=== PATIENT | female | born 1955 | race Caucasian/White ===

== ENCOUNTER 2016-07-27 16:47 | Observation (INO) | payer MEDICARE, OTHER ==
[2016-07-27] MEDS ORDERED: HYDROmorphone 1 MG/ML 1 ML SYRINGE IM STA (17:23)
--- NOTE | 2016-07-27 17:33 | ED ---
General Adult HPI - General Chief complaint: Extremity Injury, Lower Stated complaint: knee pain Time Seen by Provider: 07/27/16 17:13 Source: patient, RN notes reviewed, old records reviewed Mode of arrival: EMS Limitations: no limitations - History of Present Illness Initial comments: Chief complaint history of present illness this is a 60-year-old female brought to emergency by ambulance because of left knee pain. The patient reports she has osteoarthritis and she was stepping over something and all of a sudden she developed severe pain after she felt and heard a pop. The knee is significantly swollen and she is unable to extend she's stuck in a locked flexed position. Neurovascular status of the foot is intact. - Related Data Home Medications Medication Instructions Recorded Confirmed Atorvastatin [Lipitor] 40 mg PO HS@2300 06/21/15 07/27/16 DULoxetine HCL [DULoxetine HCL] 60 mg PO BID@0800,1700 06/21/15 07/27/16 Losartan [Cozaar] 50 mg PO DAILY@1700 06/21/15 07/27/16 Metoprolol Tartrate [Lopressor] 50 mg PO DAILY@2300 06/21/15 07/27/16 Ranitidine HCl 150 mg PO BID@1300,2300 06/21/15 07/27/16 Triamcinolone 0.1% Cream [Kenalog] 1 applic TOPICAL DAILY PRN 06/21/15 07/27/16 amLODIPine BESYLATE [Amlodipine 10 mg PO DAILY@0800 06/21/15 07/27/16 Besylate] traZODone HCL [Desyrel] 50 mg PO HS@2300 06/21/15 07/27/16 Calcium Carbonate [Calcium] 600 mg PO DAILY@1300 01/01/16 07/27/16 Multivits-Min/Iron/FA/Lutein 1 tab PO DAILY@0800 01/01/16 07/27/16 [Centrum Silver Women Tablet] metFORMIN HCL 1,500 mg PO DAILY@1700 01/01/16 07/27/16 Mupirocin 2% Oint [Bactroban 2% 1 applic TOPICAL TID PRN 05/22/16 07/27/16 Oint] Gabapentin [Neurontin] 300 mg PO TID@0800,1700,2300 05/29/16 07/27/16 Glimepiride [Amaryl] 4 mg PO BID@1300,1700 05/29/16 07/27/16 Ferrous Sulfate [Feosol] 325 mg PO Q48H 06/05/16 07/27/16 Acetaminophen Tab [Tylenol Tab] 650 mg PO Q4H PRN 07/27/16 07/27/16 Calcium Polycarbophil [Fiber-Lax] 625 mg PO DAILY@0800 07/27/16 07/27/16 Furosemide [Lasix] 20 mg PO BID@0800,1700 07/27/16 07/27/16 Levothyroxine Sodium [Synthroid] 50 mcg PO DAILY@0800 07/27/16 07/27/16 Loratadine [Claritin] 10 mg PO DAILY PRN 07/27/16 07/27/16 Potassium Chloride [Klor-Con 10] 10 meq PO DAILY@1700 07/27/16 07/27/16 Allergies Allergy/AdvReac Type Severity Reaction Status Date / Time ciprofloxacin [From Cipro] Allergy Anaphylaxis Verified 07/27/16 17:21 ciprofloxacin HCl Allergy Anaphylaxis Verified 07/27/16 17:21 [From Cipro] diazepam [From Valium] Allergy Rash/Hives Verified 07/27/16 17:21 metronidazole [From Flagyl] Allergy Anaphylaxis Verified 07/27/16 17:21 Sulfa (Sulfonamide Allergy Rash/Hives Verified 07/27/16 17:21 Antibiotics) metoclopramide HCl AdvReac Diarrhea Verified 07/27/16 17:21 [From Reglan] Review of Systems ROS Statement: Those systems with pertinent positive or pertinent negative responses have been documented in the HPI. Review of systems no complaint of headache or visual acuity changes no chest pain shortness breath GI/ problems this time her main complaint is left knee pain and swelling. All systems were otherwise reviewed. Past medical problems are multiple including coronary artery disease, angina, diabetes mellitus, GERD, hypertension and lipidemia hypertension, previous [place], osteoarthritis, skin disorder associated with chronic edema. Eczema,-year-old bowel syndrome, CTS bilaterally, disc disease, patient usually wears a leg brace. Her surgeries include appendectomy, , gallbladder, heart, hysterectomy, tonsillectomy, left breast lumpectomy. 2 D&Cs. Family history noncontributory. ALLERGIES Cipro, metronidazole, diazepam, sulfa and metoclopramide. ROS Other: All systems not noted in ROS Statement are negative. Past Medical History Past Medical History: Coronary Artery Disease (CAD), Chest Pain / Angina, Diabetes Mellitus, GERD/Reflux, Hyperlipidemia, Hypertension, Myocardial Infarction ([place]), Osteoarthritis (OA), Skin Disorder Additional Past Medical History / Comment(s): ECZEMA. IBS. CTS bilaterally. 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 WEARS LT KNEE BRACE Last Myocardial Infarction Date:: [place] X 3 LAST ONE 2006 History of Any Multi-Drug Resistant Organisms: MRSA Date of last positivie culture/infection: 01/01/16 MDRO Source:: right leg Past Surgical History: Appendectomy, Section, Cholecystectomy, Heart Catheterization With Stent, Hysterectomy, Tonsillectomy Additional Past Surgical History / Comment(s): LUMPECTOMY LT BREAST. D & C X 2 R/T MISCARRIAGE, tumor right shoulder removed Past Anesthesia/Blood Transfusion Reactions: Previous Problems w/ Anesthesia Additional Past Anesthesia/Blood Transfusion Reaction / Comment(s): TENDS TO HAVE PANIC ATTACKS WHEN COMING OUT OF ANESTHESIA Date of Last Stent Placement:: 2006 Past Psychological History: Anxiety, Depression, Panic Disorder, PTSD Smoking Status: Former smoker Past Alcohol Use History: None Reported Past Drug Use History: None Reported - Past Family History Mother Family Medical History: Cancer Father Family Medical History: Coronary Artery Disease (CAD), Myocardial Infarction ([place] ) General Exam - General Exam Comments Initial Comments: General: The patient is awake and alert, moderate distress because of significant pain and swelling acutely developed while stepping over something to her left knee. Vital signs showed temp 98.3 pulse 110 respiratory rate 24 pulse ox 97% room air blood pressure 157/73 Eye: Pupils are equal, Ears, nose, mouth and throat: There are moist mucous membranes Neck: The neck is supple, no complaint of neck pain. Back: No back pain Musculoskeletal: Patient has left knee that is locked in a full flexed position with significant swelling. No ecchymosis noted. Patient was stepping over something when she felt a pop and is now unable to extend at the knee. Neurological: No apparent neuro deficits distally. Skin: Skin disorder of her lower extremity chronic clears no wintertime. Limitations: no limitations Course Vital Signs 07/27/16 17:00 Temperature 98.3 F Pulse Rate 110 H Respiratory 24 Rate Blood Pressure 157/73 O2 Sat by Pulse 97 Oximetry Medical Decision Making - Medical Decision Making X-ray of the left knee was done and reviewed by radiologist his impression is there is narrowing and spurring at the patellofemoral joint. I see no fracture nor dislocation. There is spurring of the femoral and tibial condyles. There is no sign of joint effusion. Impression; osteoarthritis mainly at the patellofemoral joint. No fracture. As read by Dr. Grossman Second and third examinations still with significant pain unable to fully extend. Minimal pain with varus valgus stressing the patient cannot tolerate any ACL testing. Suspect internal derangement. Patient was unable to extend her foot or leg long enough to touch toes to the floor. Nonambulatory. Patient will be admitted to medicine with consultation from orthopedics. Disposition Clinical Impression: Internal derangement of left knee Disposition: ADMITTED IP TO THIS [facility] Condition: Fair
--- NOTE | 2016-07-27 18:01 | XR ---
EXAMINATION TYPE: XR knee complete LT DATE OF EXAM: 07/27/2016 5:56 PM COMPARISON: NONE HISTORY: Knee pain and swelling TECHNIQUE: 3 views FINDINGS: There is narrowing and spurring at the patellofemoral joint. I see no fracture nor dislocat ion. There is spurring of the femoral and tibial condyles. There is no sign of joint effusion. IMPRESSION: Osteoarthritis mainly at the patellofemoral joint. No fracture.
[2016-07-27 21:15] LABS: Glucose,Whole Blood 131 mg/dL (75-99)
[2016-07-27] MEDS ORDERED: ONDANSETRON 4 MG/2 ML VIAL IVP PRN (21:31)
[2016-07-27] MEDS ORDERED: NALOXONE 0.4 MG/ML 1 ML VIAL IV PRN (21:31)
[2016-07-27] MEDS ORDERED: MUPIROCIN 2% OINT 22 GM TUBE TOPICAL PRN (21:37)
[2016-07-27] MEDS ORDERED: TRIAMCINOLONE 0.1% CREAM 80 GM TUBE TOPICAL PRN (21:37)
[2016-07-27] MEDS ORDERED: CYCLOBENZAPRINE 5 MG TAB PO STA (21:40)
[2016-07-27] MEDS ORDERED: FERROUS SULFATE 325 MG TAB PO SCH (21:45)
[2016-07-27 22:30] VITALS: BMI 46.8
[2016-07-27] MEDS: GABAPENTIN 300 MG CAP PO SCH (22:35)
[2016-07-27] MEDS ORDERED: FAMOTIDINE 20 MG TAB PO STA (22:39)
[2016-07-27] MEDS ORDERED: metFORMIN 500 MG TAB PO STA (22:39)
[2016-07-27] MEDS ORDERED: POTASSIUM CHLORIDE ER 10 MEQ TAB.ER.PRT PO SCH (22:44)
[2016-07-27] MEDS ORDERED: traZODone HCL 50 MG TAB PO SCH (23:00)
[2016-07-27] MEDS ORDERED: METOPROLOL TARTRATE 50 MG TAB PO SCH (23:00)
[2016-07-27] MEDS ORDERED: ATORVASTATIN 40 MG TAB PO SCH (23:00)
[2016-07-27] MEDS: SODIUM CHLORIDE 0.9% 1,000 ML IV SCH (23:21)
[2016-07-27] MEDS: GLIMEPIRIDE 4 MG TAB PO SCH (23:22)
[2016-07-27] MEDS: DULoxetine HCL 60 MG CAPSULE.DR PO SCH (23:22)
[2016-07-28] MEDS: HYDROmorphone 1 MG/ML 1 ML SYRINGE IV PRN ×2 (04:59→10:48)
[2016-07-28 07:05] LABS: Glucose,Whole Blood 143 mg/dL (75-99)
[2016-07-28 07:21] LABS: Basophils # (A) 0.1 k/uL (0-0.2); Basophils % (A) 1 %; CHCM 33.4; Eosinophils # (A) 0.2 k/uL (0-0.7); Eosinophils % (A) 3 %; HCT 34.8 % (34.0-46.0); HGB 11.5 gm/dL (11.4-16.0); Luc % (Auto) 3; Lymphocytes # (A) 2.3 k/uL (1.0-4.8); Lymphocytes % (A) 33 %; MCH 30.8 pg (25.0-35.0); MCV 93.3 fL (80.0-100.0); Mean Platelet Volume 7.2; Monocytes # (A) 0.5 k/uL (0-1.0); Monocytes % (A) 7 %; Neutrophils # (A) 3.6 k/uL (1.3-7.7); Neutrophils % (A) 53 %; RBC 3.73 m/uL (3.80-5.40); RDW 13.3 % (11.5-15.5); WBC 6.9 k/uL (3.8-10.6); WBC (Perox) 7.17
[2016-07-28 07:31] LABS: Anion Gap 13 mmol/L; Blood Urea Nitrogen 15 mg/dL (7-17); Calcium 9.2 mg/dL (8.4-10.2); Carbon Dioxide 23 mmol/L (22-30); Chloride 106 mmol/L (98-107); Glucose 144 mg/dL (74-99); Non-African American GFR(MDRD) >60 (>60 ml/min/1.73 sqM); Sodium 142 mmol/L (137-145)
[2016-07-28] MEDS ORDERED: amLODIPine 10 MG TAB PO SCH (08:00)
[2016-07-28] MEDS ORDERED: DULoxetine HCL 60 MG CAPSULE.DR PO SCH (08:00)
[2016-07-28] MEDS ORDERED: CALCIUM POLYCARBOPHIL 625 MG TAB PO SCH (08:00)
[2016-07-28] MEDS ORDERED: LEVOTHYROXINE 50 MCG TAB PO SCH (08:00)
[2016-07-28] MEDS: INSULIN LISPRO (humaLOG) 300 UNIT/3 ML VIAL SQ SCH ×3 (08:10→17:48)
[2016-07-28] MEDS: DULoxetine HCL 60 MG CAPSULE.DR PO SCH ×2 (08:12→17:47)
[2016-07-28] MEDS: metFORMIN 500 MG TAB PO SCH ×2 (08:12→17:48)
[2016-07-28] MEDS: FUROSEMIDE 20 MG TAB PO SCH ×2 (08:12→17:47)
[2016-07-28] MEDS: GABAPENTIN 300 MG CAP PO SCH (08:14)
[2016-07-28] MEDS ORDERED: FAMOTIDINE 20 MG TAB PO SCH (09:00)
[2016-07-28 11:11] VITALS: TEMP 97.5
--- NOTE | 2016-07-28 11:39 | US ---
EXAMINATION TYPE: US venous doppler duplex LE LT DATE OF EXAM: 07/28/2016 10:18 AM COMPARISON: US 2016 CLINICAL HISTORY: Left leg pain. SIDE PERFORMED: Left VESSELS IMAGED: External Iliac Vein (EIV) Common Femoral Vein Deep Femoral Vein Greater Saphenous Vein * Femoral Vein Popliteal Vein Small Saphenous Vein * Proximal Calf Veins (* superficial vessels) Left Leg: No evidence of DVT. Incidental finding of left Mohr's cyst = 3.8 x 2.5 x 2.1 cm Grayscale, color Doppler, spectral Doppler imaging performed of the deep veins of the left lower extr emity. IMPRESSION: No deep venous thrombosis at or above the left knee. 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
[2016-07-28 11:55] LABS: Glucose,Whole Blood 144 mg/dL (75-99)
[2016-07-28] MEDS ORDERED: CYCLOBENZAPRINE 5 MG TAB PO PRN (12:13)
[2016-07-28] MEDS ORDERED: HYDROcodone/APAP 5-325MG 1 EACH TAB PO PRN (12:18)
--- NOTE | 2016-07-28 12:28 | P.HPOR ---
History of Present Illness H&P Date: 07/28/16 Chief Complaint: Left knee pain The patient is a 60-year-old female that presented to the emergency department yesterday for severe left knee pain. The patient states that she was at home and stepped down on her left leg and felt a pop. The patient states that most of her pain is on the lateral and posterior aspect of her left knee. The patient was seen and evaluated by Dr. Lou in the emergency department last night. The patient was admitted to our service due to inability to ambulate. The patient was given Flexeril and Dilaudid with improvement of pain. A venous Doppler was obtained this morning which was negative for DVT but did reveal a Mohr's cyst. She denies a specific injury to this knee in the past but has seen Dr. Hunt and Dr. Queen in our office. She is currently under the care of Dr. Hunt for right shoulder rotator cuff tendonitis. Today, the patient states that her left knee is feeling better but she has not ambulated with physical therapy yet today. Review of Systems Constitutional: Reports as per HPI, Denies chills, Denies fever, Denies lethargy Musculoskeletal: Reports limitation of motion, Reports muscle cramps, Denies leg numbness/tingling Musculoskeletal: left: knee pain, knee stiffness Past Medical History Past Medical History: Coronary Artery Disease (CAD), Chest Pain / Angina, Diabetes Mellitus, GERD/Reflux, Hyperlipidemia, Hypertension, Myocardial Infarction ([place]), Osteoarthritis ([place]), Skin Disorder Additional Past Medical History / Comment(s): ECZEMA. IBS. CTS bilaterally. 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 WEARS LT KNEE BRACE Last Myocardial Infarction Date:: [place] X 3 LAST ONE 2006 History of Any Multi-Drug Resistant Organisms: MRSA Date of last positivie culture/infection: 01/01/16 MDRO Source:: right leg Past Surgical History: Appendectomy, Section, Cholecystectomy, Heart Catheterization With Stent, Hysterectomy, Tonsillectomy Additional Past Surgical History / Comment(s): LUMPECTOMY LT BREAST. D & C X 2 R/T MISCARRIAGE, tumor right shoulder removed Past Anesthesia/Blood Transfusion Reactions: Previous Problems w/ Anesthesia Additional Past Anesthesia/Blood Transfusion Reaction / Comment(s): TENDS TO HAVE PANIC ATTACKS WHEN COMING OUT OF ANESTHESIA Date of Last Stent Placement:: 2006 Past Psychological History: Anxiety, Depression, Panic Disorder, PTSD Smoking Status: Former smoker Past Alcohol Use History: None Reported Past Drug Use History: None Reported - Past Family History Mother Family Medical History: Cancer Father Family Medical History: Coronary Artery Disease (CAD), Myocardial Infarction ([place] ) Medications and Allergies Home Medications Medication Instructions Recorded Confirmed Type Atorvastatin [Lipitor] 40 mg PO HS@2300 06/21/15 07/27/16 History DULoxetine HCL [DULoxetine HCL] 60 mg PO BID@0800,1700 06/21/15 07/27/16 History Losartan [Cozaar] 50 mg PO DAILY@1700 06/21/15 07/27/16 History Metoprolol Tartrate [Lopressor] 50 mg PO DAILY@2300 06/21/15 07/27/16 History Ranitidine HCl 150 mg PO BID@1300,2300 06/21/15 07/27/16 History Triamcinolone 0.1% Cream [Kenalog] 1 applic TOPICAL DAILY PRN 06/21/15 07/27/16 History amLODIPine BESYLATE [Amlodipine 10 mg PO DAILY@0800 06/21/15 07/27/16 History Besylate] traZODone HCL [Desyrel] 50 mg PO HS@2300 06/21/15 07/27/16 History Calcium Carbonate [Calcium] 600 mg PO DAILY@1300 01/01/16 07/27/16 History Multivits-Min/Iron/FA/Lutein 1 tab PO DAILY@0800 01/01/16 07/27/16 History [Centrum Silver Women Tablet] metFORMIN HCL 1,500 mg PO DAILY@1700 01/01/16 07/27/16 History Mupirocin 2% Oint [Bactroban 2% 1 applic TOPICAL TID PRN 05/22/16 07/27/16 History Oint] Gabapentin [Neurontin] 300 mg PO TID@0800,1700,2300 05/29/16 07/27/16 History Glimepiride [Amaryl] 4 mg PO BID@1300,1700 05/29/16 07/27/16 History Ferrous Sulfate [Feosol] 325 mg PO Q48H 06/05/16 07/27/16 History Acetaminophen Tab [Tylenol Tab] 650 mg PO Q4H PRN 07/27/16 07/27/16 History Calcium Polycarbophil [Fiber-Lax] 625 mg PO DAILY@0800 07/27/16 07/27/16 History Furosemide [Lasix] 20 mg PO BID@0800,1700 07/27/16 07/27/16 History Levothyroxine Sodium [Synthroid] 50 mcg PO DAILY@0800 07/27/16 07/27/16 History Loratadine [Claritin] 10 mg PO DAILY PRN 07/27/16 07/27/16 History Potassium Chloride [Klor-Con 10] 10 meq PO DAILY@1700 07/27/16 07/27/16 History Allergies Allergy/AdvReac Type Severity Reaction Status Date / Time ciprofloxacin [From Cipro] Allergy Anaphylaxis Verified 07/27/16 17:21 ciprofloxacin HCl Allergy Anaphylaxis Verified 07/27/16 17:21 [From Cipro] diazepam [From Valium] Allergy Rash/Hives Verified 07/27/16 17:21 metronidazole [From Flagyl] Allergy Anaphylaxis Verified 07/27/16 17:21 Sulfa (Sulfonamide Allergy Rash/Hives Verified 07/27/16 17:21 Antibiotics) metoclopramide HCl AdvReac Diarrhea Verified 07/27/16 17:21 [From Reglan] Physical Examination The patient is a 60-year-old female who is in no acute distress. She is alert and oriented 3. No obvious deformities or issues with her bilateral upper extremities and right lower extremity. Focused exam of the left lower extremity reveals the left knee currently in a pillow at 30 flexion. The patient is able to fully extend knee with pain. Patient has full flexion of the knee to 110 without significant pain. She has pain to palpation to the posterior aspect of the knee. The patient does have some guarding upon palpation of the anterior knee along the medial and lateral joint line. MCL, LCL, PCL, ACL appeared to be intact. Exam slightly limited due to pain and guarding. Unable to perform Carlyn's due to pain. Neurological and circulatory status is intact. Pedal pulse is 2+. Results - Labs Labs: Abnormal Lab Results - Last 24 Hours (Table) 07/28/16 07/28/16 07/28/16 Range/Units 06:59 06:59 06:59 RBC 3.73 L (3.80-5.40) m/uL Glucose 144 H (74-99) mg/dL POC Glucose (mg/dL) 143 H (75-99) mg/dL 07/28/16 Range/Units 11:20 RBC (3.80-5.40) m/uL Glucose (74-99) mg/dL POC Glucose (mg/dL) 144 H (75-99) mg/dL H & H 07/28/16 Range/Units 06:59 Hgb 11.5 (11.4-16.0) gm/dL Hct 34.8 (34.0-46.0) % Result Diagrams: 07/28/16 06:59 07/28/16 06:59 - Diagnostic results Knee x-ray: image reviewed (Severe patellofemoral osteoarthritis is present. No fractures seen) Assessment and Plan (1) Internal derangement of left knee Status: Acute (2) Knee pain, left Status: Acute Plan: The clinical and x-ray findings were discussed with the patient. The case was also discussed with Dr. Hunt. The patient states that she has a brace at home but it is not a hinged brace. The patient will be ordered a hinged brace today. The patient will work with physical therapy today for gait training with a walker, crutches, or cane. She may maintain weightbearing as tolerated. The patient may be discharged home later today once brace is obtained and if safely ambulating after physical therapy. The patient will continue on Flexeril and oral pain medications in the form of Belle be ordered today. The patient may need an MRI in the near future if symptoms do not improve. We will continue to follow patient closely but she is orthopedically stable for discharge after physical therapy.
[2016-07-28] MEDS: SODIUM CHLORIDE 0.9% 1,000 ML IV SCH (12:53)
[2016-07-28] MEDS: GLIMEPIRIDE 4 MG TAB PO SCH ×2 (12:57→17:48)
[2016-07-28] MEDS ORDERED: metFORMIN 500 MG TAB PO SCH ×2 (13:00→17:00)
[2016-07-28] MEDS ORDERED: GLIMEPIRIDE 4 MG TAB PO SCH (13:00)
[2016-07-28] MEDS ORDERED: CALCIUM CARBONATE 500 MG CHEWABLE PO SCH (13:00)
[2016-07-28 13:30] LABS: Hemoglobin A1C 6.8 % (4.2-6.1)
[2016-07-28 13:45] VITALS: BP 138/75; PULSE 93; RESP 18
[2016-07-28 16:35] LABS: Glucose,Whole Blood 114 mg/dL (75-99)
[2016-07-28] MEDS ORDERED: LOSARTAN 50 MG TAB PO SCH (17:00)
[2016-07-28] MEDS ORDERED: POTASSIUM CHLORIDE ER 10 MEQ TAB.ER.PRT PO SCH (17:00)
--- NOTE | 2016-07-28 21:39 | CONS ---
DATE OF CONSULTATION: REASON FOR CONSULTATION: ( ) regarding antihypertensive medications, diabetes medications. The patient is a 60 -year-old female came in with left knee pain, found to have ( ) level of the left posterior aspect of the knee. The patient follows with Dr. Lou. The patient was evaluated by Dr. Lou and venous Doppler of the lower extremity was obtained ( ) Mohr's cyst. The patient is still having pain in that area and orthopedics has recommended ( ) of that area and PT and OT evaluation ( ) if patient is able to ambulate their recommendation to discharge the patient in the meantime. I was consulted for management of her medical problems as mentioned above. Patient denied any fever, chills. The patient denied any nausea, vomiting, abdominal pain, fever or chills. Dysuria, nausea, vomiting. REVIEW OF SYSTEMS: CONSTITUTIONAL: No fever, no malaise, no fatigue. HEENT: No recent visual problems or hearing problems. Denied any sore throat. CARDIOVASCULAR: No chest pain, orthopnea, PND, no palpitations, no syncope. PULMONARY: No shortness of breath, no cough, no hemoptysis. GASTROINTESTINAL: No diarrhea, no nausea, no vomiting, no abdominal pain. Normoactive bowel sounds. NEUROLOGICAL: No headaches, no weakness, no numbness. HEMATOLOGICAL: Denies any bleeding or petechiae. GENITOURINARY: Denies any burning micturition, frequency, or urgency. MUSCULOSKELETAL/RHEUMATOLOGICAL: Defer to orthopedic surgery. ENDOCRINE: Denies any polyuria or polydipsia. The rest of the 14 point review of systems is negative. PAST MEDICAL HISTORY: Coronary artery disease, diabetes mellitus, gastroesophageal reflux disease, hyperlipidemia, hypertension, myocardial infarction, osteoarthritis, eczema, irritable bowel syndrome, tumor on the right shoulder, appendectomy, section, cholecystectomy, cardiac catheterization with stent placement, hysterectomy, tonsillectomy, anxiety, depression, panic disorder, former smoker, quit smoking years ago. Denied any alcohol abuse or any drug abuse. FAMILY HISTORY: Mother had cancer. Father had coronary artery disease and myocardial infarction. Home medications include: 1. Atorvastatin. 2. Duloxetine. 3. Losartan. 4. Metoprolol. 5. Ranitidine. 6. Triamcinolone. 7. Amlodipine. 8. Trazodone. 9. Calcium carbonate. 10. Multivitamin. 11. Metformin. 12. ( ). 13. Gabapentin. 14. Glimepiride. 15. Ferrous sulfate. 16. Acetaminophen. 17. Calcium. 18. ( ). 19. Lasix. 20. Levothyroxine. 21. Loratadine. 22. Potassium chloride. ALLERGIES: ALLERGIC TO CIPROFLOXACIN, ( ) METRONIDAZOLE, SULFUR, ANTIBIOTIC AND METOCLOPRAMIDE. PHYSICAL EXAMINATION: VITAL SIGNS: Temperature afebrile, pulse of 75, respiratory rate of 19, blood pressure 140/80, saturating at 98% on room air. GENERAL: The patient is alert and oriented x3, not in any acute distress. Well developed, well nourished. HEENT: Pupils are round and equally reacting to light. EOMI. No scleral icterus. No conjunctival pallor. Normocephalic, atraumatic. No pharyngeal erythema. No thyromegaly. CARDIOVASCULAR: S1 and S2 present. No murmurs, rubs, or gallops. PULMONARY: Chest is clear to auscultation, no wheezing or crackles. ABDOMEN: Soft, nontender, nondistended, normoactive bowel sounds. No palpable organomegaly. MUSCULOSKELETAL: Defer to orthopedic surgery. EXTREMITIES: No cyanosis, clubbing, or pedal edema. NEUROLOGICAL: Gross neurological examination did not reveal any focal deficits. SKIN: No rashes. LABORATORY DATA: CBC, CMP, essentially within normal limits. ASSESSMENT AND PLAN: 1. Mohr's cyst under the left knee, management as per primary services ( ) and PT and OT evaluation after which patient will be discharged. 2. Hypothyroidism. 3. Type 2 diabetes mellitus. 4. Hyperlipidemia. 5. Hypertension. 6. Depression. 7. Gastroesophageal reflux disease. PLAN: Medication reconciliation was done and recommend to continue her home medications. All her chronic medical problems appear to be fairly stable at this point of time. Continue to monitor. I recommend a sliding scale insulin if the patient is staying in the hospital and I will titrate the diabetic medications as necessary. Thank you for letting me participate in this patient's care. We will sign off at this point of time.
== END 2016-07-28 18:34 | disposition home or self-care (01) ==
LOC: EC 16:47 → 3SUR 21:31
PROVIDERS: ADMIT Orthopaedic Surgery; ATTEND Orthopaedic Surgery
DX: M71.22 Synovial cyst of popliteal space [Baker], left knee (principal); E03.9 Hypothyroidism, unspecified; E11.9 Type 2 diabetes mellitus without complications; E78.5 Hyperlipidemia, unspecified; I10 Essential (primary) hypertension; F32.9 Major depressive disorder, single episode, unspecified; K21.9 Gastro-esophageal reflux disease without esophagitis; M23.92 Unspecified internal derangement of left knee; M17.12 Unilateral primary osteoarthritis, left knee; I25.10 Atherosclerotic heart disease of native coronary artery without angina pectoris; M75.101 Unspecified rotator cuff tear or rupture of right shoulder, not specified as traumatic; I25.2 Old myocardial infarction; Z95.5 Presence of coronary angioplasty implant and graft; Z86.14 Personal history of Methicillin resistant Staphylococcus aureus infection; Z79.899 Other long term (current) drug therapy; Z79.84 Long term (current) use of oral hypoglycemic drugs; Z88.1 Allergy status to other antibiotic agents; Z88.2 Allergy status to sulfonamides; Z88.8 Allergy status to other drugs, medicaments and biological substances; Z82.49 Family history of ischemic heart disease and other diseases of the circulatory system; Z87.891 Personal history of nicotine dependence; Z80.9 Family history of malignant neoplasm, unspecified; Z53.8 Procedure and treatment not carried out for other reasons
CPT/HCPCS: 99284; 96372; 36415; 97161; 80048; 83036; 85025; 73562; 93965; 93971; G0378 ×2; J1170 ×2; 96374; 96376

== ENCOUNTER → 2016-11-06 | Outpatient (CLI) | payer MEDICARE, OTHER ==
--- NOTE | 2016-11-06 14:53 | XR ---
2 view abdomen No comparisons 2 views of the abdomen submitted on 3 images The lung bases are clear. There is no pneumoperitoneum or bowel obstruction. Surgical clips are prese nt within the abdomen. Degenerative disc change within the visualized spine, there are vascular calci fications within the pelvis. Difficult to exclude lower pole renal calcification on the left. IMPRESSION: Possible nephrolithiasis, CT scan could be performed for increased sensitivity..
== END | disposition home or self-care (01) ==
LOC: RADXRMAIN 10:35
PROVIDERS: ATTEND Physician Assistant Medical
DX: R10.84 Generalized abdominal pain (principal)
CPT/HCPCS: 74020

== ENCOUNTER → 2016-11-20 | Outpatient (CLI) | payer MEDICARE, OTHER ==
[2016-11-20 07:33] LABS: Blood Urea Nitrogen 20 mg/dL (7-17); Non-African American GFR(MDRD) >60 (>60 ml/min/1.73 sqM)
--- NOTE | 2016-11-20 09:45 | CT ---
EXAMINATION TYPE: CT abdomen pelvis wo/w con DATE OF EXAM: 11/20/2016 8:15 AM COMPARISON: NONE HISTORY: Back pain, diarrhea, nausea CT DLP: 3671.9 mGycm Automated exposure control for dose reduction was used. TECHNIQUE: Helical acquisition of images was performed from the lung bases through the pelvis pre- a nd postadministration of intravenous contrast. CONTRAST: Performed with Oral Contrast and with IV Contrast, patient injected with 100 mL of Omnipaque 300. FINDINGS: LUNG BASES: Lung bases are clear, there is no pleural or pericardial effusion evident. LIVER/GB: Liver shows low attenuation likely due to fatty infiltration and is enlarged. Gallbladder i s absent, surgical clips present compatible with post cholecystectomy PANCREAS: No significant abnormality is seen. SPLEEN: No significant abnormality is seen. ADRENALS: No significant abnormality is seen. KIDNEYS: Bilateral nephrolithiasis, lower pole on the left calcification is nonobstructive and measur es approximately 8 to 9 mm. Upper pole right sided calcification measures only 2 to 3 mm. No ureteral calcification FREE AIR: No free air is visualized. RETROPERITONEAL ADENOPATHY: None visualized REPRODUCTIVE ORGANS: No significant abnormality is seen URINARY BLADDER: No significant abnormality is seen. PELVIC ADENOPATHY: Nonenlarged nodes are present. OSSEOUS STRUCTURES: Mild degenerative disc changes in the visualized spine. BOWEL: Patient is post appendectomy. No evident bowel obstruction. Contrast is not coursed to the le raimundo of the distal small bowel or colon. Small bowel loops show some wall thickening. OTHER: IMPRESSION: CORRELATE FOR POSSIBLE ENTERITIS. BILATERAL NONOBSTRUCTIVE NEPHROLITHIASIS. HEPATOMEGALY, POSTOP TREVIZO GES, PROBABLE FATTY INFILTRATION OF THE LIVER.
== END | disposition home or self-care (01) ==
LOC: RADCTMAIN 06:49
PROVIDERS: ATTEND Physician Assistant Medical
DX: N20.0 Calculus of kidney (principal); R19.7 Diarrhea, unspecified; Z98.890 Other specified postprocedural states
CPT/HCPCS: 82565; 84520; 74178; 36415; Q9967

== ENCOUNTER → 2016-12-09 | Outpatient (CLI) | payer MEDICARE, OTHER ==
--- NOTE | 2016-12-09 14:51 | XR ---
EXAMINATION TYPE: XR abdomen 1V DATE OF EXAM: 12/09/2016 2:40 PM COMPARISON: 11/06/2016 HISTORY: Left flank pain TECHNIQUE: One view abdominal series FINDINGS: The osseous structures are intact. The bowel gas pattern is nonspecific. Previous surgery in right u pper quadrant. Hypertrophic change spine. Tiny calcifications pelvis. Arthropathy of the hips and vas cular calcifications. IMPRESSION: 1. Nonspecific abdomen. Tiny pelvic calcifications measuring 1 to 2 mm are nonspecific.
== END | disposition home or self-care (01) ==
LOC: RADXRMAIN 14:16
PROVIDERS: ATTEND Urology
DX: N20.0 Calculus of kidney (principal)
CPT/HCPCS: 74000

== ENCOUNTER 2016-12-26 17:18 | Emergency (ER) | payer MEDICARE, OTHER ==
[2016-12-26] MEDS ORDERED: SODIUM CHLORIDE 0.9% 1,000 ML IV STA (18:07)
[2016-12-26] MEDS ORDERED: ONDANSETRON 4 MG/2 ML VIAL IVP STA (18:07)
--- NOTE | 2016-12-26 18:18 | ED ---
General Adult HPI - General Chief complaint: Recheck/Abnormal Lab/Rx Stated complaint: Kidney Stone Time Seen by Provider: 12/26/16 17:51 Source: patient, RN notes reviewed, old records reviewed Mode of arrival: ambulatory Limitations: no limitations - History of Present Illness Initial comments: Is a 61-year-old female with multiple chief complaints. Patient reports that over the past 2 weeks her primary care provider changed her diabetes medication regimen. Patient reports that over the past 3 days she's noticed that her blood sugars have been elevated in the 300. Patient reports that over the past few days she's had increased body aches, sore throat, occasional shortness of breath, left upper quadrant abdominal pain. Patient reports that she has a history of kidney stones and is concerned it may be the source of infection is coming from her kidney stones. She reports that she was supposed to have lithotripsy completed [facility] but she missed her appointment. Patient states that she has no significant change in her back pain. Patient reports just seems like a dull chronic aching pain that she's had for quite some time. Patient is concerned that she may have some sort of infection due to her elevated blood sugars. Patient states that she has not taken any Motrin or Tylenol. She does feel nauseated. Denies any dysuria. She also reports that she did have a normal bowel movement today. - Related Data Home Medications Medication Instructions Recorded Confirmed Atorvastatin [Lipitor] 40 mg PO HS@2300 06/21/15 12/26/16 DULoxetine HCL [DULoxetine HCL] 60 mg PO BID@0800,1700 06/21/15 12/26/16 Losartan [Cozaar] 50 mg PO DAILY@1700 06/21/15 12/26/16 Metoprolol Tartrate [Lopressor] 50 mg PO DAILY@2300 06/21/15 12/26/16 Ranitidine HCl 150 mg PO BID@1300,2300 06/21/15 12/26/16 Triamcinolone 0.1% Cream [Kenalog] 1 applic TOPICAL DAILY PRN 06/21/15 12/26/16 amLODIPine BESYLATE [Amlodipine 10 mg PO DAILY@0800 06/21/15 12/26/16 Besylate] traZODone HCL [Desyrel] 50 mg PO HS@2300 06/21/15 12/26/16 Calcium Carbonate [Calcium] 600 mg PO DAILY@1300 01/01/16 12/26/16 Multivit-Min/Iron/Folic/Lutein 1 tab PO DAILY@2300 01/01/16 12/26/16 [Centrum Silver Women Tablet] Mupirocin 2% Oint [Bactroban 2% 1 applic TOPICAL TID PRN 05/22/16 12/26/16 Oint] Glimepiride [Amaryl] 4 mg PO BID@0800,1700 05/29/16 12/26/16 Ferrous Sulfate [Feosol] 325 mg PO Q48H 06/05/16 12/26/16 Calcium Polycarbophil [Fiber-Lax] 625 mg PO DAILY@0800 07/27/16 12/26/16 Furosemide [Lasix] 20 mg PO BID@0800,1500 07/27/16 12/26/16 Levothyroxine Sodium [Synthroid] 50 mcg PO DAILY@0800 07/27/16 12/26/16 Loratadine [Claritin] 10 mg PO DAILY PRN 07/27/16 12/26/16 Potassium Chloride [Klor-Con 10] 10 meq PO DAILY@1700 07/27/16 12/26/16 Acetaminophen [Tylenol 8 Hour] 650 mg PO Q8H PRN 12/26/16 12/26/16 Dapagliflozin Propanediol [Farxiga] 5 mg PO DAILY@229912/26/16 12/26/16 Fluocinonide 1 applic TOPICAL BID PRN 12/26/16 12/26/16 Gabapentin 600 mg PO TID@0800,1700,2300 12/26/16 12/26/16 Magnesium 400 mg PO DAILY@17012/26/16 12/26/16 Previous Rx's Medication Instructions Recorded Nitrofurantoin Monohyd/M-Cryst 100 mg PO Q12HR #14 cap 12/26/16 [Macrobid] Allergies Allergy/AdvReac Type Severity Reaction Status Date / Time ciprofloxacin [From Cipro] Allergy Anaphylaxis Verified 12/26/16 18:10 ciprofloxacin HCl Allergy Anaphylaxis Verified 12/26/16 18:10 [From Cipro] diazepam [From Valium] Allergy Rash/Hives Verified 12/26/16 18:10 metronidazole [From Flagyl] Allergy Anaphylaxis Verified 12/26/16 18:10 Sulfa (Sulfonamide Allergy Rash/Hives Verified 12/26/16 18:10 Antibiotics) metoclopramide HCl AdvReac Diarrhea Verified 12/26/16 18:10 [From [facility]] Review of Systems ROS Statement: Those systems with pertinent positive or pertinent negative responses have been documented in the HPI. ROS Other: All systems not noted in ROS Statement are negative. Past Medical History Past Medical History: Coronary Artery Disease (CAD), Chest Pain / Angina, Diabetes Mellitus, GERD/Reflux, Hyperlipidemia, Hypertension, Myocardial Infarction (PA), Osteoarthritis (OA), Skin Disorder Additional Past Medical History / Comment(s): ECZEMA. IBS. CTS bilaterally. 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 WEARS LT KNEE BRACE Last Myocardial Infarction Date:: PA X 3 LAST ONE 2006 History of Any Multi-Drug Resistant Organisms: MRSA Date of last positivie culture/infection: 01/01/16 MDRO Source:: right leg Past Surgical History: Appendectomy, Section, Cholecystectomy, Heart Catheterization With Stent, Hysterectomy, Tonsillectomy Additional Past Surgical History / Comment(s): LUMPECTOMY LT BREAST. D & C X 2 R/T MISCARRIAGE, tumor right shoulder removed Past Anesthesia/Blood Transfusion Reactions: Previous Problems w/ Anesthesia Additional Past Anesthesia/Blood Transfusion Reaction / Comment(s): TENDS TO HAVE PANIC ATTACKS WHEN COMING OUT OF ANESTHESIA Date of Last Stent Placement:: 2006 Past Psychological History: Anxiety, Depression, Panic Disorder, PTSD Smoking Status: Former smoker Past Alcohol Use History: None Reported Past Drug Use History: None Reported - Past Family History Mother Family Medical History: Cancer Father Family Medical History: Coronary Artery Disease (CAD), Myocardial Infarction (PA ) General Exam Limitations: no limitations Course Vital Signs 12/26/16 12/26/16 12/26/16 17:30 18:34 20:00 Temperature 100.3 F H 98.0 F Pulse Rate 112 H 110 H 108 H Respiratory 18 16 18 Rate Blood Pressure 136/86 165/69 134/63 O2 Sat by Pulse 99 93 L 95 Oximetry 12/26/16 12/26/16 21:00 22:15 Temperature 97.8 F Pulse Rate 100 104 H Respiratory 18 18 Rate Blood Pressure 120/59 119/58 O2 Sat by Pulse 94 L 98 Oximetry Medical Decision Making - Medical Decision Making Is a 61-year-old female with multiple chief complaints. Patient reports that over the past 2 weeks her primary care provider changed her diabetes medication regimen. Patient reports that over the past 3 days she's noticed that her blood sugars have been elevated in the 300. Patient reports that over the past few days she's had increased body aches, sore throat, occasional shortness of breath, left upper quadrant abdominal pain. Patient reports that she has a history of kidney stones and is concerned it may be the source of infection is coming from her kidney stones. Patient is concerned that she may have some sort of infection due to her elevated blood sugars. Patient states that she has not taken any Motrin or Tylenol. She does feel nauseated. Denies any dysuria. She also reports that she did have a normal bowel movement today. His lab work was reviewed. Mildly elevated lactic acid of 2.4, patient was given fluids and lactic repeated and was 1.6. No evidence of significant white count. Rest of the CMP is benign. Patient's urinalysis did show 60 white blood cells and high leukocyte esterase, no RBC showing signs of nephrolithiasis. Culture will be obtained. Patient was started on antibiotics for urinary tract infection. Patient advised to follow up with PCP. Advised to monitor diet and control blood sugars with PCP thu. REturn parameters dicussed. - Lab Data Result diagrams: 12/26/16 18:40 12/26/16 18:40 Lab Results 12/26/16 12/26/16 12/26/16 Range/Units 18:40 18:40 18:40 WBC 8.4 (3.8-10.6) k/uL RBC 4.36 (3.80-5.40) m/uL Hgb 13.8 (11.4-16.0) gm/dL Hct 38.9 (34.0-46.0) % MCV 89.3 D (80.0-100.0) fL MCH 31.6 (25.0-35.0) pg MCHC 35.4 (31.0-37.0) g/dL RDW 13.4 (11.5-15.5) % Plt Count 262 (150-450) k/uL Neutrophils % 65 % Lymphocytes % 21 % Monocytes % 7 % Eosinophils % 3 % Basophils % 0 % Neutrophils # 5.4 (1.3-7.7) k/uL Lymphocytes # 1.8 (1.0-4.8) k/uL Monocytes # 0.6 (0-1.0) k/uL Eosinophils # 0.3 (0-0.7) k/uL Basophils # 0.0 (0-0.2) k/uL PT (9.0-12.0) sec INR (<1.1) APTT (22.0-30.0) sec Sodium 139 (137-145) mmol/L Potassium 4.1 (3.5-5.1) mmol/L Chloride 98 (98-107) mmol/L Carbon Dioxide 29 (22-30) mmol/L Anion Gap 12 mmol/L BUN 15 (7-17) mg/dL Creatinine 0.75 (0.52-1.04) mg/dL Est GFR (MDRD) Af Amer >60 (>60 ml/min/1.73 sqM) Est GFR (MDRD) Non-Af >60 (>60 ml/min/1.73 sqM) Glucose 179 H (74-99) mg/dL Plasma Lactic Acid Jose L (0.7-2.0) mmol/L Calcium 9.5 (8.4-10.2) mg/dL Total Bilirubin 0.9 (0.2-1.3) mg/dL AST 37 H (14-36) U/L ALT 50 (9-52) U/L Alkaline Phosphatase 142 H (38-126) U/L Total Creatine Kinase 63 (30-135) U/L CK-MB (CK-2) 1.1 (0.0-2.4) ng/mL CK-MB (CK-2) Rel Index 1.7 Troponin I <0.012 (0.000-0.034) ng/mL Total Protein 7.8 (6.3-8.2) g/dL Albumin 4.6 (3.5-5.0) g/dL Amylase 49 (30-110) U/L Lipase 107 (23-300) U/L Urine Color Urine Appearance (Clear) Urine pH (5.0-8.0) Ur Specific Alexander (1.001-1.035) Urine Protein (Negative) Urine Glucose (UA) (Negative) Urine Ketones (Negative) Urine Blood (Negative) Urine Nitrite (Negative) Urine Bilirubin (Negative) Urine Urobilinogen (<2.0) mg/dL Ur Leukocyte Esterase (Negative) Urine RBC (0-5) /hpf Urine WBC (0-5) /hpf Ur Squamous Epith Cells (0-4) /hpf Urine Bacteria (None) /hpf Urine Mucus (None) /hpf Acetone, Qual Negative (Negative) Group A Strep Rapid (Negative) 12/26/16 12/26/16 12/26/16 Range/Units 18:40 18:40 18:40 WBC (3.8-10.6) k/uL RBC (3.80-5.40) m/uL Hgb (11.4-16.0) gm/dL Hct (34.0-46.0) % MCV (80.0-100.0) fL MCH (25.0-35.0) pg MCHC (31.0-37.0) g/dL RDW (11.5-15.5) % Plt Count (150-450) k/uL Neutrophils % % Lymphocytes % % Monocytes % % Eosinophils % % Basophils % % Neutrophils # (1.3-7.7) k/uL Lymphocytes # (1.0-4.8) k/uL Monocytes # (0-1.0) k/uL Eosinophils # (0-0.7) k/uL Basophils # (0-0.2) k/uL PT 9.8 (9.0-12.0) sec INR 1.0 (<1.1) APTT 22.0 (22.0-30.0) sec Sodium (137-145) mmol/L Potassium (3.5-5.1) mmol/L Chloride (98-107) mmol/L Carbon Dioxide (22-30) mmol/L Anion Gap mmol/L BUN (7-17) mg/dL Creatinine (0.52-1.04) mg/dL Est GFR (MDRD) Af Amer (>60 ml/min/1.73 sqM) Est GFR (MDRD) Non-Af (>60 ml/min/1.73 sqM) Glucose (74-99) mg/dL Plasma Lactic Acid Jose L 2.4 H* (0.7-2.0) mmol/L Calcium (8.4-10.2) mg/dL Total Bilirubin (0.2-1.3) mg/dL AST (14-36) U/L ALT (9-52) U/L Alkaline Phosphatase (38-126) U/L Total Creatine Kinase (30-135) U/L CK-MB (CK-2) (0.0-2.4) ng/mL CK-MB (CK-2) Rel Index Troponin I (0.000-0.034) ng/mL Total Protein (6.3-8.2) g/dL Albumin (3.5-5.0) g/dL Amylase (30-110) U/L Lipase (23-300) U/L Urine Color Light Yellow Urine Appearance Clear (Clear) Urine pH 5.0 (5.0-8.0) Ur Specific Alexander 1.009 (1.001-1.035) Urine Protein Negative (Negative) Urine Glucose (UA) 4+ H (Negative) Urine Ketones Negative (Negative) Urine Blood Negative (Negative) Urine Nitrite Negative (Negative) Urine Bilirubin Negative (Negative) Urine Urobilinogen <2.0 (<2.0) mg/dL Ur Leukocyte Esterase Large H (Negative) Urine RBC 5 (0-5) /hpf Urine WBC 70 H (0-5) /hpf Ur Squamous Epith Cells 1 (0-4) /hpf Urine Bacteria Occasional H (None) /hpf Urine Mucus Rare H (None) /hpf Acetone, Qual (Negative) Group A Strep Rapid (Negative) 12/26/16 12/26/16 Range/Units 18:40 20:54 WBC (3.8-10.6) k/uL RBC (3.80-5.40) m/uL Hgb (11.4-16.0) gm/dL Hct (34.0-46.0) % MCV (80.0-100.0) fL MCH (25.0-35.0) pg MCHC (31.0-37.0) g/dL RDW (11.5-15.5) % Plt Count (150-450) k/uL Neutrophils % % Lymphocytes % % Monocytes % % Eosinophils % % Basophils % % Neutrophils # (1.3-7.7) k/uL Lymphocytes # (1.0-4.8) k/uL Monocytes # (0-1.0) k/uL Eosinophils # (0-0.7) k/uL Basophils # (0-0.2) k/uL PT (9.0-12.0) sec INR (<1.1) APTT (22.0-30.0) sec Sodium (137-145) mmol/L Potassium (3.5-5.1) mmol/L Chloride (98-107) mmol/L Carbon Dioxide (22-30) mmol/L Anion Gap mmol/L BUN (7-17) mg/dL Creatinine (0.52-1.04) mg/dL Est GFR (MDRD) Af Amer (>60 ml/min/1.73 sqM) Est GFR (MDRD) Non-Af (>60 ml/min/1.73 sqM) Glucose (74-99) mg/dL Plasma Lactic Acid Jose L 1.5 (0.7-2.0) mmol/L Calcium (8.4-10.2) mg/dL Total Bilirubin (0.2-1.3) mg/dL AST (14-36) U/L ALT (9-52) U/L Alkaline Phosphatase (38-126) U/L Total Creatine Kinase (30-135) U/L CK-MB (CK-2) (0.0-2.4) ng/mL CK-MB (CK-2) Rel Index Troponin I (0.000-0.034) ng/mL Total Protein (6.3-8.2) g/dL Albumin (3.5-5.0) g/dL Amylase (30-110) U/L Lipase (23-300) U/L Urine Color Urine Appearance (Clear) Urine pH (5.0-8.0) Ur Specific Alexander (1.001-1.035) Urine Protein (Negative) Urine Glucose (UA) (Negative) Urine Ketones (Negative) Urine Blood (Negative) Urine Nitrite (Negative) Urine Bilirubin (Negative) Urine Urobilinogen (<2.0) mg/dL Ur Leukocyte Esterase (Negative) Urine RBC (0-5) /hpf Urine WBC (0-5) /hpf Ur Squamous Epith Cells (0-4) /hpf Urine Bacteria (None) /hpf Urine Mucus (None) /hpf Acetone, Qual (Negative) Group A Strep Rapid Negative (Negative) 12/26/16 19:47 EKG shows sinus tachycardia. Splinter under 9 bpm. PA interval 128 ms. QRS ration 76. QT QTC 334/4 pregnancies. No evidence of ST elevation or T-wave inversion. No evidence of atrial or ventricular arrhythmias. - Radiology Data Radiology results: report reviewed KUB x-ray shows nonacute abdomen. No evidence of any acute changes. Chest x- ray shows no acute cardiopulmonary disease. No definite change compared to old exam. Read by Dr. Grossman. Disposition Clinical Impression: UTI (urinary tract infection), History of hyperglycemia, Pharyngitis Disposition: HOME SELF-CARE Condition: Good Instructions: Urinary Tract Infection in Women (ED) Additional Instructions: restaurant rest, increase fluids. Patient advised to use cough drops and take Motrin Tylenol for pain. Patient advised to complete in about a prescription. Return to the emergency department if any alarming signs or symptoms occur. Prescriptions: Nitrofurantoin Monohyd/M-Cryst [Macrobid] 100 mg PO Q12HR #14 cap Referrals: Doretha Allen III, MD [Primary Care Provider] - 1-2 days Time of Disposition: 21:58
[2016-12-26] MEDS ORDERED: ACETAMINOPHEN TAB 500 MG TAB PO STA (18:19)
--- NOTE | 2016-12-26 18:44 | XR ---
EXAMINATION TYPE: XR chest 2V DATE OF EXAM: 12/26/2016 COMPARISON: 01/01/2016 HISTORY: Kidney stones. Abdominal pain. TECHNIQUE: Frontal and lateral views of the chest are obtained. FINDINGS: There is no sign of heart failure or pneumonic infiltrate. Heart is within normal limits. There is no pleural effusion. Bony thorax is intact. IMPRESSION: No active cardiopulmonary disease. No definite change compared to old exam.
--- NOTE | 2016-12-26 18:45 | XR ---
EXAMINATION TYPE: XR KUB DATE OF EXAM: 12/26/2016 COMPARISON: 12/09/2016 HISTORY: Abdominal pain TECHNIQUE: 2 views FINDINGS: There is no sign of intestinal obstruction or pneumoperitoneum. Fecal pattern is normal. Th ere are clips from cholecystectomy. Lung bases appear clear. There are no pathologic calcifications o darcy the kidneys. IMPRESSION: Nonacute abdomen. No change.
[2016-12-26 19:03] LABS: Basophils % (A) 0 %; CH 31.8; CHCM 35.7; Eosinophils # (A) 0.3 k/uL (0-0.7); Eosinophils % (A) 3 %; HCT 38.9 % (34.0-46.0); HDW 3.01; HGB 13.8 gm/dL (11.4-16.0); Luc # (Auto) 0.33; Luc % (Auto) 4; Lymphocytes # (A) 1.8 k/uL (1.0-4.8); Lymphocytes % (A) 21 %; MCH 31.6 pg (25.0-35.0); MCHC 35.4 g/dL (31.0-37.0); Mean Platelet Volume 6.8; Monocytes # (A) 0.6 k/uL (0-1.0); Monocytes % (A) 7 %; Neutrophils # (A) 5.4 k/uL (1.3-7.7); Neutrophils % (A) 65 %; RBC 4.36 m/uL (3.80-5.40); RDW 13.4 % (11.5-15.5); WBC 8.4 k/uL (3.8-10.6); WBC (Perox) 9.04
[2016-12-26 19:09] LABS: Appearance,Urine Clear (Clear); Bacteria,Urine Occasional /hpf; Bilirubin,Urine Negative (Negative); Glucose,Urine (UA) 4+ (Negative); Ketones,Urine Negative (Negative); Leukocyte Esterase,Urine Large (Negative); Mucus,Urine Rare /hpf; Nitrite,Urine Negative (Negative); Particle Count 2236; Protein,Urine Negative (Negative); RBC,Urine 5 /hpf (0-5); Specific Gravity,Urine 1.009 (1.001-1.035); Squamous Epithelial Cell,Urine 1 /hpf (0-4); UA Billing (MACRO vs. MICRO) MICRO; Urobilinogen,Urine <2.0 mg/dL (<2.0); WBC,Urine 70 /hpf (0-5)
[2016-12-26 19:10] LABS: MCV 89.3 fL (80.0-100.0)
[2016-12-26 19:13] LABS: ALT 50 U/L (9-52); AST 37 U/L (14-36); Alkaline Phosphatase 142 U/L (38-126); Amylase 49 U/L (30-110); Anion Gap 12 mmol/L; Blood Urea Nitrogen 15 mg/dL (7-17); Calcium 9.5 mg/dL (8.4-10.2); Carbon Dioxide 29 mmol/L (22-30); Chloride 98 mmol/L (98-107); Glucose 179 mg/dL (74-99); Non-African American GFR(MDRD) >60 (>60 ml/min/1.73 sqM); Potassium 4.1 mmol/L (3.5-5.1); Sodium 139 mmol/L (137-145); Total Bilirubin 0.9 mg/dL (0.2-1.3); Total Protein 7.8 g/dL (6.3-8.2)
[2016-12-26 19:31] LABS: Creatine Kinase 63 U/L (30-135)
[2016-12-26] MEDS ORDERED: SODIUM CHLORIDE 0.9% 1,000 ML IV ONE (19:32)
[2016-12-26 19:39] LABS: Prothrombin Time 9.8 sec (9.0-12.0)
[2016-12-26 19:44] LABS: Creatine Kinase MB 1.1 ng/mL (0.0-2.4); Troponin I <0.012 ng/mL (0.000-0.034)
[2016-12-26] MEDS ORDERED: NITROFURANTOIN MONOHYD/M-CRYST 100 MG CAP PO STA (20:48)
[2016-12-26 21:26] VITALS: RESP 18
[2016-12-26 22:16] VITALS: BP 119/58; PULSE 104; TEMP 97.8
== END 2016-12-26 22:15 | disposition home or self-care (01) ==
LOC: EC 17:18
DX: N39.0 Urinary tract infection, site not specified (principal); J02.9 Acute pharyngitis, unspecified; E11.9 Type 2 diabetes mellitus without complications; R10.12 Left upper quadrant pain; R06.02 Shortness of breath; R11.0 Nausea; I25.10 Atherosclerotic heart disease of native coronary artery without angina pectoris; K21.9 Gastro-esophageal reflux disease without esophagitis; E78.5 Hyperlipidemia, unspecified; I10 Essential (primary) hypertension; I25.2 Old myocardial infarction; F41.0 Panic disorder [episodic paroxysmal anxiety]; F32.9 Major depressive disorder, single episode, unspecified; Z87.891 Personal history of nicotine dependence; Z79.899 Other long term (current) drug therapy; Z88.1 Allergy status to other antibiotic agents; Z88.2 Allergy status to sulfonamides; Z88.8 Allergy status to other drugs, medicaments and biological substances; Z87.442 Personal history of urinary calculi; Z86.79 Personal history of other diseases of the circulatory system
CPT/HCPCS: 36415; 93005; 80053; 82150; 82550; 82553; 82009; 83605; 83690; 84484; 85025; 85610; 85730; 81001; 87040; 87086; 87081; 87430; 71020; 74000; 99284; 96374; 96361 ×3; J2405

== ENCOUNTER → 2017-04-27 | Outpatient (CLI) | payer MEDICARE, OTHER ==
[2017-04-27 10:23] LABS: Basophils # (A) 0.1 k/uL (0-0.2); Basophils % (A) 1 %; CH 31.8; CHCM 33.5; Eosinophils # (A) 0.3 k/uL (0-0.7); Eosinophils % (A) 4 %; HCT 42.6 % (34.0-46.0); HDW 2.83; HGB 14.1 gm/dL (11.4-16.0); Luc # (Auto) 0.24; Luc % (Auto) 3; Lymphocytes # (A) 2.6 k/uL (1.0-4.8); Lymphocytes % (A) 30 %; MCH 31.6 pg (25.0-35.0); MCHC 33.1 g/dL (31.0-37.0); MCV 95.5 fL (80.0-100.0); Mean Platelet Volume 6.4; Monocytes # (A) 0.5 k/uL (0-1.0); Monocytes % (A) 6 %; Neutrophils % (A) 57 %; RBC 4.46 m/uL (3.80-5.40); RDW 13.6 % (11.5-15.5); WBC 8.7 k/uL (3.8-10.6); WBC (Perox) 8.89
[2017-04-27 10:54] LABS: Anion Gap 12 mmol/L; Blood Urea Nitrogen 20 mg/dL (7-17); Calcium 9.9 mg/dL (8.4-10.2); Carbon Dioxide 29 mmol/L (22-30); Chloride 98 mmol/L (98-107); Glucose 259 mg/dL (74-99); Non-African American GFR(MDRD) >60 (>60 ml/min/1.73 sqM); Sodium 139 mmol/L (137-145)
== END | disposition home or self-care (01) ==
LOC: LABPAT 09:30
PROVIDERS: ATTEND Physician Assistant
DX: Z01.812 Encounter for preprocedural laboratory examination (principal); E78.5 Hyperlipidemia, unspecified; N20.0 Calculus of kidney; E11.9 Type 2 diabetes mellitus without complications
CPT/HCPCS: 36415; 80048; 85025

== ENCOUNTER 2017-05-04 08:04 | Day surgery (SDC) | payer MEDICARE, OTHER ==
[2017-04-29 15:05] VITALS: BMI 45.3
[~2017-05-04 08:04] MED LIST: LACTATED RINGERS 1,000 ML IV SCH; LIDOCAINE 1% 20 ML VIAL (10MG/ML) FOR IV START INTRADERMA PRN; Pre Op ABX Message 1 EACH MISC MISCELLANE ONE
--- NOTE | 2017-05-04 08:26 | XR ---
EXAMINATION TYPE: XR KUB DATE OF EXAM: 05/04/2017 CLINICAL DATA: 61-year-old female preoperative for left-sided lithotripsy, [facility] COMPARISON: 12/26/2016 FINDINGS: Supine imaging limited for assessment of free air. Cholecystectomy clips are present. There is bowel content obscuring portions of the renal shadows. Suggestion of a 6 mm calcification at the left mid a bdomen. Scattered moderate stool. IMPRESSION: Scattered moderate stool. This obscures portions of the renal shadows. Suggestion of a 6 mm calculus on the left.
[2017-05-04 08:41] VITALS: TEMP 98.5
[2017-05-04 08:55] LABS: Glucose,Whole Blood 195 mg/dL (75-99)
[2017-05-04] MEDS ORDERED: MIDAZOLAM 2 MG/2 ML VIAL IVP ONE (08:58)
[2017-05-04] MEDS ORDERED: ONDANSETRON 4 MG/2 ML VIAL IVP ONE (08:59)
[2017-05-04] MEDS ORDERED: MIDAZOLAM 2 MG/2 ML VIAL ONE (09:28)
[2017-05-04] MEDS ORDERED: PROPOFOL 10 MG/ML 20 ML VIAL IV ONE (09:28)
[2017-05-04] MEDS ORDERED: KETAMINE 10 MG/ML 20 ML VIAL ONE (09:28)
[2017-05-04] MEDS ORDERED: fentaNYL (PF) 50 MCG/ML 2 ML AMP ONE (09:28)
[2017-05-04] MEDS ORDERED: LACTATED RINGERS 950 ML IV ONE (10:13)
--- NOTE | 2017-05-04 10:18 | P.OP ---
Date of Procedure: 05/04/17 Preoperative Diagnosis: Left Renal Calculus Postoperative Diagnosis: Same Procedure(s) Performed: Left Extracorporal Shockwave Lithotripsy (ESWL) Anesthesia: MAC Surgeon: Bam Weinstein Estimated Blood Loss (ml): 0 IV fluids (ml): 400 Pathology: none sent Condition: stable Disposition: PACU Indications for Procedure: The patient is a 61-year-old white female with left flank pain. A computed tomography scan shows an 8-9 mm left lower pole renal calculus, and she has elected to undergo ESWL. She has no prior history of urolithiasis. Operative Findings: The calculus appeared to fragment. Description of Procedure: The patient was taken to the operating room and placed on the [employer] Delta II lithotripter in the supine position. The calculus was seen on biplanar fluoroscopy. Once the patient was properly positioned and sedated, lithotripsy was performed. The energy level was gradually increased per protocol, to an energy level of 5. After 200 shocks were administered, a 2 minute pause was instituted per protocol. A total of 2500 shocks were given at a rate of 80 shocks per minute. Fluoroscopy was utilized at a minimum to ensure proper positioning and determine the treatment status. The appearance of the calculus appeared to change, suggesting fragmentation had occurred. The patient tolerated the procedure well was taken to the recovery room in stable condition. Instructions were given to strain the urine, and the patient will follow-up with Dr. Almonte in one week.
[2017-05-04 10:39] VITALS: RESP 16
[2017-05-04] MEDS ORDERED: HYDROcodone/APAP 5-325MG 1 EACH TAB PO ONE (10:40)
[2017-05-04 10:42] VITALS: BP 107/71; PULSE 78
[2017-05-04 10:52] LABS: Glucose,Whole Blood 201 mg/dL (75-99)
== END 2017-05-04 11:35 | disposition home or self-care (01) ==
LOC: ORWHC2ENDO 08:04
PROVIDERS: ATTEND Urology
DX: N20.0 Calculus of kidney (principal); E11.9 Type 2 diabetes mellitus without complications; Z79.84 Long term (current) use of oral hypoglycemic drugs; I25.10 Atherosclerotic heart disease of native coronary artery without angina pectoris; I11.9 Hypertensive heart disease without heart failure; K21.9 Gastro-esophageal reflux disease without esophagitis; E78.5 Hyperlipidemia, unspecified; D64.9 Anemia, unspecified; E66.9 Obesity, unspecified; Z68.42 Body mass index [BMI] 45.0-49.9, adult; M19.90 Unspecified osteoarthritis, unspecified site; Z95.5 Presence of coronary angioplasty implant and graft; F41.9 Anxiety disorder, unspecified; F32.9 Major depressive disorder, single episode, unspecified; F43.10 Post-traumatic stress disorder, unspecified; F41.0 Panic disorder [episodic paroxysmal anxiety]; K58.9 Irritable bowel syndrome, unspecified; Z86.14 Personal history of Methicillin resistant Staphylococcus aureus infection; Z87.442 Personal history of urinary calculi; Z79.899 Other long term (current) drug therapy; Z88.1 Allergy status to other antibiotic agents; Z88.0 Allergy status to penicillin; Z88.2 Allergy status to sulfonamides; Z88.8 Allergy status to other drugs, medicaments and biological substances
CPT/HCPCS: 74000; 50590; J2250; J2405; J3010; J2704

== ENCOUNTER → 2017-05-08 | Outpatient (CLI) | payer MEDICARE, OTHER ==
--- NOTE | 2017-05-08 11:13 | XR ---
EXAMINATION TYPE: XR abdomen 1V DATE OF EXAM: 05/08/2017 COMPARISON: 05/04/2016 HISTORY: Puncture TECHNIQUE: One view abdominal series FINDINGS: The osseous structures are intact. The bowel gas pattern is nonspecific. Stable left renal calculus measuring 5.8 mm. Postsurgical change in the right upper quadrant. IMPRESSION: 1. Nonspecific abdomen. Calcification overlying the lower pole left kidney appears stable measuring approximately 5.8 mm
== END | disposition home or self-care (01) ==
LOC: RADXRMAIN 10:20
PROVIDERS: ATTEND Urology
DX: N20.0 Calculus of kidney (principal)
CPT/HCPCS: 74000

== ENCOUNTER → 2017-06-08 | Outpatient (CLI) | payer MEDICARE, OTHER ==
--- NOTE | 2017-06-08 15:19 | XR ---
One view abdomen HISTORY: Renal calculus, N 20.1 Frontal view of the abdomen correlated to prior abdomen 05/08/2017 There is no significant interval change. Patient body habitus may limit the exam. No pneumoperitoneum or bowel obstruction evident. Bone mineralization is stable. Calcification seen on previous exam the level lower pole left kidney may be stable. IMPRESSION: Difficult to exclude nephrolithiasis.
== END | disposition home or self-care (01) ==
LOC: RADXRMAIN 10:05
PROVIDERS: ATTEND Urology
DX: N20.0 Calculus of kidney (principal)
CPT/HCPCS: 74000

== ENCOUNTER → 2017-07-27 | Outpatient (CLI) | payer MEDICARE, OTHER ==
[2017-07-27 12:42] LABS: Anion Gap 13 mmol/L; Blood Urea Nitrogen 21 mg/dL (7-17); Calcium 9.5 mg/dL (8.4-10.2); Carbon Dioxide 29 mmol/L (22-30); Chloride 99 mmol/L (98-107); Glucose 191 mg/dL (74-99); Potassium 4.3 mmol/L (3.5-5.1); Sodium 141 mmol/L (137-145)
[2017-07-27 13:02] LABS: HCT 41.5 % (34.0-46.0); HGB 13.6 gm/dL (11.4-16.0); MCH 31.6 pg (25.0-35.0); MCHC 32.9 g/dL (31.0-37.0); MCV 96.1 fL (80.0-100.0); Mean Platelet Volume 7.1; Platelet Count 307 k/uL (150-450); RBC 4.32 m/uL (3.80-5.40); RDW 14.2 % (11.5-15.5); WBC 9.2 k/uL (3.8-10.6)
== END | disposition home or self-care (01) ==
LOC: LABPAT 12:08
PROVIDERS: ATTEND Physician Assistant
DX: Z01.812 Encounter for preprocedural laboratory examination (principal); N20.0 Calculus of kidney; Z79.899 Other long term (current) drug therapy
CPT/HCPCS: 36415; 80048; 85027

== ENCOUNTER 2017-08-03 07:38 | Day surgery (SDC) | payer MEDICARE, OTHER ==
[2017-07-24 11:04] VITALS: BMI 45.3
[~2017-08-03 07:38] MED LIST changes: -LACTATED RINGERS 1,000 ML IV SCH; -LIDOCAINE 1% 20 ML VIAL (10MG/ML) FOR IV START INTRADERMA PRN
--- NOTE | 2017-08-03 08:01 | XR ---
Abdomen HISTORY: Kidney stones Single frontal view of the abdomen correlated to prior exam dated 06/08/2017 Surgical clips are present in the right upper quadrant. Lung bases are not included on the exam. Ther e is no evident pneumoperitoneum or bowel obstruction. Overlying bowel gas may obscure detail. Diffic ult to exclude nephrolithiasis. IMPRESSION: Nonobstructive bowel gas pattern.
[2017-08-03 08:11] VITALS: RESP 16; TEMP 98
[2017-08-03] MEDS ORDERED: LACTATED RINGERS 1,000 ML IV ONE (08:25)
[2017-08-03] MEDS ORDERED: KETAMINE 10 MG/ML 20 ML VIAL ONE (08:34)
[2017-08-03] MEDS ORDERED: MIDAZOLAM 2 MG/2 ML VIAL ONE (08:34)
[2017-08-03] MEDS ORDERED: PROPOFOL 10 MG/ML 20 ML VIAL IV ONE (08:34)
[2017-08-03] MEDS ORDERED: fentaNYL (PF) 50 MCG/ML 2 ML AMP ONE (08:34)
[2017-08-03] MEDS ORDERED: LIDOCAINE 1% 20 ML VIAL (10MG/ML) FOR IV START INTRADERMA ONE (08:35)
[2017-08-03 08:49] LABS: Glucose,Whole Blood 179 mg/dL (75-99)
--- NOTE | 2017-08-03 09:34 | P.OP ---
Date of Procedure: 08/03/17 Preoperative Diagnosis: Left renal calculus Postoperative Diagnosis: left renal calculus Procedure(s) Performed: Extracorporal shock wave lithotripsy Anesthesia: MAC Surgeon: Phillip Vásquez Estimated Blood Loss (ml): 0 Pathology: none sent Condition: stable Disposition: PACU Indications for Procedure: The patient is a 52 year old female with intermittent left flank pain from a 4x6 mm calculus located near the renal pelvis or left lower pole. She failed ESWL treatment in 04/2017. Repeat ESWL was discussed with Dr Weinstein and the patient wishes to proceed with the understanding that there is no quarantee of sucess. Description of Procedure: The patient was taken to the lithotripsy room and placed in the supine position. The calculus in the left lower pole was localized using biplanar fluoroscopy. Intravenous sedation was given. Lithotripsy was performed using the [employer] compact delta unit. A 2 minute upon occurred after 200 shocks. Patient received a total of 2500 shocks at 60 shocks/ minute which were gradually increased to level 5. It was unclear whether the calculus fragmented completely. The patient was returned to recovery room awake and in satisfactory condition. A follow-up KUB will be obtained in 4 days at which time she will see Dr. Weinstein.
[2017-08-03 09:40] VITALS: BP 129/70
[2017-08-03 09:44] LABS: Glucose,Whole Blood 186 mg/dL (75-99)
[2017-08-03 10:33] VITALS: PULSE 74
== END 2017-08-03 11:53 | disposition home or self-care (01) ==
LOC: ORWHC2ENDO 07:38
PROVIDERS: ATTEND Urology
DX: N20.0 Calculus of kidney (principal); D64.9 Anemia, unspecified; I25.10 Atherosclerotic heart disease of native coronary artery without angina pectoris; I25.2 Old myocardial infarction; I11.9 Hypertensive heart disease without heart failure; E11.9 Type 2 diabetes mellitus without complications; E78.5 Hyperlipidemia, unspecified; E66.9 Obesity, unspecified; Z68.42 Body mass index [BMI] 45.0-49.9, adult; K21.9 Gastro-esophageal reflux disease without esophagitis; K58.9 Irritable bowel syndrome, unspecified; M19.90 Unspecified osteoarthritis, unspecified site; F41.9 Anxiety disorder, unspecified; F32.9 Major depressive disorder, single episode, unspecified; F43.10 Post-traumatic stress disorder, unspecified; F41.0 Panic disorder [episodic paroxysmal anxiety]; E07.9 Disorder of thyroid, unspecified; Z95.5 Presence of coronary angioplasty implant and graft; Z82.49 Family history of ischemic heart disease and other diseases of the circulatory system; Z91.5 Personal history of self-harm; Z86.14 Personal history of Methicillin resistant Staphylococcus aureus infection; Z88.1 Allergy status to other antibiotic agents; Z88.2 Allergy status to sulfonamides; Z88.8 Allergy status to other drugs, medicaments and biological substances; Z88.0 Allergy status to penicillin; Z79.2 Long term (current) use of antibiotics; Z79.84 Long term (current) use of oral hypoglycemic drugs; Z79.891 Long term (current) use of opiate analgesic; Z79.899 Other long term (current) drug therapy; Z87.891 Personal history of nicotine dependence
CPT/HCPCS: 74018; 50590; J2250; J3010; J2704

== ENCOUNTER → 2017-08-07 | Outpatient (CLI) | payer MEDICARE, OTHER ==
--- NOTE | 2017-08-07 10:27 | XR ---
EXAMINATION TYPE: XR KUB DATE OF EXAM: 08/07/2017 COMPARISON: 08/03/2017 HISTORY: Post lithotripsy TECHNIQUE: One view abdominal series FINDINGS: The osseous structures are intact. The bowel gas pattern is nonspecific. left kidney: Faint calcification overlying the lower pole left kidney measures approximately 3 x 5 mm and appears stable. No suspicious calcifications seen within the course of the left ureter. Right kidney: No suspicious calcifications. Vascular calcifications are noted inguinal regions bilaterally. Arthropathy of the hips and hypertrop hic change of the spine. Surgical clips are seen in the right abdomen. IMPRESSION: 1. There is a 3 x 5 mm calcification lower pole left kidney similar in appearance to the prior study.
== END | disposition home or self-care (01) ==
LOC: RADXRMAIN 10:04
PROVIDERS: ATTEND Physician Assistant
DX: N28.89 Other specified disorders of kidney and ureter (principal)
CPT/HCPCS: 74018

== ENCOUNTER → 2017-08-12 | Outpatient (CLI) | payer MEDICARE, OTHER ==
[2017-08-12 15:03] LABS: Basophils % (A) 0 %; Eosinophils # (A) 0.3 k/uL (0-0.7); Eosinophils % (A) 3 %; HCT 43.2 % (34.0-46.0); HGB 14.3 gm/dL (11.4-16.0); Lymphocytes # (A) 2.6 k/uL (1.0-4.8); Lymphocytes % (A) 27 %; MCH 31.4 pg (25.0-35.0); MCHC 33.1 g/dL (31.0-37.0); MCV 94.9 fL (80.0-100.0); Mean Platelet Volume 6.5; Monocytes # (A) 0.5 k/uL (0-1.0); Monocytes % (A) 5 %; Neutrophils # (A) 6.1 k/uL (1.3-7.7); Neutrophils % (A) 62 %; Platelet Count 303 k/uL (150-450); RBC 4.56 m/uL (3.80-5.40); RDW 13.2 % (11.5-15.5); WBC 9.8 k/uL (3.8-10.6)
[2017-08-12 15:18] LABS: Anion Gap 13 mmol/L; Blood Urea Nitrogen 25 mg/dL (7-17); Carbon Dioxide 30 mmol/L (22-30); Chloride 98 mmol/L (98-107); Glucose 221 mg/dL (74-99); Potassium 4.4 mmol/L (3.5-5.1); Sodium 141 mmol/L (137-145)
== END | disposition home or self-care (01) ==
LOC: LABPAT 14:40
PROVIDERS: ATTEND Urology
DX: Z01.812 Encounter for preprocedural laboratory examination (principal); N20.0 Calculus of kidney; Z79.899 Other long term (current) drug therapy
CPT/HCPCS: 36415; 80048; 85025; 87086

== ENCOUNTER 2017-08-19 08:53 | Day surgery (SDC) | payer MEDICARE, OTHER ==
[2017-08-13 12:22] VITALS: BMI 45.3
[~2017-08-19 08:53] MED LIST changes: +DEXAMETHASONE SOD PHOSPHATE 10 MG/ML 1 ML VIAL IV ONE; +HYDROmorphone 0.5 MG/0.5 ML SYRINGE IVP PRN; +LACTATED RINGERS 1,000 ML IV SCH; +ONDANSETRON 4 MG/2 ML VIAL IVP ONE; -Pre Op ABX Message 1 EACH MISC MISCELLANE ONE; +ceFAZolin 1,000 MG in DEXTROSE/WATER 1 50ML.BAG IV ONE
--- NOTE | 2017-08-19 08:55 | XR ---
Abdomen HISTORY: Kidney stone Frontal view of the abdomen on 2 images There is a calcification superimposed over the mid to lower pole left kidney measuring approximately 1 cm in size, the stone is somewhat poorly visualized. Surgical clips present in right upper quadrant . No bowel obstruction or pneumoperitoneum. Lung bases are clear. Degenerative disc changes in the vi sualized spine. Retained fecal debris present throughout the distribution: IMPRESSION: Left-sided nephrolithiasis. Additional findings above.
[2017-08-19] MEDS ORDERED: LIDOCAINE 1% 20 ML VIAL (10MG/ML) FOR IV START INTRADERMA ONE (10:37)
[2017-08-19 10:48] LABS: Glucose,Whole Blood 158 mg/dL (75-99)
[2017-08-19] MEDS ORDERED: MIDAZOLAM 2 MG/2 ML VIAL IVP ONE (10:57)
[2017-08-19] MEDS ORDERED: PROPOFOL 10 MG/ML 20 ML VIAL IV ONE (11:24)
[2017-08-19] MEDS ORDERED: fentaNYL (PF) 50 MCG/ML 2 ML AMP ONE (11:24)
[2017-08-19] MEDS ORDERED: LIDOCAINE 1% INJ 10MG/ML (20 ML MDV) ONE (11:24)
[2017-08-19] MEDS ORDERED: MIDAZOLAM 2 MG/2 ML VIAL ONE (11:24)
[2017-08-19] MEDS ORDERED: SUCCINYLCHOLINE CHLORIDE 100 MG/5 ML SYR IV ONE (11:24)
[2017-08-19] MEDS ORDERED: IOHEXOL 350 MG/ML 50ML BOTTLE MISCELLANE ONE (11:45)
[2017-08-19] MEDS ORDERED: LACTATED RINGERS 1,000 ML IV ONE (12:15)
--- NOTE | 2017-08-19 12:22 | P.OP ---
Date of Procedure: 08/19/17 Preoperative Diagnosis: Painful left renal stone Postoperative Diagnosis: Same Procedure(s) Performed: Cystoscopy left ureteroscopy, laser lithotripsy to left renal stone, 6 x 24 stent Surgeon: Tony Amlonte Pathology: none sent Condition: stable Disposition: PACU Indications for Procedure: The patient is a 61-year-old female persistent left flank pain. She had shockwave lithotripsy to a 5-6 mm stone in the left kidney 2 that failed. She comes for left ureteroscopy Description of Procedure: Patient is brought to the operating suite. She is given a general endotracheal anesthesia. She's placed lithotomy position with a sterile prep and drape. Cystoscopy with a Foroblique lens and 22-Maltese sheath shows a normal bladder. The left ureteral orifice is identified and intubated with an 035 wire. The wires followed up into the renal pelvis. I removed the cystoscope and over the wires passed 37-42-Bogabl reentry ureteral sheath. I removed the inner sheath and through the outer sheath I passed the flexible ureteroscope up into the kidney. I tediously go into each calyx and finally the medial lower pole calyx identify the stone. With the 200 laser probe I break the stone into tiny sand -like fragments. At the end of the procedure an 035 wires passed through the sheath. The sheath is removed and then a pass a 6 x 24 double-J catheter that coils in the renal pelvis and the bladder confirmed fluoroscopically and cystoscopically. The patient is awakened and returned recovery room good condition. She'll be discharged home upon recovery and found the office in one week for stent removal.
--- NOTE | 2017-08-19 12:31 | FL ---
Fluoroscopy HISTORY: Kidney stones 1 minute 30 seconds fluoroscopy time supplied to the referring clinician. 1 intraoperative C-arm josh ges document the procedure. See dictated report from urology.
[2017-08-19 12:50] VITALS: TEMP 97.1
[2017-08-19 14:14] LABS: Glucose,Whole Blood 184 mg/dL (75-99)
[2017-08-19 14:23] VITALS: RESP 16
[2017-08-19] MEDS ORDERED: Acetaminophen-Codeine 300-30mg TAB PO ONE (14:23)
[2017-08-19 15:19] VITALS: BP 134/81; PULSE 98
== END 2017-08-19 16:10 | disposition home or self-care (01) ==
LOC: OR 08:53
PROVIDERS: ATTEND Urology
DX: N20.0 Calculus of kidney (principal); I25.10 Atherosclerotic heart disease of native coronary artery without angina pectoris; I10 Essential (primary) hypertension; E78.5 Hyperlipidemia, unspecified; K58.9 Irritable bowel syndrome, unspecified; K21.9 Gastro-esophageal reflux disease without esophagitis; D64.9 Anemia, unspecified; E11.9 Type 2 diabetes mellitus without complications; M19.90 Unspecified osteoarthritis, unspecified site; F43.10 Post-traumatic stress disorder, unspecified; F41.0 Panic disorder [episodic paroxysmal anxiety]; F41.9 Anxiety disorder, unspecified; F32.9 Major depressive disorder, single episode, unspecified; E66.9 Obesity, unspecified; Z68.42 Body mass index [BMI] 45.0-49.9, adult; I25.2 Old myocardial infarction; Z88.1 Allergy status to other antibiotic agents; Z88.0 Allergy status to penicillin; Z88.2 Allergy status to sulfonamides; Z88.8 Allergy status to other drugs, medicaments and biological substances; Z79.84 Long term (current) use of oral hypoglycemic drugs; Z79.899 Other long term (current) drug therapy; Z87.891 Personal history of nicotine dependence; Z86.14 Personal history of Methicillin resistant Staphylococcus aureus infection; Z85.3 Personal history of malignant neoplasm of breast; Z95.5 Presence of coronary angioplasty implant and graft; Z82.49 Family history of ischemic heart disease and other diseases of the circulatory system; Z79.891 Long term (current) use of opiate analgesic
CPT/HCPCS: 52356; 74420; 74018; C2625; C1769; J2250; J1100; J2405; J2001; J3010; J0690; J0330; J2704; Q9967; J1170

== ENCOUNTER → 2017-10-07 | Outpatient (CLI) | payer MEDICARE, OTHER ==
[2017-10-07 10:07] LABS: Albumin 4.2 g/dL (3.5-5.0); Calcium 9.6 mg/dL (8.4-10.2); Potassium 4.9 mmol/L (3.5-5.1); Total Bilirubin 0.5 mg/dL (0.2-1.3); Total Protein 7.1 g/dL (6.3-8.2)
[2017-10-07 10:23] LABS: T4, Free (Free Thyroxine) 1.01 ng/dL (0.78-2.19)
--- NOTE | 2017-10-07 16:27 | MR ---
EXAMINATION TYPE: MR lumbar spine wo con DATE OF EXAM: 10/07/2017 COMPARISON: NONE HISTORY: Low back pain TECHNIQUE: Multiplanar, multisequence images of the lumbar spine were acquired. L1-L2: Broad-based posterior disc bulge causes minimal anterior mass effect on the thecal sac. No sig nificant central stenosis. L2-L3: No evident central stenosis or foraminal encroachment. Lateral disc bulge is mild. L3-L4: Left posterior paracentral disc herniation is present causing anterolateral mass effect on the thecal sac, encroachment towards the left neural foramen, there may be extension of disc material po sterior to the L4 vertebral body which is minimal. No significant central canal stenosis. L4-L5: Minimal posterior disc bulge contacts anterior thecal sac, no significant central stenosis. Fa cet arthropathy with hypertrophy ligamentum flavum is mild, no significant foraminal encroachment. L5-S1: There is some facet arthropathy changes. No evident spinal stenosis or sizable disc herniation , foraminal encroachment is not evident. Lumbar segments are intact. No paraspinal masses are identified. Conus medullaris has a normal appe arance. There is multilevel spondylosis, endplate discogenic marrow signal change, loss of disc heigh t and signal is greatest at L1-2. There is mild spinal curvature. IMPRESSION: Lateral disc herniation at L3-4, degenerative disc disease as described, there is associated facet ar thropathy which is mild. Additional findings above.
== END ==
LOC: RADMRIMAIN 09:11
PROVIDERS: ATTEND Physical Medicine & Rehabilitation
DX: M54.5 Low back pain (principal); M51.36 Other intervertebral disc degeneration, lumbar region; M47.816 Spondylosis without myelopathy or radiculopathy, lumbar region; E11.8 Type 2 diabetes mellitus with unspecified complications; M47.817 Spondylosis without myelopathy or radiculopathy, lumbosacral region; G96.8 Other specified disorders of central nervous system; F45.42 Pain disorder with related psychological factors; F40.00 Agoraphobia, unspecified; F43.10 Post-traumatic stress disorder, unspecified; M12.88 Other specific arthropathies, not elsewhere classified, other specified site
CPT/HCPCS: 36415; 72148; 80053; 80061; 82043; 82570; 83036; 84439; 84443

== ENCOUNTER → 2017-12-08 | Outpatient (CLI) | payer MEDICARE, OTHER ==
--- NOTE | 2017-12-08 14:32 | MR ---
EXAMINATION TYPE: MR cervical spine wo con DATE OF EXAM: 12/08/2017 COMPARISON: Prior cervical spine MRI dated 07/25/2015 HISTORY: Cervicalgia / Spondylolisthesis TECHNIQUE: Multiplanar, multisequence images of the cervical spine were acquired. C2-C3: No evidence for degenerative disc disease. No disc bulge/herniation or protrusion. No Canal stenosis. Foramina are patent bilaterally. C3-C4: Right-sided foraminal encroachment is present, there is similar appearance to prior exam, no d isc herniation or central stenosis. C4-C5: Lateral extension of endplate disc complex encroaches somewhat on the foramina similar to prio r exam. C5-C6: Small posterior central disc bulge causes minimal anterior mass effect on the thecal sac. No c entral stenosis or disc herniation. C6-C7: Minimal posterior disc bulge noted. No significant central stenosis or foraminal encroachment. C7-T1: No evidence for degenerative disc disease. No disc bulge/herniation or protrusion. No Canal stenosis. Foramina are patent bilaterally. Cervical segments are intact. There is normal alignment. Cervical spinal cord is of normal signal. Craniovertebral junction relationships are within normal limits. There is mild spondylosis as noted on prior exam, findings are similar IMPRESSION: Similar findings to prior exam. Mild degenerative disc disease and foraminal encroachment.
== END | disposition home or self-care (01) ==
LOC: RADMRIMAIN 09:38
PROVIDERS: ATTEND Physical Medicine & Rehabilitation
DX: M50.33 Other cervical disc degeneration, cervicothoracic region (principal); E11.8 Type 2 diabetes mellitus with unspecified complications; F40.00 Agoraphobia, unspecified; M25.551 Pain in right hip; M25.552 Pain in left hip; G96.8 Other specified disorders of central nervous system; F45.42 Pain disorder with related psychological factors; F43.10 Post-traumatic stress disorder, unspecified
CPT/HCPCS: 72141

== ENCOUNTER → 2018-01-14 | Outpatient (CLI) | payer MEDICARE, OTHER ==
[2018-01-14 17:39] LABS: Hemoglobin A1C 6.8 % (4.0-6.0)
== END | disposition home or self-care (01) ==
LOC: LABWHC1 09:05
PROVIDERS: ATTEND Internal Medicine
DX: E11.65 Type 2 diabetes mellitus with hyperglycemia (principal)
CPT/HCPCS: 36415; 83036

== ENCOUNTER → 2018-01-23 | Outpatient (CLI) | payer MEDICARE, OTHER ==
[2018-01-23 09:24] LABS: Basophils # (A) 0.1 k/uL (0-0.2); Basophils % (A) 1 %; Eosinophils # (A) 0.2 k/uL (0-0.7); Eosinophils % (A) 3 %; HCT 40.6 % (34.0-46.0); HGB 13.6 gm/dL (11.4-16.0); Lymphocytes % (A) 26 %; MCH 31.8 pg (25.0-35.0); MCHC 33.4 g/dL (31.0-37.0); MCV 95.2 fL (80.0-100.0); Mean Platelet Volume 6.1; Monocytes # (A) 0.6 k/uL (0-1.0); Monocytes % (A) 7 %; Neutrophils # (A) 4.8 k/uL (1.3-7.7); Neutrophils % (A) 62 %; Platelet Count 258 k/uL (150-450); RBC 4.27 m/uL (3.80-5.40); RDW 14.9 % (11.5-15.5); WBC 7.8 k/uL (3.8-10.6)
[2018-01-23 09:30] LABS: ALT 36 U/L (9-52); AST 27 U/L (14-36); Albumin 3.9 g/dL (3.5-5.0); Alkaline Phosphatase 116 U/L (38-126); Anion Gap 13 mmol/L; Blood Urea Nitrogen 15 mg/dL (7-17); Calcium 9.3 mg/dL (8.4-10.2); Carbon Dioxide 27 mmol/L (22-30); Chloride 103 mmol/L (98-107); Cholesterol 177 mg/dL (<200); Glucose 184 mg/dL (74-99); HDL Cholesterol 34 mg/dL (40-60); LDL Cholesterol,Calculated 80 mg/dL (0-99); Potassium 4.2 mmol/L (3.5-5.1); Sodium 143 mmol/L (137-145); Total Bilirubin 0.6 mg/dL (0.2-1.3); Total Protein 6.4 g/dL (6.3-8.2); Triglycerides 316 mg/dL (<150)
== END | disposition home or self-care (01) ==
LOC: LABWHC1 08:35
PROVIDERS: ATTEND Physician Assistant Medical
DX: E78.4 Other hyperlipidemia (principal); E03.9 Hypothyroidism, unspecified; E11.9 Type 2 diabetes mellitus without complications
CPT/HCPCS: 36415; 80053; 80061; 84443; 85025

== ENCOUNTER 2018-02-20 11:07 | Inpatient (IN) | payer MEDICARE, OTHER ==
[2018-02-20] MEDS ORDERED: FAMOTIDINE 20 MG/2 ML VIAL IV STA (11:49)
--- NOTE | 2018-02-20 11:51 | ED ---
General Adult HPI - General Chief complaint: Chest Pain Stated complaint: Chest pains/SOB Time Seen by Provider: 02/20/18 11:18 Source: patient, RN notes reviewed, old records reviewed Mode of arrival: ambulatory Limitations: no limitations - History of Present Illness Initial comments: 62-year-old female presenting for evaluation of chest pain and dyspnea. Patient has history of CAD status post stenting in the LAD approximately 10 years ago. She complains of 3 days of upper chest pain and bilateral axillary pain. She does report some dyspnea associated with this. She is also had nausea without vomiting as well as reflux symptoms. Patient initially attributed her symptoms to her gastroparesis and gastric reflux. However when she developed the chest pain she felt she should be evaluated. She states she has not had classic presentation of her previous [place]. At the time my evaluation patient is feeling quite well. No significant pain. No fever or chills. She has had some lower extremity cellulitis which is currently being evaluated by dermatology and she is currently on antibiotics for this. - Related Data Home Medications Medication Instructions Recorded Confirmed Atorvastatin [Lipitor] 40 mg PO HS@2300 06/21/15 02/20/18 DULoxetine HCL 60 mg PO BID@0800,1700 06/21/15 02/20/18 Losartan [Cozaar] 50 mg PO DAILY@1730 06/21/15 02/20/18 Metoprolol Tartrate [Lopressor] 50 mg PO HS@2300 06/21/15 02/20/18 Ranitidine HCl 150 mg PO BID@1230,2300 06/21/15 02/20/18 Calcium Carbonate [Calcium] 600 mg PO DAILY@1530 01/01/16 02/20/18 Multivit-Min/Iron/Folic/Lutein 1 tab PO HS@2300 01/01/16 02/20/18 [Centrum Silver Women Tablet] Ferrous Sulfate [Feosol] 325 mg PO Q48H 06/05/16 02/20/18 Calcium Polycarbophil [Fiber-Lax] 625 mg PO DAILY@0800 07/27/16 02/20/18 Furosemide [Lasix] 20 mg PO TID@0800,1230,1500 07/27/16 02/20/18 Levothyroxine Sodium [Synthroid] 50 mcg PO DAILY@0800 07/27/16 02/20/18 Potassium Chloride [Klor-Con 10] 10 meq PO BID@1230,1730 07/27/16 02/20/18 Acetaminophen [Tylenol 8 Hour] 650 mg PO Q8H PRN 12/26/16 02/20/18 Gabapentin 600 mg PO TID@0800,1700,2300 12/26/16 02/20/18 Dapagliflozin Propanediol [Farxiga] 10 mg PO DAILY@1500 04/29/17 02/20/18 traZODone HCL 100 mg PO HS@2300 04/29/17 02/20/18 Pioglitazone [Actos] 30 mg PO HS@2300 07/24/17 02/20/18 clonazePAM [KlonoPIN] 0.5 mg PO BID PRN 07/24/17 02/20/18 sitaGLIPtin [Januvia] 100 mg PO DAILY@0800 07/24/17 02/20/18 Betamethasone Dipropionate 1 applic TOPICAL BID 02/20/18 02/20/18 [Betamethasone Dipropionate 0.05%] Glimepiride [Amaryl] 2 mg PO DAILY@1230 02/20/18 02/20/18 Loratadine [Claritin] 10 mg PO DAILY PRN 02/20/18 02/20/18 Magnesium Oxide [Mag-Ox] 400 mg PO DAILY@1730 02/20/18 02/20/18 Minocycline HCl [Minocin] 100 mg PO BID@09,21 02/20/18 02/20/18 Allergies Allergy/AdvReac Type Severity Reaction Status Date / Time ciprofloxacin [From Cipro] Allergy Anaphylaxis Verified 02/20/18 14:00 ciprofloxacin HCl Allergy Anaphylaxis Verified 02/20/18 14:00 [From Cipro] diazepam [From Valium] Allergy Rash/Hives Verified 02/20/18 14:00 metronidazole [From Flagyl] Allergy Anaphylaxis Verified 02/20/18 14:00 Sulfa (Sulfonamide Allergy Rash/Hives Verified 02/20/18 14:00 Antibiotics) doxycycline AdvReac Nausea & Verified 02/20/18 14:00 Vomiting & Diarrhea metoclopramide HCl AdvReac Diarrhea Verified 02/20/18 14:00 [From Reglan] Review of Systems ROS Statement: Those systems with pertinent positive or pertinent negative responses have been documented in the HPI. ROS Other: All systems not noted in ROS Statement are negative. Past Medical History Past Medical History: Coronary Artery Disease (CAD), Diabetes Mellitus, GERD/ Reflux, Hyperlipidemia, Hypertension, Myocardial Infarction ([place]), Osteoarthritis (OA), Skin Disorder Additional Past Medical History / Comment(s): ECZEMA, IBS, DDD, carapal tunnel lisette., kidney stones, healing sores on legs Last Myocardial Infarction Date:: [place] X 3 LAST ONE 2006 History of Any Multi-Drug Resistant Organisms: MRSA Date of last positivie culture/infection: 01/01/16 MDRO Source:: right leg Past Surgical History: Appendectomy, Section, Cholecystectomy, Heart Catheterization With Stent, Hysterectomy, Tonsillectomy Additional Past Surgical History / Comment(s): breast biopsy, D & C x2, tumor right shoulder removed; lithotripsy Past Anesthesia/Blood Transfusion Reactions: Previous Problems w/ Anesthesia Additional Past Anesthesia/Blood Transfusion Reaction / Comment(s): TENDS TO HAVE PANIC ATTACKS WHEN COMING OUT OF ANESTHESIA Date of Last Stent Placement:: 2006 Past Psychological History: Anxiety, Depression, Panic Disorder, PTSD Smoking Status: Former smoker Past Alcohol Use History: None Reported Past Drug Use History: None Reported - Past Family History Mother Family Medical History: Cancer Father Family Medical History: Coronary Artery Disease (CAD), Myocardial Infarction ([place] ) General Exam Limitations: no limitations General appearance: alert, in no apparent distress Head exam: Present: atraumatic, normocephalic Eye exam: Present: normal appearance, PERRL ENT exam: Present: normal exam Neck exam: Present: normal inspection. Absent: tenderness, meningismus Respiratory exam: Present: normal lung sounds bilaterally. Absent: respiratory distress, wheezes Cardiovascular Exam: Present: normal rhythm, tachycardia, systolic murmur GI/Abdominal exam: Present: soft. Absent: distended, tenderness Extremities exam: Present: normal capillary refill, other. Absent: pedal edema , calf tenderness Back exam: Present: normal inspection Neurological exam: Present: alert, oriented X3, CN II-XII intact. Absent: motor sensory deficit Psychiatric exam: Present: normal affect, normal mood Skin exam: Present: warm, dry, intact. Absent: cyanosis, diaphoretic, erythema Course Vital Signs 02/20/18 02/20/18 02/20/18 11:11 12:46 13:52 Temperature 98.1 F Pulse Rate 101 H 85 93 Respiratory 16 18 20 Rate Blood Pressure 158/80 126/58 153/73 O2 Sat by Pulse 97 95 98 Oximetry - Reevaluation(s) Reevaluation #1: 02/20/18 14:25 Reevaluation, patient remains chest pain-free. EKG Findings - EKG Comments: EKG Findings:: EKG: Normal sinus rhythm, rate of 95, CO interval 138, QRS duration 72, QTC 439, no ST segment elevation or depression Medical Decision Making - Medical Decision Making 62-year-old female history of CAD presenting with upper chest pain and pain in her bilateral armpits associated with some dyspnea. Patient's EKG is nonischemic. Symptoms have been present for the past several days. Chest x- ray shows cardiomegaly with no focal pneumonia or acute findings. Normal white blood cell count, stable hemoglobin, d-dimer is elevated at 0.99, for this reason CT angiography is obtained and this is negative for pulmonary embolism. Patient's troponin is elevated at 0.048, BMP is negative. She is given aspirin and started on heparin in the emergency department. She remains chest pain- free. She will be admitted for further treatment and evaluation. - Lab Data Result diagrams: 02/20/18 12:05 02/20/18 12:05 Lab Results 02/20/18 02/20/18 02/20/18 Range/Units 12:05 12:05 12:05 WBC 8.2 (3.8-10.6) k/uL RBC 4.07 (3.80-5.40) m/uL Hgb 12.2 (11.4-16.0) gm/dL Hct 37.5 (34.0-46.0) % MCV 92.2 (80.0-100.0) fL MCH 30.0 (25.0-35.0) pg MCHC 32.5 (31.0-37.0) g/dL RDW 14.3 (11.5-15.5) % Plt Count 254 (150-450) k/uL Neutrophils % 68 % Lymphocytes % 17 % Monocytes % 7 % Eosinophils % 5 % Basophils % 0 % Neutrophils # 5.6 (1.3-7.7) k/uL Lymphocytes # 1.4 (1.0-4.8) k/uL Monocytes # 0.6 (0-1.0) k/uL Eosinophils # 0.4 (0-0.7) k/uL Basophils # 0.0 (0-0.2) k/uL PT (9.0-12.0) sec INR (<1.2) APTT (22.0-30.0) sec D-Dimer (<0.60) mg/L FEU Sodium 139 (137-145) mmol/L Potassium 4.1 (3.5-5.1) mmol/L Chloride 101 (98-107) mmol/L Carbon Dioxide 28 (22-30) mmol/L Anion Gap 10 mmol/L BUN 19 H (7-17) mg/dL Creatinine 0.80 (0.52-1.04) mg/dL Est GFR (CKD-EPI)AfAm >90 (>60 ml/min/1.73 sqM) Est GFR (CKD-EPI)NonAf 81 (>60 ml/min/1.73 sqM) Glucose 182 H (74-99) mg/dL Calcium 9.1 (8.4-10.2) mg/dL Magnesium 1.9 (1.6-2.3) mg/dL Total Bilirubin 0.6 (0.2-1.3) mg/dL AST 23 (14-36) U/L ALT 30 (9-52) U/L Alkaline Phosphatase 116 (38-126) U/L Total Creatine Kinase 47 (30-135) U/L CK-MB (CK-2) 1.4 (0.0-2.4) ng/mL CK-MB (CK-2) Rel Index 3.0 Troponin I 0.048 H* (0.000-0.034) ng/mL NT-Pro-B Natriuret Pep pg/mL Total Protein 6.1 L (6.3-8.2) g/dL Albumin 3.6 (3.5-5.0) g/dL 02/20/18 02/20/18 Range/Units 12:05 12:05 WBC (3.8-10.6) k/uL RBC (3.80-5.40) m/uL Hgb (11.4-16.0) gm/dL Hct (34.0-46.0) % MCV (80.0-100.0) fL MCH (25.0-35.0) pg MCHC (31.0-37.0) g/dL RDW (11.5-15.5) % Plt Count (150-450) k/uL Neutrophils % % Lymphocytes % % Monocytes % % Eosinophils % % Basophils % % Neutrophils # (1.3-7.7) k/uL Lymphocytes # (1.0-4.8) k/uL Monocytes # (0-1.0) k/uL Eosinophils # (0-0.7) k/uL Basophils # (0-0.2) k/uL PT 9.4 (9.0-12.0) sec INR 0.9 (<1.2) APTT 24.3 (22.0-30.0) sec D-Dimer 0.99 H (<0.60) mg/L FEU Sodium (137-145) mmol/L Potassium (3.5-5.1) mmol/L Chloride (98-107) mmol/L Carbon Dioxide (22-30) mmol/L Anion Gap mmol/L BUN (7-17) mg/dL Creatinine (0.52-1.04) mg/dL Est GFR (CKD-EPI)AfAm (>60 ml/min/1.73 sqM) Est GFR (CKD-EPI)NonAf (>60 ml/min/1.73 sqM) Glucose (74-99) mg/dL Calcium (8.4-10.2) mg/dL Magnesium (1.6-2.3) mg/dL Total Bilirubin (0.2-1.3) mg/dL AST (14-36) U/L ALT (9-52) U/L Alkaline Phosphatase (38-126) U/L Total Creatine Kinase (30-135) U/L CK-MB (CK-2) (0.0-2.4) ng/mL CK-MB (CK-2) Rel Index Troponin I (0.000-0.034) ng/mL NT-Pro-B Natriuret Pep 364 pg/mL Total Protein (6.3-8.2) g/dL Albumin (3.5-5.0) g/dL Disposition Clinical Impression: NSTEMI (non-ST elevated myocardial infarction) Disposition: ADMITTED IP TO THIS HOSP Condition: Stable Is patient prescribed a controlled substance at d/c from ED?: No Referrals: Lashell Pérez, PAC [Primary Care Provider] - 1-2 days Decision to Admit Reason: Admit from EC Decision Date: 02/20/18 Decision Time: 14:27
[2018-02-20 12:22] LABS: Basophils % (A) 0 %; Eosinophils # (A) 0.4 k/uL (0-0.7); Eosinophils % (A) 5 %; HCT 37.5 % (34.0-46.0); HGB 12.2 gm/dL (11.4-16.0); Lymphocytes # (A) 1.4 k/uL (1.0-4.8); Lymphocytes % (A) 17 %; MCHC 32.5 g/dL (31.0-37.0); MCV 92.2 fL (80.0-100.0); Mean Platelet Volume 6.6; Monocytes # (A) 0.6 k/uL (0-1.0); Monocytes % (A) 7 %; Neutrophils # (A) 5.6 k/uL (1.3-7.7); Neutrophils % (A) 68 %; Platelet Count 254 k/uL (150-450); RBC 4.07 m/uL (3.80-5.40); RDW 14.3 % (11.5-15.5); WBC 8.2 k/uL (3.8-10.6)
[2018-02-20 12:32] LABS: ALT 30 U/L (9-52); AST 23 U/L (14-36); Albumin 3.6 g/dL (3.5-5.0); Alkaline Phosphatase 116 U/L (38-126); Anion Gap 10 mmol/L; Blood Urea Nitrogen 19 mg/dL (7-17); Calcium 9.1 mg/dL (8.4-10.2); Carbon Dioxide 28 mmol/L (22-30); Chloride 101 mmol/L (98-107); Glucose 182 mg/dL (74-99); Magnesium 1.9 mg/dL (1.6-2.3); Potassium 4.1 mmol/L (3.5-5.1); Sodium 139 mmol/L (137-145); Total Bilirubin 0.6 mg/dL (0.2-1.3); Total Protein 6.1 g/dL (6.3-8.2)
[2018-02-20 12:36] LABS: INR 0.9 (<1.2)
[2018-02-20 12:37] LABS: Partial Thromboplastin Time 24.3 sec (22.0-30.0); Prothrombin Time 9.4 sec (9.0-12.0)
[2018-02-20 12:45] LABS: D-Dimer 0.99 mg/L FEU (<0.60)
--- NOTE | 2018-02-20 12:48 | XR ---
EXAMINATION TYPE: XR chest 2V DATE OF EXAM: 02/20/2018 HISTORY: Chest Pain. REFERENCE: Previous study dated 12/26/2016. FINDINGS: The heart is enlarged. There is some volume loss in the right middle lobe. The lungs are ot herwise clear. Pleural spaces are clear. IMPRESSION: 1. MILD CARDIOMEGALY. 2. PARTIAL ATELECTASIS OF THE RIGHT MIDDLE LOBE.
[2018-02-20 12:53] LABS: Creatine Kinase MB 1.4 ng/mL (0.0-2.4)
[2018-02-20 12:56] LABS: Troponin I 0.048 ng/mL (0.000-0.034)
--- NOTE | 2018-02-20 14:07 | CT ---
EXAMINATION TYPE: CT angio chest DATE OF EXAM: 02/20/2018 1:48 PM COMPARISON: None. HISTORY: Chest pain, SOB CT DLP: 460 mGycm Automated exposure control for dose reduction was used. CONTRAST: CTA scan of the thorax is performed with IV Contrast, patient injected with 100 ml mL of Isovue 370, pulmonary embolism protocol. . FINDINGS: There is mild, diffuse groundglass opacity throughout both lungs. This may be on the basis of congestive heart failure or atypical pneumonia. There is no significant axillary, internal mammary, mediastinal or hilar adenopathy. There is no evidence of pulmonary embolus. The aorta is normal in caliber without evidence of dissection. The heart is mildly enlarged. There is no pleural or pericardial fluid. I suspect fatty infiltration of the liver. Visualized portions of the upper abdomen are otherwise unr emarkable. No bony lesion is seen. IMPRESSION: 1. THIS EXAMINATION IS NEGATIVE FOR PULMONARY EMBOLUS. 2. CARDIOMEGALY. 3. PROBABLE FATTY INFILTRATION OF THE LIVER.
[2018-02-20] MEDS ORDERED: HEPARIN SODIUM,PORCINE 5,000 UNIT/ML 1 ML VIAL IV ONE (14:09)
[2018-02-20] MEDS ORDERED: HEPARIN SODIUM,PORCINE 5,000 UNIT/ML 1 ML VIAL IV PRN (14:09)
[2018-02-20] MEDS ORDERED: ASPIRIN 325 MG TAB PO STA (14:09)
[2018-02-20] MEDS ORDERED: MORPHINE SULFATE 4 MG/ML SYRINGE IV PRN (14:27)
[2018-02-20] MEDS ORDERED: NALOXONE 0.4 MG/ML 1 ML VIAL IV PRN (14:27)
[2018-02-20] MEDS ORDERED: ACETAMINOPHEN TAB 325 MG TAB PO PRN (14:27)
[2018-02-20] MEDS ORDERED: NITROGLYCERIN SL TABS 0.4 MG TAB SUBLINGUAL PRN (14:29)
[2018-02-20] MEDS ORDERED: clonazePAM 0.5 MG TAB PO PRN (14:29)
[2018-02-20] MEDS: SODIUM CHLORIDE 0.9% 1,000 ML IV SCH (14:45)
[2018-02-20] MEDS: HEPARIN SOD,PORK IN 0.45% NACL 25,000 UNIT in 0.45% NACL 1 500ML.BAG IV SCH (14:48)
[2018-02-20 15:29] LABS: Glucose,Whole Blood 141 mg/dL (75-99)
[2018-02-20 18:28] LABS: Creatine Kinase MB 1.1 ng/mL (0.0-2.4)
[2018-02-20 18:34] LABS: Troponin I 0.035 ng/mL (0.000-0.034)
--- NOTE | 2018-02-20 18:45 | HP ---
HISTORY AND PHYSICAL CHIEF COMPLAINT: A 62-year-old white female came in with chest pain, dyspnea, has a history of coronary artery disease and stenting of the LAD approximately 10 years ago. Two days of upper chest pain, bilateral axillary pain, some dizziness, associated with this. She has had some nausea without vomiting and GERD symptoms. Attributed symptoms to gastroparesis, gastric reflux, however, she developed chest pain. She felt she should be evaluated. She is admitted with a non STEMI due to elevated troponin for Cardiology consultation. HOME MEDICATION: Lipitor 40, 60 b.i.d., Cozaar 50 daily, metoprolol 50 daily, loratadine 150 b.i.d., multivitamin daily, ferrous sulfate 325, Lasix 20 t.i.d., Synthroid 50 daily, Klor-Con 10 b.i.d., gabapentin 600 t.i.d. Farxiga 10 mg daily, trazodone 100 mg daily, Actos 30 mg daily, Klonopin 0.5 mg b.i.d., Januvia 100 mg daily. Betamethasone topically daily, Amaryl 2 mg daily, Claritin 10 mg daily, Minocin 100 mg daily, Mag oxide 400 mg daily. ALLERGIES: CIPRO, VALIUM, SULFA, REGLAN. REVIEW OF SYSTEMS: Fourteen point review of systems negative except for mentioned in HPI. PAST MEDICAL HISTORY: Coronary artery disease, diabetes mellitus, GERD, dyslipidemia, hypertension, osteoarthritis, skin disorder, history of MRSA. SURGERIES: Appendectomy, , cholecystectomy, heart catheterization with stent, tonsillectomy, breast biopsy, D and C, lithotripsy, anxiety, depression, panic disorder, former smoker. FAMILY HISTORY: Mother with cancer. Father with coronary artery disease, myocardial infarction. PHYSICAL EXAM: Well-developed, well-nourished female. HEAD: Normocephalic, atraumatic. OPHTHALMOLOGIC: Pupils equal, round, react to light and accommodation. NEUROLOGIC: Alert and oriented x3. PSYCH: Fair mood and affect. GI: Soft, nontender. Giving appropriate answers. CARDIOVASCULAR: Tachycardia S1, S2. Pulse is 80s to low 100, temp 98.1, respiratory 16-20, blood pressure is 150 over 60s to 70s to 80s, O2 97 to 98%. Respiratory 16 to 20. EKG normal sinus rhythm. EKG was nonischemic. D-dimer was elevated a little bit high. CT scan angiogram was negative for PE. Troponin elevation. BNP was negative. Maintain her current medications. Watch her in the hospital. Have cardiology see here and do serial troponins. History of diabetes, hypertension, hypothyroidism, chronic neuropathy. Please see current treatments. MMODL / IJN: [id number] /
[2018-02-20 20:03] LABS: Glucose,Whole Blood 119 mg/dL (75-99)
[2018-02-20] MEDS ORDERED: LORATADINE 10 MG TAB PO PRN (20:24)
[2018-02-20 20:47] VITALS: BMI 46.4
[2018-02-20] MEDS: FUROSEMIDE 20 MG TAB PO SCH (21:35)
[2018-02-20] MEDS: BETAMETHASONE DIPROPIONATE 0.05% OINTMENT 45 GM TUBE TOPICAL SCH (21:35)
[2018-02-20] MEDS: LOSARTAN 50 MG TAB PO SCH (21:35)
[2018-02-20] MEDS: METOPROLOL TARTRATE 50 MG TAB PO SCH (21:36)
[2018-02-20] MEDS: PIOGLITAZONE 30 MG TAB PO SCH (21:37)
[2018-02-20] MEDS: DULoxetine HCL 60 MG CAPSULE.DR PO SCH (22:12)
[2018-02-20] MEDS: MINOCYCLINE 50 MG CAP PO SCH (22:12)
[2018-02-20] MEDS: FAMOTIDINE 20 MG TAB PO SCH (22:12)
[2018-02-20] MEDS: GABAPENTIN 300 MG CAP PO SCH (22:13)
[2018-02-20] MEDS: MULTIVITAMINS, THERA 1 EACH TAB PO SCH (22:13)
[2018-02-20] MEDS ORDERED: ATORVASTATIN 40 MG TAB PO SCH (23:00)
[2018-02-20] MEDS: traZODone HCL 100 MG TAB PO SCH (23:01)
[2018-02-21 01:18] LABS: Creatine Kinase MB 1.2 ng/mL (0.0-2.4); Troponin I 0.032 ng/mL (0.000-0.034)
[2018-02-21 03:44] LABS: Basophils # (A) 0.1 k/uL (0-0.2); Basophils % (A) 1 %; Eosinophils # (A) 0.3 k/uL (0-0.7); Eosinophils % (A) 3 %; HCT 41.4 % (34.0-46.0); HGB 13.4 gm/dL (11.4-16.0); Lymphocytes # (A) 2.5 k/uL (1.0-4.8); Lymphocytes % (A) 20 %; MCHC 32.3 g/dL (31.0-37.0); Mean Platelet Volume 6.5; Monocytes # (A) 0.7 k/uL (0-1.0); Monocytes % (A) 6 %; Neutrophils # (A) 8.3 k/uL (1.3-7.7); Neutrophils % (A) 68 %; Platelet Count 265 k/uL (150-450); RBC 4.31 m/uL (3.80-5.40); RDW 14.3 % (11.5-15.5); WBC 12.2 k/uL (3.8-10.6)
[2018-02-21 06:00] LABS: Glucose,Whole Blood 171 mg/dL (75-99)
[2018-02-21] MEDS: BETAMETHASONE DIPROPIONATE 0.05% OINTMENT 45 GM TUBE TOPICAL SCH ×2 (07:46→19:54)
[2018-02-21] MEDS: PANTOPRAZOLE 40 MG/10 ML VIAL IV SCH (07:47)
[2018-02-21] MEDS ORDERED: DULoxetine HCL 60 MG CAPSULE.DR PO SCH (08:00)
--- NOTE | 2018-02-21 08:43 | P.CRDCN ---
History of Present Illness Consult date: 02/21/18 Requesting physician: Braden Torres Consult reason: chest pain Chief complaint: Chest pain History of present illness: This is a pleasant 62-year-old female with known history of hypertension, diabetes, hyperlipidemia, hypothyroidism, prior history of smoking , coronary artery disease with prior stent placement in 2006. She presents to the hospital with symptoms of midsternal chest pressure and tightness in her bilateral axilla area. According to the patient, symptoms usually occur when she gets up and walks around, they subside with rest. She does get some associated shortness of breath, and mild nausea. Symptoms have been going off- and-on for the past few days. Initial EKG on presentation here showed a normal sinus rhythm with no acute changes. Subsequent EKG showed normal sinus rhythm with no acute changes. Chest x-ray revealed mild cardiomegaly with partial atelectasis of the right middle lobe. CTA of the chest negative for pulmonary embolism. Cardiomegaly. Probable fatty infiltration of the liver. At pressure on arrival 158/80, heart rate low 100s, temperature 98.1. Let pressure this morning 105/60 with a heart rate in the 80s, temperature 90.8. Patient did have a low-grade temperature through the night of 99.2. White blood cell count 12.2, hemoglobin 13.4, platelet count 265. D-dimer 0.9. Sodium 139, potassium 4.1, BUN 19, creatinine 0.8. TSH 2.6. BNP 364. Troponins 0.04, 0.035, 0.032. The time of my examination this morning she is currently chest pain-free. Patient states she did develop some hives the night last night, she's not sure exactly of what she is ALLERGIC to, but she does develop skin swelling and hives at times. Patient is also currently on antibiotics for lesions on her lower extremities. Past Medical History Past Medical History: Coronary Artery Disease (CAD), Diabetes Mellitus, GERD/ Reflux, Hyperlipidemia, Hypertension, Myocardial Infarction ([place]), Osteoarthritis (OA), Skin Disorder Additional Past Medical History / Comment(s): ECZEMA, IBS, DDD, gastroparesis, carapal tunnel lisette., kidney stones, healing sores on leg Last Myocardial Infarction Date:: [place] X 3 LAST ONE 2006 History of Any Multi-Drug Resistant Organisms: MRSA Date of last positivie culture/infection: 01/01/16 MDRO Source:: right leg Past Surgical History: Appendectomy, Section, Cholecystectomy, Heart Catheterization With Stent, Hysterectomy, Tonsillectomy Additional Past Surgical History / Comment(s): breast biopsy, D & C x2, tumor right shoulder removed; lithotripsy Past Anesthesia/Blood Transfusion Reactions: Previous Problems w/ Anesthesia Additional Past Anesthesia/Blood Transfusion Reaction / Comment(s): TENDS TO HAVE PANIC ATTACKS WHEN COMING OUT OF ANESTHESIA Date of Last Stent Placement:: 2006 Past Psychological History: Anxiety, Depression, Panic Disorder, PTSD Smoking Status: Former smoker Past Alcohol Use History: None Reported Additional Past Alcohol Use History / Comment(s): quit smoking 1982, smoked 1- 3ppd for 12 yrs. Past Drug Use History: None Reported - Past Family History Mother Family Medical History: Cancer Father Family Medical History: Coronary Artery Disease (CAD), Myocardial Infarction ([place] ) Medications and Allergies Home Medications Medication Instructions Recorded Confirmed Type Atorvastatin [Lipitor] 40 mg PO HS@2300 06/21/15 02/20/18 History DULoxetine HCL 60 mg PO BID@0800,1700 06/21/15 02/20/18 History Losartan [Cozaar] 50 mg PO DAILY@1730 06/21/15 02/20/18 History Metoprolol Tartrate [Lopressor] 50 mg PO HS@2300 06/21/15 02/20/18 History Ranitidine HCl 150 mg PO BID@1230,2300 06/21/15 02/20/18 History Calcium Carbonate [Calcium] 600 mg PO DAILY@1530 01/01/16 02/20/18 History Multivit-Min/Iron/Folic/Lutein 1 tab PO HS@2300 01/01/16 02/20/18 History [Centrum Silver Women Tablet] Ferrous Sulfate [Feosol] 325 mg PO Q48H 06/05/16 02/20/18 History Calcium Polycarbophil [Fiber-Lax] 625 mg PO DAILY@0800 07/27/16 02/20/18 History Furosemide [Lasix] 20 mg PO TID@0800,1230,1500 07/27/16 02/20/18 History Levothyroxine Sodium [Synthroid] 50 mcg PO DAILY@0800 07/27/16 02/20/18 History Potassium Chloride [Klor-Con 10] 10 meq PO BID@1230,1730 07/27/16 02/20/18 History Acetaminophen [Tylenol 8 Hour] 650 mg PO Q8H PRN 12/26/16 02/20/18 History Gabapentin 600 mg PO TID@0800,1700,2300 12/26/16 02/20/18 History Dapagliflozin Propanediol [Farxiga] 10 mg PO DAILY@1500 04/29/17 02/20/18 History traZODone HCL 100 mg PO HS@2300 04/29/17 02/20/18 History Pioglitazone [Actos] 30 mg PO HS@2300 07/24/17 02/20/18 History clonazePAM [KlonoPIN] 0.5 mg PO BID PRN 07/24/17 02/20/18 History sitaGLIPtin [Januvia] 100 mg PO DAILY@0800 07/24/17 02/20/18 History Betamethasone Dipropionate 1 applic TOPICAL BID 02/20/18 02/20/18 History [Betamethasone Dipropionate 0.05%] Glimepiride [Amaryl] 2 mg PO DAILY@1230 02/20/18 02/20/18 History Loratadine [Claritin] 10 mg PO DAILY PRN 02/20/18 02/20/18 History Magnesium Oxide [Mag-Ox] 400 mg PO DAILY@1730 02/20/18 02/20/18 History Minocycline HCl [Minocin] 100 mg PO BID@09,21 02/20/18 02/20/18 History Allergies Allergy/AdvReac Type Severity Reaction Status Date / Time ciprofloxacin [From Cipro] Allergy Anaphylaxis Verified 02/20/18 14:00 ciprofloxacin HCl Allergy Anaphylaxis Verified 02/20/18 14:00 [From Cipro] diazepam [From Valium] Allergy Rash/Hives Verified 02/20/18 14:00 metronidazole [From Flagyl] Allergy Anaphylaxis Verified 02/20/18 14:00 Sulfa (Sulfonamide Allergy Rash/Hives Verified 02/20/18 14:00 Antibiotics) doxycycline AdvReac Nausea & Verified 02/20/18 14:00 Vomiting & Diarrhea metoclopramide HCl AdvReac Diarrhea Verified 02/20/18 14:00 [From Reglan] Physical Exam Vitals: Vital Signs Temp Pulse Pulse Resp BP BP Pulse Ox 02/21/18 07:41 18 02/21/18 03:20 98.0 F 85 18 105/62 92 L 02/20/18 23:00 99.2 F 81 18 135/79 95 02/20/18 20:37 97.2 F L 96 18 134/71 100 02/20/18 19:30 97.2 F L 96 18 134/71 100 02/20/18 18:00 98.3 F 81 20 152/78 99 02/20/18 16:00 87 20 156/72 99 02/20/18 14:43 89 20 155/70 95 02/20/18 13:52 93 20 153/73 98 02/20/18 12:46 85 18 126/58 95 02/20/18 11:11 98.1 F 101 H 16 158/80 97 Intake and Output 02/20/18 02/21/18 02/21/18 22:59 06:59 14:59 Intake Total 124.333 Balance 124.333 Intake: Intake, IV Titration 124.333 Amount Heparin Sod,Pork in 0.45% 124.333 NaCl 25,000 unit In 0.45 % NaCl 1 500ml.bag @ 8.68 UNITS/KG/HR 20 mls/hr IV .Q24H [facility] Rx#:[id number] Other: Weight 125.6 kg 124.5 kg PHYSICAL EXAMINATION: GENERAL: 62-year-old female in no acute distress at the time of my examination HEENT: Head is atraumatic, normocephalic. Pupils equal, round. Sclera anicteric. Conjunctiva are clear. Mucous membranes of the mouth are moist. Neck is supple. There is no elevated jugular venous pressure. No carotid bruit is heard. HEART EXAMINATION: Heart S1, S2 normal. No murmur or gallop heard. CHEST EXAMINATION: Lungs are clear with diminished air entry to the bases ABDOMEN: Soft, obese nontender. Bowel sounds are heard. No organomegaly noted. EXTREMITIES: 2+ peripheral pulses with trace evidence of peripheral edema , no calf tenderness noted. Ulcerated area noted to the left mandujano, dressing in place NEUROLOGIC patient is awake, alert and oriented X3. . Results 02/21/18 03:02 02/20/18 12:05 Cardiac Enzymes 02/20/18 02/20/18 02/20/18 Range/Units 12:05 12:05 17:38 AST 23 (14-36) U/L CK-MB (CK-2) 1.4 1.1 (0.0-2.4) ng/mL Troponin I 0.048 H* 0.035 H* (0.000-0.034) ng/mL 02/20/18 Range/Units 23:59 AST (14-36) U/L CK-MB (CK-2) 1.2 (0.0-2.4) ng/mL Troponin I 0.032 (0.000-0.034) ng/mL Coagulation 02/20/18 02/20/18 02/21/18 Range/Units 12:05 20:27 03:02 PT 9.4 (9.0-12.0) sec APTT 24.3 28.5 33.4 H (22.0-30.0) sec CBC 02/20/18 02/21/18 Range/Units 12:05 03:02 WBC 8.2 12.2 H (3.8-10.6) k/uL RBC 4.07 4.31 (3.80-5.40) m/uL Hgb 12.2 13.4 (11.4-16.0) gm/dL Hct 37.5 41.4 (34.0-46.0) % Plt Count 254 265 (150-450) k/uL Comprehensive Metabolic Panel 02/20/18 Range/Units 12:05 Sodium 139 (137-145) mmol/L Potassium 4.1 (3.5-5.1) mmol/L Chloride 101 (98-107) mmol/L Carbon Dioxide 28 (22-30) mmol/L BUN 19 H (7-17) mg/dL Creatinine 0.80 (0.52-1.04) mg/dL Glucose 182 H (74-99) mg/dL Calcium 9.1 (8.4-10.2) mg/dL AST 23 (14-36) U/L ALT 30 (9-52) U/L Alkaline Phosphatase 116 (38-126) U/L Total Protein 6.1 L (6.3-8.2) g/dL Albumin 3.6 (3.5-5.0) g/dL Current Medications Generic Name Dose Route Start Last Admin Trade Name Freq PRN Reason Stop Dose Admin Acetaminophen 650 mg 02/20/18 20:24 Tylenol Tab PO Q8H PRN Mild Pain/Fever Atorvastatin Calcium 40 mg 02/20/18 23:00 02/20/18 21:36 Lipitor PO 40 mg HS@2300 [facility] Administration Betamethasone Dipropionate 1 applic 02/20/18 21:00 02/21/18 07:46 Diprolene TOPICAL Not Given BID [facility] Calcium Carbonate/Glycine 500 mg 02/21/18 15:30 Tums PO DAILY@1530 [facility] Calcium Polycarbophil 625 mg 02/21/18 08:00 Fibercon PO DAILY@0800 [facility] Clonazepam 0.5 mg 02/20/18 14:29 Klonopin PO BID PRN Anxiety Duloxetine HCl 60 mg 02/20/18 21:38 02/20/18 22:12 Cymbalta PO 60 mg BID@0800,1700 [facility] Administration Famotidine 20 mg 02/20/18 23:00 02/20/18 22:12 Pepcid PO 20 mg BID@1230,2300 [facility] Administration Ferrous Sulfate 325 mg 02/21/18 12:30 Feosol PO Q48H [facility] Furosemide 20 mg 02/20/18 15:00 02/20/18 21:35 Lasix PO 20 mg TID@0800,1230,1500 [facility] Administration Gabapentin 600 mg 02/20/18 23:00 02/20/18 22:13 Neurontin PO 600 mg TID@0800,1700,2300 [facility] Administration Glimepiride 2 mg 02/21/18 12:30 Amaryl PO DAILY@1230 [facility] Heparin Sodium (Porcine) 0 unit 02/20/18 14:09 02/21/18 04:17 Heparin IV 4,000 unit PER PROTOCOL PRN Administration Low PTT Protocol Heparin Sodium/Sodium Chloride 500 mls @ 20 mls/hr 02/20/18 14:15 02/20/18 21 :01 25,000 unit/ Sodium Chloride IV 10.96 units/kg/hr .Q24H [facility] 25.25 mls/hr Titration Protocol 8.68 UNITS/KG/HR Sodium Chloride 1,000 mls @ 50 mls/hr 02/20/18 14:30 02/20/18 14:45 Saline 0.9% IV 50 mls/hr .Q20H [facility] Administration Levothyroxine Sodium 50 mcg 02/21/18 08:00 Synthroid PO DAILY@0800 [facility] Linagliptin 5 mg 02/21/18 08:00 Tradjenta PO DAILY@0800 [facility] Loratadine 10 mg 02/20/18 20:24 02/21/18 04:42 Claritin PO 10 mg DAILY PRN Administration Allergy Symptoms Losartan Potassium 50 mg 02/20/18 17:30 02/20/18 21:35 Cozaar PO 50 mg DAILY@1730 [facility] Administration Magnesium Oxide 400 mg 02/21/18 17:30 Mag-Ox PO DAILY@1730 [facility] Metoprolol Tartrate 50 mg 02/20/18 23:00 02/20/18 21:36 Lopressor PO 50 mg HS@2300 [facility] Administration Minocycline HCl 100 mg 02/20/18 21:00 02/20/18 22:12 Minocin PO 100 mg BID@, [facility] Administration Morphine Sulfate 4 mg 02/20/18 14:27 Morphine Sulfate (Inj) IV Q4HR PRN Severe Pain Multivitamins 1 each 02/20/18 23:00 02/20/18 22:13 Theragran PO 1 each HS@2300 [facility] Administration Naloxone HCl 0.2 mg 02/20/18 14:27 Narcan IV Q2M PRN Opioid Reversal Nitroglycerin 0.4 mg 02/20/18 14:29 Nitrostat SUBLINGUAL Q5M PRN Chest Pain Dapagliflozin 10 mg 02/21/18 15:00 Propanediol [Farxiga PO ] DAILY@1500 [facility] Pantoprazole Sodium 40 mg 02/21/18 09:00 02/21/18 07:47 Protonix IV 40 mg DAILY [facility] Administration Pioglitazone HCl 30 mg 02/20/18 23:00 02/20/18 21:37 Actos PO Not Given HS@2300 [facility] Potassium Chloride 10 meq 02/21/18 12:30 K-Dur 10 PO BID@1230,1730 [facility] Trazodone HCl 100 mg 02/20/18 23:00 02/20/18 23:01 Desyrel PO 100 mg HS@2300 [facility] Administration Intake and Output 02/20/18 02/21/18 02/21/18 22:59 06:59 14:59 Intake Total 124.333 Balance 124.333 Intake: Intake, IV Titration 124.333 Amount Heparin Sod,Pork in 0.45% 124.333 NaCl 25,000 unit In 0.45 % NaCl 1 500ml.bag @ 8.68 UNITS/KG/HR 20 mls/hr IV .Q24H [facility] Rx#:[id number] Other: Weight 125.6 kg 124.5 kg 02/21/18 03:02 02/20/18 12:05 EKG Interpretations (text) EKG shows normal sinus rhythm no acute changes noted Assessment and Plan Plan: Assessment and plan #1 symptoms of exertional chest discomfort with associated shortness of breath and nausea, which are suggestive of acute coronary syndrome. Troponins 0.048, 0.035, 0.032. EKG shows normal sinus rhythm with no acute changes. #2 diabetes #3 hypertension #4 hyperlipidemia #5 obesity #6 prior history of smoking #7 known history of coronary artery disease with prior stent placement in 2006 #8 hypothyroidism Plan We will obtain an echocardiogram with Doppler study. Continue IV heparin along with aspirin, statin, beta love, and arb. Patient has been advised to undergo cardiac catheterization, the risks and the benefits were explained to the patient in detail and she is willing to proceed. Further recommendations will be based on these findings and the patient's clinical course. DNP note has been reviewed, I agree with a documented findings and plan of care. Patient was seen and examined.
[2018-02-21] MEDS: diphenhydrAMINE 25 MG CAP PO PRN ×2 (10:18→19:53)
[2018-02-21] MEDS: GABAPENTIN 300 MG CAP PO SCH ×3 (10:22→21:48)
[2018-02-21] MEDS: FUROSEMIDE 20 MG TAB PO SCH ×3 (10:23→16:54)
[2018-02-21] MEDS: CALCIUM POLYCARBOPHIL 625 MG TAB PO SCH (10:23)
[2018-02-21] MEDS: LEVOTHYROXINE 50 MCG TAB PO SCH (10:23)
[2018-02-21] MEDS: DULoxetine HCL 60 MG CAPSULE.DR PO SCH ×2 (10:23→16:54)
[2018-02-21] MEDS: MINOCYCLINE 50 MG CAP PO SCH ×2 (10:24→19:54)
[2018-02-21] MEDS: LINAGLIPTIN 5 MG TABLET PO SCH (10:24)
[2018-02-21] MEDS ORDERED: FUROSEMIDE 10 MG/ML 4 ML VIAL IV STA (10:29)
[2018-02-21] MEDS ORDERED: ASPIRIN 325 MG TAB PO STA (10:31)
[2018-02-21] MEDS ORDERED: SODIUM CHLORIDE 0.9% 1,000 ML in EMPTY BAG 1 BAG IV ONE (10:31)
[2018-02-21] MEDS ORDERED: ATORVASTATIN 80 MG TAB PO STA (10:31)
[2018-02-21] MEDS ORDERED: NITROGLYCERIN SL TABS 0.4 MG TAB SUBLINGUAL PRN (10:31)
[2018-02-21] MEDS: SODIUM CHLORIDE 0.9% 1,000 ML IV SCH (10:54)
[2018-02-21 11:46] LABS: Glucose,Whole Blood 147 mg/dL (75-99)
[2018-02-21] MEDS: FERROUS SULFATE 325 MG TAB PO SCH (12:18)
[2018-02-21] MEDS: FAMOTIDINE 20 MG TAB PO SCH (12:18)
[2018-02-21] MEDS: POTASSIUM CHLORIDE ER 10 MEQ TAB.ER.PRT PO SCH ×2 (12:19→16:55)
[2018-02-21] MEDS: GLIMEPIRIDE 2 MG TAB PO SCH (12:19)
[2018-02-21] MEDS: Dapagliflozin Propanediol [Farxiga] PO SCH (14:14)
[2018-02-21 16:41] LABS: Glucose,Whole Blood 163 mg/dL (75-99)
[2018-02-21] MEDS: HEPARIN SOD,PORK IN 0.45% NACL 25,000 UNIT in 0.45% NACL 1 500ML.BAG IV SCH (16:53)
[2018-02-21] MEDS: CALCIUM CARBONATE 500 MG CHEWABLE PO SCH (16:54)
[2018-02-21] MEDS: MAGNESIUM OXIDE 400 MG TAB PO SCH (16:55)
[2018-02-21] MEDS: LOSARTAN 50 MG TAB PO SCH (16:55)
[2018-02-21] MEDS ORDERED: ATORVASTATIN 80 MG TAB PO SCH (21:00)
[2018-02-21 21:06] LABS: Glucose,Whole Blood 145 mg/dL (75-99)
--- NOTE | 2018-02-21 21:34 | PN ---
PROGRESS NOTE SUBJECTIVE: 62-year-old white female who was admitted with atypical chest pain, suspicious for coronary artery blockages, could have a heart catheterization in the morning. Her sugars are in the mid 100s. White count 12.2. Cardiac enzymes are normal. Thyroid is normal. Vital signs show temp 99, pulse 78-100, respiratory 16 to 18, blood pressure 110s to 130s over 60s, O2 95% on room air. Cardiovascular: S1, S2. Lungs are clear. Endocrine: BMI is over 50. GI soft. Hematology negative Homans. ASSESSMENT: 1. Atypical chest pain. 2. History of diabetes. 3. Hypertension. 4. Obesity. 5. Depression, bipolar. 6. Multiple medical conditions. Going to get heart catheterization in the morning. MMODL / IJN: [id number] /
[2018-02-21] MEDS: METOPROLOL TARTRATE 50 MG TAB PO SCH (21:48)
[2018-02-21] MEDS: PIOGLITAZONE 30 MG TAB PO SCH (21:48)
[2018-02-21] MEDS: MULTIVITAMINS, THERA 1 EACH TAB PO SCH (21:48)
[2018-02-21] MEDS: traZODone HCL 100 MG TAB PO SCH (21:48)
[2018-02-21] MEDS: methylPREDNISolone SOD SUCCI 125 MG/2 ML VIAL IV SCH (21:48)
[2018-02-21] MEDS ORDERED: MORPHINE ORAL SOLN 10 MG/5 ML CUP PO PRN (21:54)
[2018-02-22] MEDS: GABAPENTIN 300 MG CAP PO SCH ×3 (06:13→22:46)
[2018-02-22] MEDS: DULoxetine HCL 60 MG CAPSULE.DR PO SCH ×2 (06:14→16:57)
[2018-02-22] MEDS: CALCIUM POLYCARBOPHIL 625 MG TAB PO SCH (06:14)
[2018-02-22] MEDS: methylPREDNISolone SOD SUCCI 125 MG/2 ML VIAL IV SCH ×2 (06:14→16:58)
[2018-02-22] MEDS: LEVOTHYROXINE 50 MCG TAB PO SCH (06:14)
[2018-02-22] MEDS: EZETIMIBE 10 MG TAB PO SCH (06:15)
[2018-02-22] MEDS: MINOCYCLINE 50 MG CAP PO SCH ×2 (06:15→21:06)
[2018-02-22 06:16] LABS: Glucose,Whole Blood 240 mg/dL (75-99)
[2018-02-22] MEDS: diphenhydrAMINE 50 MG CAP PO PRN (06:19)
[2018-02-22] MEDS: PANTOPRAZOLE 40 MG/10 ML VIAL IV SCH (06:25)
[2018-02-22 06:41] LABS: Basophils % (A) 0 %; Eosinophils % (A) 0 %; HGB 12.4 gm/dL (11.4-16.0); Lymphocytes # (A) 1.5 k/uL (1.0-4.8); Lymphocytes % (A) 14 %; MCH 30.3 pg (25.0-35.0); MCHC 31.9 g/dL (31.0-37.0); MCV 94.9 fL (80.0-100.0); Mean Platelet Volume 6.3; Monocytes # (A) 0.2 k/uL (0-1.0); Monocytes % (A) 2 %; Neutrophils # (A) 8.8 k/uL (1.3-7.7); Neutrophils % (A) 83 %; Platelet Count 255 k/uL (150-450); RDW 14.2 % (11.5-15.5); WBC 10.7 k/uL (3.8-10.6)
[2018-02-22] MEDS: BETAMETHASONE DIPROPIONATE 0.05% OINTMENT 45 GM TUBE TOPICAL SCH ×2 (08:38→21:02)
[2018-02-22] MEDS ORDERED: ASPIRIN 81 MG PO SCH (09:00)
[2018-02-22] MEDS ORDERED: ATORVASTATIN 80 MG TAB PO ONE (09:00)
[2018-02-22] MEDS ORDERED: ASPIRIN 325 MG TAB PO ONE (09:00)
[2018-02-22] MEDS ORDERED: LIDOCAINE 1% INJ 10MG/ML (20 ML MDV) ONE (09:11)
[2018-02-22] MEDS ORDERED: IV FLUID CONTINUATION 1,000 ML IV ONE (09:46)
[2018-02-22] MEDS ORDERED: MIDAZOLAM 2 MG/2 ML VIAL ONE (09:49)
[2018-02-22] MEDS ORDERED: diphenhydrAMINE 50 MG/ML 1 ML VIAL ONE (09:50)
[2018-02-22] MEDS ORDERED: MIDAZOLAM 2 MG/2 ML VIAL IVP ONE (09:52)
[2018-02-22] MEDS ORDERED: diphenhydrAMINE 50 MG/ML 1 ML VIAL IVP ONE (09:52)
[2018-02-22] MEDS ORDERED: LIDOCAINE 1% INJ 10MG/ML (20 ML MDV) SQ ONE (09:55)
[2018-02-22] MEDS ORDERED: NITROGLYCERIN SL TABS 0.4 MG TAB SUBLINGUAL ONE ×2 (10:12→10:13)
[2018-02-22 10:14] LABS: Hemoglobin A1C 6.8 % (4.0-6.0)
[2018-02-22] MEDS ORDERED: IOPAMIDOL-370 125ML BTL INJ ONE (10:17)
[2018-02-22] MEDS ORDERED: RX INFO: IV CONTRAST WAS GIVEN 1 EACH MISC MISCELLANE PRN (10:20)
[2018-02-22 10:22] LABS: Blood Urea Nitrogen 17 mg/dL (7-17)
--- NOTE | 2018-02-22 11:02 | CC ---
CARDIAC CATHETERIZATION REPORT Mrs. Mcintyre came to the hospital with recurrent chest discomfort, as well as nausea. EKG did not show any significant changes, but the troponin was mildly elevated suggestive of non-Q-wave myocardial infarction. The patient has a prior history of a stent to the LAD, about 10 years ago. In view of that, the patient was recommended to have a cardiac catheterization for definitive diagnosis. PROCEDURE: The right groin was prepped and draped in the usual manner and the skin was infiltrated with 2% Xylocaine. The right femoral artery was entered using Seldinger technique and #6-[place] sheath was placed in. Selective coronary angiography was then performed in multiple projections and the left ventricular was performed. The patient tolerated the procedure well. Sheath was removed and good hemostasis was achieved with the use of Angio-Seal. HEMODYNAMICS: Left ventricular end-diastolic pressure is 24-28 mmHg prior to angiography. No gradient is noted across the aortic valve. SELECTIVE CORONARY ANGIOGRAPHY: Left main coronary artery is normal and patent. LAD is a good caliber blood vessel. Stent is patent at the site of prior stent placement. There is about 20-30% narrowing noted at the site of the prior stent placement. There was a good size intermediate branch, which is normal. Circumflex coronary artery is small and nondominant. The right coronary artery is a large caliber blood vessel and good size PDA and PLV branch and right coronary artery is normal. FINAL IMPRESSION: This study reveals only minimal narrowing of about 20-30% at the site of prior stent placement. Circumflex intermediate and right coronary artery are normal. RECOMMENDATIONS: Medical treatment and risk factor modification. MMODL / IJN: [id number] /
[2018-02-22 11:14] LABS: Glucose,Whole Blood 192 mg/dL (75-99)
[2018-02-22] MEDS: FUROSEMIDE 20 MG TAB PO SCH ×3 (12:38→16:55)
[2018-02-22] MEDS: ACETAMINOPHEN TAB 325 MG TAB PO PRN (12:38)
[2018-02-22] MEDS: SODIUM CHLORIDE 0.9% 1,000 ML IV SCH (12:39)
[2018-02-22] MEDS: POTASSIUM CHLORIDE ER 10 MEQ TAB.ER.PRT PO SCH ×2 (12:39→16:57)
[2018-02-22] MEDS: GLIMEPIRIDE 2 MG TAB PO SCH (12:39)
[2018-02-22] MEDS: LINAGLIPTIN 5 MG TABLET PO SCH (12:39)
--- NOTE | 2018-02-22 13:13 | ECHOF ---
Referral Reason:chest pain MEASUREMENTS -------- HEIGHT: 157.5 cm WEIGHT: 125.2 kg BP: 140/84 RVIDd: 2.5 cm (< 3.3) IVSd: 1.1 cm (0.6 - 1.1) LVIDd: 3.8 cm (3.9 - 5.3) LVPWd: 1.0 cm (0.6 - 1.1) IVSs: 1.5 cm LVIDs: 2.6 cm LVPWs: 1.6 cm LA Diam: 2.8 cm (2.7 - 3.8) LAESV Index (A-L): 25.97 ml/m Ao Diam: 2.9 cm (2.0 - 3.7) AV Cusp: 1.8 cm (1.5 - 2.6) MV EXCURSION: 13.991 mm (> 18.000) MV EF SLOPE: 57 mm/s (70 - 150) EPSS: 0.6 cm MV E Arthur: 1.27 m/s MV DecT: 202 ms MV A Arthur: 1.19 m/s MV E/A Ratio: 1.07 AV maxP.65 mmHg AV meanP.60 mmHg FINDINGS -------- Sinus rhythm. This was a technically adequate study. The left ventricular size is normal. There is borderline concentric left ventricular hypertrophy. Overall left ventricular systolic function is normal with, an EF between 55 - 60 %. The right ventricle is normal in size. Normal LA size by volume 22+/-6 ml/m2. The right atrium is normal in size. The aortic valve was not well visualized. Mild mitral annular calcification present. The tricuspid valve appears structurally normal. The pulmonic valve was not well visualized. The aortic root size is normal. IVC Not well visulized. There is no pericardial effusion. CONCLUSIONS -------- 1. Sinus rhythm. 2. This was a technically adequate study. 3. The left ventricular size is normal. 4. There is borderline concentric left ventricular hypertrophy. 5. Overall left ventricular systolic function is normal with, an EF between 55 - 60 %. 6. The right ventricle is normal in size. 7. Normal LA size by volume 22+/-6 ml/m2. 8. The right atrium is normal in size. 9. The aortic valve was not well visualized. 10. Mild mitral annular calcification present. 11. The tricuspid valve appears structurally normal. 12. The pulmonic valve was not well visualized. 13. The aortic root size is normal. 14. IVC Not well visulized. 15. There is no pericardial effusion. INSURANCE SALES PROFESSIONAL: Katlin Garcia RDCS
[2018-02-22] MEDS: ALPRAZolam 0.5 MG TAB PO PRN (16:55)
[2018-02-22] MEDS: CALCIUM CARBONATE 500 MG CHEWABLE PO SCH (16:56)
[2018-02-22] MEDS: Dapagliflozin Propanediol [Farxiga] PO SCH (16:56)
[2018-02-22] MEDS: MAGNESIUM OXIDE 400 MG TAB PO SCH (16:57)
[2018-02-22] MEDS: LOSARTAN 50 MG TAB PO SCH (16:57)
[2018-02-22 16:59] LABS: Glucose,Whole Blood 269 mg/dL (75-99)
[2018-02-22] MEDS: INSULIN ASPART 100 UNIT/ML 1 ML 10 ML VIAL SQ SCH ×2 (18:16→21:08)
[2018-02-22] MEDS: BISACODYL 5 MG TABLET.DR PO PRN (18:16)
[2018-02-22] MEDS ORDERED: CLOPIDOGREL 75 MG TAB PO ONE (20:00)
[2018-02-22 20:51] LABS: Glucose,Whole Blood 181 mg/dL (75-99)
--- NOTE | 2018-02-22 22:11 | PN ---
PROGRESS NOTE SUBJECTIVE: Jwisx-mhjg-gry white female with a non-STEMI. She had a little bit of allergic reaction to something. We gave her IV steroids and some Benadryl and it went away. She slept well. Awaiting heart catheterization today. CARDIOVASCULAR: S1, S2. LUNGS: Clear. ENDOCRINE: BMI is over 30. GI: Soft. ASSESSMENT: 1. Ybj-IJ-rgvsrhy-elevation myocardial infarction. 2. Diabetes mellitus. 3. Hypertension. 4. Dyslipidemia. Current treatment. Expect cardiac catheterization today. MMODL / IJN: [id number] /
[2018-02-22] MEDS: MULTIVITAMINS, THERA 1 EACH TAB PO SCH (22:46)
[2018-02-22] MEDS: METOPROLOL TARTRATE 50 MG TAB PO SCH (22:46)
[2018-02-22] MEDS: traZODone HCL 100 MG TAB PO SCH (22:46)
[2018-02-22] MEDS: PIOGLITAZONE 30 MG TAB PO SCH (22:47)
[2018-02-23 06:12] LABS: Glucose,Whole Blood 244 mg/dL (75-99)
[2018-02-23] MEDS: PANTOPRAZOLE 40 MG TABLET PO SCH (06:18)
[2018-02-23] MEDS: INSULIN ASPART 100 UNIT/ML 1 ML 10 ML VIAL SQ SCH ×4 (06:20→20:57)
[2018-02-23 06:25] LABS: Basophils % (A) 0 %; Eosinophils % (A) 0 %; HCT 35.4 % (34.0-46.0); HGB 11.2 gm/dL (11.4-16.0); Lymphocytes # (A) 1.6 k/uL (1.0-4.8); Lymphocytes % (A) 10 %; MCH 30.1 pg (25.0-35.0); MCHC 31.7 g/dL (31.0-37.0); MCV 95.1 fL (80.0-100.0); Mean Platelet Volume 6.8; Monocytes # (A) 0.9 k/uL (0-1.0); Monocytes % (A) 5 %; Neutrophils # (A) 13.9 k/uL (1.3-7.7); Neutrophils % (A) 83 %; Platelet Count 286 k/uL (150-450); RBC 3.72 m/uL (3.80-5.40); RDW 14.2 % (11.5-15.5); WBC 16.7 k/uL (3.8-10.6)
[2018-02-23] MEDS: CALCIUM POLYCARBOPHIL 625 MG TAB PO SCH (09:33)
[2018-02-23] MEDS: GABAPENTIN 300 MG CAP PO SCH ×3 (09:34→19:51)
[2018-02-23] MEDS: FUROSEMIDE 20 MG TAB PO SCH ×3 (09:34→15:55)
[2018-02-23] MEDS: DULoxetine HCL 60 MG CAPSULE.DR PO SCH ×2 (09:34→18:47)
[2018-02-23] MEDS: LINAGLIPTIN 5 MG TABLET PO SCH (09:35)
[2018-02-23] MEDS: LEVOTHYROXINE 50 MCG TAB PO SCH (09:35)
[2018-02-23] MEDS: EZETIMIBE 10 MG TAB PO SCH (09:36)
[2018-02-23] MEDS: MINOCYCLINE 50 MG CAP PO SCH ×2 (09:36→19:50)
[2018-02-23] MEDS: ASPIRIN 81 MG PO SCH (09:36)
[2018-02-23] MEDS: BETAMETHASONE DIPROPIONATE 0.05% OINTMENT 45 GM TUBE TOPICAL SCH ×2 (09:36→21:51)
[2018-02-23] MEDS: CLOPIDOGREL 75 MG TAB PO SCH (09:36)
[2018-02-23] MEDS: FERROUS SULFATE 325 MG TAB PO SCH (09:37)
[2018-02-23] MEDS: ALPRAZolam 0.25 MG TAB PO PRN ×2 (10:55→21:21)
[2018-02-23 11:02] LABS: Glucose,Whole Blood 177 mg/dL (75-99)
[2018-02-23 12:01] LABS: Glucose,Whole Blood 167 mg/dL (75-99)
[2018-02-23] MEDS: POTASSIUM CHLORIDE ER 10 MEQ TAB.ER.PRT PO SCH ×2 (13:15→18:47)
[2018-02-23] MEDS: GLIMEPIRIDE 2 MG TAB PO SCH (13:15)
--- NOTE | 2018-02-23 14:55 | P.PN ---
Subjective Progress Note Date: 02/23/18 This is a pleasant 62-year-old female with known history of hypertension, diabetes, hyperlipidemia, hypothyroidism, prior history of smoking , coronary artery disease with prior stent placement in 2006. She presents to the hospital with symptoms of midsternal chest pressure and tightness in her bilateral axilla area. According to the patient, symptoms usually occur when she gets up and walks around, they subside with rest. She does get some associated shortness of breath, and mild nausea. Symptoms have been going off- and-on for the past few days. Initial EKG on presentation here showed a normal sinus rhythm with no acute changes. Subsequent EKG showed normal sinus rhythm with no acute changes. Chest x-ray revealed mild cardiomegaly with partial atelectasis of the right middle lobe. CTA of the chest negative for pulmonary embolism. Cardiomegaly. Probable fatty infiltration of the liver. At pressure on arrival 158/80, heart rate low 100s, temperature 98.1. Let pressure this morning 105/60 with a heart rate in the 80s, temperature 90.8. Patient did have a low-grade temperature through the night of 99.2. White blood cell count 12.2, hemoglobin 13.4, platelet count 265. D-dimer 0.9. Sodium 139, potassium 4.1, BUN 19, creatinine 0.8. TSH 2.6. BNP 364. Troponins 0.04, 0.035, 0.032. The time of my examination this morning she is currently chest pain-free. Patient states she did develop some hives the night last night, she's not sure exactly of what she is ALLERGIC to, but she does develop skin swelling and hives at times. Patient is also currently on antibiotics for lesions on her lower extremities. 02/23/2018 Patient underwent a cardiac catheterization yesterday by Dr. VC Diaz which revealed minimal narrowing of about 20-30% at the site of prior stent placement , circumflex, intermediate, and right coronary artery normal. Medical therapy advised. Patient was seen and examined this morning, denied any chest discomfort, no difficulty in breathing. Hemodynamically stable . Objective - Vital Signs Vital signs: Vital Signs Temp 96.7 F L 02/23/18 12:00 Pulse 85 02/23/18 12:00 Resp 18 02/23/18 12:00 BP 135/67 02/23/18 12:00 Pulse Ox 100 02/23/18 12:00 Intake & Output 02/22/18 02/23/18 02/23/18 18:59 06:59 18:59 Intake Total 100 600 Output Total 0 0 Balance 100 600 Weight 128 kg Intake: IV 100 Oral 600 Output: Urine 0 Stool 0 0 Urine/Stool Mix 0 Emesis 0 Other: # Voids 0 2 2 # Bowel Movements 0 - Exam PHYSICAL EXAMINATION: GENERAL: 62-year-old female in no acute distress at the time of my examination HEENT: Head is atraumatic, normocephalic. Pupils equal, round. Sclera anicteric. Conjunctiva are clear. Mucous membranes of the mouth are moist. Neck is supple. There is no elevated jugular venous pressure. No carotid bruit is heard. HEART EXAMINATION: Heart S1, S2 normal. No murmur or gallop heard. CHEST EXAMINATION: Lungs are clear with diminished air entry to the bases ABDOMEN: Soft, obese nontender. Bowel sounds are heard. No organomegaly noted. EXTREMITIES: 2+ peripheral pulses with trace evidence of peripheral edema , no calf tenderness noted. Ulcerated area noted to the left mandujano, dressing in place , right groin soft, no evidence of any hematoma. NEUROLOGIC patient is awake, alert and oriented X3. . - Labs CBC & Chem 7: 02/23/18 05:50 02/22/18 10:00 Labs: Abnormal Lab Results - Last 24 Hours (Table) 02/22/18 02/22/18 02/23/18 Range/Units 16:56 20:47 05:50 WBC 16.7 H (3.8-10.6) k/uL RBC 3.72 L (3.80-5.40) m/uL Hgb 11.2 L (11.4-16.0) gm/dL Neutrophils # 13.9 H (1.3-7.7) k/uL POC Glucose (mg/dL) 269 H 181 H (75-99) mg/dL 02/23/18 02/23/18 02/23/18 Range/Units 06:07 10:52 11:40 WBC (3.8-10.6) k/uL RBC (3.80-5.40) m/uL Hgb (11.4-16.0) gm/dL Neutrophils # (1.3-7.7) k/uL POC Glucose (mg/dL) 244 H 177 H 167 H (75-99) mg/dL Assessment and Plan Plan: Assessment and plan #1 symptoms of exertional chest discomfort with associated shortness of breath and nausea, which are suggestive of acute coronary syndrome. Troponins 0.048, 0.035, 0.032. EKG shows normal sinus rhythm with no acute changes. TYRA post cardiac catheterization, medical therapy advised #2 diabetes #3 hypertension #4 hyperlipidemia #5 obesity #6 prior history of smoking #7 known history of coronary artery disease with prior stent placement in 2006 #8 hypothyroidism Plan Echocardiogram with Doppler study was performed at revealed a normal left ventricular systolic function. From cardiology's perspective, patient may be able to be discharged home today. We will make her a follow-up appointment in the office with Dr. VC Diaz post discharge. DNP note has been reviewed, I agree with a documented findings and plan of care. Patient was seen and examined.
[2018-02-23] MEDS: CALCIUM CARBONATE 500 MG CHEWABLE PO SCH (15:55)
[2018-02-23] MEDS: BISACODYL 5 MG TABLET.DR PO PRN (15:56)
[2018-02-23 17:04] LABS: Glucose,Whole Blood 195 mg/dL (75-99)
[2018-02-23] MEDS: Dapagliflozin Propanediol [Farxiga] PO SCH (18:42)
[2018-02-23] MEDS: SODIUM CHLORIDE 0.9% 1,000 ML IV SCH (18:43)
[2018-02-23] MEDS: LOSARTAN 50 MG TAB PO SCH (18:47)
[2018-02-23] MEDS: MAGNESIUM OXIDE 400 MG TAB PO SCH (18:48)
[2018-02-23] MEDS: ACETAMINOPHEN TAB 325 MG TAB PO PRN (19:50)
[2018-02-23] MEDS: ALPRAZolam 0.5 MG TAB PO PRN (19:50)
[2018-02-23] MEDS: METOPROLOL TARTRATE 50 MG TAB PO SCH (19:51)
[2018-02-23] MEDS: MULTIVITAMINS, THERA 1 EACH TAB PO SCH (19:51)
[2018-02-23] MEDS: PIOGLITAZONE 30 MG TAB PO SCH (19:51)
[2018-02-23 20:49] LABS: Glucose,Whole Blood 202 mg/dL (75-99)
[2018-02-23] MEDS: diphenhydrAMINE 50 MG CAP PO PRN (21:21)
[2018-02-23] MEDS: traZODone HCL 100 MG TAB PO SCH (23:06)
--- NOTE | 2018-02-24 | PN ---
PROGRESS NOTE SUBJECTIVE: A 62-year-old white female with a non-STEMI. She had a cardiac catheterization with no obstruction, no angioplasty being done. She is recovering from that today. CARDIOVASCULAR: S1, S2. LUNGS: Clear. GI: Soft. ENDOCRINE: BMI is over 40. ASSESSMENT: 1. Non-ST elevation myocardial infarction. 2. Coronary artery disease. No severe occlusive blocks in the coronary arteries. No angioplasty was done. Risk factor modification. Medications reviewed. Possibly home in the morning. MMODL / IJN: [id number] /
[2018-02-24 05:48] LABS: Glucose,Whole Blood 193 mg/dL (75-99)
[2018-02-24] MEDS: INSULIN ASPART 100 UNIT/ML 1 ML 10 ML VIAL SQ SCH ×2 (06:18→12:32)
[2018-02-24] MEDS: PANTOPRAZOLE 40 MG TABLET PO SCH (06:19)
[2018-02-24 06:44] LABS: Basophils % (A) 0 %; Eosinophils # (A) 0.2 k/uL (0-0.7); Eosinophils % (A) 2 %; HCT 35.3 % (34.0-46.0); HGB 11.4 gm/dL (11.4-16.0); Lymphocytes # (A) 3.2 k/uL (1.0-4.8); Lymphocytes % (A) 24 %; MCH 30.5 pg (25.0-35.0); MCHC 32.4 g/dL (31.0-37.0); MCV 94.2 fL (80.0-100.0); Mean Platelet Volume 6.8; Monocytes # (A) 0.9 k/uL (0-1.0); Monocytes % (A) 7 %; Neutrophils # (A) 8.9 k/uL (1.3-7.7); Neutrophils % (A) 66 %; Platelet Count 279 k/uL (150-450); RBC 3.75 m/uL (3.80-5.40); RDW 14.4 % (11.5-15.5); WBC 13.5 k/uL (3.8-10.6)
[2018-02-24] MEDS: BETAMETHASONE DIPROPIONATE 0.05% OINTMENT 45 GM TUBE TOPICAL SCH (09:31)
[2018-02-24] MEDS: GABAPENTIN 300 MG CAP PO SCH (09:33)
[2018-02-24] MEDS: ASPIRIN 81 MG PO SCH (09:34)
[2018-02-24] MEDS: LEVOTHYROXINE 50 MCG TAB PO SCH (09:34)
[2018-02-24] MEDS: CLOPIDOGREL 75 MG TAB PO SCH (09:34)
[2018-02-24] MEDS: MINOCYCLINE 50 MG CAP PO SCH (09:34)
[2018-02-24] MEDS: LINAGLIPTIN 5 MG TABLET PO SCH (09:34)
[2018-02-24] MEDS: EZETIMIBE 10 MG TAB PO SCH (09:34)
[2018-02-24] MEDS: CALCIUM POLYCARBOPHIL 625 MG TAB PO SCH (09:34)
[2018-02-24] MEDS: DULoxetine HCL 60 MG CAPSULE.DR PO SCH (09:34)
[2018-02-24] MEDS: FUROSEMIDE 20 MG TAB PO SCH ×2 (09:34→12:32)
[2018-02-24 10:41] VITALS: BP 113/54; PULSE 97; RESP 18; TEMP 98.5
[2018-02-24 11:38] LABS: Glucose,Whole Blood 219 mg/dL (75-99)
[2018-02-24] MEDS: GLIMEPIRIDE 2 MG TAB PO SCH (12:31)
[2018-02-24] MEDS: POTASSIUM CHLORIDE ER 10 MEQ TAB.ER.PRT PO SCH (12:32)
--- NOTE | 2018-02-24 14:49 | P.PN ---
Subjective Progress Note Date: 02/24/18 This is a pleasant 62-year-old female with known history of hypertension, diabetes, hyperlipidemia, hypothyroidism, prior history of smoking , coronary artery disease with prior stent placement in 2006. She presents to the hospital with symptoms of midsternal chest pressure and tightness in her bilateral axilla area. According to the patient, symptoms usually occur when she gets up and walks around, they subside with rest. She does get some associated shortness of breath, and mild nausea. Symptoms have been going off- and-on for the past few days. Initial EKG on presentation here showed a normal sinus rhythm with no acute changes. Subsequent EKG showed normal sinus rhythm with no acute changes. Chest x-ray revealed mild cardiomegaly with partial atelectasis of the right middle lobe. CTA of the chest negative for pulmonary embolism. Cardiomegaly. Probable fatty infiltration of the liver. At pressure on arrival 158/80, heart rate low 100s, temperature 98.1. Let pressure this morning 105/60 with a heart rate in the 80s, temperature 90.8. Patient did have a low-grade temperature through the night of 99.2. White blood cell count 12.2, hemoglobin 13.4, platelet count 265. D-dimer 0.9. Sodium 139, potassium 4.1, BUN 19, creatinine 0.8. TSH 2.6. BNP 364. Troponins 0.04, 0.035, 0.032. The time of my examination this morning she is currently chest pain-free. Patient states she did develop some hives the night last night, she's not sure exactly of what she is ALLERGIC to, but she does develop skin swelling and hives at times. Patient is also currently on antibiotics for lesions on her lower extremities. 02/23/2018 Patient underwent a cardiac catheterization yesterday by Dr. VC Diaz which revealed minimal narrowing of about 20-30% at the site of prior stent placement , circumflex, intermediate, and right coronary artery normal. Medical therapy advised. Patient was seen and examined this morning, denied any chest discomfort, no difficulty in breathing. Hemodynamically stable . 02/24/2018 Patient seen and examined this morning, doing well overall. No complaints. Anticipating discharge home today. Objective - Vital Signs Vital signs: Vital Signs Temp 98.5 F 02/24/18 08:00 Pulse 97 02/24/18 08:00 Resp 18 02/24/18 08:00 BP 113/54 02/24/18 08:00 Pulse Ox 92 L 02/24/18 09:30 Intake & Output 02/23/18 02/24/18 02/24/18 18:59 06:59 18:59 Intake Total 840 300 480 Output Total 0 0 0 Balance 840 300 480 Weight 126.9 kg Intake: Intake, IV Titration 0 Amount IV Fluid Continuation 1, 0 000 ml @ 0 mls/hr IV .[facility] Rx#:[id number] Oral 840 300 480 Output: Urine 0 Stool 0 0 Other: Voiding Method Toilet Toilet # Voids 2 1 1 - Exam PHYSICAL EXAMINATION: GENERAL: 62-year-old female in no acute distress at the time of my examination HEENT: Head is atraumatic, normocephalic. Pupils equal, round. Sclera anicteric. Conjunctiva are clear. Mucous membranes of the mouth are moist. Neck is supple. There is no elevated jugular venous pressure. No carotid bruit is heard. HEART EXAMINATION: Heart S1, S2 normal. No murmur or gallop heard. CHEST EXAMINATION: Lungs are clear with diminished air entry to the bases ABDOMEN: Soft, obese nontender. Bowel sounds are heard. No organomegaly noted. EXTREMITIES: 2+ peripheral pulses with trace evidence of peripheral edema , no calf tenderness noted. Ulcerated area noted to the left mandujano, dressing in place , right groin soft, no evidence of any hematoma. NEUROLOGIC patient is awake, alert and oriented X3. . - Labs CBC & Chem 7: 02/24/18 06:04 02/22/18 10:00 Labs: Abnormal Lab Results - Last 24 Hours (Table) 02/23/18 02/23/18 02/24/18 Range/Units 16:23 20:47 05:46 WBC (3.8-10.6) k/uL RBC (3.80-5.40) m/uL Neutrophils # (1.3-7.7) k/uL POC Glucose (mg/dL) 195 H 202 H 193 H (75-99) mg/dL 02/24/18 02/24/18 Range/Units 06:04 11:27 WBC 13.5 H (3.8-10.6) k/uL RBC 3.75 L (3.80-5.40) m/uL Neutrophils # 8.9 H (1.3-7.7) k/uL POC Glucose (mg/dL) 219 H (75-99) mg/dL Assessment and Plan Plan: Assessment and plan #1 symptoms of exertional chest discomfort with associated shortness of breath and nausea, which are suggestive of acute coronary syndrome. Troponins 0.048, 0.035, 0.032. EKG shows normal sinus rhythm with no acute changes. TYRA post cardiac catheterization, medical therapy advised #2 diabetes #3 hypertension #4 hyperlipidemia #5 obesity #6 prior history of smoking #7 known history of coronary artery disease with prior stent placement in 2006 #8 hypothyroidism Plan Echocardiogram with Doppler study was performed at revealed a normal left ventricular systolic function. From cardiology's perspective, patient may be able to be discharged home today. We will make her a follow-up appointment in the office with Dr. VC Diaz post discharge. DNP note has been reviewed, I agree with a documented findings and plan of care. Patient was seen and examined.
--- NOTE | 2018-02-26 08:27 | CDI ---
Last Revision, June 2017 Documentation Clarification Form Date: 02/26/18 From: Lindy Vergara Phone: If you have a question regarding this query, please contact Isrrael Ball at [phone] between 8am and 5pm. Admit Date: 02/20/2018 2:27:00 PM Patient Name: Kenzie Mcintyre Visit Number: [id number] Discharge Date: 02/24/18 ATTENTION: The Clinical Documentation Specialists (CDI) and [facility] Coding Staff appreciate your assistance in clarifying documentation. Please respond to the clarification below the line at the bottom and electronically sign. The CDI & [facility] Coding staff will review the response and follow-up if needed. Please note: Queries are made part of the Legal Health Record. If you have any questions, please contact the author of this message via ITS. Dr. Braden Torres MD NSTEMI is documented in the H&P and your 02/22 and 02/23 progress note. Cardiology documented acute coronary syndrome in their 02/24 progress note. Patient History/Risk Factors: Patient has a history of CAD, prior stent placement, previous ID, hypertension and diabetes. Clinical Indicators: Patient presented with chest pain and dyspnea. Troponin: 0.048, 0.035, 0.032 EKG Results: Initial EKG on presentation here showed a normal sinus rhythm with no acute changes. Subsequent EKG showed normal sinus rhythm with no acute changes. Heart Cath: Reveals only minimal narrowing of about 20 - 30% at the site of prior stent placement. Circumflex, intermediate and right coronary artery are normal. Treatment: Medical treatment and risk factor modification. Consult: In order to capture the severity of condition and necessary documentation specificity, please clarify patient's diagnosis: Acute Coronary Syndrome NSTEMI Unable to determine Other Condition, please specify MTDD
--- NOTE | 2018-03-03 10:23 | CDI ---
Last Revision, June 2017 Documentation Clarification Form Date: 03/03/18 From: Lindy Vergara Phone: If you have a question regarding this query, please contact Nickie Ball at [phone] between 8am and 5pm. Admit Date: 02/20/2018 2:27:00 PM Patient Name: Kenzie Mcintyre Visit Number: [id number] Discharge Date: 02/24/18 ATTENTION: The Clinical Documentation Specialists (CDI) and [facility] Coding Staff appreciate your assistance in clarifying documentation. Please respond to the clarification below the line at the bottom and electronically sign. The CDI & [facility] Coding staff will review the response and follow-up if needed. Please note: Queries are made part of the Legal Health Record. If you have any questions, please contact the author of this message via ITS. Braden Chester MD Thank you for signing the previous query. Please document a response before signing this query. NSTEMI is documented in the H&P and your 02/22 and 02/23 progress note. Cardiology documented acute coronary syndrome in their 02/24 progress note. Patient History/Risk Factors: Patient has a history of CAD, prior stent placement, previous CO, hypertension and diabetes. Clinical Indicators: Patient presented with chest pain and dyspnea. Troponin: 0.048, 0.035, 0.032 EKG Results: Initial EKG on presentation here showed a normal sinus rhythm with no acute changes. Subsequent EKG showed normal sinus rhythm with no acute changes. Heart Cath: Reveals only minimal narrowing of about 20 - 30% at the site of prior stent placement. Circumflex, intermediate and right coronary artery are normal. Treatment: Medical treatment and risk factor modification. Consult: In order to capture the severity of condition and necessary documentation specificity, please clarify patient's diagnosis: Acute Coronary Syndrome NSTEMI Unable to determine Other Condition, please specify MTDD
--- NOTE | 2018-03-08 16:11 | CDI ---
Last Revision, June 2017 Documentation Clarification Form Date: 03/08/18 From: Lindy Vergara Phone: If you have a question regarding this query, please contact Nickie Ball at [phone] between 8am and 5pm. Admit Date: 02/20/2018 2:27:00 PM Patient Name: Kenzie Mcintyre Visit Number: [id number] Discharge Date: 02/24/18 ATTENTION: The Clinical Documentation Specialists (CDI) and [facility] Coding Staff appreciate your assistance in clarifying documentation. Please respond to the clarification below the line at the bottom and electronically sign. The CDI & [facility] Coding staff will review the response and follow-up if needed. Please note: Queries are made part of the Legal Health Record. If you have any questions, please contact the author of this message via ITS. Dr. Torres, Thank you for signing your previous query. Please document a response before signing this query. NSTEMI is documented in your H&P & your 02/22 and 02/23 progress note. Cardiology documented acute coronary syndrome in their 02/24 progress note. Clinical Indicators: Patient presented with chest pain and dyspnea. Troponin: 0.048, 0.035, 0.032 EKG Results: Initial EKG on presentation here showed a normal sinus rhythm with no acute changes. Subsequent EKG showed normal sinus rhythm with no acute changes. Heart Cath: Reveals only minimal narrowing of about 20 - 30% at the site of prior stent placement. Circumflex, intermediate and right coronary artery are normal. Treatment: Medical treatment and risk factor modification. In order to resolve conflicting documentation related to final diagnosis, please dictated Discharge Summary indicating whether the NSTEMI was confirmed or ruled out. Or indicate on this form below the line. Acute Coronary Syndrome NSTEMI confirmed NSTEMI ruled out Unable to determine MTDD
--- NOTE | 2018-03-13 07:12 | DS ---
DISCHARGE SUMMARY ADDENDUM: Please add to the discharge summary on Kenzie Mcintyre: Non STEMI ruled out, acute coronary syndrome. MMODL / IJN: [id number] /
== END 2018-02-24 14:01 | disposition home or self-care (01) | DRG 287 ==
LOC: EC 11:07 → 6SEL 14:27
PROVIDERS: ADMIT Family Medicine; ATTEND Family Medicine
PROC: B2111ZZ Fluoroscopy of Multiple Coronary Arteries using Low Osmolar Contrast (ICD-10-PCS; 2018-02-22)
PROC: 4A023N7 Measurement of Cardiac Sampling and Pressure, Left Heart, Percutaneous Approach (ICD-10-PCS; principal; 2018-02-22 09:15)
DX: I24.9 Acute ischemic heart disease, unspecified (principal); J98.11 Atelectasis; L03.119 Cellulitis of unspecified part of limb; Z68.43 Body mass index [BMI] 50.0-59.9, adult; E11.43 Type 2 diabetes mellitus with diabetic autonomic (poly)neuropathy; K31.84 Gastroparesis; I11.9 Hypertensive heart disease without heart failure; K76.0 Fatty (change of) liver, not elsewhere classified; E66.9 Obesity, unspecified; E03.9 Hypothyroidism, unspecified; E78.5 Hyperlipidemia, unspecified; F32.9 Major depressive disorder, single episode, unspecified; F41.0 Panic disorder [episodic paroxysmal anxiety]; F43.10 Post-traumatic stress disorder, unspecified; G56.03 Carpal tunnel syndrome, bilateral upper limbs; I25.10 Atherosclerotic heart disease of native coronary artery without angina pectoris; I25.2 Old myocardial infarction; K21.9 Gastro-esophageal reflux disease without esophagitis; K58.9 Irritable bowel syndrome, unspecified; M19.90 Unspecified osteoarthritis, unspecified site; L30.9 Dermatitis, unspecified; Z79.84 Long term (current) use of oral hypoglycemic drugs; Z79.899 Other long term (current) drug therapy; Z95.5 Presence of coronary angioplasty implant and graft; Z88.1 Allergy status to other antibiotic agents; Z88.2 Allergy status to sulfonamides; Z88.8 Allergy status to other drugs, medicaments and biological substances; Z90.710 Acquired absence of both cervix and uterus; Z87.891 Personal history of nicotine dependence; Z87.442 Personal history of urinary calculi; Z86.14 Personal history of Methicillin resistant Staphylococcus aureus infection; Z90.49 Acquired absence of other specified parts of digestive tract; Z80.9 Family history of malignant neoplasm, unspecified; Z82.49 Family history of ischemic heart disease and other diseases of the circulatory system
CPT/HCPCS: 36415; 71046; 71275; 80053; 82550; 82553; 82565; 83036; 83735; 83880; 84443; 84484; 84520; 85025; 85379; 85610; 85730; 93005; 93306; 93458; 96365; 96366; 96375; 96376; 99285

== ENCOUNTER 2018-03-15 13:49 | Emergency (ER) | payer MEDICARE, OTHER ==
[2018-03-15 14:00] VITALS: RESP 18
[2018-03-15] MEDS ORDERED: MORPHINE SULFATE 4 MG/ML SYRINGE IM STA (14:02)
--- NOTE | 2018-03-15 14:43 | XR ---
EXAMINATION TYPE: XR shoulder complete 2 views RT DATE OF EXAM: 03/15/2018 COMPARISON: NONE HISTORY: 62-year-old female with pain after fall today FINDINGS: Limited 2 views due to patient positioning and body habitus. There is a 2 part, possibly three-part f racture of the proximal right humerus. Fragment displaced component involves the surgical neck. There seems to be loss of the subacromial space. No evident dislocation. IMPRESSION: Limited exam. 2 part, possibly 3 part proximal humeral fracture. The surgical neck component is russ ly displaced. There may be narrowing of the subacromial space that could represent underlying chronic rotator cuff tear. Again, limited exam.
--- NOTE | 2018-03-15 14:50 | ED ---
Upper Extremity HPI - General Chief Complaint: Extremity Injury, Upper Stated Complaint: FALL Time Seen by Provider: 03/15/18 14:01 Source: patient, EMS, RN notes reviewed Mode of arrival: EMS Limitations: no limitations - History of Present Illness Initial Comments: 62-year-old female presents emergency Department with chief complaint of right arm pain. Patient states that she fell forward into a wall try to catch herself with her right arm states that she heard some popping and crunching to her right arm. She states she is unable to move it and severe pain. Patient was offered pain medication by EMS though initially declined. Patient denies any head injury, neck pain, back pain. Patient is right-hand dominant. Patient denies any paresthesias. - Related Data Home Medications Medication Instructions Recorded Confirmed DULoxetine HCL 60 mg PO BID@0800,1730 06/21/15 03/15/18 Losartan [Cozaar] 50 mg PO DAILY@1730 06/21/15 03/15/18 Metoprolol Tartrate [Lopressor] 50 mg PO DAILY@1230 06/21/15 03/15/18 Ranitidine HCl 150 mg PO BID@1230,2300 06/21/15 03/15/18 Calcium Carbonate [Calcium] 600 mg PO DAILY@1730 01/01/16 03/15/18 Multivit-Min/Iron/Folic/Lutein 1 tab PO HS@2300 01/01/16 03/15/18 [Centrum Silver Women Tablet] Ferrous Sulfate [Feosol] 325 mg PO Q48H 06/05/16 03/15/18 Calcium Polycarbophil [Fiber-Lax] 625 mg PO DAILY@0800 07/27/16 03/15/18 Furosemide [Lasix] 20 mg PO TID@0800,1230,1500 07/27/16 03/15/18 Levothyroxine Sodium [Synthroid] 50 mcg PO DAILY@0800 07/27/16 03/15/18 Potassium Chloride [Klor-Con 10] 10 meq PO BID@1230,1730 07/27/16 03/15/18 Acetaminophen [Tylenol 8 Hour] 650 mg PO Q8H PRN 12/26/16 03/15/18 Gabapentin 600 mg PO TID@0800,1730,2300 12/26/16 03/15/18 Dapagliflozin Propanediol [Farxiga] 10 mg PO DAILY@1500 04/29/17 03/15/18 traZODone HCL 100 mg PO HS@2300 04/29/17 03/15/18 Pioglitazone [Actos] 30 mg PO HS@2300 07/24/17 03/15/18 clonazePAM [KlonoPIN] 0.5 mg PO BID PRN 07/24/17 03/15/18 sitaGLIPtin [Januvia] 100 mg PO DAILY@0800 07/24/17 03/15/18 Betamethasone Dipropionate 1 applic TOPICAL BID 02/20/18 03/15/18 [Betamethasone Dipropionate 0.05%] Glimepiride [Amaryl] 2 mg PO BID@1230,1730 02/20/18 03/15/18 Loratadine [Claritin] 10 mg PO DAILY PRN 02/20/18 03/15/18 Magnesium Oxide [Mag-Ox] 400 mg PO DAILY@1730 02/20/18 03/15/18 Minocycline HCl [Minocin] 100 mg PO BID@02/20/18 03/15/18 Aspirin 81 mg PO DAILY@1230 03/15/18 03/15/18 Atorvastatin Calcium [Lipitor] 80 mg PO HS@2300 03/15/18 03/15/18 Clopidogrel [Plavix] 75 mg PO DAILY@0803/15/18 03/15/18 Ezetimibe [Zetia] 10 mg PO DAILY@0803/15/18 03/15/18 Previous Rx's Medication Instructions Recorded Hydrocodone/Acetaminophen [Montgomery 1 tab PO Q6HR PRN #12 tab 03/15/18 5-325] Allergies Allergy/AdvReac Type Severity Reaction Status Date / Time ciprofloxacin [From Cipro] Allergy Anaphylaxis Verified 03/15/18 14:22 diazepam [From Valium] Allergy Rash/Hives Verified 03/15/18 14:22 metronidazole [From Flagyl] Allergy Anaphylaxis Verified 03/15/18 14:22 Sulfa (Sulfonamide Allergy Rash/Hives Verified 03/15/18 14:22 Antibiotics) doxycycline AdvReac Nausea & Verified 03/15/18 14:22 Vomiting & Diarrhea metoclopramide HCl AdvReac Diarrhea Verified 03/15/18 14:22 [From Reglan] [facility] USED AT [facility] Allergy Unknown Uncoded 03/15/18 14:22 HOSPITAL Review of Systems ROS Statement: Those systems with pertinent positive or pertinent negative responses have been documented in the HPI. ROS Other: All systems not noted in ROS Statement are negative. Past Medical History Past Medical History: Coronary Artery Disease (CAD), Diabetes Mellitus, GERD/ Reflux, Hyperlipidemia, Hypertension, Myocardial Infarction (RI), Osteoarthritis (OA), Skin Disorder Additional Past Medical History / Comment(s): ECZEMA, IBS, DDD, gastroparesis, carapal tunnel lisette., kidney stones, healing sores on leg Last Myocardial Infarction Date:: RI X 3 LAST ONE 2006 History of Any Multi-Drug Resistant Organisms: MRSA Date of last positivie culture/infection: 01/01/16 MDRO Source:: right leg Past Surgical History: Appendectomy, Section, Cholecystectomy, Heart Catheterization With Stent, Hysterectomy, Tonsillectomy Additional Past Surgical History / Comment(s): breast biopsy, D & C x2, tumor right shoulder removed; lithotripsy Past Anesthesia/Blood Transfusion Reactions: Previous Problems w/ Anesthesia Additional Past Anesthesia/Blood Transfusion Reaction / Comment(s): TENDS TO HAVE PANIC ATTACKS WHEN COMING OUT OF ANESTHESIA Date of Last Stent Placement:: 2006 Past Psychological History: Anxiety, Depression, Panic Disorder, PTSD Smoking Status: Former smoker Past Alcohol Use History: None Reported Past Drug Use History: None Reported - Past Family History Mother Family Medical History: Cancer Father Family Medical History: Coronary Artery Disease (CAD), Myocardial Infarction (RI ) General Exam Limitations: no limitations General appearance: alert, in no apparent distress Head exam: Present: atraumatic, normocephalic, normal inspection Neck exam: Present: normal inspection, full ROM. Absent: tenderness, meningismus, lymphadenopathy Respiratory exam: Present: normal lung sounds bilaterally. Absent: respiratory distress, wheezes, rales, rhonchi, stridor Cardiovascular Exam: Present: regular rate, normal rhythm, normal heart sounds. Absent: systolic murmur, diastolic murmur, rubs, gallop, clicks Extremities exam: Present: other (Right arm limited range of motion there is severe tenderness at the right proximal humerus region, right arm is neurovascularly intact, moderate swelling) Skin exam: Present: warm, dry, intact, normal color. Absent: rash Course Vital Signs 03/15/18 13:58 Temperature 98.1 F Pulse Rate 86 Respiratory 18 Rate Blood Pressure 164/71 O2 Sat by Pulse 95 Oximetry Medical Decision Making - Medical Decision Making 62-year-old female presents emergency Department chief complaint of right arm pain. Patient had x-rays which shows proximal humerus fracture. Patient we placed a sling for low traction and follow-up with orthopedics. She was written pain medication. Disposition Clinical Impression: Right humeral fracture Disposition: HOME SELF-CARE Condition: Stable Instructions: Arm Fracture in Adults (ED) Additional Instructions: Please return to the Emergency Department if symptoms worsen or any other concerns. Prescriptions: Hydrocodone/Acetaminophen [Montgomery 5-325] 1 tab PO Q6HR PRN #12 tab PRN Reason: Pain Is patient prescribed a controlled substance at d/c from ED?: Yes When asked, does pt state using other controlled substances?: Yes If prescribed controlled substance>3 days was MAPS reviewed?: Prescribed <3 Days If opioid is for acute pain is fill amount 7 days or less?: Yes If Rx opioid, was Start Talking consent form obtained?: Yes Referrals: Doretha Allen III, MD [Primary Care Provider] - 1-2 days Tripp Hunt DO [Doctor of Osteopathic Medicine] - 1-2 days Time of Disposition: 14:49
[2018-03-15 15:16] VITALS: BP 141/80; PULSE 84; TEMP 98.5
== END 2018-03-15 15:15 | disposition home or self-care (01) ==
LOC: EC 13:49
DX: S42.201A Unspecified fracture of upper end of right humerus, initial encounter for closed fracture (principal); E78.5 Hyperlipidemia, unspecified; I10 Essential (primary) hypertension; I25.10 Atherosclerotic heart disease of native coronary artery without angina pectoris; E11.43 Type 2 diabetes mellitus with diabetic autonomic (poly)neuropathy; K31.84 Gastroparesis; K21.9 Gastro-esophageal reflux disease without esophagitis; M19.90 Unspecified osteoarthritis, unspecified site; F32.9 Major depressive disorder, single episode, unspecified; F41.9 Anxiety disorder, unspecified; I25.2 Old myocardial infarction; Z87.891 Personal history of nicotine dependence; Z79.02 Long term (current) use of antithrombotics/antiplatelets; Z79.82 Long term (current) use of aspirin; Z79.52 Long term (current) use of systemic steroids; Z79.84 Long term (current) use of oral hypoglycemic drugs; Z79.899 Other long term (current) drug therapy; Z88.1 Allergy status to other antibiotic agents; Z88.2 Allergy status to sulfonamides; Z88.8 Allergy status to other drugs, medicaments and biological substances; Z91.048 Other nonmedicinal substance allergy status; Z86.14 Personal history of Methicillin resistant Staphylococcus aureus infection; Z98.890 Other specified postprocedural states; Z87.2 Personal history of diseases of the skin and subcutaneous tissue; W01.0XXA Fall on same level from slipping, tripping and stumbling without subsequent striking against object, initial encounter
CPT/HCPCS: 73030; 99283; 96372; J2270

== ENCOUNTER 2018-03-18 10:50 | Inpatient (IN) | payer MEDICARE, OTHER ==
[2018-03-18] MEDS ORDERED: SODIUM CHLORIDE 0.9% 1,000 ML IV STA (11:17)
--- NOTE | 2018-03-18 11:17 | ED ---
Fall HPI - General Chief Complaint: Fall Stated Complaint: rt arm pain Time Seen by Provider: 03/18/18 10:56 Source: patient, RN notes reviewed, old records reviewed Mode of arrival: EMS - History of Present Illness Initial Comments: This Patient is a 62-year-old female presents emergency department today with chief complaint of a fall 3 days ago. At that time she sustained a proximal right humerus fracture as well as the rotator cuff tear. Patient reports over the past 3 days she's been having significant pain. Patient states that she does have an appointment tomorrow with Dr. Moses orthopedic physician. She reports that she also was having a visiting nurse come in today. She called the visiting nurse due to increased pain and the nurse told her to come here. Patient states that she feels that she is unable take care of herself. She states she feels wobbly and weak. She was admitted in the past month for an NSTEMI. Patient states that she just does not feel like she can manage her health at home with the broken arm. - Related Data Home Medications Medication Instructions Recorded Confirmed DULoxetine HCL 60 mg PO BID@0800,1730 06/21/15 03/15/18 Losartan [Cozaar] 50 mg PO DAILY@1730 06/21/15 03/15/18 Metoprolol Tartrate [Lopressor] 50 mg PO DAILY@1230 06/21/15 03/15/18 Ranitidine HCl 150 mg PO BID@1230,2300 06/21/15 03/15/18 Calcium Carbonate [Calcium] 600 mg PO DAILY@1730 01/01/16 03/15/18 Multivit-Min/Iron/Folic/Lutein 1 tab PO HS@2300 01/01/16 03/15/18 [Centrum Silver Women Tablet] Ferrous Sulfate [Feosol] 325 mg PO Q48H 06/05/16 03/15/18 Calcium Polycarbophil [Fiber-Lax] 625 mg PO DAILY@0800 07/27/16 03/15/18 Furosemide [Lasix] 20 mg PO TID@0800,1230,1500 07/27/16 03/15/18 Levothyroxine Sodium [Synthroid] 50 mcg PO DAILY@0800 07/27/16 03/15/18 Potassium Chloride [Klor-Con 10] 10 meq PO BID@1230,1730 07/27/16 03/15/18 Acetaminophen [Tylenol 8 Hour] 650 mg PO Q8H PRN 12/26/16 03/15/18 Gabapentin 600 mg PO TID@0800,1730,2300 12/26/16 03/15/18 Dapagliflozin Propanediol [Farxiga] 10 mg PO DAILY@1500 04/29/17 03/15/18 traZODone HCL 100 mg PO HS@2300 04/29/17 03/15/18 Pioglitazone [Actos] 30 mg PO HS@2300 07/24/17 03/15/18 clonazePAM [KlonoPIN] 0.5 mg PO BID PRN 07/24/17 03/15/18 sitaGLIPtin [Januvia] 100 mg PO DAILY@0807/24/17 03/15/18 Betamethasone Dipropionate 1 applic TOPICAL BID 02/20/18 03/15/18 [Betamethasone Dipropionate 0.05%] Glimepiride [Amaryl] 2 mg PO BID@1230,1730 02/20/18 03/15/18 Loratadine [Claritin] 10 mg PO DAILY PRN 02/20/18 03/15/18 Magnesium Oxide [Mag-Ox] 400 mg PO DAILY@1730 02/20/18 03/15/18 Minocycline HCl [Minocin] 100 mg PO BID@02/20/18 03/15/18 Aspirin 81 mg PO DAILY@1230 03/15/18 03/15/18 Atorvastatin Calcium [Lipitor] 80 mg PO HS@2300 03/15/18 03/15/18 Clopidogrel [Plavix] 75 mg PO DAILY@0803/15/18 03/15/18 Ezetimibe [Zetia] 10 mg PO DAILY@0803/15/18 03/15/18 Previous Rx's Medication Instructions Recorded Hydrocodone/Acetaminophen [[place] 1 tab PO Q6HR PRN #12 tab 03/15/18 5-325] Allergies Allergy/AdvReac Type Severity Reaction Status Date / Time ciprofloxacin [From Cipro] Allergy Anaphylaxis Verified 03/18/18 10:57 diazepam [From Valium] Allergy Rash/Hives Verified 03/18/18 10:57 metronidazole [From Flagyl] Allergy Anaphylaxis Verified 03/18/18 10:57 Sulfa (Sulfonamide Allergy Rash/Hives Verified 03/18/18 10:57 Antibiotics) doxycycline AdvReac Nausea & Verified 03/18/18 10:57 Vomiting & Diarrhea metoclopramide HCl AdvReac Diarrhea Verified 03/18/18 10:57 [From Reglan] LINENS USED AT [facility] Allergy Unknown Uncoded 03/18/18 10:57 HOSPITAL Review of Systems ROS Statement: Those systems with pertinent positive or pertinent negative responses have been documented in the HPI. ROS Other: All systems not noted in ROS Statement are negative. Past Medical History Past Medical History: Coronary Artery Disease (CAD), Diabetes Mellitus, GERD/ Reflux, Hyperlipidemia, Hypertension, Myocardial Infarction ([place]), Osteoarthritis (OA), Skin Disorder Additional Past Medical History / Comment(s): ECZEMA, IBS, DDD, gastroparesis, carapal tunnel lisette., kidney stones, healing sores on leg Last Myocardial Infarction Date:: [place] X 3 LAST ONE 2006 History of Any Multi-Drug Resistant Organisms: MRSA Date of last positivie culture/infection: 01/01/16 MDRO Source:: right leg Past Surgical History: Appendectomy, Section, Cholecystectomy, Heart Catheterization With Stent, Hysterectomy, Tonsillectomy Additional Past Surgical History / Comment(s): breast biopsy, D & C x2, tumor right shoulder removed; lithotripsy Past Anesthesia/Blood Transfusion Reactions: Previous Problems w/ Anesthesia Additional Past Anesthesia/Blood Transfusion Reaction / Comment(s): TENDS TO HAVE PANIC ATTACKS WHEN COMING OUT OF ANESTHESIA Date of Last Stent Placement:: 2006 Past Psychological History: Anxiety, Depression, Panic Disorder, PTSD Smoking Status: Former smoker Past Alcohol Use History: None Reported Past Drug Use History: None Reported - Past Family History Mother Family Medical History: Cancer Father Family Medical History: Coronary Artery Disease (CAD), Myocardial Infarction ([place] ) General Exam - General Exam Comments Initial Comments: This Patient is a 62-year-old female. Alert and oriented. Morbidly obese. Patient does not appear to be in any significant distress. Limitations: no limitations General appearance: alert, in no apparent distress Head exam: Present: atraumatic, normocephalic, normal inspection Eye exam: Present: normal appearance, PERRL, EOMI. Absent: scleral icterus, conjunctival injection, periorbital swelling ENT exam: Present: normal exam, mucous membranes moist Neck exam: Present: normal inspection. Absent: tenderness, meningismus, lymphadenopathy Respiratory exam: Present: normal lung sounds bilaterally. Absent: respiratory distress, wheezes, rales, rhonchi, stridor Cardiovascular Exam: Present: regular rate, normal rhythm, normal heart sounds. Absent: systolic murmur, diastolic murmur, rubs, gallop, clicks GI/Abdominal exam: Present: soft, normal bowel sounds. Absent: distended, tenderness, guarding, rebound, rigid Extremities exam: Present: normal inspection, full ROM, normal capillary refill. Absent: tenderness, pedal edema, joint swelling, calf tenderness Right Shoulder Exam: Present: full ROM, tenderness, other (Patient is in a shoulder sling.). Absent: normal inspection Upper Arm exam: Present: normal inspection, full ROM Elbow exam: Present: normal inspection, full ROM Back exam: Present: normal inspection Neurological exam: Present: alert, oriented X3, CN II-XII intact Psychiatric exam: Present: normal affect, normal mood Skin exam: Present: warm, dry, intact, normal color. Absent: rash Course Vital Signs 03/18/18 03/18/18 10:53 13:09 Temperature 98.7 F Pulse Rate 106 H 109 H Respiratory 18 20 Rate Blood Pressure 147/65 145/69 O2 Sat by Pulse 96 98 Oximetry - Reevaluation(s) Reevaluation #1: 03/18/18 13:51 Patient was informed that if we do admit her today would likely be an observation status. I discussed that she was able to manage herself at home for the past 2 days. She did have significant results. Today. Patient is quite adamant that she is unable to care for herself and unable to walk or stand without concern for falling. Medical Decision Making - Medical Decision Making 8-year-old female on chronic poor health presents today after 3 days after a fall which she sustained a right proximal humerus fracture. At this time Patient reports she is weak and unable to manage her care at home. She did have visiting nurse was supposed to come this afternoon but she could not wait. Patient was seen in the same closed today she had on 3 days ago when she was seen in the emergency department. Patient is supposed follow-up with Dr. Hunt orthopedic tomorrow. This time she states she feels weak and unable to take care of herself at this time. She will likely need to be admitted for treatment for placement in [address] [place] [address]. Patient was started on IV fluids. Laboratory is unremarkable. EKG shows no significant changes. Patient 's case discussed with Davidson Yoon who accepts the admission. - Lab Data Result diagrams: 03/18/18 12:02 03/18/18 12:02 Lab Results 03/18/18 03/18/18 03/18/18 Range/Units 12:02 12:02 12:02 WBC 9.6 (3.8-10.6) k/uL RBC 3.87 (3.80-5.40) m/uL Hgb 12.0 (11.4-16.0) gm/dL Hct 37.4 (34.0-46.0) % MCV 96.7 (80.0-100.0) fL MCH 30.9 (25.0-35.0) pg MCHC 32.0 (31.0-37.0) g/dL RDW 14.7 (11.5-15.5) % Plt Count 264 (150-450) k/uL Neutrophils % 72 % Lymphocytes % 17 % Monocytes % 7 % Eosinophils % 2 % Basophils % 1 % Neutrophils # 7.0 (1.3-7.7) k/uL Lymphocytes # 1.7 (1.0-4.8) k/uL Monocytes # 0.6 (0-1.0) k/uL Eosinophils # 0.1 (0-0.7) k/uL Basophils # 0.1 (0-0.2) k/uL Sodium 139 (137-145) mmol/L Potassium 4.5 (3.5-5.1) mmol/L Chloride 101 (98-107) mmol/L Carbon Dioxide 25 (22-30) mmol/L Anion Gap 13 mmol/L BUN 22 H (7-17) mg/dL Creatinine 0.68 (0.52-1.04) mg/dL Est GFR (CKD-EPI)AfAm >90 (>60 ml/min/1.73 sqM) Est GFR (CKD-EPI)NonAf >90 (>60 ml/min/1.73 sqM) Glucose 174 H (74-99) mg/dL Calcium 9.0 (8.4-10.2) mg/dL Total Bilirubin 1.3 (0.2-1.3) mg/dL AST 46 H (14-36) U/L ALT 38 (9-52) U/L Alkaline Phosphatase 106 (38-126) U/L Troponin I <0.012 (0.000-0.034) ng/mL Total Protein 7.0 (6.3-8.2) g/dL Albumin 3.9 (3.5-5.0) g/dL 03/18/18 12:16 EKG shows sinus tachycardia, ventricular 193. Pulse 140 ms. QRS duration is 80 ms. QT QTc is 356/479 ms. No evidence of ST elevation or T-wave inversions. - Radiology Data Radiology results: report reviewed Comminuted fracture proximal right humerus with some lady displaced mildly angulated surgical neck component. Possible three-part fracture small anterior butterfly fragment may be displaced forward up to 1 cm. Subacromial spaces not narrowing of the present exam is question previously. Chest x-ray shows evidence of cardiomegaly. Persistent right perihilar subsegmental changes may be stable been the basis of atelectasis or infiltrate. Disposition Clinical Impression: Weakness, History of fall, Proximal humerus fracture, Hypertension Disposition: ADMITTED IP TO THIS HOSP Condition: Stable Is patient prescribed a controlled substance at d/c from ED?: No Referrals: Doretha Allen III, MD [Primary Care Provider] - 1-2 days Time of Disposition: 14:26
[2018-03-18 12:23] LABS: Basophils # (A) 0.1 k/uL (0-0.2); Basophils % (A) 1 %; Eosinophils # (A) 0.1 k/uL (0-0.7); Eosinophils % (A) 2 %; HCT 37.4 % (34.0-46.0); Lymphocytes # (A) 1.7 k/uL (1.0-4.8); Lymphocytes % (A) 17 %; MCH 30.9 pg (25.0-35.0); MCV 96.7 fL (80.0-100.0); Mean Platelet Volume 6.3; Monocytes # (A) 0.6 k/uL (0-1.0); Monocytes % (A) 7 %; Neutrophils % (A) 72 %; Platelet Count 264 k/uL (150-450); RBC 3.87 m/uL (3.80-5.40); RDW 14.7 % (11.5-15.5); WBC 9.6 k/uL (3.8-10.6)
[2018-03-18 12:42] LABS: Anion Gap 13 mmol/L; Carbon Dioxide 25 mmol/L (22-30); Chloride 101 mmol/L (98-107); Glucose 174 mg/dL (74-99); Sodium 139 mmol/L (137-145); Total Bilirubin 1.3 mg/dL (0.2-1.3)
[2018-03-18 12:49] LABS: ALT 38 U/L (9-52); AST 46 U/L (14-36); Albumin 3.9 g/dL (3.5-5.0); Alkaline Phosphatase 106 U/L (38-126); Blood Urea Nitrogen 22 mg/dL (7-17); Potassium 4.5 mmol/L (3.5-5.1)
--- NOTE | 2018-03-18 12:53 | XR ---
EXAMINATION TYPE: XR chest 1V DATE OF EXAM: 03/18/2018 COMPARISON: 02/20/2018 HISTORY: Shortness of breath TECHNIQUE: Single frontal view of the chest is obtained. FINDINGS: Exam is limited by technique. Somewhat apical lordotic positioning. Heart remains markedly enlarged. No obvious new area of consolidation. No blunting of the costophrenic angles. No pneumotho rax. No overt failure. Patchy right perihilar subsegmental consolidation stable. IMPRESSION: Cardiomegaly. Persistent right perihilar subsegmental changes are stable may been the ba sis of atelectasis or infiltrate.
--- NOTE | 2018-03-18 12:54 | XR ---
EXAMINATION TYPE: XR shoulder limited RT DATE OF EXAM: 03/18/2018 COMPARISON: 03/15/2018 HISTORY: 62-year-old female fall 3 days ago, pain TECHNIQUE: 2 views FINDINGS: Redemonstrated comminuted fracture of the proximal right humerus. Fracture lines are seen extending i nto the greater tuberosity. There is an oblique fracture with russ 2 cm of medial displacement along the surgical neck. A 4.8 cm butterfly fragment along the bicipital groove may be displaced by up to 1 cm but is difficult to assess for certain. Overall displacement and slight medial apex angulation a ppears similar. The subacromial space does not appear narrowed as noted previously. IMPRESSION: Comminuted fracture proximal right humerus with a similarly displaced and mildly angulated surgical n adi component. Possible three-part fracture as a small anterior butterfly fragment may be displaced f orward by up to 1 cm. The subacromial space is not narrowed on the present exam as questioned previously.
[2018-03-18] MEDS ORDERED: HYDROcodone/APAP 10-325MG 1 EACH TAB PO ONE (13:16)
[2018-03-18] MEDS ORDERED: ONDANSETRON 4 MG/2 ML VIAL IVP PRN (14:26)
[2018-03-18] MEDS ORDERED: NALOXONE 0.4 MG/ML 1 ML VIAL IV PRN (14:26)
[2018-03-18] MEDS ORDERED: LORazepam 2 MG/ML INJ IV PRN (14:26)
[2018-03-18] MEDS ORDERED: IBUPROFEN 400 MG TAB PO PRN (14:26)
[2018-03-18] MEDS: SODIUM CHLORIDE 0.9% 1,000 ML IV SCH (14:53)
[2018-03-18 16:34] LABS: Appearance,Urine Clear (Clear); Bilirubin,Urine Negative (Negative); Blood,Urine Negative (Negative); Color,Urine Yellow; Glucose,Urine (UA) 4+ (Negative); Ketones,Urine Trace (Negative); Leukocyte Esterase,Urine Trace (Negative); Nitrite,Urine Negative (Negative); Protein,Urine Negative (Negative); RBC,Urine <1 /hpf (0-5); Specific Gravity,Urine 1.016 (1.001-1.035); Squamous Epithelial Cell,Urine 1 /hpf (0-4); Urobilinogen,Urine <2.0 mg/dL (<2.0); WBC,Urine 9 /hpf (0-5)
--- NOTE | 2018-03-18 16:42 | P.HPIM ---
History of Present Illness H&P Date: 03/18/18 Chief Complaint: Right hand pain Patient is a 62-year-old female with a known history of hypertension, diabetes, hyperlipidemia, history of recent non-ST wave CA status post cardiac catheterization and medical therapy was recommended, GERD, came to ER with complaints of right hand pain. Patient had a fall about 3 days ago.At that time she sustained a proximal right humerus fracture as well as the rotator cuff tear. Patient reports over the past 3 days she's been having significant pain. Patient states that she does have an appointment tomorrow with Dr. Moses orthopedic physician. She reports that she also was having a visiting nurse come in today. She called the visiting nurse due to increased pain and the nurse told her to come here. Patient states that she feels that she is unable take care of herself. She states she feels wobbly and weak. Patient states that she just does not feel like she can manage her health at home with the broken arm. X-ray of the shoulder showed comminuted fracture of proximal right humerus. Chest x-ray showed persistent right perihilar subsegmental changes. Stable findings. EKG showed sinus tachycardia. Review of Systems Constitutional: Patient denies any fever or chills . No generalized weakness or weight loss. Abdomen: Patient denied nausea vomiting and diarrhea and abdominal pain. Cardiovascular: Patient denies any chest pain or short of breath no palpitations. Respiratory: patient denied any cough is from production. No shortness of breath Neurologic: Patient denied any numbness or tingling headache. Musculoskeletal: Patient denies any complaints of joint swelling or deformity. Right upper extremities pain Skin: Negative Psychiatric: Negative Endocrine: No heat or cold intolerance. No recent weight gain. Genitourinary: No dysuria or hematuria. All other 14 point ROS negative except the above Past Medical History Past Medical History: Coronary Artery Disease (CAD), Diabetes Mellitus, GERD/ Reflux, Hyperlipidemia, Hypertension, Myocardial Infarction ([place]), Osteoarthritis (OA), Skin Disorder Additional Past Medical History / Comment(s): fell 8--17 fx rt humerus/sling. ECZEMA, pt stated she needs sterile sheets- has had rash and swelling in past to detergents/bleach used ., IBS, DDD, gastroparesis, carapal tunnel lisette., kidney stones. Last Myocardial Infarction Date:: [place] X 3 LAST ONE 2006 History of Any Multi-Drug Resistant Organisms: MRSA Date of last positivie culture/infection: 01/01/16 MDRO Source:: right leg Past Surgical History: Appendectomy, Section, Cholecystectomy, Heart Catheterization With Stent, Hysterectomy, Tonsillectomy Additional Past Surgical History / Comment(s): breast biopsy, D & C x2, tumor right shoulder removed; lithotripsy Past Anesthesia/Blood Transfusion Reactions: Previous Problems w/ Anesthesia Additional Past Anesthesia/Blood Transfusion Reaction / Comment(s): TENDS TO HAVE PANIC ATTACKS WHEN COMING OUT OF ANESTHESIA Date of Last Stent Placement:: 2006 Smoking Status: Former smoker - Past Family History Mother Family Medical History: Cancer Father Family Medical History: Coronary Artery Disease (CAD), Myocardial Infarction ([place] ) Medications and Allergies Home Medications Medication Instructions Recorded Confirmed Type DULoxetine HCL 60 mg PO BID@0800,1730 06/21/15 03/18/18 History Losartan [Cozaar] 50 mg PO DAILY@1730 06/21/15 03/18/18 History Metoprolol Tartrate [Lopressor] 50 mg PO DAILY@2300 06/21/15 03/18/18 History Ranitidine HCl 150 mg PO BID@1230,2300 06/21/15 03/18/18 History Calcium Carbonate [Calcium] 600 mg PO DAILY@1730 01/01/16 03/18/18 History Multivit-Min/Iron/Folic/Lutein 1 tab PO HS@2300 01/01/16 03/18/18 History [Centrum Silver Women Tablet] Ferrous Sulfate [Feosol] 325 mg PO DAILY@1230 06/05/16 03/18/18 History Calcium Polycarbophil [Fiber-Lax] 625 mg PO DAILY@0800 07/27/16 03/18/18 History Furosemide [Lasix] 20 mg PO TID@0800,1230,1500 07/27/16 03/18/18 History Levothyroxine Sodium [Synthroid] 50 mcg PO DAILY@0800 07/27/16 03/18/18 History Potassium Chloride [Klor-Con 10] 10 meq PO BID@1230,1730 07/27/16 03/18/18 History Acetaminophen [Tylenol 8 Hour] 650 mg PO Q8H PRN 12/26/16 03/18/18 History Gabapentin 600 mg PO TID@0800,1530,2300 06/09/17 08/30/18 History Dapagliflozin Propanediol [Farxiga] 10 mg PO DAILY@1500 04/29/17 03/18/18 History traZODone HCL 100 mg PO HS@2300 04/29/17 03/18/18 History Pioglitazone [Actos] 30 mg PO HS@2300 07/24/17 03/18/18 History clonazePAM [KlonoPIN] 0.5 mg PO BID PRN 07/24/17 03/18/18 History sitaGLIPtin [Januvia] 100 mg PO DAILY@0800 07/24/17 03/18/18 History Betamethasone Dipropionate 1 applic TOPICAL BID 02/20/18 03/18/18 History [Betamethasone Dipropionate 0.05%] Glimepiride [Amaryl] 2 mg PO BID@1230,1730 02/20/18 03/18/18 History Loratadine [Claritin] 10 mg PO DAILY PRN 02/20/18 03/18/18 History Magnesium Oxide [Mag-Ox] 400 mg PO DAILY@1730 02/20/18 03/18/18 History Minocycline HCl [Minocin] 100 mg PO BID@0900,2100 02/20/18 03/18/18 History Aspirin 81 mg PO DAILY@1230 03/15/18 03/18/18 History Atorvastatin Calcium [Lipitor] 80 mg PO HS@2300 03/15/18 03/18/18 History Clopidogrel [Plavix] 75 mg PO DAILY@1230 03/15/18 03/18/18 History Ezetimibe [Zetia] 10 mg PO DAILY@1500 03/15/18 03/18/18 History INSULIN LISPRO (HumaLOG) [humaLOG] 0 unit SQ ACHS #1 vial 03/18/18 Rx Ibuprofen [Motrin] 400 mg PO Q6HR PRN tab 03/18/18 Rx Allergies Allergy/AdvReac Type Severity Reaction Status Date / Time ciprofloxacin [From Cipro] Allergy Anaphylaxis Verified 03/18/18 14:59 diazepam [From Valium] Allergy Rash/Hives Verified 03/18/18 14:59 metronidazole [From Flagyl] Allergy Anaphylaxis Verified 03/18/18 14:59 Sulfa (Sulfonamide Allergy Rash/Hives Verified 08/30/18 14:59 Antibiotics) doxycycline AdvReac Nausea & Verified 03/18/18 14:59 Vomiting & Diarrhea metoclopramide HCl AdvReac Diarrhea Verified 03/18/18 14:59 [From Reglan] LINENS USED AT [facility] Allergy Unknown Uncoded 03/18/18 10:57 HOSPITAL Physical Exam Vitals: Vital Signs Temp Pulse Resp BP Pulse Ox 03/18/18 15:12 98.7 F 110 H 18 113/53 98 03/18/18 13:09 109 H 20 145/69 98 03/18/18 10:53 98.7 F 106 H 18 147/65 96 Intake and Output 03/18/18 03/18/18 03/18/18 06:59 14:59 22:59 Other: Weight 122.47 kg PHYSICAL EXAMINATION: Patient is lying in the bed comfortably, no acute distress, awake alert and oriented.. HEENT: Normocephalic. Neck is supple. Pupils reactive. Nostrils clear. Oral cavity is moist. Ears reveal no drainage. Neck reveals no JVD, carotid bruits, or thyromegaly. CHEST EXAMINATION: Trachea is central. Symmetrical expansion. Bibasilar diminished air entry. Lung lou clear to auscultation and percussion. CARDIAC: Normal S1, S2 with no gallops. No murmurs ABDOMEN: Soft. Bowel sounds normal. No organomegaly. No abdominal bruits. Extremities: Trace edema. No clubbing or cyanosis. Left leg skin sore not infected Neurologically awake, alert, oriented x3 with well-coordinated movements. No focal deficits noted Skin: No rash or skin lesions. Psychiatric: Coperative. Nonsuicidal Musculoskeletal: No joint swelling or deformity. Right upper extremities shoulders sling in place. Results CBC & Chem 7: 03/18/18 12:02 03/18/18 12:02 Labs: Abnormal Lab Results - Last 24 Hours (Table) 03/18/18 Range/Units 12:02 BUN 22 H (7-17) mg/dL Glucose 174 H (74-99) mg/dL AST 46 H (14-36) U/L Thrombosis Risk Factor Assmnt - DVT/VTE Prophylaxis DVT/VTE Prophylaxis: Pharmacologic Prophylaxis ordered Assessment and Plan Assessment: Pain due to Communited right proximal humerus fracture 3 days ago Recent history of non-ST M I status post cardiac catheterization. Medical therapy recommended Coronary artery disease with history of stent placement Hypertension next and diabetes type 2 GERD Osteoarthritis IBS Degenerative disc disease Gastroparesis Carpal tunnel syndrome Previous history of smoking DVT prophylaxis Plan: Patient will continue on pain management and follow closely current with home medications and further admissions based on the critical course. PTOT and possible transfer to rehab. Time with Patient: Greater than 30
--- NOTE | 2018-03-18 16:49 | P.DS ---
Providers Date of admission: 03/18/18 14:39 Expected date of discharge: 03/18/18 Attending physician: Gabriela Pruitt Consults: 03/18/18 14:53 Consult Physician Stat Consulting Provider: Mekhi Lou Consult Reason/Comments: R proximal humerus fracture Do you want consulting provider notified?: Yes Primary care physician: Dore[facility] Course: Discharge diagnosis Intractable Pain due to Communited right proximal humerus fracture 3 days ago Recent history of non-ST M I status post cardiac catheterization. Medical therapy recommended Coronary artery disease with history of stent placement Hypertension next and diabetes type 2 GERD Osteoarthritis IBS Degenerative disc disease Gastroparesis Carpal tunnel syndrome Previous history of smoking DVT prophylaxis Hospital course Patient is a 62-year-old female with a known history of hypertension, diabetes, hyperlipidemia, history of recent non-ST wave CA status post cardiac catheterization and medical therapy was recommended, GERD, came to ER with complaints of right hand pain. Patient had a fall about 3 days ago.At that time she sustained a proximal right humerus fracture as well as the rotator cuff tear. Patient reports over the past 3 days she's been having significant pain. Patient states that she does have an appointment tomorrow with Dr. Moses orthopedic physician. She reports that she also was having a visiting nurse come in today. She called the visiting nurse due to increased pain and the nurse told her to come here. Patient states that she feels that she is unable take care of herself. She states she feels wobbly and weak. Patient states that she just does not feel like she can manage her health at home with the broken arm. X-ray of the shoulder showed comminuted fracture of proximal right humerus. Chest x-ray showed persistent right perihilar subsegmental changes. Stable findings. EKG showed sinus tachycardia. Patient was continued on pain management with Tylenol 3 and and also continued on home medications. Patient did improve clinically and is stable to be discharged to rehab and follow with orthopedic clinic. Discharge physical examination was done and vitals reviewed. Vital Signs 03/18/18 03/18/18 03/18/18 10:53 13:09 15:12 Temperature 98.7 F 98.7 F Pulse Rate 106 H 109 H 110 H Respiratory 18 20 18 Rate Blood Pressure 147/65 145/69 113/53 O2 Sat by Pulse 96 98 98 Oximetry Patient Condition at Discharge: Stable Plan - Discharge Summary Discharge Rx Participant: Yes New Discharge Prescriptions: New Ibuprofen [Motrin] 400 mg PO Q6HR PRN tab PRN Reason: Mild Pain Or Fever > 100.5 INSULIN LISPRO (HumaLOG) [humaLOG] 0 unit SQ ACHS #1 vial Acetaminophen-Codeine 300-30mg [Tylenol w/codeine #3] 1 each PO Q6HR PRN 3 Days #12 tab PRN Reason: Moderate Pain Continue DULoxetine HCL 60 mg PO BID@0800,1730 Losartan [Cozaar] 50 mg PO DAILY@1730 Ranitidine HCl 150 mg PO BID@1230,2300 Metoprolol Tartrate [Lopressor] 50 mg PO DAILY@2300 Multivit-Min/Iron/Folic/Lutein [Centrum Silver Women Tablet] 1 tab PO HS@2300 Calcium Carbonate [Calcium] 600 mg PO DAILY@1730 Ferrous Sulfate [Feosol] 325 mg PO DAILY@1230 Calcium Polycarbophil [Fiber-Lax] 625 mg PO DAILY@0800 Furosemide [Lasix] 20 mg PO TID@0800,1230,1500 Levothyroxine Sodium [Synthroid] 50 mcg PO DAILY@0800 Potassium Chloride [Klor-Con 10] 10 meq PO BID@1230,1730 Acetaminophen [Tylenol 8 Hour] 650 mg PO Q8H PRN PRN Reason: Pain Gabapentin 600 mg PO TID@0800,1530,2300 traZODone HCL 100 mg PO HS@2300 Dapagliflozin Propanediol [Farxiga] 10 mg PO DAILY@1500 sitaGLIPtin [Januvia] 100 mg PO DAILY@0800 clonazePAM [KlonoPIN] 0.5 mg PO BID PRN PRN Reason: Anxiety Pioglitazone [Actos] 30 mg PO HS@2300 Magnesium Oxide [Mag-Ox] 400 mg PO DAILY@1730 Glimepiride [Amaryl] 2 mg PO BID@1230,1730 Minocycline HCl [Minocin] 100 mg PO BID@0900,2100 Loratadine [Claritin] 10 mg PO DAILY PRN PRN Reason: Allergy Symptoms Betamethasone Dipropionate [Betamethasone Dipropionate 0.05%] 1 applic TOPICAL BID Atorvastatin Calcium [Lipitor] 80 mg PO HS@2300 Aspirin 81 mg PO DAILY@1230 Ezetimibe [Zetia] 10 mg PO DAILY@1500 Clopidogrel [Plavix] 75 mg PO DAILY@1230 Discharge Medication List DULoxetine HCL 60 mg PO BID@0800,1730 06/21/15 [History] Losartan [Cozaar] 50 mg PO DAILY@17306/21/15 [History] Metoprolol Tartrate [Lopressor] 50 mg PO DAILY@2300 06/21/15 [History] Ranitidine HCl 150 mg PO BID@1230,2300 06/21/15 [History] Calcium Carbonate [Calcium] 600 mg PO DAILY@17301/01/16 [History] Multivit-Min/Iron/Folic/Lutein [Centrum Silver Women Tablet] 1 tab PO HS@2300 [History] Ferrous Sulfate [Feosol] 325 mg PO DAILY@1230 06/05/16 [History] Calcium Polycarbophil [Fiber-Lax] 625 mg PO DAILY@0800 07/27/16 [History] Furosemide [Lasix] 20 mg PO TID@0800,1230,1500 07/27/16 [History] Levothyroxine Sodium [Synthroid] 50 mcg PO DAILY@0807/27/16 [History] Potassium Chloride [Klor-Con 10] 10 meq PO BID@1230,1730 07/27/16 [History] Acetaminophen [Tylenol 8 Hour] 650 mg PO Q8H PRN 12/26/16 [History] Gabapentin 600 mg PO TID@0800,1530,2300 12/26/16 [History] Dapagliflozin Propanediol [Farxiga] 10 mg PO DAILY@1500 04/29/17 [History] traZODone HCL 100 mg PO HS@2300 04/29/17 [History] Pioglitazone [Actos] 30 mg PO HS@2300 07/24/17 [History] clonazePAM [KlonoPIN] 0.5 mg PO BID PRN 07/24/17 [History] sitaGLIPtin [Januvia] 100 mg PO DAILY@0800 07/24/17 [History] Betamethasone Dipropionate [Betamethasone Dipropionate 0.05%] 1 applic TOPICAL BID 02/20/18 [History] Glimepiride [Amaryl] 2 mg PO BID@1230,1730 02/20/18 [History] Loratadine [Claritin] 10 mg PO DAILY PRN 02/20/18 [History] Magnesium Oxide [Mag-Ox] 400 mg PO DAILY@1730 02/20/18 [History] Minocycline HCl [Minocin] 100 mg PO BID@0900,2100 02/20/18 [History] Aspirin 81 mg PO DAILY@1230 03/15/18 [History] Atorvastatin Calcium [Lipitor] 80 mg PO HS@2300 03/15/18 [History] Clopidogrel [Plavix] 75 mg PO DAILY@1230 03/15/18 [History] Ezetimibe [Zetia] 10 mg PO DAILY@1500 03/15/18 [History] Acetaminophen-Codeine 300-30mg [Tylenol w/codeine #3] 1 each PO Q6HR PRN 3 Days #12 tab 03/18/18 [Rx] INSULIN LISPRO (HumaLOG) [humaLOG] 0 unit SQ ACHS #1 vial 03/18/18 [Rx] Ibuprofen [Motrin] 400 mg PO Q6HR PRN tab 03/18/18 [Rx] Follow up Appointment(s)/Referral(s): Doretha Allen III, MD [Primary Care Provider] - 1 Week (1 week after dc from subacute rehab ) Mekhi Lou MD [Medical Doctor] - 1 Week Activity/Diet/Wound Care/Special Instructions: ECF right arm sling cbc,bmp in 3 days activity: as tolerated Discharge Disposition: TRANSFER TO SNF/ECF
[2018-03-18] MEDS ORDERED: clonazePAM 0.5 MG TAB PO PRN (18:11)
[2018-03-18] MEDS ORDERED: NON-FORMULARY DRUG (Acetaminophen [Tylenol 8 Hour] 650 MG) PO PRN (18:11)
[2018-03-18] MEDS: oxyCODONE-APAP 5-325MG 1 EACH TAB PO PRN ×2 (18:44→22:50)
[2018-03-18 20:53] LABS: Glucose,Whole Blood 140 mg/dL (75-99)
[2018-03-18] MEDS: INSULIN ASPART 100 UNIT/ML 1 ML 10 ML VIAL SQ SCH (21:11)
[2018-03-18] MEDS: BETAMETHASONE DIPROPIONATE 0.05% OINTMENT 45 GM TUBE TOPICAL SCH (21:11)
[2018-03-18] MEDS: ATORVASTATIN 80 MG TAB PO SCH (22:46)
[2018-03-18] MEDS: METOPROLOL TARTRATE 50 MG TAB PO SCH (22:46)
[2018-03-18] MEDS: FAMOTIDINE 20 MG TAB PO SCH (22:46)
[2018-03-18] MEDS: GABAPENTIN 300 MG CAP PO SCH (22:46)
[2018-03-19] MEDS: SODIUM CHLORIDE 0.9% 1,000 ML IV SCH ×3 (00:31→17:05)
[2018-03-19 07:02] LABS: Glucose,Whole Blood 160 mg/dL (75-99)
[2018-03-19] MEDS: oxyCODONE-APAP 5-325MG 1 EACH TAB PO PRN ×3 (08:41→22:30)
[2018-03-19] MEDS: INSULIN ASPART 100 UNIT/ML 1 ML 10 ML VIAL SQ SCH ×4 (08:41→20:24)
[2018-03-19] MEDS: GABAPENTIN 300 MG CAP PO SCH ×3 (08:55→22:31)
[2018-03-19] MEDS: DULoxetine HCL 60 MG CAPSULE.DR PO SCH ×2 (08:55→17:06)
[2018-03-19] MEDS: LEVOTHYROXINE 50 MCG TAB PO SCH (08:56)
[2018-03-19] MEDS: CALCIUM POLYCARBOPHIL 625 MG TAB PO SCH (08:56)
[2018-03-19] MEDS: PANTOPRAZOLE 40 MG/10 ML VIAL IV SCH (08:57)
[2018-03-19] MEDS: BETAMETHASONE DIPROPIONATE 0.05% OINTMENT 45 GM TUBE TOPICAL SCH ×2 (08:59→20:24)
[2018-03-19 11:32] LABS: Glucose,Whole Blood 156 mg/dL (75-99)
[2018-03-19] MEDS: FERROUS SULFATE 325 MG TAB PO SCH (12:26)
[2018-03-19] MEDS: FAMOTIDINE 20 MG TAB PO SCH ×2 (12:26→22:31)
[2018-03-19] MEDS: ASPIRIN 81 MG PO SCH (12:27)
--- NOTE | 2018-03-19 12:37 | P.CNOR ---
History of Present Illness - [facility] Consult date: 03/19/18 Consult reason: fracture (Right humerus fracture) History of present illness: The patient is a 62 y/o female who presented to the hospital yesterday with pain in the right shoulder and inability to take care of herself. She states she fell on 03/15/2018 after losing her balance due to dizziness and miss judged how far away the wall was from her. Her fell into the wall with her right arm and had immediate pain. The patient was seen at the emergency department at [facility] on Thursday and was proximal humerus fracture was found. She was placed in a sling and sent home with follow up in our office later this week. However, she continued to have severe arm pain and presented back to the hospital yesterday for admission for pain control and possible rehab placement. She does have a history of a recent IN with cardiac cath and was placed on Aspirin and Plavix. Her last dose of Plavix was yesterday. No other injuries noted. Today, she states her pain is slightly better since admission. She has severe pain in her upper arm and shoulder that radiates into her neck. She denies fever, chills, chest pain, shortness of breath, and abdominal pain today. Review of Systems Constitutional: Denies chills, Denies fever Cardiovascular: Denies chest pain, Denies shortness of breath Respiratory: Denies cough Gastrointestinal: Denies diarrhea, Denies nausea, Denies vomiting Musculoskeletal: right: shoulder pain, shoulder stiffness, shoulder swelling Past Medical History Past Medical History: Coronary Artery Disease (CAD), Diabetes Mellitus, GERD/ Reflux, Hyperlipidemia, Hypertension, Myocardial Infarction (IN), Osteoarthritis (OA), Skin Disorder Additional Past Medical History / Comment(s): fell 03-15-17 fx rt humerus/sling. ECZEMA, pt stated she needs sterile sheets- has had rash and swelling in past to detergents/bleach used ., IBS, DDD, gastroparesis, carapal tunnel lisette., kidney stones. Last Myocardial Infarction Date:: IN X 3 LAST ONE 2006 History of Any Multi-Drug Resistant Organisms: MRSA Year Discovered:: 01/01/16 MDRO Source:: right leg Past Surgical History: Appendectomy, Section, Cholecystectomy, Heart Catheterization With Stent, Hysterectomy, Tonsillectomy Additional Past Surgical History / Comment(s): breast biopsy, D & C x2, tumor right shoulder removed; lithotripsy Past Anesthesia/Blood Transfusion Reactions: Previous Problems w/ Anesthesia Additional Past Anesthesia/Blood Transfusion Reaction / Comm: TENDS TO HAVE PANIC ATTACKS WHEN COMING OUT OF ANESTHESIA Date of Last Stent Placement:: 2006 Smoking Status: Former smoker - Past Family History Mother Family Medical History: Cancer Father Family Medical History: Coronary Artery Disease (CAD), Myocardial Infarction (IN ) Medications and Allergies Home Medications Medication Instructions Recorded Confirmed Type DULoxetine HCL 60 mg PO BID@0800,1730 06/21/15 03/18/18 History Losartan [Cozaar] 50 mg PO DAILY@1730 06/21/15 03/18/18 History Metoprolol Tartrate [Lopressor] 50 mg PO DAILY@2300 06/21/15 03/18/18 History Ranitidine HCl 150 mg PO BID@1230,2300 06/21/15 03/18/18 History Calcium Carbonate [Calcium] 600 mg PO DAILY@1730 01/01/16 03/18/18 History Multivit-Min/Iron/Folic/Lutein 1 tab PO HS@2300 01/01/16 03/18/18 History [Centrum Silver Women Tablet] Ferrous Sulfate [Feosol] 325 mg PO DAILY@1230 06/05/16 03/18/18 History Calcium Polycarbophil [Fiber-Lax] 625 mg PO DAILY@0800 07/27/16 03/18/18 History Furosemide [Lasix] 20 mg PO TID@0800,1230,1500 07/27/16 03/18/18 History Levothyroxine Sodium [Synthroid] 50 mcg PO DAILY@0800 07/27/16 03/18/18 History Potassium Chloride [Klor-Con 10] 10 meq PO BID@1230,1730 07/27/16 03/18/18 History Acetaminophen [Tylenol 8 Hour] 650 mg PO Q8H PRN 12/26/16 03/18/18 History Gabapentin 600 mg PO TID@0800,1530,2300 12/26/16 03/18/18 History Dapagliflozin Propanediol [Farxiga] 10 mg PO DAILY@1500 04/29/17 03/18/18 History traZODone HCL 100 mg PO HS@2300 04/29/17 03/18/18 History Pioglitazone [Actos] 30 mg PO HS@2300 07/24/17 03/18/18 History clonazePAM [KlonoPIN] 0.5 mg PO BID PRN 07/24/17 03/18/18 History sitaGLIPtin [Januvia] 100 mg PO DAILY@0800 07/24/17 03/18/18 History Betamethasone Dipropionate 1 applic TOPICAL BID 02/20/18 03/18/18 History [Betamethasone Dipropionate 0.05%] Glimepiride [Amaryl] 2 mg PO BID@1230,1730 02/20/18 03/18/18 History Loratadine [Claritin] 10 mg PO DAILY PRN 02/20/18 03/18/18 History Magnesium Oxide [Mag-Ox] 400 mg PO DAILY@1730 02/20/18 03/18/18 History Minocycline HCl [Minocin] 100 mg PO BID@0900,2100 02/20/18 03/18/18 History Aspirin 81 mg PO DAILY@1230 03/15/18 03/18/18 History Atorvastatin Calcium [Lipitor] 80 mg PO HS@2300 03/15/18 03/18/18 History Clopidogrel [Plavix] 75 mg PO DAILY@1230 03/15/18 03/18/18 History Ezetimibe [Zetia] 10 mg PO DAILY@1500 03/15/18 03/18/18 History Acetaminophen-Codeine 300-30mg 1 each PO Q6HR PRN 3 Days #12 tab 03/18/18 Rx [Tylenol w/codeine #3] INSULIN LISPRO (HumaLOG) [humaLOG] 0 unit SQ ACHS #1 vial 03/18/18 Rx Ibuprofen [Motrin] 400 mg PO Q6HR PRN tab 03/18/18 Rx Allergies Allergy/AdvReac Type Severity Reaction Status Date / Time ciprofloxacin [From Cipro] Allergy Anaphylaxis Verified 03/18/18 14:59 diazepam [From Valium] Allergy Rash/Hives Verified 03/18/18 14:59 metronidazole [From Flagyl] Allergy Anaphylaxis Verified 03/18/18 14:59 Sulfa (Sulfonamide Allergy Rash/Hives Verified 03/18/18 14:59 Antibiotics) doxycycline AdvReac Nausea & Verified 03/18/18 14:59 Vomiting & Diarrhea metoclopramide HCl AdvReac Diarrhea Verified 03/18/18 14:59 [From Reglan] [facility]ENS USED AT [facility] Allergy Unknown Uncoded 03/18/18 10:57 HOSPITAL Physical Examination The patient is a 62 y/o female who is in no acute distress. She is alert and oriented x3. Her head is normocephalic and atraumatic. Exam of the cervical spine reveals no pain to palpation and no step offs noted. Sling is in place. Shoulder was not put through range of motion due to the fracture. There is ecchymosis to the upper arm. She has full wrist and finger ROM. No numbness to her fingers or hand. Neurological and circulatory status is intact. Results - Labs Labs: Abnormal Lab Results - Last 24 Hours (Table) 03/18/18 03/18/18 03/18/18 Range/Units 12:02 16:30 20:52 BUN 22 H (7-17) mg/dL Glucose 174 H (74-99) mg/dL POC Glucose (mg/dL) 140 H (75-99) mg/dL AST 46 H (14-36) U/L Urine Glucose (UA) 4+ H (Negative) Urine Ketones Trace H (Negative) Ur Leukocyte Esterase Trace H (Negative) Urine WBC 9 H (0-5) /hpf 03/19/18 03/19/18 Range/Units 07:00 11:31 BUN (7-17) mg/dL Glucose (74-99) mg/dL POC Glucose (mg/dL) 160 H 156 H (75-99) mg/dL AST (14-36) U/L Urine Glucose (UA) (Negative) Urine Ketones (Negative) Ur Leukocyte Esterase (Negative) Urine WBC (0-5) /hpf Microbiology - Last 24 Hours (Table) 03/18/18 16:30 Urine Culture - Preliminary Urine,Voided H & H 03/18/18 Range/Units 12:02 Hgb 12.0 (11.4-16.0) gm/dL Hct 37.4 (34.0-46.0) % Result Diagrams: 03/18/18 12:02 03/18/18 12:02 - Diagnostic results Shoulder x-ray: image reviewed (Displaced proximal humerus fracture on the right. ) Assessment and Plan (1) History of fall Current Visit: Yes Status: Acute Code(s): Z91.81 - HISTORY OF FALLING SNOMED Code(s): 914004274 (2) Proximal humerus fracture Current Visit: Yes Status: Acute Code(s): S42.209A - UNSP FRACTURE OF UPPER END OF UNSP HUMERUS, INIT FOR CLOS FX SNOMED Code(s): 784037355 Plan: The clinical and x-ray findings were discussed with the patient. The case was also discussed with Dr. Lou and Dr. Menezes. The patient will need surgery to repair this fracture. A right shoulder CT was ordered to further evaluate the fracture. If she is cleared from a medical standpoint now, we will schedule an ORIF of the right proximal humerus for tomorrow. If she is not medically stable, we can delay surgery if needed. If we delay surgery, the patient may be discharged home from an orthopedic standpoint with follow up in our office. We will continue follow the patient closely and make further recommendation as needed.
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
[2018-03-19 15:58] LABS: Hemoglobin A1C 6.9 % (4.0-6.0)
[2018-03-19 16:49] LABS: Glucose,Whole Blood 130 mg/dL (75-99)
--- NOTE | 2018-03-19 16:54 | CT ---
EXAMINATION TYPE: CT shoulder RT wo con DATE OF EXAM: 03/19/2018 COMPARISON: None HISTORY: Fractured right humerus CT DLP: 380 mGycm Automated exposure control for dose reduction was used. FINDINGS: Multiple axial sections were obtained from the top of the AC joint to the mid shaft of the humerus wi th no contrast. There is a comminuted oblique fracture of the proximal shaft of the humerus near the humeral neck. Th ere is no dislocation. There is 3.3 cm medial displacement of the distal major fragment. Fracture dagmar e extends also through the humeral neck and greater tuberosity. The scapula is intact. AC joint is in tact. The visualized right upper ribs appear intact. IMPRESSION: COMMINUTED DISPLACED HUMERAL NECK AND PROXIMAL SHAFT HUMERUS FRACTURE. NO DISLOCATION.
[2018-03-19] MEDS: EZETIMIBE 10 MG TAB PO SCH (17:04)
[2018-03-19] MEDS: CALCIUM CARBONATE 500 MG CHEWABLE PO SCH (17:05)
[2018-03-19] MEDS: Dapagliflozin Propanediol [Farxiga] 10 MG PO SCH (17:05)
[2018-03-19] MEDS: MAGNESIUM OXIDE 400 MG TAB PO SCH (17:06)
[2018-03-19] MEDS: POTASSIUM CHLORIDE ER 10 MEQ TAB.ER.PRT PO SCH (18:25)
[2018-03-19 20:38] LABS: Glucose,Whole Blood 181 mg/dL (75-99)
[2018-03-19] MEDS: ATORVASTATIN 80 MG TAB PO SCH (22:31)
--- NOTE | 2018-03-19 22:52 | P.PN ---
Subjective Progress Note Date: 03/19/18 Principal diagnosis: Right humerus fracture comminuted Patient is a 62-year-old female with a known history of hypertension, diabetes, hyperlipidemia, history of recent non-ST wave SC status post cardiac catheterization and medical therapy was recommended, GERD, came to ER with complaints of right hand pain. Patient had a fall about 3 days ago.At that time she sustained a proximal right humerus fracture as well as the rotator cuff tear. Patient reports over the past 3 days she's been having significant pain. Patient states that she does have an appointment tomorrow with Dr. Moses orthopedic physician. She reports that she also was having a visiting nurse come in today. She called the visiting nurse due to increased pain and the nurse told her to come here. Patient states that she feels that she is unable take care of herself. She states she feels wobbly and weak. Patient states that she just does not feel like she can manage her health at home with the broken arm. X-ray of the shoulder showed comminuted fracture of proximal right humerus. Chest x-ray showed persistent right perihilar subsegmental changes. Stable findings. EKG showed sinus tachycardia. 03/19/2018 Patient is still complaining of right shoulder pain and upper extremity pain and neck pain. Slightly improved with pain medications. Patient was seen by orthopedic surgery and is planning for OR in 1-2 days. Otherwise no fever no chills. Patient was seen by psychiatric due to major depression and recommended no inpatient psychiatric admission. No complains of chest pain or shortness of breath. No nausea vomiting or abdominal pain. Patient had recent cardiac catheterization and medical management was recommended. Patient is at low risk for moderately risk orthopedic surgery. Current medications reviewed Objective - Vital Signs Vital signs: Vital Signs Temp 98.5 F 03/19/18 20:37 Pulse 100 03/19/18 20:37 Resp 28 H 03/19/18 20:37 BP 142/66 03/19/18 20:37 Pulse Ox 94 L 03/19/18 20:37 Intake & Output 03/19/18 03/19/18 03/20/18 06:59 18:59 06:59 Intake Total 240 160 70 Balance 240 160 70 Intake: Intake, IV Titration 240 160 70 Amount Sodium Chloride 0.9% 1, 240 160 70 000 ml @ 120 mls/hr IV . Q8H20M [facility] Rx#:[id number] Other: Voiding Method Toilet Toilet # Voids 1 1 1 - Exam PHYSICAL EXAMINATION: Patient is lying in the bed comfortably, no acute distress, awake alert and oriented.. HEENT: Normocephalic. Neck is supple. Pupils reactive. Nostrils clear. Oral cavity is moist. Ears reveal no drainage. Neck reveals no JVD, carotid bruits, or thyromegaly. CHEST EXAMINATION: Trachea is central. Symmetrical expansion. Lung lou clear to auscultation and percussion. CARDIAC: Normal S1, S2 with no gallops. No murmurs ABDOMEN: Soft. Bowel sounds normal. No organomegaly. No abdominal bruits. Extremities: reveal no edema. No clubbing or cyanosis Neurologically awake, alert, oriented x3 with well-coordinated movements. No focal deficits noted Skin: No rash or skin lesions. Psychiatric: Coperative. Seems depressed and anxious Musculoskeletal: No joint swelling or deformity. Right arm decreased range of motion and having shoulder sling - Labs CBC & Chem 7: 03/18/18 12:02 03/18/18 12:02 Labs: Abnormal Lab Results - Last 24 Hours (Table) 03/18/18 03/19/18 03/19/18 Range/Units 12:02 07:00 11:31 POC Glucose (mg/dL) 160 H 156 H (75-99) mg/dL Hemoglobin A1c 6.9 H (4.0-6.0) % 03/19/18 03/19/18 Range/Units 16:47 20:18 POC Glucose (mg/dL) 130 H 181 H (75-99) mg/dL Hemoglobin A1c (4.0-6.0) % Microbiology - Last 24 Hours (Table) 03/18/18 16:30 Urine Culture - Preliminary Urine,Voided Assessment and Plan Assessment: Pain due to Communited right proximal humerus fracture 3 days ago Comminuted right proximal humerus fracture. Oral is planning for OR Recent history of non-ST M I status post cardiac catheterization. Medical therapy recommended Coronary artery disease with history of stent placement Hypertension diabetes type 2, A1c 6.9 GERD Osteoarthritis IBS Degenerative disc disease Gastroparesis Carpal tunnel syndrome Previous history of smoking DVT prophylaxis Plan: Patient will be continued on pain management and follow closely. Psychiatric recommends no inpatient psychiatric admission. Continue with current home medications and further conditions based on the critical course. DVT prophylaxis Time with Patient: Greater than 30
[2018-03-19] MEDS: traZODone HCL 100 MG TAB PO SCH (23:41)
[2018-03-19] MEDS: HEPARIN SODIUM,PORCINE 5,000 UNIT/ML 1 ML VIAL SQ SCH (23:41)
[2018-03-19] MEDS: METOPROLOL TARTRATE 50 MG TAB PO SCH (23:41)
[2018-03-20] MEDS: SODIUM CHLORIDE 0.9% 1,000 ML IV SCH ×4 (04:03→23:56)
[2018-03-20 06:55] LABS: Glucose,Whole Blood 164 mg/dL (75-99)
[2018-03-20 07:16] LABS: Basophils % (A) 1 %; Eosinophils # (A) 0.2 k/uL (0-0.7); Eosinophils % (A) 3 %; HCT 32.9 % (34.0-46.0); HGB 10.9 gm/dL (11.4-16.0); Lymphocytes # (A) 1.9 k/uL (1.0-4.8); Lymphocytes % (A) 26 %; MCH 30.9 pg (25.0-35.0); MCHC 33.2 g/dL (31.0-37.0); MCV 93.3 fL (80.0-100.0); Mean Platelet Volume 6.6; Monocytes # (A) 0.6 k/uL (0-1.0); Monocytes % (A) 8 %; Neutrophils # (A) 4.4 k/uL (1.3-7.7); Neutrophils % (A) 60 %; Platelet Count 248 k/uL (150-450); RBC 3.52 m/uL (3.80-5.40); RDW 14.6 % (11.5-15.5); WBC 7.3 k/uL (3.8-10.6)
[2018-03-20] MEDS: CALCIUM POLYCARBOPHIL 625 MG TAB PO SCH (07:27)
[2018-03-20] MEDS: INSULIN ASPART 100 UNIT/ML 1 ML 10 ML VIAL SQ SCH ×4 (07:27→20:47)
[2018-03-20] MEDS: HEPARIN SODIUM,PORCINE 5,000 UNIT/ML 1 ML VIAL SQ SCH ×2 (07:52→15:52)
[2018-03-20] MEDS: FUROSEMIDE 20 MG TAB PO SCH ×3 (07:52→15:52)
[2018-03-20] MEDS: DULoxetine HCL 60 MG CAPSULE.DR PO SCH ×2 (07:52→17:58)
[2018-03-20] MEDS: GABAPENTIN 300 MG CAP PO SCH ×3 (07:52→20:50)
[2018-03-20] MEDS: BETAMETHASONE DIPROPIONATE 0.05% OINTMENT 45 GM TUBE TOPICAL SCH ×2 (07:53→20:47)
[2018-03-20] MEDS: LEVOTHYROXINE 50 MCG TAB PO SCH (07:53)
[2018-03-20] MEDS: PANTOPRAZOLE 40 MG/10 ML VIAL IV SCH (07:53)
[2018-03-20 08:09] LABS: Anion Gap 5 mmol/L; Blood Urea Nitrogen 16 mg/dL (7-17); Calcium 8.6 mg/dL (8.4-10.2); Carbon Dioxide 28 mmol/L (22-30); Chloride 107 mmol/L (98-107); Glucose 151 mg/dL (74-99); Potassium 4.6 mmol/L (3.5-5.1); Sodium 140 mmol/L (137-145)
[2018-03-20 08:10] LABS: Glucose,Whole Blood 156 mg/dL (75-99)
--- NOTE | 2018-03-20 08:18 | P.ONQ ---
Anesthesiology Proc Note - PNB - Peripheral Nerve Block Performed Right Interscalene Single Time Out Performed: Yes (0750) Procedure Start Time: 07:50 Procedure Stop Time: 07:55 Indication: Acute Post-Operative Pain, Dx/Pain Location (Right Shoulder Pain), Requested by physician Sedation Type: Sedate with meaningful contact maintained Preparation: Sterile Prep Position: Supine Needle Size: 100mm (4") Technique: Ultrasound Injectate: Other (see comment) (15ml 0.5% Ropivacaine + 15ml 2% Lidocaine with 1 :200,000 epi) Blood Aspirated: No Pain Paresthesia on Injection Noted: No Resistance on Injection: Normal Events: Uneventful and Well Tolerated
[2018-03-20] MEDS ORDERED: GLYCOPYRROLATE 0.2 MG/ML 2 ML VIAL ONE (08:25)
[2018-03-20] MEDS ORDERED: ROCURONIUM BROMIDE 10 MG/ML 10 ML VIAL IV ONE (08:25)
[2018-03-20] MEDS ORDERED: NEOSTIGMINE 1 MG/ML 10 ML VIAL ONE (08:25)
[2018-03-20] MEDS ORDERED: ePHEDrine SULFATE/0.9% NACL/PF 50 MG/5 ML SYRINGE IV ONE (08:25)
[2018-03-20] MEDS ORDERED: ONDANSETRON 4 MG/2 ML VIAL ONE (08:25)
[2018-03-20] MEDS ORDERED: fentaNYL (PF) 50 MCG/ML 2 ML AMP ONE (08:25)
[2018-03-20] MEDS ORDERED: SUCCINYLCHOLINE CHLORIDE 100 MG/5 ML SYR IV ONE (08:25)
[2018-03-20] MEDS ORDERED: PHENYLEPHRINE-0.9% NACL SYG 1 MG/10 ML SYRINGE ONE (08:25)
[2018-03-20] MEDS ORDERED: LACTATED RINGERS 1,000 ML IV ONE ×2 (08:25→09:49)
[2018-03-20] MEDS ORDERED: PROPOFOL 10 MG/ML 20 ML VIAL IV ONE (08:25)
[2018-03-20] MEDS ORDERED: MIDAZOLAM 2 MG/2 ML VIAL ONE (08:25)
[2018-03-20] MEDS ORDERED: ceFAZolin 1,000 MG/50 ML BAG (PMX) IVPB ONE (08:40)
[2018-03-20] MEDS ORDERED: ceFAZolin 1,000 MG in SODIUM CHLORIDE 0.9% 1,000 ML IRRIGATION ONE ×2 (08:59→09:48)
[2018-03-20 09:38] LABS: Polychromasia Present
[2018-03-20] MEDS ORDERED: HYDROcodone/APAP 5-325MG 1 EACH TAB PO PRN (10:20)
[2018-03-20] MEDS ORDERED: SENNOSIDES-DOCUSATE SODIUM 1 EACH TAB PO PRN (10:20)
[2018-03-20] MEDS ORDERED: hydrOXYzine PAMOATE 25 MG CAP PO PRN (10:20)
[2018-03-20] MEDS ORDERED: TEMAZEPAM 15 MG CAP PO PRN (10:20)
[2018-03-20] MEDS ORDERED: diphenhydrAMINE 25 MG CAP PO PRN (10:20)
[2018-03-20] MEDS ORDERED: HYDROmorphone 1 MG/ML 1 ML SYRINGE IVP PRN ×2 (10:20)
[2018-03-20] MEDS ORDERED: LACTATED RINGERS 1,000 ML IV SCH (10:30)
[2018-03-20] MEDS ORDERED: METOPROLOL TARTRATE 5 MG/5 ML VIAL IVP ONE (10:35)
--- NOTE | 2018-03-20 11:03 | OP ---
OPERATIVE REPORT DATE OF PROCEDURE: 03/20/2018 PREOPERATIVE DIAGNOSIS: Right displaced three-part proximal humerus fracture. POSTOPERATIVE DIAGNOSIS: Right displaced three-part proximal humerus fracture. PROCEDURE PERFORMED: Open reduction, internal fixation, right three-part closed proximal humerus fracture. SURGEON: Victoriano Menezes MD. RETAIL STORE CLERK: Cody MAGUIRE. ANESTHESIA: General endotracheal. ESTIMATED BLOOD LOSS: 400 mL. TOURNIQUET: None. DRAINS: None. COMPLICATIONS: None apparent. DISPOSITION: Postanesthesia care unit. INDICATIONS: Kenzie is a very pleasant 62-year-old female who fell approximately 1 week ago after getting dizzy and hit her right shoulder on a wall. She presented to the [facility]. Workup including x-rays revealed a significantly displaced proximal humerus fracture. Apparently, she was originally sent home with followup. She had some spells of dizziness and returned to the hospital. I was consulted yesterday for evaluation of potential management of her right proximal humerus fracture. Due to the significant displacement and given her young age, recommendation was for open reduction, internal fixation of her proximal humerus fracture. I had a long discussion with Kenzie with regards to the risks of the procedure. These risks include, but are not limited to risk of infection, nerve damage, bleeding, pain and risk of deep vein thrombosis which could lead to fatal pulmonary embolism. She also has a recent history of myocardial infarction. She has been cleared by the medical service. She certainly is a higher perioperative risk secondary to her cardiac issues as well. All of this was discussed with her. She understands these risks. All of her questions were answered to her satisfaction. Appropriate informed consent was obtained. DESCRIPTION OF THE PROCEDURE: The patient identified in preoperative holding area. Surgical site was marked by both the patient and myself. She was given 2 grams of Ancef IV for prophylactic purposes. She was then transported to the operative suite. She was placed supine on the operative table. General anesthetic was then administered and dosed per the anesthesia department without apparent complication. She was then placed into the beach chair position well-padded in preparation for surgery. Great care was taken to ensure that her cervical spine was in neutral alignment and maintained that way throughout operative procedure. Great care was taken to ensure that her legs were appropriately padded as well. The patient's right upper extremity is then prepped and draped in usual sterile fashion. Standard surgical pause undertaken to ensure that we were operating the correct site and that appropriate preoperative antibiotics have been given. All staff in the room were in agreement and we proceeded. The acromion AC joint clavicle and coracoid were marked with surgical pen. A planned incision starting at the level of the clavicle and extending distally over the deltopectoral interval approximately 1 cm lateral to the coracoid was marked with surgical pen. The incision was then made with a 10 blade scalpel. Dissection was carried down sharply to the deltoid fascia. Hemostasis was achieved with electrocautery. The deltopectoral interval was identified at the level of the clavicle. A small band retractor was then placed under the proximal deltoid then released the deltoid fascia on the lateral aspect of the cephalic vein. The vein was then left in its bed medially. The cephalic vein was protected throughout the entire case. I then identified the clavipectoral fascia. This was incised proximally to the level of the coracoacromial ligament. The coracoacromial ligament was left intact. I then used my finger to spread the interval between the conjoint tendon and the subscapularis. I felt for the axillary nerve which was readily palpable. She had significant hemorrhagic bursa. This was cleared with a rongeur. She did have a 3 part fracture, which was readily identified. She had a very large greater tuberosity piece and a very large lesser tuberosity piece and the shaft was displaced significantly medially. I was able to put #1 traction sutures in the infraspinatus and the subscapularis. These multiple traction sutures gave me good control of the greater and lesser tuberosity fragments. I was able to use a bone hook to place in the medullary canal to bring the humerus laterally. I then proceeded with fixation. I utilized a Synthes proximal humeral locking plate. I placed a bicortical 3.5 mm nonlocking screw in the oblong hole. This compressed the bone to the plate was able and was able to hold the bone out laterally at this point. Fluoroscopy was then utilized to assess for the height of the plate, which was set appropriately. I was able to before compressing the plate I was able to utilize the traction sutures to compress the greater and lesser tuberosities underneath the plate and reduce them as well. I then proceeded to place locking screws in the proximal aspect of the plate. The greater tuberosity was the bigger piece. I did place 2 locking screws into the greater tuberosity. These were placed under fluoroscopic guidance to ensure that they were appropriately placed. I placed one screw into the lesser tuberosity fragment which also had good purchase and the placement was confirmed with fluoroscopic imaging. I then placed the kickstand screw which ran along the inferomedial cortex of the shaft and into the inferior aspect of the humeral head. This was also a locking screw. This was placed under fluoroscopic guidance to ensure its proper placement. This gave me excellent control of the proximal aspect of the fracture. I then placed one final distal bicortical locking screw. This was placed in the distal most hole of the plate. I then tied the traction sutures to the plate for a parachute type technique. This gave me good fixation of the medial and lateral tuberosities as well as reinforced the construct. Final AP and lateral fluoroscopic images were taken. The height of the plate was appropriately placed. All the screws were of appropriate length and placed well into bone. At this point in time no further work was deemed necessary. The shoulder was then thoroughly irrigated with sterile saline solution with antibiotic added. The deltopectoral interval was loosely reapproximated with #1 Vicryl interrupted suture. The wound was again thoroughly irrigated with sterile saline solution with antibiotic added. The subcutaneous tissue was closed with 2-0 Vicryl interrupted suture. The skin was closed with a 3-0 Quill running Quill suture. Dermabond was applied to the incision. All sponge and needle counts were deemed correct prior to closure. The patient tolerated the procedure without apparent complication. Her right upper extremity was placed into a standard sling. She was transferred to recovery room in stable condition. MMODL / IJN: [id number] /
[2018-03-20] MEDS: ACETAMINOPHEN TAB 325 MG TAB PO PRN (11:32)
[2018-03-20 11:43] LABS: Glucose,Whole Blood 195 mg/dL (75-99)
--- NOTE | 2018-03-20 12:20 | P.PN ---
Subjective She is admitted for right humerus fracture patient underwent the surgical correction open reduction internal fixation. Objective - Vital Signs Vital signs: Vital Signs Temp 98.2 F 03/20/18 06:23 Pulse 82 03/20/18 10:45 Resp 16 03/20/18 10:45 BP 140/65 03/20/18 10:45 Pulse Ox 97 03/20/18 10:45 Intake & Output 03/19/18 03/20/18 03/20/18 18:59 06:59 18:59 Intake Total 188 130 6563 Output Total 400 Balance 160 230 902 Intake: IV 1302 Intake, IV Titration 160 230 Amount Sodium Chloride 0.9% 1, 160 230 000 ml @ 120 mls/hr IV . Q8H20M [facility] Rx#:[id number] Output: Estimated Blood Loss 400 Other: Voiding Method Toilet Toilet # Voids 1 1 - Exam PHYSICAL EXAMINATION: Patient is lying in the bed comfortably, no acute distress, awake alert and oriented.. HEENT: Normocephalic. Neck is supple. Pupils reactive. Nostrils clear. Oral cavity is moist. Ears reveal no drainage. Neck reveals no JVD, carotid bruits, or thyromegaly. CHEST EXAMINATION: Trachea is central. Symmetrical expansion. Lung lou clear to auscultation and percussion. CARDIAC: Normal S1, S2 with no gallops. No murmurs ABDOMEN: Soft. Bowel sounds normal. No organomegaly. No abdominal bruits. Extremities: reveal no edema. No clubbing or cyanosis Neurologically awake, alert, oriented x3 with well-coordinated movements. No focal deficits noted Skin: No rash or skin lesions. Psychiatric: Coperative. Seems depressed and anxious Musculoskeletal: No joint swelling or deformity. Right arm decreased range of motion and having shoulder sling - Labs CBC & Chem 7: 03/20/18 07:01 03/20/18 07:01 Labs: Abnormal Lab Results - Last 24 Hours (Table) 03/18/18 03/19/18 03/19/18 Range/Units 12:02 16:47 20:18 RBC (3.80-5.40) m/uL Hgb (11.4-16.0) gm/dL Hct (34.0-46.0) % Glucose (74-99) mg/dL POC Glucose (mg/dL) 130 H 181 H (75-99) mg/dL Hemoglobin A1c 6.9 H (4.0-6.0) % 03/20/18 03/20/18 03/20/18 Range/Units 06:54 07:01 07:01 RBC 3.52 L (3.80-5.40) m/uL Hgb 10.9 L (11.4-16.0) gm/dL Hct 32.9 L (34.0-46.0) % Glucose 151 H (74-99) mg/dL POC Glucose (mg/dL) 164 H (75-99) mg/dL Hemoglobin A1c (4.0-6.0) % 03/20/18 03/20/18 Range/Units 08:08 11:42 RBC (3.80-5.40) m/uL Hgb (11.4-16.0) gm/dL Hct (34.0-46.0) % Glucose (74-99) mg/dL POC Glucose (mg/dL) 156 H 195 H (75-99) mg/dL Hemoglobin A1c (4.0-6.0) % Microbiology - Last 24 Hours (Table) 03/18/18 16:30 Urine Culture - Final Urine,Voided Assessment and Plan Plan: Communited right proximal humerus fracture status post surgical reduction, open reduction and fixation Recent history of non-ST M I status post cardiac catheterization. Medical therapy recommended Coronary artery disease with history of stent placement Hypertension diabetes type 2, A1c 6.9 GERD Osteoarthritis IBS Degenerative disc disease Gastroparesis Carpal tunnel syndrome Previous history of smoking DVT prophylaxis -Depression: Psychiatric evaluated the patient -Generalized deconditioning patient may need placement to subacute rehabilitation.
--- NOTE | 2018-03-20 12:31 | XR ---
EXAMINATION TYPE: XR shoulder limited RT, FL guidance operating room DATE OF EXAM: 03/20/2018 COMPARISON: NONE HISTORY: 62 year female right shoulder fracture FINDINGS: Images during plate and screw fixation of the proximal humeral fracture. FLUOROSCOPY Fluoroscopy time of 82 seconds was used during proximal right humeral shoulder fixation. 2 image/s d ocument/s the procedure. IMPRESSION: Intraoperative fluoroscopy as above.
[2018-03-20 12:35] LABS: Basophils % (A) 0 %; Eosinophils # (A) 0.2 k/uL (0-0.7); Eosinophils % (A) 2 %; HCT 30.3 % (34.0-46.0); HGB 9.9 gm/dL (11.4-16.0); Lymphocytes # (A) 1.3 k/uL (1.0-4.8); Lymphocytes % (A) 12 %; MCH 31.2 pg (25.0-35.0); MCHC 32.6 g/dL (31.0-37.0); MCV 95.7 fL (80.0-100.0); Mean Platelet Volume 6.3; Monocytes # (A) 0.7 k/uL (0-1.0); Monocytes % (A) 6 %; Neutrophils # (A) 8.2 k/uL (1.3-7.7); Neutrophils % (A) 78 %; Platelet Count 254 k/uL (150-450); RBC 3.17 m/uL (3.80-5.40); RDW 14.9 % (11.5-15.5); WBC 10.5 k/uL (3.8-10.6)
[2018-03-20] MEDS: POTASSIUM CHLORIDE ER 10 MEQ TAB.ER.PRT PO SCH ×2 (12:52→17:58)
[2018-03-20] MEDS: FERROUS SULFATE 325 MG TAB PO SCH (12:52)
[2018-03-20] MEDS: FAMOTIDINE 20 MG TAB PO SCH ×2 (12:52→20:50)
[2018-03-20] MEDS: ASPIRIN 81 MG PO SCH (12:52)
[2018-03-20] MEDS: Dapagliflozin Propanediol [Farxiga] 10 MG PO SCH (12:55)
[2018-03-20] MEDS: EZETIMIBE 10 MG TAB PO SCH (15:52)
[2018-03-20 17:51] LABS: Glucose,Whole Blood 180 mg/dL (75-99)
[2018-03-20] MEDS: HYDROmorphone 1 MG/ML 1 ML SYRINGE IVP PRN ×2 (17:54→20:52)
[2018-03-20] MEDS: CALCIUM CARBONATE 500 MG CHEWABLE PO SCH (17:58)
[2018-03-20] MEDS: MAGNESIUM OXIDE 400 MG TAB PO SCH (17:58)
--- NOTE | 2018-03-20 18:26 | XR ---
EXAMINATION TYPE: XR elbow limited 2 views RT, XR wrist complete 4 views RT DATE OF EXAM: 03/20/2018 COMPARISON: NONE HISTORY: 62-year-old female recent fall and pain, humerus surgery today. FINDINGS: Elbow: Suboptimal positioning on the lateral view for assessment of joint effusion. There is soft tissue swe lling. No displaced fracture seen. Some lucencies projecting at the proximal ulna could be artifactua l. Wrist: Degenerative joint space narrowing at the triscaphe joint. The radiocarpal and distal radioulnar join t as well as the midcarpal compartment appear intact. No acute fracture or dislocation seen. IMPRESSION: 1. Suboptimal exam of the elbow. If there remains high clinical concern for acute osseous injury at t he elbow, repeat 3 views recommended. Particular care should BE taken in acquiring a satisfactory lat eral view. 2. Wrist with some degenerative changes at the base of the thumb. No acute osseous abnormal seen.
[2018-03-20 20:09] LABS: Glucose,Whole Blood 185 mg/dL (75-99)
--- NOTE | 2018-03-20 20:30 | CONS ---
CONSULTATION Mrs. Mcintyre is a 62-year-old female who is seen for cardiac evaluation. This patient has a history of hypertension, diabetes as well as hyperlipidemia. The patient was recently admitted in the hospital with chest pain suggestive of non-Q-wave myocardial infarction, underwent a cardiac catheterization. No significant coronary artery disease was detected and patient was advised medical treatment. Patient was admitted with fall and fracture of the right humerus. The patient underwent the surgery. Patient tolerated surgery well. At present, patient is comfortable, denies any chest discomfort or shortness of breath. PAST MEDICAL HISTORY: Includes a history of hypertension, diabetes, appendectomy, cholecystectomy, recent cardiac catheterization with normal coronary arteries, hysterectomy and tonsillectomy. The patient's medications at home include: 1. Cozaar 50 mg daily. 2. Metoprolol 50 mg b.i.d. 3. Ferrous sulfate. 4. Lipitor 80 mg daily. 5. Aspirin once a day. 6. Synthroid 50 mcg daily. 7. Farxiga 10 mg daily. 8. Klonopin. 9. Januvia. 10.Claritin. 11.Plavix and. 12.Zetia. PHYSICAL EXAMINATION: At present reveals a 62-year-old obesely-built female who does not appear to be in any acute distress at present. The patient is afebrile. Respirations are not labored. Blood pressure is 130/63 mmHg. HEENT is negative. Neck is supple. There is no increase in jugular venous pressure. Both the carotid pulses are felt. There is no bruit. Chest is symmetrical. HEART: The PMI is not felt. First and second heart sounds are normal. Lungs are clinically clear to auscultation and percussion. Abdomen is soft. Liver and spleen not enlarged. EXTREMITIES: Peripheral pulsations are 2+. FINAL IMPRESSION: This patient had surgery for fractured humerus. The patient is cardiac-anton stable. Denies any evidence of any congestive cardiac failure. Denies any chest pain. We will recommend to continue the patient on Lipitor and aspirin. The Plavix can be resumed as soon as possible when it is okay with Surgery. MMODL / IJN: [id number] /
[2018-03-20] MEDS: traZODone HCL 100 MG TAB PO SCH (20:48)
[2018-03-20] MEDS: ATORVASTATIN 80 MG TAB PO SCH (20:48)
[2018-03-20] MEDS: METOPROLOL TARTRATE 50 MG TAB PO SCH (20:50)
[2018-03-20] MEDS ORDERED: DOXYCYCLINE MONOHYDRATE 100 MG CAPSULE PO SCH (21:00)
[2018-03-21] MEDS: HYDROmorphone 1 MG/ML 1 ML SYRINGE IVP PRN ×2 (03:14)
[2018-03-21] MEDS ORDERED: HYDROmorphone 2 MG TAB PO PRN ×2 (06:16→06:18)
[2018-03-21] MEDS ORDERED: HYDROmorphone 4 MG TABLET PO PRN (06:19)
[2018-03-21] MEDS: ACETAMINOPHEN TAB 325 MG TAB PO PRN (06:22)
[2018-03-21 07:01] LABS: Glucose,Whole Blood 196 mg/dL (75-99)
[2018-03-21] MEDS: SODIUM CHLORIDE 0.9% 1,000 ML IV SCH ×3 (07:11→23:22)
[2018-03-21] MEDS: INSULIN ASPART 100 UNIT/ML 1 ML 10 ML VIAL SQ SCH ×4 (07:30→21:27)
[2018-03-21] MEDS: LEVOTHYROXINE 50 MCG TAB PO SCH (07:31)
[2018-03-21] MEDS: FUROSEMIDE 20 MG TAB PO SCH ×3 (07:31→14:59)
[2018-03-21] MEDS: CALCIUM POLYCARBOPHIL 625 MG TAB PO SCH (07:32)
[2018-03-21] MEDS: DULoxetine HCL 60 MG CAPSULE.DR PO SCH ×2 (07:32→17:26)
[2018-03-21] MEDS: GABAPENTIN 300 MG CAP PO SCH ×3 (07:32→23:22)
[2018-03-21] MEDS: HEPARIN SODIUM,PORCINE 5,000 UNIT/ML 1 ML VIAL SQ SCH ×4 (07:33→23:23)
[2018-03-21] MEDS: BETAMETHASONE DIPROPIONATE 0.05% OINTMENT 45 GM TUBE TOPICAL SCH ×2 (07:35→21:23)
[2018-03-21 07:39] LABS: Basophils % (A) 0 %; Eosinophils # (A) 0.1 k/uL (0-0.7); Eosinophils % (A) 1 %; HCT 29.7 % (34.0-46.0); HGB 9.8 gm/dL (11.4-16.0); Lymphocytes # (A) 1.9 k/uL (1.0-4.8); Lymphocytes % (A) 16 %; MCH 31.6 pg (25.0-35.0); MCV 95.6 fL (80.0-100.0); Monocytes # (A) 0.8 k/uL (0-1.0); Monocytes % (A) 7 %; Neutrophils % (A) 76 %; Platelet Count 335 k/uL (150-450); RBC 3.11 m/uL (3.80-5.40); RDW 15.3 % (11.5-15.5); WBC 11.9 k/uL (3.8-10.6)
[2018-03-21] MEDS: Acetaminophen-Codeine 300-30mg TAB PO PRN ×2 (09:31→14:58)
--- NOTE | 2018-03-21 10:22 | P.PN ---
Subjective Progress Note Date: 03/21/18 Principal diagnosis: S/P ORIF right proximal humerus fracture Patient is seen at bedside this morning. She is postop day #1 from ORIF right proximal humerus fracture. She has pain at the surgical site as expected but denies any new complaints. She denies numbness, tingling or calf pain. Review of systems is negative for fever, chills, chest pain, shortness of breath or other Objective - Vital Signs Vital signs: Vital Signs Temp 99.1 F 03/21/18 05:48 Pulse 125 H 03/21/18 08:45 Resp 24 03/21/18 08:45 BP 111/57 03/21/18 05:48 Pulse Ox 92 L 03/21/18 05:48 Intake & Output 03/20/18 03/21/18 03/21/18 18:59 06:59 18:59 Intake Total 2842 360 400 Output Total 400 Balance 2442 360 400 Weight 122.47 kg 122.47 kg Intake: IV 1302 Intake, IV Titration 500 360 Amount Lactated Ringers 1,000 ml 500 @ 100 mls/hr IV .Q10H [facility] Rx#:[id number] Sodium Chloride 0.9% 1, 360 000 ml @ 120 mls/hr IV . Q8H20M [facility] Rx#:[id number] Oral 1040 400 Output: Estimated Blood Loss 400 Other: Voiding Method Toilet Toilet Toilet # Voids 1 2 - Exam Inspection reveals a benign surgical wound. There is no active bleeding or drainage. Neurovascular status is intact throughout the upper extremity with motor and sensation fully intact. Calves are soft and nontender. 2+ radial pulse and less than 2 second cap refill is present - Constitutional General appearance: Present: no acute distress - Psychiatric Psychiatric: Present: A&O x's 3, appropriate affect, intact judgment & insight - Labs CBC & Chem 7: 03/21/18 06:47 03/20/18 07:01 Labs: Abnormal Lab Results - Last 24 Hours (Table) 03/20/18 03/20/18 03/20/18 Range/Units 11:42 12:27 17:48 WBC (3.8-10.6) k/uL RBC 3.17 L (3.80-5.40) m/uL Hgb 9.9 L (11.4-16.0) gm/dL Hct 30.3 L (34.0-46.0) % Neutrophils # 8.2 H (1.3-7.7) k/uL POC Glucose (mg/dL) 195 H 180 H (75-99) mg/dL 03/20/18 03/21/18 03/21/18 Range/Units 20:08 06:47 06:59 WBC 11.9 H (3.8-10.6) k/uL RBC 3.11 L (3.80-5.40) m/uL Hgb 9.8 L (11.4-16.0) gm/dL Hct 29.7 L (34.0-46.0) % Neutrophils # 9.0 H (1.3-7.7) k/uL POC Glucose (mg/dL) 185 H 196 H (75-99) mg/dL Microbiology - Last 24 Hours (Table) 03/18/18 16:30 Urine Culture - Final Urine,Voided Assessment and Plan (1) Proximal humerus fracture Narrative/Plan: She will continue with routine postop orthopedic protocol including pain management, wound care, DVT prophylaxis and medical management. Maintain sling and nonweightbearing right upper extremity. She will need ECF placement Current Visit: Yes Status: Acute Priority: Medium Code(s): S42.209A - UNSP FRACTURE OF UPPER END OF UNSP HUMERUS, INIT FOR CLOS FX SNOMED Code(s): 129461607 Time with Patient: Less than 30
[2018-03-21 11:32] LABS: Glucose,Whole Blood 173 mg/dL (75-99)
--- NOTE | 2018-03-21 11:51 | P.PN ---
Subjective She is admitted for right humerus fracture patient underwent the surgical correction open reduction internal fixation. 03/21/2018 No overnight events Constitutional: Denied any fatigue denied any fever. Cardio vascular: denied any chest pain, palpitations Gastrointestinal denied any nausea vomiting Pulmonary: Denied any shortness of breath cough Neurologic denied any new focal deficits Objective - Vital Signs Vital signs: Vital Signs Temp 99.1 F 03/21/18 05:48 Pulse 125 H 03/21/18 08:45 Resp 24 03/21/18 08:45 BP 111/57 03/21/18 05:48 Pulse Ox 92 L 03/21/18 05:48 Intake & Output 03/20/18 03/21/18 03/21/18 18:59 06:59 18:59 Intake Total 2842 360 400 Output Total 400 Balance 2442 360 400 Weight 122.47 kg 122.47 kg Intake: IV 1302 Intake, IV Titration 500 360 Amount Lactated Ringers 1,000 ml 500 @ 100 mls/hr IV .Q10H [facility] Rx#:[id number] Sodium Chloride 0.9% 1, 360 000 ml @ 120 mls/hr IV . Q8H20M [facility] Rx#:[id number] Oral 1040 400 Output: Estimated Blood Loss 400 Other: Voiding Method Toilet Toilet Toilet # Voids 1 2 - Exam PHYSICAL EXAMINATION: Patient is lying in the bed comfortably, no acute distress, awake alert and oriented.. HEENT: Normocephalic. Neck is supple. Pupils reactive. Nostrils clear. Oral cavity is moist. Ears reveal no drainage. Neck reveals no JVD, carotid bruits, or thyromegaly. CHEST EXAMINATION: Trachea is central. Symmetrical expansion. Lung lou clear to auscultation and percussion. CARDIAC: Normal S1, S2 with no gallops. No murmurs ABDOMEN: Soft. Bowel sounds normal. No organomegaly. No abdominal bruits. Extremities: reveal no edema. No clubbing or cyanosis Neurologically awake, alert, oriented x3 with well-coordinated movements. No focal deficits noted Skin: No rash or skin lesions. Psychiatric: Coperative. Seems depressed and anxious Musculoskeletal: No joint swelling or deformity. Right arm decreased range of motion and having shoulder sling - Labs CBC & Chem 7: 03/21/18 06:47 03/20/18 07:01 Labs: Abnormal Lab Results - Last 24 Hours (Table) 03/20/18 03/20/18 03/20/18 Range/Units 12:27 17:48 20:08 WBC (3.8-10.6) k/uL RBC 3.17 L (3.80-5.40) m/uL Hgb 9.9 L (11.4-16.0) gm/dL Hct 30.3 L (34.0-46.0) % Neutrophils # 8.2 H (1.3-7.7) k/uL POC Glucose (mg/dL) 180 H 185 H (75-99) mg/dL 03/21/18 03/21/18 03/21/18 Range/Units 06:47 06:59 11:31 WBC 11.9 H (3.8-10.6) k/uL RBC 3.11 L (3.80-5.40) m/uL Hgb 9.8 L (11.4-16.0) gm/dL Hct 29.7 L (34.0-46.0) % Neutrophils # 9.0 H (1.3-7.7) k/uL POC Glucose (mg/dL) 196 H 173 H (75-99) mg/dL Assessment and Plan Plan: Communited right proximal humerus fracture status post surgical reduction, open reduction and fixation Recent history of non-ST M I status post cardiac catheterization. Medical therapy recommended Coronary artery disease with history of stent placement Hypertension diabetes type 2, A1c 6.9 GERD Osteoarthritis IBS Degenerative disc disease Gastroparesis Carpal tunnel syndrome Previous history of smoking DVT prophylaxis -Depression: Psychiatric evaluated the patient -Generalized deconditioning patient may need placement to subacute rehabilitation.
[2018-03-21] MEDS: ASPIRIN 81 MG PO SCH (12:26)
[2018-03-21] MEDS: FERROUS SULFATE 325 MG TAB PO SCH (12:27)
[2018-03-21] MEDS: FAMOTIDINE 20 MG TAB PO SCH ×2 (12:27→23:22)
[2018-03-21] MEDS: POTASSIUM CHLORIDE ER 10 MEQ TAB.ER.PRT PO SCH ×2 (12:30→17:26)
[2018-03-21] MEDS: EZETIMIBE 10 MG TAB PO SCH (14:59)
[2018-03-21] MEDS: Dapagliflozin Propanediol [Farxiga] 10 MG PO SCH (14:59)
[2018-03-21 17:17] LABS: Glucose,Whole Blood 200 mg/dL (75-99)
[2018-03-21] MEDS: CALCIUM CARBONATE 500 MG CHEWABLE PO SCH (17:26)
[2018-03-21] MEDS: MAGNESIUM OXIDE 400 MG TAB PO SCH (17:26)
[2018-03-21] MEDS ORDERED: MENTHOL (NICE) LOZENGE MUCOUS MEM PRN (17:33)
[2018-03-21 21:19] LABS: Glucose,Whole Blood 197 mg/dL (75-99)
[2018-03-21] MEDS: HYDROcodone/APAP 5-325MG 1 EACH TAB PO PRN (21:22)
[2018-03-21] MEDS: traZODone HCL 100 MG TAB PO SCH (21:22)
[2018-03-21] MEDS: ATORVASTATIN 80 MG TAB PO SCH (23:21)
[2018-03-21] MEDS: METOPROLOL TARTRATE 50 MG TAB PO SCH (23:22)
[2018-03-22] MEDS: HYDROcodone/APAP 5-325MG 1 EACH TAB PO PRN ×3 (04:07→15:21)
[2018-03-22 07:18] LABS: Glucose,Whole Blood 229 mg/dL (75-99)
[2018-03-22] MEDS: SODIUM CHLORIDE 0.9% 1,000 ML IV SCH ×2 (07:31→17:25)
[2018-03-22] MEDS: INSULIN ASPART 100 UNIT/ML 1 ML 10 ML VIAL SQ SCH ×4 (07:50→20:24)
[2018-03-22] MEDS: DULoxetine HCL 60 MG CAPSULE.DR PO SCH ×2 (07:51→17:24)
[2018-03-22] MEDS: GABAPENTIN 300 MG CAP PO SCH ×3 (07:52→22:55)
[2018-03-22] MEDS: LEVOTHYROXINE 50 MCG TAB PO SCH (07:52)
[2018-03-22] MEDS: FUROSEMIDE 20 MG TAB PO SCH ×3 (07:52→15:22)
[2018-03-22] MEDS: HEPARIN SODIUM,PORCINE 5,000 UNIT/ML 1 ML VIAL SQ SCH ×3 (07:52→22:55)
[2018-03-22] MEDS: CALCIUM POLYCARBOPHIL 625 MG TAB PO SCH (07:53)
[2018-03-22] MEDS: BETAMETHASONE DIPROPIONATE 0.05% OINTMENT 45 GM TUBE TOPICAL SCH ×2 (07:54→20:24)
[2018-03-22] MEDS ORDERED: BISACODYL 5 MG TABLET.DR PO PRN (09:37)
[2018-03-22 11:11] LABS: Glucose,Whole Blood 203 mg/dL (75-99)
--- NOTE | 2018-03-22 11:45 | P.PN ---
Subjective She is admitted for right humerus fracture patient underwent the surgical correction open reduction internal fixation. 03/21/2018 No overnight events 03/22/2018 Patient is bit constipated but did pass gas no other significant overnight events. Constitutional: Denied any fatigue denied any fever. Cardio vascular: denied any chest pain, palpitations Gastrointestinal denied any nausea vomiting Pulmonary: Denied any shortness of breath cough Neurologic denied any new focal deficits Objective - Vital Signs Vital signs: Vital Signs Temp 97.6 F 03/22/18 07:19 Pulse 85 03/22/18 07:19 Resp 16 03/22/18 07:19 BP 129/60 03/22/18 07:19 Pulse Ox 93 L 03/22/18 07:19 Intake & Output 03/21/18 03/22/18 03/22/18 18:59 06:59 18:59 Intake Total 1640 2510 Balance 1640 2510 Weight 122.47 kg 122.47 kg 122.47 kg Intake: Intake, IV Titration 840 1250 Amount Sodium Chloride 0.9% 1, 840 1250 000 ml @ 120 mls/hr IV . Q8H20M [facility] Rx#:[id number] Oral 800 1260 Other: Voiding Method Toilet Toilet Toilet # Voids 2 2 - Exam PHYSICAL EXAMINATION: Patient is lying in the bed comfortably, no acute distress, awake alert and oriented.. HEENT: Normocephalic. Neck is supple. Pupils reactive. Nostrils clear. Oral cavity is moist. Ears reveal no drainage. Neck reveals no JVD, carotid bruits, or thyromegaly. CHEST EXAMINATION: Trachea is central. Symmetrical expansion. Lung lou clear to auscultation and percussion. CARDIAC: Normal S1, S2 with no gallops. No murmurs ABDOMEN: Soft. Bowel sounds normal. No organomegaly. No abdominal bruits. Extremities: reveal no edema. No clubbing or cyanosis Neurologically awake, alert, oriented x3 with well-coordinated movements. No focal deficits noted Skin: No rash or skin lesions. Psychiatric: Coperative. Seems depressed and anxious Musculoskeletal: No joint swelling or deformity. Right arm decreased range of motion and having shoulder sling - Labs CBC & Chem 7: 03/21/18 06:47 03/20/18 07:01 Labs: Abnormal Lab Results - Last 24 Hours (Table) 0903/21/18 03/22/18 Range/Units 17:15 21:17 07:16 POC Glucose (mg/dL) 200 H 197 H 229 H (75-99) mg/dL 03/22/18 Range/Units 11:09 POC Glucose (mg/dL) 203 H (75-99) mg/dL Assessment and Plan Plan: Communited right proximal humerus fracture status post surgical reduction, open reduction and fixation Recent history of non-ST M I status post cardiac catheterization. Medical therapy recommended Coronary artery disease with history of stent placement Hypertension diabetes type 2, A1c 6.9 GERD Osteoarthritis IBS Degenerative disc disease Gastroparesis Carpal tunnel syndrome Previous history of smoking DVT prophylaxis -Depression: Psychiatric evaluated the patient -Generalized deconditioning patient may need placement to subacute rehabilitation.
[2018-03-22] MEDS: FAMOTIDINE 20 MG TAB PO SCH ×2 (12:23→22:55)
[2018-03-22] MEDS: POTASSIUM CHLORIDE ER 10 MEQ TAB.ER.PRT PO SCH ×2 (12:25→17:25)
[2018-03-22] MEDS: FERROUS SULFATE 325 MG TAB PO SCH (12:25)
[2018-03-22] MEDS: ASPIRIN 81 MG PO SCH (12:52)
--- NOTE | 2018-03-22 13:46 | P.PN ---
Subjective Progress Note Date: 03/22/18 Principal diagnosis: S/P ORIF right proximal humerus fracture Patient is seen at bedside this morning. She is postop day #2 from ORIF right proximal humerus fracture. She has pain at the surgical site as expected but denies any new complaints. She denies numbness, tingling or calf pain. Review of systems is negative for fever, chills, chest pain, shortness of breath or other Objective - Vital Signs Vital signs: Vital Signs Temp 97.6 F 03/22/18 07:19 Pulse 85 03/22/18 07:19 Resp 16 03/22/18 07:19 BP 129/60 03/22/18 07:19 Pulse Ox 93 L 03/22/18 07:19 Intake & Output 03/21/18 03/22/18 03/22/18 18:59 06:59 18:59 Intake Total 1640 2510 2620 Balance 1640 2510 2620 Weight 122.47 kg 122.47 kg 122.47 kg Intake: Intake, IV Titration 840 1250 1440 Amount Sodium Chloride 0.9% 1, 840 1250 1440 000 ml @ 120 mls/hr IV . Q8H20M [facility] Rx#:[id number] Oral 800 1260 1180 Other: Voiding Method Toilet Toilet Toilet # Voids 2 5 - Exam Inspection reveals a benign surgical wound. There is no active bleeding or drainage. Neurovascular status is intact throughout the upper extremity with motor and sensation fully intact. Calves are soft and nontender. 2+ radial pulse and less than 2 second cap refill is present - Constitutional General appearance: Present: no acute distress - Labs CBC & Chem 7: 03/21/18 06:47 03/20/18 07:01 Labs: Abnormal Lab Results - Last 24 Hours (Table) 03/21/18 03/21/18 03/22/18 Range/Units 17:15 21:17 07:16 POC Glucose (mg/dL) 200 H 197 H 229 H (75-99) mg/dL 03/22/18 Range/Units 11:09 POC Glucose (mg/dL) 203 H (75-99) mg/dL Assessment and Plan (1) Proximal humerus fracture Narrative/Plan: She will continue with routine postop orthopedic protocol including pain management, wound care, DVT prophylaxis and medical management. Maintain sling and nonweightbearing right upper extremity. She will need ECF placement Current Visit: Yes Status: Acute Priority: Medium Code(s): S42.209A - UNSP FRACTURE OF UPPER END OF UNSP HUMERUS, INIT FOR CLOS FX SNOMED Code(s): 371964309 Time with Patient: Less than 30
[2018-03-22] MEDS: Dapagliflozin Propanediol [Farxiga] 10 MG PO SCH (15:19)
[2018-03-22] MEDS: EZETIMIBE 10 MG TAB PO SCH (15:23)
[2018-03-22 17:05] LABS: Glucose,Whole Blood 227 mg/dL (75-99)
[2018-03-22] MEDS: MAGNESIUM OXIDE 400 MG TAB PO SCH (17:24)
[2018-03-22] MEDS: CALCIUM CARBONATE 500 MG CHEWABLE PO SCH (17:24)
[2018-03-22] MEDS: traZODone HCL 100 MG TAB PO SCH (20:24)
[2018-03-22 20:33] LABS: Glucose,Whole Blood 260 mg/dL (75-99)
[2018-03-22] MEDS: ATORVASTATIN 80 MG TAB PO SCH (22:55)
[2018-03-22] MEDS: Acetaminophen-Codeine 300-30mg TAB PO PRN (22:55)
[2018-03-22] MEDS: METOPROLOL TARTRATE 50 MG TAB PO SCH (22:55)
[2018-03-23] MEDS: SODIUM CHLORIDE 0.9% 1,000 ML IV SCH ×2 (04:10→11:34)
[2018-03-23] MEDS: HYDROcodone/APAP 5-325MG 1 EACH TAB PO PRN (06:01)
[2018-03-23 06:55] LABS: Glucose,Whole Blood 195 mg/dL (75-99)
[2018-03-23] MEDS: GABAPENTIN 300 MG CAP PO SCH (07:57)
[2018-03-23] MEDS: CALCIUM POLYCARBOPHIL 625 MG TAB PO SCH (07:57)
[2018-03-23] MEDS: FUROSEMIDE 20 MG TAB PO SCH ×2 (07:57→12:41)
[2018-03-23] MEDS: HEPARIN SODIUM,PORCINE 5,000 UNIT/ML 1 ML VIAL SQ SCH (07:58)
[2018-03-23] MEDS: LEVOTHYROXINE 50 MCG TAB PO SCH (07:58)
[2018-03-23] MEDS: DULoxetine HCL 60 MG CAPSULE.DR PO SCH (07:58)
[2018-03-23] MEDS: INSULIN ASPART 100 UNIT/ML 1 ML 10 ML VIAL SQ SCH ×2 (07:58→12:43)
[2018-03-23] MEDS ORDERED: HYDROcodone/APAP 7.5-325MG 1 EACH TAB PO PRN ×2 (09:51)
--- NOTE | 2018-03-23 09:53 | P.PN ---
Subjective Progress Note Date: 03/23/18 Principal diagnosis: S/P ORIF right proximal humerus fracture Patient is seen at bedside this morning. She is postop day #3 from ORIF right proximal humerus fracture. She has pain at the surgical site as expected but denies any new complaints. She denies numbness, tingling or calf pain. Review of systems is negative for fever, chills, chest pain, shortness of breath or other Objective - Vital Signs Vital signs: Vital Signs Temp 97.2 F L 03/23/18 09:08 Pulse 105 H 03/23/18 09:08 Resp 16 03/23/18 09:08 BP 143/66 03/23/18 09:08 Pulse Ox 93 L 03/22/18 21:00 Intake & Output 03/22/18 03/23/18 03/23/18 18:59 06:59 18:59 Intake Total 2620 540 Balance 2620 540 Weight 122.47 kg 122.47 kg Intake: Intake, IV Titration 1440 Amount Sodium Chloride 0.9% 1, 1440 000 ml @ 120 mls/hr IV . Q8H20M [facility] Rx#:[id number] Oral 1180 540 Other: Voiding Method Toilet Toilet Toilet # Voids 1 1 1 - Exam Inspection reveals a benign surgical wound. There is no active bleeding or drainage. Neurovascular status is intact throughout the upper extremity with motor and sensation fully intact. Calves are soft and nontender. 2+ radial pulse and less than 2 second cap refill is present - Constitutional General appearance: Present: no acute distress - Labs CBC & Chem 7: 03/21/18 06:47 03/20/18 07:01 Labs: Abnormal Lab Results - Last 24 Hours (Table) 03/22/18 03/22/18 03/22/18 Range/Units 11:09 16:53 20:16 POC Glucose (mg/dL) 203 H 227 H 260 H (75-99) mg/dL 03/23/18 Range/Units 06:54 POC Glucose (mg/dL) 195 H (75-99) mg/dL Assessment and Plan (1) Proximal humerus fracture Narrative/Plan: She will continue with routine postop orthopedic protocol including pain management, wound care, DVT prophylaxis and medical management. Maintain sling and nonweightbearing right upper extremity. She may D/C to ECF from orthopedic standpoint Current Visit: Yes Status: Acute Priority: Medium Code(s): S42.209A - UNSP FRACTURE OF UPPER END OF UNSP HUMERUS, INIT FOR CLOS FX SNOMED Code(s): 277462335 Time with Patient: Less than 30
[2018-03-23] MEDS: BETAMETHASONE DIPROPIONATE 0.05% OINTMENT 45 GM TUBE TOPICAL SCH (10:18)
[2018-03-23 11:26] LABS: Glucose,Whole Blood 259 mg/dL (75-99)
--- NOTE | 2018-03-23 11:46 | P.DS ---
Providers Date of admission: 03/20/18 09:29 Attending physician: Gabriela Pruitt Consults: 03/18/18 14:53 Consult Physician Stat Consulting Provider: Mekhi Lou Consult Reason/Comments: R proximal humerus fracture Do you want consulting provider notified?: Yes 03/18/18 17:52 Consult Physician Routine Consulting Provider: Braden Gaona Consult Reason/Comments: depression Do you want consulting provider notified?: Already Contacted 03/19/18 15:00 Consult Physician Stat Consulting Provider: Manny Collins Consult Reason/Comments: surgical clearence Do you want consulting provider notified?: Yes Primary care physician: Doretha [facility] Course: She is admitted for right humerus fracture patient underwent the surgical correction open reduction internal fixation. 03/21/2018 No overnight events 03/22/2018 Patient is bit constipated but did pass gas no other significant overnight events. 03/23/2018 Patient is being discharged to subacute rehabilitation. Patient has some chronic redness spot in the left elbow ankle area for which patient follows with dermatology as an outpatient patient uses topical steroid for that. PHYSICAL EXAMINATION: Patient is lying in the bed comfortably, no acute distress, awake alert and oriented.. HEENT: Normocephalic. Neck is supple. Pupils reactive. Nostrils clear. Oral cavity is moist. Ears reveal no drainage. Neck reveals no JVD, carotid bruits, or thyromegaly. CHEST EXAMINATION: Trachea is central. Symmetrical expansion. Lung lou clear to auscultation and percussion. CARDIAC: Normal S1, S2 with no gallops. No murmurs ABDOMEN: Soft. Bowel sounds normal. No organomegaly. No abdominal bruits. Extremities: reveal no edema. No clubbing or cyanosis Neurologically awake, alert, oriented x3 with well-coordinated movements. No focal deficits noted Skin: No rash or skin lesions. Psychiatric: Coperative. Seems depressed and anxious Musculoskeletal: No joint swelling or deformity. Right arm decreased range of motion and having shoulder sling Communited right proximal humerus fracture status post surgical reduction, open reduction and fixation Recent history of non-ST M I status post cardiac catheterization. Medical therapy recommended, patient will need aspirin and Plavix as per cardiology Coronary artery disease with history of stent placement Hypertension diabetes type 2, A1c 6.9 GERD Osteoarthritis IBS Degenerative disc disease Gastroparesis Carpal tunnel syndrome Previous history of smoking DVT prophylaxis -Depression: Psychiatric evaluated the patient -Generalized deconditioning patient may need placement to subacute rehabilitation. Patient Condition at Discharge: Stable Plan - Discharge Summary Discharge Rx Participant: Yes New Discharge Prescriptions: New Ibuprofen [Motrin] 400 mg PO Q6HR PRN tab PRN Reason: Mild Pain Or Fever > 100.5 INSULIN LISPRO (HumaLOG) [humaLOG] 0 unit SQ ACHS #1 vial Acetaminophen-Codeine 300-30mg [Tylenol w/codeine #3] 1 each PO Q6HR PRN 3 Days #12 tab PRN Reason: Moderate Pain Sennosides-Docusate Sodium [Senokot-S] 2 each PO HS PRN tab PRN Reason: Constipation Continue DULoxetine HCL 60 mg PO BID@0800,1730 Ranitidine HCl 150 mg PO BID@1230,2300 Multivit-Min/Iron/Folic/Lutein [Centrum Silver Women Tablet] 1 tab PO HS@2300 Calcium Carbonate [Calcium] 600 mg PO DAILY@1730 Ferrous Sulfate [Feosol] 325 mg PO DAILY@1230 Calcium Polycarbophil [Fiber-Lax] 625 mg PO DAILY@0800 Furosemide [Lasix] 20 mg PO TID@0800,1230,1500 Levothyroxine Sodium [Synthroid] 50 mcg PO DAILY@0800 Potassium Chloride [Klor-Con 10] 10 meq PO BID@1230,1730 Acetaminophen [Tylenol 8 Hour] 650 mg PO Q8H PRN PRN Reason: Pain Gabapentin 600 mg PO TID@0800,1530,2300 traZODone HCL 100 mg PO HS@2300 Dapagliflozin Propanediol [Farxiga] 10 mg PO DAILY@1500 sitaGLIPtin [Januvia] 100 mg PO DAILY@0800 Pioglitazone [Actos] 30 mg PO HS@2300 Magnesium Oxide [Mag-Ox] 400 mg PO DAILY@1730 Glimepiride [Amaryl] 2 mg PO BID@1230,1730 Minocycline HCl [Minocin] 100 mg PO BID@0900,2100 Loratadine [Claritin] 10 mg PO DAILY PRN PRN Reason: Allergy Symptoms Betamethasone Dipropionate [Betamethasone Dipropionate 0.05%] 1 applic TOPICAL BID Atorvastatin Calcium [Lipitor] 80 mg PO HS@2300 Aspirin 81 mg PO DAILY@1230 Ezetimibe [Zetia] 10 mg PO DAILY@1500 Clopidogrel [Plavix] 75 mg PO DAILY@1230 Changed Metoprolol Tartrate [Lopressor] 50 mg PO BID #0 Discontinued Losartan [Cozaar] 50 mg PO DAILY@1730 clonazePAM [KlonoPIN] 0.5 mg PO BID PRN PRN Reason: Anxiety Discharge Medication List DULoxetine HCL 60 mg PO BID@0800,1730 06/21/15 [History] Ranitidine HCl 150 mg PO BID@1230,2300 06/21/15 [History] Calcium Carbonate [Calcium] 600 mg PO DAILY@17301/01/16 [History] Multivit-Min/Iron/Folic/Lutein [Centrum Silver Women Tablet] 1 tab PO HS@2300 [History] Ferrous Sulfate [Feosol] 325 mg PO DAILY@1230 06/05/16 [History] Calcium Polycarbophil [Fiber-Lax] 625 mg PO DAILY@0800 07/27/16 [History] Furosemide [Lasix] 20 mg PO TID@0800,1230,1500 07/27/16 [History] Levothyroxine Sodium [Synthroid] 50 mcg PO DAILY@0800 07/27/16 [History] Potassium Chloride [Klor-Con 10] 10 meq PO BID@1230,1730 07/27/16 [History] Acetaminophen [Tylenol 8 Hour] 650 mg PO Q8H PRN 12/26/16 [History] Gabapentin 600 mg PO TID@0800,1530,2300 12/26/16 [History] Dapagliflozin Propanediol [Farxiga] 10 mg PO DAILY@1500 04/29/17 [History] traZODone HCL 100 mg PO HS@2300 04/29/17 [History] Pioglitazone [Actos] 30 mg PO HS@2300 07/24/17 [History] sitaGLIPtin [Januvia] 100 mg PO DAILY@0800 07/24/17 [History] Betamethasone Dipropionate [Betamethasone Dipropionate 0.05%] 1 applic TOPICAL BID 02/20/18 [History] Glimepiride [Amaryl] 2 mg PO BID@1230,1730 02/20/18 [History] Loratadine [Claritin] 10 mg PO DAILY PRN 02/20/18 [History] Magnesium Oxide [Mag-Ox] 400 mg PO DAILY@1730 02/20/18 [History] Minocycline HCl [Minocin] 100 mg PO BID@0900,2100 02/20/18 [History] Aspirin 81 mg PO DAILY@1230 03/15/18 [History] Atorvastatin Calcium [Lipitor] 80 mg PO HS@2300 03/15/18 [History] Clopidogrel [Plavix] 75 mg PO DAILY@1230 03/15/18 [History] Ezetimibe [Zetia] 10 mg PO DAILY@1500 03/15/18 [History] Acetaminophen-Codeine 300-30mg [Tylenol w/codeine #3] 1 each PO Q6HR PRN 3 Days #12 tab 03/18/18 [Rx] INSULIN LISPRO (HumaLOG) [humaLOG] 0 unit SQ ACHS #1 vial 03/18/18 [Rx] Ibuprofen [Motrin] 400 mg PO Q6HR PRN tab 03/18/18 [Rx] Metoprolol Tartrate [Lopressor] 50 mg PO BID #0 03/23/18 [Rx] Sennosides-Docusate Sodium [Senokot-S] 2 each PO HS PRN tab 03/23/18 [Rx] Follow up Appointment(s)/Referral(s): Doretha Allen III, MD [Primary Care Provider] - 1 Week (1 week after dc from subacute rehab ) Victoriano Menezes MD [STAFF PHYSICIAN] - 1 Week Mekhi Lou MD [Medical Doctor] - As Needed Activity/Diet/Wound Care/Special Instructions: ECF right arm sling cbc,bmp in 3 days activity: as tolerated Discharge Disposition: TRANSFER TO SNF/ECF
[2018-03-23] MEDS: ASPIRIN 81 MG PO SCH (12:41)
[2018-03-23] MEDS: FERROUS SULFATE 325 MG TAB PO SCH (12:42)
[2018-03-23] MEDS: POTASSIUM CHLORIDE ER 10 MEQ TAB.ER.PRT PO SCH (12:42)
[2018-03-23] MEDS: FAMOTIDINE 20 MG TAB PO SCH (12:43)
[2018-03-23 15:25] VITALS: BP 145/67; PULSE 102; RESP 16; TEMP 98.2
== END 2018-03-23 15:40 | DRG 492 ==
LOC: EC 10:50 → 5MS5E 14:39 → OBSVTOIN 03-20 09:29
PROVIDERS: ADMIT Hospitalist; ATTEND Hospitalist
PROC: 0PSC34Z Reposition Right Humeral Head with Internal Fixation Device, Percutaneous Approach (ICD-10-PCS; principal; 2018-03-20 08:00)
DX: S42.201A Unspecified fracture of upper end of right humerus, initial encounter for closed fracture (principal); I21.4 Non-ST elevation (NSTEMI) myocardial infarction; Z68.42 Body mass index [BMI] 45.0-49.9, adult; W19.XXXA Unspecified fall, initial encounter; M75.101 Unspecified rotator cuff tear or rupture of right shoulder, not specified as traumatic; K31.84 Gastroparesis; E11.43 Type 2 diabetes mellitus with diabetic autonomic (poly)neuropathy; E78.5 Hyperlipidemia, unspecified; F32.9 Major depressive disorder, single episode, unspecified; F41.0 Panic disorder [episodic paroxysmal anxiety]; F43.10 Post-traumatic stress disorder, unspecified; G56.00 Carpal tunnel syndrome, unspecified upper limb; I10 Essential (primary) hypertension; E66.9 Obesity, unspecified; I25.10 Atherosclerotic heart disease of native coronary artery without angina pectoris; K21.9 Gastro-esophageal reflux disease without esophagitis; K58.9 Irritable bowel syndrome, unspecified; M19.90 Unspecified osteoarthritis, unspecified site; Z79.02 Long term (current) use of antithrombotics/antiplatelets; I25.2 Old myocardial infarction; Z79.82 Long term (current) use of aspirin; Z79.84 Long term (current) use of oral hypoglycemic drugs; Z82.49 Family history of ischemic heart disease and other diseases of the circulatory system; Z87.442 Personal history of urinary calculi; Z87.891 Personal history of nicotine dependence; Z90.710 Acquired absence of both cervix and uterus; Z91.81 History of falling; Z95.5 Presence of coronary angioplasty implant and graft
CPT/HCPCS: 36415; 64415; 71045; 80048; 80053; 81001; 83036; 84484; 85025; 87086; 93005; 96360; 96361; 99285

== ENCOUNTER 2018-03-24 02:53 | Emergency (ER) | payer MEDICARE, OTHER ==
[2018-03-24] MEDS ORDERED: HYDROcodone/APAP 7.5-325MG 1 EACH TAB PO ONE (04:23)
[2018-03-24] MEDS ORDERED: MINOCYCLINE 50 MG CAP PO STA (04:26)
[2018-03-24] MEDS ORDERED: METOPROLOL TARTRATE 25 MG TAB PO STA (04:26)
[2018-03-24] MEDS ORDERED: MORPHINE SULFATE 4 MG/ML SYRINGE IV STA (07:06)
--- NOTE | 2018-03-24 07:12 | ED ---
Anxiety HPI - General Source: EMS Mode of arrival: EMS - History of Present Illness MD Complaint: anxiety, other (Right arm pain) -: hour(s) Symptoms: muscle cramps Place: home Previous History of Same: Yes Severity: severe Quality: worsening Provoking factors: none known Improves With: nothing Worsens With: nothing <Wyatt Joseph - Last Filed: 03/24/18 07:08> <Thanh Garay - Last Filed: 03/24/18 09:26> - General Chief Complaint: Anxiety Stated Complaint: Anxiety Time Seen by Provider: 03/24/18 04:01 - History of Present Illness Initial Comments: This patient is a 62-year-old woman who presents here from the shelter with a few complaints. The patient had been discharged to the shelter to have further rehabilitation. She left this hospital yesterday, after having an ORIF of the right humerus performed 4 days ago, by Dr. Menezes. The patient states that she arrived at the shelter in the afternoon, and then she had requested pain medications and had not received them for a number of hours. By the time she was offered medication, they offered 1 tablets of pain medication and the patient felt that the pain was severe enough to have 2 tablets. They did not offer any additional analgesia. In addition she states that her blood pressure began to climb. She was also uncomfortable due to the smell of the room and states that she believes she may have been having an ALLERGY to the sheets. All this was inducing anxiety and she felt she needed to return to the hospital. (Wyatt Joseph) - Related Data Home Medications: Home Medications Medication Instructions Recorded Confirmed DULoxetine HCL 60 mg PO BID@0800,1730 06/21/15 03/24/18 Ranitidine HCl 150 mg PO BID@1230,2300 06/21/15 03/24/18 Calcium Carbonate [Calcium] 600 mg PO DAILY@1730 01/01/16 03/24/18 Multivit-Min/Iron/Folic/Lutein 1 tab PO HS@2300 01/01/16 03/24/18 [Centrum Silver Women Tablet] Ferrous Sulfate [Feosol] 325 mg PO DAILY@1230 06/05/16 03/24/18 Calcium Polycarbophil [Fiber-Lax] 625 mg PO DAILY@0800 07/27/16 03/24/18 Furosemide [Lasix] 20 mg PO TID@0800,1230,1500 07/27/16 03/24/18 Levothyroxine Sodium [Synthroid] 50 mcg PO DAILY@0800 07/27/16 03/24/18 Potassium Chloride [Klor-Con 10] 10 meq PO BID@1230,1730 07/27/16 03/24/18 Acetaminophen [Tylenol 8 Hour] 650 mg PO Q8H PRN 12/26/16 03/24/18 Gabapentin 600 mg PO TID@0800,1530,2300 12/26/16 03/24/18 Dapagliflozin Propanediol [Farxiga] 10 mg PO DAILY@1500 04/29/17 03/24/18 traZODone HCL 100 mg PO HS@2300 04/29/17 03/24/18 Pioglitazone [Actos] 30 mg PO HS@2300 07/24/17 03/24/18 sitaGLIPtin [Januvia] 100 mg PO DAILY@0800 07/24/17 03/24/18 Betamethasone Dipropionate 1 applic TOPICAL BID 02/20/18 03/24/18 [Betamethasone Dipropionate 0.05%] Glimepiride [Amaryl] 2 mg PO BID@1230,1730 02/20/18 03/24/18 Loratadine [Claritin] 10 mg PO DAILY PRN 02/20/18 03/24/18 Magnesium Oxide [Mag-Ox] 400 mg PO DAILY@1730 02/20/18 03/24/18 Minocycline HCl [Minocin] 100 mg PO BID@0900,2100 02/20/18 03/24/18 Aspirin 81 mg PO DAILY@1230 03/15/18 03/24/18 Atorvastatin Calcium [Lipitor] 80 mg PO HS@2300 03/15/18 03/24/18 Clopidogrel [Plavix] 75 mg PO DAILY@1230 03/15/18 03/24/18 Ezetimibe [Zetia] 10 mg PO DAILY@1500 03/15/18 03/24/18 INSULIN LISPRO (HumaLOG) [humaLOG] See Protocol SQ ACHS 03/24/18 03/24/18 Sennosides-Docusate Sodium 2 tab PO HS PRN 03/24/18 03/24/18 [Senokot-S] Previous Rx's Medication Instructions Recorded Ibuprofen [Motrin] 400 mg PO Q6HR PRN tab 03/18/18 HYDROcodone/APAP 7.5-325MG [[place] 1 tab PO Q4H PRN #20 tab 03/23/18 7.5-325] Metoprolol Tartrate [Lopressor] 50 mg PO BID #0 03/23/18 Allergies/Adverse Reactions: Allergies Allergy/AdvReac Type Severity Reaction Status Date / Time ciprofloxacin [From Cipro] Allergy Anaphylaxis Verified 03/24/18 07:23 diazepam [From Valium] Allergy Rash/Hives Verified 03/24/18 07:23 metronidazole [From Flagyl] Allergy Anaphylaxis Verified 03/24/18 07:23 Sulfa (Sulfonamide Allergy Rash/Hives Verified 03/24/18 07:23 Antibiotics) doxycycline AdvReac Nausea & Verified 03/24/18 07:23 Vomiting & Diarrhea metoclopramide HCl AdvReac Diarrhea Verified 03/24/18 07:23 [From Reglan] LINENS USED AT [facility] Allergy Unknown Uncoded 03/24/18 03:00 HOSPITAL Review of Systems ROS Other: All systems not noted in ROS Statement are negative. Constitutional: Denies: fever, chills, weakness Respiratory: Denies: cough, dyspnea Cardiovascular: Reports: palpitations. Denies: chest pain, syncope Gastrointestinal: Denies: abdominal pain, nausea, vomiting Genitourinary: Denies: dysuria Musculoskeletal: Reports: as per HPI, myalgia. Denies: back pain Skin: Denies: rash Neurological: Denies: headache, weakness, numbness Psychiatric: Reports: anxiety <Wyatt Joseph - Last Filed: 03/24/18 07:08> ROS Other: All systems not noted in ROS Statement are negative. <Thanh Garay - Last Filed: 03/24/18 09:26> ROS Statement: Those systems with pertinent positive or pertinent negative responses have been documented in the HPI. Past Medical History Past Medical History: Coronary Artery Disease (CAD), Diabetes Mellitus, GERD/ Reflux, Hyperlipidemia, Hypertension, Myocardial Infarction ([place]), Osteoarthritis (OA), Skin Disorder Additional Past Medical History / Comment(s): fell 8-27-17 fx rt humerus/sling. ECZEMA, pt stated she needs sterile sheets- has had rash and swelling in past to detergents/bleach used ., IBS, DDD, gastroparesis, carapal tunnel lisette., kidney stones. Last Myocardial Infarction Date:: [place] X 3 LAST ONE 2006 History of Any Multi-Drug Resistant Organisms: MRSA Date of last positivie culture/infection: 01/01/16 MDRO Source:: right leg Past Surgical History: Appendectomy, Section, Cholecystectomy, Heart Catheterization With Stent, Hysterectomy, Tonsillectomy Additional Past Surgical History / Comment(s): breast biopsy, D & C x2, tumor right shoulder removed; lithotripsy Past Anesthesia/Blood Transfusion Reactions: Previous Problems w/ Anesthesia Additional Past Anesthesia/Blood Transfusion Reaction / Comment(s): TENDS TO HAVE PANIC ATTACKS WHEN COMING OUT OF ANESTHESIA Date of Last Stent Placement:: 2006 Past Psychological History: Anxiety, Depression, Panic Disorder, PTSD Smoking Status: Former smoker Past Alcohol Use History: None Reported Past Drug Use History: None Reported - Past Family History Mother Family Medical History: Cancer Father Family Medical History: Coronary Artery Disease (CAD), Myocardial Infarction ([place] ) <Wyatt Joseph - Last Filed: 03/24/18 07:08> General Exam Limitations: no limitations General appearance: alert, anxious, obese Head exam: Present: atraumatic, normocephalic Eye exam: Present: normal appearance Respiratory exam: Present: normal lung sounds bilaterally. Absent: respiratory distress, wheezes, rales, rhonchi, stridor Cardiovascular Exam: Present: regular rate, normal rhythm, normal heart sounds. Absent: systolic murmur, diastolic murmur, rubs, gallop GI/Abdominal exam: Present: soft. Absent: distended, tenderness, guarding, rebound, mass Extremities exam: Present: normal inspection, normal capillary refill. Absent: pedal edema, calf tenderness Neurological exam: Present: alert. Absent: motor sensory deficit Skin exam: Present: warm, dry, intact, normal color. Absent: rash <Wyatt Joseph - Last Filed: 03/24/18 07:08> Vital Signs 03/24/18 03/24/18 02:58 06:39 Temperature 97.5 F L Pulse Rate 111 H 75 Respiratory 20 18 Rate Blood Pressure 187/77 186/86 O2 Sat by Pulse 92 L 96 Oximetry Medical Decision Making <Wyatt Joseph - Last Filed: 03/24/18 07:08> - Radiology Data Radiology results: report reviewed (I did review the imaging and report no significant findings the exam was limited), image reviewed <Thanh Garay - Last Filed: 03/24/18 09:26> - Medical Decision Making The patient was endorsed me by Dr. Joseph at our shift change. This was pending ultrasound report. Ultrasound shows no significant abnormalities was a somewhat limited exam. I did discuss findings with the patient she'll be discharged back to her facility. She seemed to be in agreement with this (Thanh Garay) Disposition <Wyatt Joseph - Last Filed: 03/24/18 07:08> Is patient prescribed a controlled substance at d/c from ED?: No <Thanh Garay - Last Filed: 03/24/18 09:26> Clinical Impression: Post-operative pain, Anxiety Disposition: HOME SELF-CARE Condition: Good Instructions: Generalized Anxiety Disorder (ED) Additional Instructions: Keep follow-up evaluations as scheduled Referrals: Doretha Allen III, MD [Primary Care Provider] - 1-2 days
--- NOTE | 2018-03-24 08:11 | US ---
EXAMINATION TYPE: US venous doppler duplex UE RT DATE OF EXAM: 03/24/2018 COMPARISON: NONE CLINICAL HISTORY: 60-year-old female Pain, R/O DVT. TECHNIQUE: Grayscale, color doppler, spectral doppler imaging performed of the deep veins of the rig ht upper extremity. 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 She has bandaging from n adi to lower forearm. Unable to evaluate this area at all. Patient unable to adduct her arm and patient is morbidly obese. Right Arm: Evaluated lower cephalic v, IJV, lower brachial v's, radial and ulnar v's. These appear ne gative for DVT. IMPRESSION: Dressing in place from the neck to the lower forearm. The pamphlet distributor was unable to evaluate these a reas. The lower cephalic vein, internal jugular vein, lower brachial vein, as well as the radial and ulnar veins are negative for thrombus.
[2018-03-24] MEDS ORDERED: clonazePAM 0.5 MG TAB PO STA (10:46)
[2018-03-24 11:14] LABS: Glucose,Whole Blood 195 mg/dL (75-99)
[2018-03-24 11:17] VITALS: BP 192/80; PULSE 85; RESP 18; TEMP 97.8
--- NOTE | 2018-03-24 16:53 | ED ---
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 Bobby Hummel Disposition Clinical Impression: Post-operative pain, Anxiety Disposition: HOME SELF-CARE Condition: Good Instructions: Generalized Anxiety Disorder (ED) Additional Instructions: Keep follow-up evaluations as scheduled Is patient prescribed a controlled substance at d/c from ED?: Yes When asked, does pt state using other controlled substances?: Yes If prescribed controlled substance>3 days was MAPS reviewed?: Prescribed <3 Days If opioid is for acute pain is fill amount 7 days or less?: Yes If Rx opioid, was Start Talking consent form obtained?: Yes Referrals: Doretha Allen III, MD [Primary Care Provider] - 1-2 days
[2018-03-24] MEDS ORDERED: METOPROLOL TARTRATE 50 MG TAB PO STA (16:55)
== END 2018-03-24 17:04 | disposition home or self-care (01) ==
LOC: EC 02:53
DX: F41.9 Anxiety disorder, unspecified (principal); M79.601 Pain in right arm; G89.18 Other acute postprocedural pain; I25.10 Atherosclerotic heart disease of native coronary artery without angina pectoris; K21.9 Gastro-esophageal reflux disease without esophagitis; I10 Essential (primary) hypertension; I25.2 Old myocardial infarction; E78.5 Hyperlipidemia, unspecified; E11.43 Type 2 diabetes mellitus with diabetic autonomic (poly)neuropathy; K31.84 Gastroparesis; F32.9 Major depressive disorder, single episode, unspecified; Z79.82 Long term (current) use of aspirin; Z79.02 Long term (current) use of antithrombotics/antiplatelets; Z79.4 Long term (current) use of insulin; Z79.899 Other long term (current) drug therapy; Z88.1 Allergy status to other antibiotic agents; Z88.2 Allergy status to sulfonamides; Z88.8 Allergy status to other drugs, medicaments and biological substances; Z87.891 Personal history of nicotine dependence; Z95.5 Presence of coronary angioplasty implant and graft
CPT/HCPCS: 99284 ×2; 96374 ×2; 36415; 93971; J2270

== ENCOUNTER → 2018-08-06 | Outpatient (CLI) | payer MEDICARE, OTHER ==
--- NOTE | 2018-08-06 12:02 | MM ---
Reason for exam: additional evaluation requested from prior study. Baseline mammogram. Physical Findings: Nurse did not find any significant physical abnormalities on exam. MG 3D Diag Mammo W/Cad MATT Bilateral CC, MLO, and XCCL view(s) were taken. No prior studies available for comparison. There are scattered fibroglandular densities. There is a suspicious 9 mm equal round obscured margin density in the right upper outer anterior breast 3 cm from the nipple consistent with the ultrasound findings. There is an 11 mm round density in the upper outer quadrant of the right breast 11-12 cm from the nipple, this has partially obscured margins and correlates with ultrasound findings. These results were verbally communicated with the patient and result sheet given to the patient on 08/02/18. ASSESSMENT: Suspicious, BI-RAD 4 RECOMMENDATION: Ultrasound core biopsy of both breasts.
--- NOTE | 2018-08-06 12:46 | USB ---
US Breast Limited BILAT Right complete breast ultrasound includes all four quadrants, the retroareolar region and axilla. Finding demonstrates a 1.1 x 0.6 x 0.5 cm oval oil cyst at 3 o'clock, a 1.9 x 2.6 x 1.0 cm oval oil cyst at the BB at 10 o'clock, this should be biopsied. A 0.7 x 1.6 x 0.4 cm oval hypoechoic lesion at 10 o'clock that needs to be biopsied, may correlate with the mammogram. Left limited breast ultrasound including focal area of concern, retroareolar and axilla demonstrates a 0.7 x 0.8 x 0.3 cm oval cluster cystic lesion at 1 o'clock, a 1.0 x 1.2 x 0.4 cm oval hypoechoic vascular suspicious lesion at 1 o'clock, and a 0.8 x 0.6 x 0.4 cm oval cystic lesion at 3 o'clock. These results were verbally communicated with the patient and result sheet given to the patient on 08/06/18. ASSESSMENT: Suspicious, BI-RAD 4 RECOMMENDATION: Ultrasound core biopsy of both breasts. Called Dr. Allen with mammographic findings and has scheduled an appointment for the patient for 08/10/18 at 11:[address] Funes for a consultation. PRELIMINARY REPORT CALLED AND FAXED TO DR. FUNES ON 08/06/18.
== END | disposition home or self-care (01) ==
LOC: RADUSWWP 07:00
PROVIDERS: ATTEND Family Medicine
DX: N63.11 Unspecified lump in the right breast, upper outer quadrant (principal); N60.02 Solitary cyst of left breast
CPT/HCPCS: 77066; 76642; G0279; 77062

== ENCOUNTER → 2018-11-22 | Outpatient (CLI) | payer MEDICARE, OTHER | END | disposition home or self-care (01) | LOC: LABWHC1 10:42 | PROVIDERS: ATTEND Internal Medicine | DX: E11.65 Type 2 diabetes mellitus with hyperglycemia (principal) | CPT/HCPCS: 36415; 83036 ==

== ENCOUNTER → 2019-03-07 | Outpatient (CLI) | payer MEDICARE, OTHER ==
[2019-03-07 19:32] LABS: Hemoglobin A1C 5.5 % (4.0-6.0)
== END | disposition home or self-care (01) ==
LOC: LABWHC1 10:59
PROVIDERS: ATTEND Internal Medicine
DX: E11.65 Type 2 diabetes mellitus with hyperglycemia (principal)
CPT/HCPCS: 36415; 83036

== ENCOUNTER → 2019-05-31 | Outpatient (CLI) | payer MEDICARE, OTHER ==
[2019-06-01 01:02] LABS: Hemoglobin A1C 5.5 % (4.0-6.0)
== END | disposition home or self-care (01) ==
LOC: LABWHC1 15:10
PROVIDERS: ATTEND Internal Medicine
DX: E11.65 Type 2 diabetes mellitus with hyperglycemia (principal)
CPT/HCPCS: 36415; 83036

== ENCOUNTER → 2019-11-03 | Outpatient (CLI) | payer MEDICARE, OTHER ==
[2019-11-03 15:30] LABS: Urine Creatinine 33.1 mg/dL
[2019-11-03 16:16] LABS: African American GFR (CKD) 56.1 (60.0-200.0); Anion Gap 12.1 mmol/L (4.00-12.00); BUN/Creat Ratio 22.5 Ratio (12.00-20.00); Calcium 9.6 mg/dL (8.7-10.3); Carbon Dioxide 30.9 mmol/L (21.6-31.8); Chol/HDL Ratio 3.26; Non-African American GFR(CKD) 48.4 (60.0-200.0); Potassium 4.2 mmol/L (3.5-5.5)
[2019-11-03 16:24] LABS: T4, Free (Free Thyroxine) 1.2 ng/dL (0.80-1.80)
[2019-11-03 16:50] LABS: Hemoglobin A1C 5.9 % (4.0-6.0)
== END | disposition home or self-care (01) ==
LOC: LABWHC1 11:02
PROVIDERS: ATTEND Internal Medicine
DX: E11.65 Type 2 diabetes mellitus with hyperglycemia (principal); E03.9 Hypothyroidism, unspecified; Z79.899 Other long term (current) drug therapy; Z51.81 Encounter for therapeutic drug level monitoring
CPT/HCPCS: 36415; 80048; 80061; 82043; 82570; 83036; 84439; 84443

== ENCOUNTER → 2019-11-24 | Outpatient (CLI) | payer MEDICARE, OTHER ==
--- NOTE | 2019-11-24 13:28 | XR ---
EXAMINATION TYPE: XR shoulder complete LT, XR humerus LT DATE OF EXAM: 11/24/2019 CLINICAL HISTORY: pain COMPARISON: NONE TECHNIQUE: Three views of the left shoulder are obtained. Into views of the left humerus are submitt ed. FINDINGS: There is no acute fracture/dislocation evident. The acromioclavicular and glenohumeral sam int spaces appear mildly narrowed. The visualized ribs are intact and unremarkable. Cystic degenerat edvin change greater humeral tuberosity. IMPRESSION: 1. There is no acute fracture or dislocation. ICD 10 NO FRACTURE, INITIAL EVALUATION
--- NOTE | 2019-11-24 14:26 | CT ---
EXAMINATION TYPE: CT angio chest DATE OF EXAM: 11/24/2019 COMPARISON: 02/20/2018 HISTORY: SOB, weight gain CT DLP: 795.6 mGycm. Automated Exposure Control for Dose Reduction was Utilized. CONTRAST: CTA scan of the thorax is performed with IV Contrast, patient injected with 80 mL of Isovue 370, pulm onary embolism protocol. MIP Images are created on CT scanner and reviewed. FINDINGS: LUNGS: No focal consolidation or pleural effusion. 2 mm right lower lobe solid pulmonary nodule seen on series 6 image 71.. There is no pleural effusion or pneumothorax seen. The tracheobronchial ian e is patent. MEDIASTINUM: There is a suboptimal contrast bolus. No central pulmonary embolus in the right main or left main pulmonary arteries however the segmental and subsegmental pulmonary arteries are nondiagnos tic for embolus. Particularly the right upper lobe segmental bronchus and subsegmental bronchi are ob scured by dense spray artifact from contrast within the superior vena cava. There are no greater than 1 cm hilar or mediastinal lymph nodes. Heart is mildly enlarged without eff usion. Moderate to severe coronary artery calcifications are seen of the left anterior descending cor onary artery. Bovine aortic arch is incidentally noted. OTHER: There is splenomegaly with the spleen measuring 14.2 cm. Cholecystectomy clips are noted. Mild degree hepatic steatosis suggested. IMPRESSION: 1. Suboptimal exam. Given bolus timing no central pulmonary embolus is seen however evaluation of the segmental and subsegmental pulmonary arteries are nondiagnostic. Repeat exam or lower extremity ultr asound could be considered for further evaluation and correlation with d-dimer. 2. Splenomegaly and suggestion of mild degree hepatic steatosis. 3. Moderate to severe left anterior descending coronary artery calcifications, marker of coronary [place] disease.
--- NOTE | 2019-11-24 15:38 | US ---
EXAMINATION TYPE: US venous doppler duplex LE DATE OF EXAM: 11/24/2019 3:02 PM COMPARISON: NONE CLINICAL HISTORY: I82.409 acute embolism and thrombosis, lymphedema SIDE PERFORMED: Bilateral TECHNIQUE: The lower extremity deep venous system is examined utilizing real time linear array sonog louisa with graded compression, doppler sonography and color-flow sonography. VESSELS IMAGED: External Iliac Vein (EIV) Common Femoral Vein Deep Femoral Vein Greater Saphenous Vein * Femoral Vein Popliteal Vein Small Saphenous Vein * Proximal Calf Veins (* superficial vessels) Fluid collection in the popliteal fossa on the right measures up to 5.1 cm. Visualized portions are a nechoic. Patient of large body habitus with weeping edema. Right Leg: Negative for DVT Left Leg: Negative for DVT Grayscale, color doppler, spectral doppler imaging performed of the deep veins of the lower extremiti es. There is normal flow, compressibility, vascular waveforms. IMPRESSION: 1. No sonographic evidence of deep venous thrombosis in the visualized portions of the bilateral lowe r extremities. 2. Right-sided popliteal cystic lesion, likely a Mohr's cyst. 3. Subcutaneous edema of the lower extremities.
== END | disposition home or self-care (01) ==
LOC: RADCTMAIN 12:54
PROVIDERS: ATTEND Family Medicine
DX: I25.10 Atherosclerotic heart disease of native coronary artery without angina pectoris (principal); M71.21 Synovial cyst of popliteal space [Baker], right knee; M25.512 Pain in left shoulder; M79.622 Pain in left upper arm
CPT/HCPCS: 82565; 84520; 73030; 73060; 93970; 71275; 36415; Q9967

== ENCOUNTER → 2020-01-09 | Outpatient (CLI) | payer MEDICARE, OTHER ==
[2020-01-09 10:59] LABS: Basophils % (A) 0 %; Eosinophils # (A) 0.5 k/uL (0-0.7); Eosinophils % (A) 6 %; HCT 37.8 % (34.0-46.0); HGB 12.3 gm/dL (11.4-16.0); Hypochromasia Slight; Lymphocytes % (A) 24 %; MCH 31.2 pg (25.0-35.0); MCHC 32.6 g/dL (31.0-37.0); MCV 95.8 fL (80.0-100.0); Mean Platelet Volume 6.7; Monocytes # (A) 0.5 k/uL (0-1.0); Monocytes % (A) 6 %; Neutrophils # (A) 5.2 k/uL (1.3-7.7); Neutrophils % (A) 62 %; Platelet Count 255 k/uL (150-450); RBC 3.95 m/uL (3.80-5.40); RDW 14.6 % (11.5-15.5); WBC 8.5 k/uL (3.8-10.6)
[2020-01-09 11:10] LABS: Appearance,Urine Clear (Clear); Color,Urine Yellow
[2020-01-09 11:11] LABS: Bilirubin,Urine Negative (Negative); Blood,Urine Negative (Negative); Glucose,Urine (UA) 3+ (Negative); Ketones,Urine Negative (Negative); Protein,Urine 1+ (Negative)
[2020-01-09 11:12] LABS: Leukocyte Esterase,Urine Large (Negative); Nitrite,Urine Negative (Negative); Urobilinogen,Urine <2.0 mg/dL (<2.0)
[2020-01-09 11:15] LABS: Bacteria,Urine Many /hpf; Hyaline Casts,Urine 3 /lpf (0-2); Mucus,Urine Rare /hpf; RBC,Urine 5 /hpf (0-5); Squamous Epithelial Cell,Urine 6 /hpf (0-4); WBC,Urine >182 /hpf (0-5)
[2020-01-09 16:16] LABS: % Iron Saturation 15.2 (12.00-45.00); African American GFR (CKD) 62.3 (60.0-200.0); Albumin 4.1 g/dL (3.80-4.90); Albumin/Globulin Ratio 1.86 (1.60-3.17); Anion Gap 11.1 mmol/L (4.00-12.00); BUN/Creat Ratio 19.09 Ratio (12.00-20.00); Calcium 8.8 mg/dL (8.7-10.3); Carbon Dioxide 27.9 mmol/L (21.6-31.8); Chol/HDL Ratio 3.71; Globulin 2.2 g/dL (1.6-3.3); LDL Cholesterol,Calculated 48.8 mg/dL (0.0-131.0); Non-African American GFR(CKD) 53.8 (60.0-200.0); Phosphorus 4.7 mg/dL (2.4-5.1); Potassium 4.1 mmol/L (3.5-5.5); Total Bilirubin 0.7 mg/dL (0.3-1.2); Total Protein 6.3 g/dL (6.2-8.2); Uric Acid 7.1 mg/dL (2.9-7.7); VLDL Calculation 43.2 mg/dL (5.00-40.00)
[2020-01-09 18:02] LABS: Hemoglobin A1C 5.9 % (4.0-6.0)
== END | disposition home or self-care (01) ==
LOC: LABWHC1 09:56
PROVIDERS: ATTEND Internal Medicine
DX: I12.9 Hypertensive chronic kidney disease with stage 1 through stage 4 chronic kidney disease, or unspecified chronic kidney disease (principal); E11.22 Type 2 diabetes mellitus with diabetic chronic kidney disease; N18.9 Chronic kidney disease, unspecified; E11.65 Type 2 diabetes mellitus with hyperglycemia; E03.9 Hypothyroidism, unspecified; R16.1 Splenomegaly, not elsewhere classified; N39.0 Urinary tract infection, site not specified
CPT/HCPCS: 36415; 80053; 80061; 81001; 82043; 82306; 82570; 83036; 83540; 83550; 83615; 83970; 84100; 84439; 84443; 84550; 85025; 86038; 87086

== ENCOUNTER → 2020-03-13 | Outpatient (CLI) | payer MEDICARE, OTHER | END | disposition home or self-care (01) | LOC: RADMRIMAIN 16:07 | PROVIDERS: ATTEND Physical Medicine & Rehabilitation | DX: Z53.9 Procedure and treatment not carried out, unspecified reason (principal) ==

== ENCOUNTER → 2020-04-13 | Outpatient (CLI) | payer MEDICARE, OTHER ==
[2020-04-13 19:23] LABS: T4, Free (Free Thyroxine) 1.1 ng/dL (0.80-1.80)
[2020-04-13 20:20] LABS: Hemoglobin A1C 6.9 % (4.0-6.0)
== END | disposition home or self-care (01) ==
LOC: LABWHC1 11:35
PROVIDERS: ATTEND Internal Medicine
DX: E11.65 Type 2 diabetes mellitus with hyperglycemia (principal); E03.9 Hypothyroidism, unspecified
CPT/HCPCS: 36415; 83036; 84439; 84443

== ENCOUNTER → 2020-06-04 | Outpatient (CLI) | payer MEDICARE, OTHER ==
--- NOTE | 2020-06-04 13:29 | US ---
EXAMINATION TYPE: US kidneys/renal and bladder DATE OF EXAM: 06/04/2020 COMPARISON: US 11/20/2016 CLINICAL HISTORY: N18.32 CKD stage 3b. EXAM MEASUREMENTS: Right Kidney: 11.1 x 5.5 x 5.6 cm Left Kidney: 11.8 x 5.9 x 5.5 cm Right Kidney: No hydronephrosis or masses seen Left Kidney: No hydronephrosis or masses seen. echogenic foci visualized 0.6 cm Bladder: wnl Bilateral Jets seen: Yes Renal cortex is preserved. Cortical medullary junction preserved. IMPRESSION: Nonobstructing 6 mm left renal calculus.
== END | disposition home or self-care (01) ==
LOC: RADUSWWP 12:50
PROVIDERS: ATTEND Internal Medicine Nephrology
DX: N20.0 Calculus of kidney (principal); N18.32 Chronic kidney disease, stage 3b
CPT/HCPCS: 76770

== ENCOUNTER → 2020-06-11 | Outpatient (CLI) | payer MEDICARE, OTHER ==
[2020-06-11 16:15] LABS: Basophils # (A) 0.1 k/uL (0-0.2); Basophils % (A) 1 %; Eosinophils # (A) 0.3 k/uL (0-0.7); Eosinophils % (A) 3 %; HCT 42.8 % (34.0-46.0); HGB 14.1 gm/dL (11.4-16.0); Lymphocytes # (A) 1.5 k/uL (1.0-4.8); Lymphocytes % (A) 16 %; MCH 31.3 pg (25.0-35.0); MCHC 33.1 g/dL (31.0-37.0); MCV 94.5 fL (80.0-100.0); Mean Platelet Volume 6.6; Monocytes # (A) 0.5 k/uL (0-1.0); Monocytes % (A) 5 %; Neutrophils # (A) 7.1 k/uL (1.3-7.7); Neutrophils % (A) 75 %; Platelet Count 243 k/uL (150-450); RBC 4.52 m/uL (3.80-5.40); RDW 13.6 % (11.5-15.5); WBC 9.5 k/uL (3.8-10.6)
[2020-06-11 16:18] LABS: Appearance,Urine Clear (Clear); Bacteria,Urine Rare /hpf; Bilirubin,Urine Negative (Negative); Blood,Urine Negative (Negative); Color,Urine Light Yellow; Glucose,Urine (UA) 4+ (Negative); Hyaline Casts,Urine 11 /lpf (0-2); Ketones,Urine Negative (Negative); Leukocyte Esterase,Urine Moderate (Negative); Mucus,Urine Rare /hpf; Nitrite,Urine Negative (Negative); Protein,Urine Negative (Negative); RBC,Urine 1 /hpf (0-5); Specific Gravity,Urine 1.009 (1.001-1.035); Squamous Epithelial Cell,Urine 2 /hpf (0-4); Urobilinogen,Urine <2.0 mg/dL (<2.0); WBC,Urine 11 /hpf (0-5)
[2020-06-11 16:28] LABS: Creatinine,Urine Random 48.8 mg/dL; Protein/Creatinine Ratio,Urine 0.225
[2020-06-11 23:55] LABS: % Iron Saturation 21.94 (12.00-45.00); African American GFR (CKD) 50.9 (60.0-200.0); Albumin 4.4 g/dL (3.80-4.90); Anion Gap 14.9 mmol/L (4.00-12.00); BUN/Creat Ratio 18.46 Ratio (12.00-20.00); Calcium 9.5 mg/dL (8.7-10.3); Carbon Dioxide 27.1 mmol/L (21.6-31.8); Non-African American GFR(CKD) 43.9 (60.0-200.0); Phosphorus 3.5 mg/dL (2.4-5.1); Potassium 4.4 mmol/L (3.5-5.5)
[2020-06-11 23:59] LABS: Protein, Total 6.6 g/dL (6.2-8.2)
[2020-06-12 00:03] LABS: Ferritin 190.4 ng/mL (10.0-291.0)
[2020-06-12 03:17] LABS: Total Volume 24 Hour,Urine 3000 mL
== END | disposition home or self-care (01) ==
LOC: LABWHC1 15:04
PROVIDERS: ATTEND Internal Medicine Nephrology
DX: N18.32 Chronic kidney disease, stage 3b (principal)
CPT/HCPCS: 36415; 80048; 81001; 81050; 82040; 82306; 82570; 82728; 83540; 83550; 83735; 83970; 84100; 84156; 84165; 84550; 85025; 86335

== ENCOUNTER → 2020-07-05 | Outpatient (CLI) | payer MEDICARE, OTHER ==
[2020-07-05 15:13] LABS: African American GFR (CKD) 69.9 (60.0-200.0); Anion Gap 10.9 mmol/L (4.00-12.00); Calcium 9.4 mg/dL (8.7-10.3); Carbon Dioxide 28.1 mmol/L (21.6-31.8); Chol/HDL Ratio 3.73; LDL Cholesterol,Calculated 46.6 mg/dL (0.0-131.0); Non-African American GFR(CKD) 60.3 (60.0-200.0); Potassium 4.7 mmol/L (3.5-5.5); VLDL Calculation 43.4 mg/dL (5.00-40.00)
[2020-07-05 15:19] LABS: Microalbumin Creatinine Ratio <30 mg/g Creat (0-30); Urine Creatinine 37.6 mg/dL
== END | disposition home or self-care (01) ==
LOC: LABWHC1 10:35
PROVIDERS: ATTEND Internal Medicine
DX: E11.65 Type 2 diabetes mellitus with hyperglycemia (principal); E55.9 Vitamin D deficiency, unspecified
CPT/HCPCS: 36415; 80048; 80061; 82043; 82306; 82570; 83036

== ENCOUNTER → 2020-10-12 | Outpatient (CLI) | payer MEDICARE, OTHER ==
[2020-10-12 17:50] LABS: Hemoglobin A1C 6.5 % (4.0-6.0)
[2020-10-12 18:04] LABS: African American GFR (CKD) 61.9 (60.0-200.0); Anion Gap 13.3 mmol/L (4.00-12.00); BUN/Creat Ratio 16.36 Ratio (12.00-20.00); Calcium 9.6 mg/dL (8.7-10.3); Carbon Dioxide 27.7 mmol/L (21.6-31.8); Chol/HDL Ratio 4.13; LDL Cholesterol,Calculated 55.8 mg/dL (0.0-131.0); Non-African American GFR(CKD) 53.4 (60.0-200.0); Potassium 4.4 mmol/L (3.5-5.5); VLDL Calculation 41.2 mg/dL (5.00-40.00)
[2020-10-12 18:12] LABS: T4, Free (Free Thyroxine) 1.5 ng/dL (0.80-1.80)
[2020-10-12 18:41] LABS: Urine Creatinine 41.7 mg/dL
== END | disposition home or self-care (01) ==
LOC: LABWHC1 10:16
PROVIDERS: ATTEND Family Medicine
DX: E11.65 Type 2 diabetes mellitus with hyperglycemia (principal); E03.9 Hypothyroidism, unspecified; E55.9 Vitamin D deficiency, unspecified
CPT/HCPCS: 36415; 80048; 80061; 82043; 82306; 82570; 83036; 84439; 84443

== ENCOUNTER → 2020-11-01 | Outpatient (CLI) | payer MEDICARE, OTHER | END | disposition home or self-care (01) | LOC: LABWHC1 14:14 | PROVIDERS: ATTEND Dermatology | DX: L12.0 Bullous pemphigoid (principal); I87.2 Venous insufficiency (chronic) (peripheral); I10 Essential (primary) hypertension; E11.9 Type 2 diabetes mellitus without complications; I25.2 Old myocardial infarction; E66.01 Morbid (severe) obesity due to excess calories; Z68.42 Body mass index [BMI] 45.0-49.9, adult; Z87.891 Personal history of nicotine dependence | CPT/HCPCS: 36415; 83516 ==

== ENCOUNTER → 2021-02-05 | Outpatient (CLI) | payer MEDICARE, OTHER ==
[2021-02-05 12:40] LABS: Creatinine,Urine Random 69.4 mg/dL; Protein/Creatinine Ratio,Urine 0.144
[2021-02-05 13:26] LABS: Appearance,Urine Clear (Clear); Bacteria,Urine Rare /hpf; Bilirubin,Urine Negative (Negative); Blood,Urine Negative (Negative); Color,Urine Light Yellow; Glucose,Urine (UA) 4+ (Negative); Hyaline Casts,Urine 3 /lpf (0-2); Ketones,Urine Negative (Negative); Leukocyte Esterase,Urine Moderate (Negative); Nitrite,Urine Negative (Negative); PH, Urine 5.5 (5.0-8.0); Protein,Urine Negative (Negative); RBC,Urine 1 /hpf (0-5); Specific Gravity,Urine 1.015 (1.001-1.035); Squamous Epithelial Cell,Urine 2 /hpf (0-4); Urobilinogen,Urine <2.0 mg/dL (<2.0); WBC,Urine 24 /hpf (0-5)
[2021-02-05 19:19] LABS: Basophils # (A) 0.04 X 10*3/uL (0.00-0.10); Basophils % (A) 0.5 %; Eosinophils # (A) 0.32 X 10*3/uL (0.04-0.35); Eosinophils % (A) 3.7 %; HCT 39.6 % (37.2-46.3); HGB 12.9 g/dL (12.0-15.0); Lymphocytes # (A) 2.03 X 10*3/uL (0.90-5.00); Lymphocytes % (A) 23.2 %; MCH 32.7 pg (27.0-32.0); MCHC 32.6 g/dL (32.0-37.0); MCV 100.3 fL (80.0-97.0); Monocytes # (A) 0.64 X 10*3/uL (0.20-1.00); Monocytes % (A) 7.3 %; Platelet Count 200 X 10*3/uL (140-440); RBC 3.95 X 10*6/uL (4.10-5.20); RDW 13.4 % (11.5-14.5); WBC 8.76 X 10*3/uL (4.50-10.00)
[2021-02-05 23:41] LABS: Hemoglobin A1C 6.9 % (4.0-6.0)
[2021-02-06 05:06] LABS: % Iron Saturation 17.13 (12.00-45.00); African American GFR (CKD) 69.4 (60.0-200.0); Albumin 4.2 g/dL (3.80-4.90); Anion Gap 10.3 mmol/L (4.00-12.00); Calcium 9.2 mg/dL (8.7-10.3); Carbon Dioxide 29.7 mmol/L (21.6-31.8); Non-African American GFR(CKD) 59.9 (60.0-200.0); Phosphorus 4.2 mg/dL (2.4-5.1); Potassium 4.1 mmol/L (3.5-5.5); Uric Acid 7.2 mg/dL (2.9-7.7)
[2021-02-06 05:15] LABS: Ferritin 165.7 ng/mL (10.0-291.0)
== END | disposition home or self-care (01) ==
LOC: LABWHC1 10:58
PROVIDERS: ATTEND Family Medicine
DX: E11.22 Type 2 diabetes mellitus with diabetic chronic kidney disease (principal); N18.32 Chronic kidney disease, stage 3b; E11.65 Type 2 diabetes mellitus with hyperglycemia; E55.9 Vitamin D deficiency, unspecified; N25.81 Secondary hyperparathyroidism of renal origin; M10.9 Gout, unspecified; N39.0 Urinary tract infection, site not specified; D64.9 Anemia, unspecified; R80.9 Proteinuria, unspecified
CPT/HCPCS: 36415; 80048; 81001; 82040; 82306; 82570; 82728; 83036; 83540; 83550; 83735; 83970; 84100; 84156; 84550; 85025; 87086

== ENCOUNTER → 2021-04-23 | Outpatient (CLI) | payer MEDICARE, OTHER | END | disposition home or self-care (01) | LOC: LABWHC1 13:57 | PROVIDERS: ATTEND Family Medicine | DX: E11.65 Type 2 diabetes mellitus with hyperglycemia (principal) | CPT/HCPCS: 36415; 83036 ==

== ENCOUNTER → 2021-08-09 | Outpatient (CLI) | payer MEDICARE, OTHER ==
[2021-08-09 12:56] LABS: Creatinine,Urine Random 60.7 mg/dL; Protein/Creatinine Ratio,Urine 0.181
[2021-08-09 19:20] LABS: Albumin 4.1 g/dL (3.8-4.9); Chol/HDL Ratio 3.07 Ratio; LDL Cholesterol,Calculated 48.2 mg/dL (0.0-131.0)
[2021-08-09 20:20] LABS: Basophils # (A) 0.03 X 10*3/uL (0.00-0.10); Basophils % (A) 0.4 %; Eosinophils # (A) 0.32 X 10*3/uL (0.04-0.35); Eosinophils % (A) 3.8 %; HCT 40.3 % (37.2-46.3); HGB 12.8 g/dL (12.0-15.0); Lymphocytes # (A) 2.28 X 10*3/uL (0.90-5.00); Lymphocytes % (A) 27.2 %; MCH 32.2 pg (27.0-32.0); MCHC 31.8 g/dL (32.0-37.0); MCV 101.3 fL (80.0-97.0); Monocytes # (A) 0.74 X 10*3/uL (0.20-1.00); Monocytes % (A) 8.8 %; Neutrophils # (A) 4.96 X 10*3/uL (1.80-7.70); Neutrophils % (A) 59.2 %; Platelet Count 203 X 10*3/uL (140-440); RBC 3.98 X 10*6/uL (4.10-5.20); RDW 13.4 % (11.5-14.5); WBC 8.38 X 10*3/uL (4.50-10.00)
[2021-08-09 20:44] LABS: % Iron Saturation 17.46 (12.00-45.00); African American GFR (CKD) 63.3 (60.0-200.0); BUN/Creat Ratio 15.09 Ratio (12.00-20.00); Blood Urea Nitrogen 16.3 mg/dL (9.0-27.0); Calcium 9.2 mg/dL (8.7-10.3); Carbon Dioxide 26.5 mmol/L (20.0-27.5); Chloride 100 mmol/L (96-109); Glucose 128 mg/dL (70-110); Iron 59 ug/dL (50-170); Magnesium 2.3 mg/dL (1.5-2.4); Non-African American GFR(CKD) 54.6 (60.0-200.0); Phosphorus 3.8 mg/dL (2.4-5.1); Potassium 4.2 mmol/L (3.5-5.5); Sodium 142 mmol/L (135-145); Total Iron Binding Capacity 337 ug/dL (228-460); Uric Acid 6.8 mg/dL (2.9-7.7)
[2021-08-09 23:39] LABS: Appearance,Urine Cloudy (Clear); Bacteria,Urine None Seen /HPF (None Seen); Color,Urine Yellow (Yellow); Specific Gravity,Urine 1.015 (1.001-1.030)
== END | disposition home or self-care (01) ==
LOC: LABWHC1 11:05
PROVIDERS: ATTEND Family Medicine
DX: E11.22 Type 2 diabetes mellitus with diabetic chronic kidney disease (principal); E11.65 Type 2 diabetes mellitus with hyperglycemia; E55.9 Vitamin D deficiency, unspecified; E21.3 Hyperparathyroidism, unspecified; M10.9 Gout, unspecified; N39.0 Urinary tract infection, site not specified; D64.9 Anemia, unspecified; R80.9 Proteinuria, unspecified; E03.9 Hypothyroidism, unspecified; N18.32 Chronic kidney disease, stage 3b
CPT/HCPCS: 36415; 80048; 80061; 81001; 82040; 82306; 82570; 82728; 83036; 83540; 83550; 83735; 83970; 84100; 84156; 84439; 84443; 84550; 85025

== ENCOUNTER → 2022-01-15 | Outpatient (CLI) | payer MEDICARE, OTHER ==
[2022-01-15 18:09] LABS: Basophils # (A) 0.04 X 10*3/uL (0.00-0.10); Basophils % (A) 0.5 %; Eosinophils # (A) 0.33 X 10*3/uL (0.04-0.35); Eosinophils % (A) 3.8 %; HCT 40.3 % (37.2-46.3); HGB 12.5 g/dL (12.0-15.0); Immature Grans, Automated 0.3 %; Lymphocytes # (A) 2.23 X 10*3/uL (0.90-5.00); Lymphocytes % (A) 25.4 %; MCH 31.6 pg (27.0-32.0); Mean Platelet Volume 8.9 fL (9.5-12.2); Monocytes # (A) 0.71 X 10*3/uL (0.20-1.00); Monocytes % (A) 8.1 %; NRBC Per 100 WBC 0 /100 WBCS (0.0-0.0); Neutrophils # (A) 5.45 X 10*3/uL (1.80-7.70); Neutrophils % (A) 61.9 %; Platelet Count 206 X 10*3/uL (140-440); RBC 3.95 X 10*6/uL (4.10-5.20); RDW 13.6 % (11.5-14.5); WBC 8.79 X 10*3/uL (4.50-10.00)
[2022-01-15 18:42] LABS: African American GFR (CKD) 58.9 (60.0-200.0); BUN/Creat Ratio 15.53 Ratio (12.00-20.00); Blood Urea Nitrogen 17.7 mg/dL (9.0-27.0); Calcium 9.1 mg/dL (8.7-10.3); Chloride 101 mmol/L (96-109); Chol/HDL Ratio 3.15 Ratio; Glucose 136 mg/dL (70-110); LDL Cholesterol,Calculated 49.6 mg/dL (0.0-131.0); Non-African American GFR(CKD) 50.8 (60.0-200.0); Potassium 4.2 mmol/L (3.5-5.5); Sodium 142 mmol/L (135-145)
[2022-01-15 19:41] LABS: Urine Creatinine 58.9 mg/dL (28.0-217.0)
== END | disposition home or self-care (01) ==
LOC: LABWHC1 11:46
PROVIDERS: ATTEND Internal Medicine
DX: E11.65 Type 2 diabetes mellitus with hyperglycemia (principal); E55.9 Vitamin D deficiency, unspecified
CPT/HCPCS: 36415; 80048; 80061; 82043; 82306; 82570; 83036; 84439; 84443; 85025

== ENCOUNTER → 2022-06-10 | Outpatient (CLI) | payer MEDICARE, OTHER ==
[2022-06-10 18:26] LABS: Basophils # (A) 0.05 X 10*3/uL (0.00-0.10); Basophils % (A) 0.5 %; Eosinophils # (A) 0.28 X 10*3/uL (0.04-0.35); HCT 40.9 % (37.2-46.3); HGB 13.2 g/dL (12.0-15.0); Immature Grans, Automated 0.5 %; Lymphocytes # (A) 2.13 X 10*3/uL (0.90-5.00); Lymphocytes % (A) 22.5 %; MCH 32.5 pg (27.0-32.0); MCHC 32.3 g/dL (32.0-37.0); MCV 100.7 fL (80.0-97.0); Mean Platelet Volume 8.8 fL (9.5-12.2); Monocytes # (A) 0.66 X 10*3/uL (0.20-1.00); NRBC Per 100 WBC 0 /100 WBCS (0.0-0.0); Neutrophils % (A) 66.5 %; Platelet Count 196 X 10*3/uL (140-440); RBC 4.06 X 10*6/uL (4.10-5.20); RDW 13.7 % (11.5-14.5); WBC 9.47 X 10*3/uL (4.50-10.00)
[2022-06-10 20:08] LABS: ALT 25 U/L (8-44); AST 22 U/L (13-35); African American GFR (CKD) 55.3 (60.0-200.0); Albumin 4.4 g/dL (3.8-4.9); Albumin/Globulin Ratio 1.91 (1.60-3.17); Alkaline Phosphatase 99 U/L (41-126); BUN/Creat Ratio 18.33 Ratio (12.00-20.00); Calcium 9.5 mg/dL (8.7-10.3); Chloride 98 mmol/L (96-109); Chol/HDL Ratio 3.32 Ratio; Globulin 2.3 g/dL (1.6-3.3); Glucose 138 mg/dL (70-110); LDL Cholesterol,Calculated 56.3 mg/dL (0.0-131.0); Non-African American GFR(CKD) 47.7 (60.0-200.0); Potassium 3.9 mmol/L (3.5-5.5); Sodium 141 mmol/L (135-145); Total Protein 6.7 g/dL (6.2-8.2)
== END | disposition home or self-care (01) ==
LOC: LABWHC1 10:16
PROVIDERS: ATTEND Student in an Organized Health Care Education/Training Program
DX: E11.65 Type 2 diabetes mellitus with hyperglycemia (principal); Z79.899 Other long term (current) drug therapy
CPT/HCPCS: 36415; 80053; 80061; 82306; 83036; 84439; 84443; 85025

== ENCOUNTER 2022-10-16 15:46 | Observation (INO) | payer MEDICARE, OTHER ==
[2022-10-16] MEDS ORDERED: ASPIRIN 81 MG PO STA (16:09)
--- NOTE | 2022-10-16 16:53 | ED ---
Chest Pain HPI - General Chief Complaint: Chest Pain Stated Complaint: Chest pain Time Seen by Provider: 10/16/22 16:07 Source: patient Mode of arrival: ambulatory Limitations: no limitations - History of Present Illness Initial Comments: This patient is a 67-year-old woman who presents to have evaluation for substernal chest pain that has been going on for between 1 and 2 weeks. The patient states that it seemed to develop after she used a leg compression device for her lymphedema. She states that device squeezes her legs to reduce the edema. She noted that she was developing the symptoms after that. She has not had any associated fever or chills, cough, dyspnea, diaphoresis, nausea or vomiting. Pain is intermittent and has a sensation like a fist being pressed down. MD Complaint: chest pain -: days(s) Onset: during rest Pain Location: substernal Pain Radiation: RUE, LUE Severity: moderate Quality: heaviness Consistency: intermittent Improves With: nothing Worsens With: nothing Treatments Prior to Arrival: none - Related Data Home Medications Medication Instructions Recorded Confirmed Calcium Carbonate [Calcium] 600 mg PO DAILY@1300 01/01/16 10/16/22 Multivit-Min/Iron/Folic/Lutein 1 tab PO HS@0000 01/01/16 10/16/22 [Centrum Silver Women Tablet] Ferrous Sulfate [Feosol] 325 mg PO DAILY@1300 06/05/16 10/16/22 Furosemide [Lasix] 40 mg PO BID@0900,1600 07/27/16 10/16/22 Potassium Chloride [Klor-Con 10 ER] 10 meq PO DAILY@1300 07/27/16 10/16/22 Acetaminophen [Tylenol 8 Hour] 650 mg PO Q8H PRN 12/26/16 10/16/22 Gabapentin 600 mg PO TID@0000,0900,1600 12/26/16 10/16/22 Dapagliflozin Propanediol [Farxiga] 10 mg PO DAILY@0900 04/29/17 10/16/22 traZODone HCL 200 mg PO HS@0000 04/29/17 10/16/22 sitaGLIPtin [Januvia] 100 mg PO DAILY@1300 07/24/17 10/16/22 Glimepiride [Amaryl] 3 mg PO DAILY@0900 02/20/18 10/16/22 Loratadine [Claritin] 10 mg PO DAILY@0900 02/20/18 10/16/22 Magnesium Oxide [Mag-Ox] 400 mg PO DAILY@19002/20/18 10/16/22 Aspirin 81 mg PO DAILY@1300 03/15/18 10/16/22 Atorvastatin Calcium [Lipitor] 80 mg PO HS@0000 03/15/18 10/16/22 Ezetimibe [Zetia] 10 mg PO DAILY@1600 03/15/18 10/16/22 Citalopram Hydrobromide [CeleXA] 10 mg PO TID@0000,0900,19010/16/22 10/16/22 Famotidine [Pepcid] 20 mg PO BID@0000,1300 10/16/22 10/16/22 Furosemide [Lasix] 20 mg PO DAILY@1300 10/16/22 10/16/22 Insulin Degludec [Tresiba 51 units SQ DAILY@0910/16/22 10/16/22 Flextouch U-100 Pen] Levothyroxine Sodium [Synthroid] 75 mcg PO DAILY@0910/16/22 10/16/22 Losartan Potassium [Cozaar] 50 mg PO HS@0000 10/16/22 10/16/22 Metoprolol Tartrate [Lopressor] 50 mg PO DAILY@129910/16/22 10/16/22 Mupirocin 2% Oint [Bactroban 2% 1 applic TOPICAL BID PRN 10/16/22 10/16/22 Oint] Niacinamide 500 mg PO BID@0900,1900 10/16/22 10/16/22 Triamcinolone 0.1% Ointment 1 applic TOPICAL BID PRN 10/16/22 10/16/22 [Kenalog 0.1% Ointment] calcium polycarbophiL [Fiber-Lax] 625 mg PO HS@0000 10/16/22 10/16/22 clonazePAM [Clonazepam] 0.5 mg PO DAILY PRN 10/16/22 10/16/22 hydrOXYzine HCL [Atarax] 25 mg PO DAILY@0900 10/16/22 10/16/22 Allergies Allergy/AdvReac Type Severity Reaction Status Date / Time ciprofloxacin [From Cipro] Allergy Anaphylaxis Verified 10/16/22 17:53 diazepam [From Valium] Allergy Rash/Hives Verified 10/16/22 17:53 metronidazole [From Flagyl] Allergy Anaphylaxis Verified 10/16/22 17:53 Sulfa (Sulfonamide Allergy Rash/Hives Verified 10/16/22 17:53 Antibiotics) doxycycline AdvReac Nausea & Verified 10/16/22 17:53 Vomiting & Diarrhea metoclopramide HCl AdvReac Diarrhea Verified 10/16/22 17:53 [From Reglan] LINENS USED AT [facility] Allergy Unknown Uncoded 10/16/22 17:29 HOSPITAL Review of Systems ROS Statement: Those systems with pertinent positive or pertinent negative responses have been documented in the HPI. ROS Other: All systems not noted in ROS Statement are negative. Constitutional: Denies: fever, chills Respiratory: Denies: cough, dyspnea Cardiovascular: Reports: chest pain. Denies: palpitations, orthopnea, edema, syncope Gastrointestinal: Denies: abdominal pain, nausea, vomiting, diarrhea Genitourinary: Denies: dysuria, hematuria Musculoskeletal: Denies: back pain Skin: Denies: rash Neurological: Denies: headache, weakness, numbness EKG Findings - EKG Results: EKG: interpreted by ERMD, sinus rhythm (Rate 71 bpm), normal axis, normal ST/T - Blocks, [place], Hypertrophy, ST Abn: QRS axis and voltage: low voltage (<0.5 MV total QRS and <1.0 MV in each precordial lead) Past Medical History Past Medical History: Coronary Artery Disease (CAD), Diabetes Mellitus, GERD/Reflux, Hyperlipidemia, Hypertension, Myocardial Infarction ([place]), Osteoarthritis (OA), Skin Disorder Additional Past Medical History / Comment(s): fell 03-15-17 fx rt humerus/sling. ECZEMA, pt stated she needs sterile sheets- has had rash and swelling in past to detergents/bleach used ., IBS, DDD, gastroparesis, carapal tunnel lisette., kidney stones. Last Myocardial Infarction Date:: [place] X 3 LAST ONE 2006 History of Any Multi-Drug Resistant Organisms: MRSA Date of last positivie culture/infection: 01/01/16 MDRO Source:: right leg Past Surgical History: Appendectomy, Section, Cholecystectomy, Heart Catheterization With Stent, Hysterectomy, Tonsillectomy Additional Past Surgical History / Comment(s): breast biopsy, D & C x2, tumor right shoulder removed; lithotripsy Past Anesthesia/Blood Transfusion Reactions: Previous Problems w/ Anesthesia Additional Past Anesthesia/Blood Transfusion Reaction / Comment(s): TENDS TO HAVE PANIC ATTACKS WHEN COMING OUT OF ANESTHESIA Date of Last Stent Placement:: 2006 Past Psychological History: Anxiety, Depression, Panic Disorder, PTSD Smoking Status: Former smoker Past Alcohol Use History: None Reported Past Drug Use History: None Reported - Past Family History Mother Family Medical History: Cancer Father Family Medical History: Coronary Artery Disease (CAD), Myocardial Infarction ([place]) General Exam Limitations: no limitations General appearance: alert, in no apparent distress Head exam: Present: atraumatic, normocephalic Eye exam: Present: normal appearance. Absent: scleral icterus, conjunctival injection Neck exam: Present: normal inspection Respiratory exam: Present: normal lung sounds bilaterally. Absent: respiratory distress, wheezes, rales, rhonchi, stridor Cardiovascular Exam: Present: regular rate, normal rhythm, normal heart sounds. Absent: systolic murmur, diastolic murmur, rubs, gallop GI/Abdominal exam: Present: soft. Absent: distended, tenderness, guarding, rebound, rigid, mass Extremities exam: Present: normal capillary refill, pedal edema (Bilateral lower leg edema left greater than right patient states is chronic). Absent: tenderness, calf tenderness Back exam: Present: normal inspection. Absent: CVA tenderness (R), CVA tenderness (L) Neurological exam: Present: alert Skin exam: Present: warm, dry, intact, other (Chronic stasis changes to the bilateral lower legs.). Absent: rash Course Vital Signs 10/16/22 10/16/22 10/16/22 15:56 17:07 18:15 Temperature 98.0 F Pulse Rate 71 69 69 Respiratory 18 16 18 Rate Blood Pressure 117/71 128/53 127/67 O2 Sat by Pulse 94 L 95 93 L Oximetry Disposition Clinical Impression: Chest pain Disposition: ADMITTED IP TO THIS HOSP Condition: Fair Is patient prescribed a controlled substance at d/c from ED?: No Referrals: Inessa Palacios [Primary Care Provider] - 1-2 days
[2022-10-16 17:19] LABS: Basophils % (A) 0 %; Eosinophils # (A) 0.3 k/uL (0-0.7); Eosinophils % (A) 3 %; HCT 39.7 % (34.0-46.0); HGB 13.4 gm/dL (11.4-16.0); Lymphocytes # (A) 2.5 k/uL (1.0-4.8); Lymphocytes % (A) 25 %; MCH 32.4 pg (25.0-35.0); MCHC 33.8 g/dL (31.0-37.0); Mean Platelet Volume 6.8; Monocytes # (A) 0.5 k/uL (0-1.0); Monocytes % (A) 5 %; Neutrophils # (A) 6.4 k/uL (1.3-7.7); Neutrophils % (A) 64 %; Platelet Count 226 k/uL (150-450); RBC 4.14 m/uL (3.80-5.40); RDW 13.6 % (11.5-15.5)
[2022-10-16 17:32] LABS: Calcium 9.1 mg/dL (8.4-10.2); Magnesium 1.9 mg/dL (1.6-2.3); Potassium 4.2 mmol/L (3.5-5.1); Total Bilirubin 0.8 mg/dL (0.2-1.3); Total Protein 6.8 g/dL (6.3-8.2)
[2022-10-16 17:34] LABS: INR 0.9 (<1.2); Prothrombin Time 9.8 sec (9.0-12.0)
--- NOTE | 2022-10-16 19:15 | CT ---
EXAMINATION TYPE: CT chest angio for PE DATE OF EXAM: 10/16/2022 COMPARISON: 11/24/2019 HISTORY: pain, SOB CT DLP: 892.5 mGycm. Automated Exposure Control for Dose Reduction was Utilized. CONTRAST: CTA scan of the thorax is performed with IV Contrast, patient injected with 70ML mL of Isov ue 370. MIP Images are created on CT scanner and reviewed. 3D reconstructed images are created on a n independent workstation and reviewed. FINDINGS: LUNGS: The lungs are grossly clear, there is no concerning parenchymal mass or nodule identified. T here is no pleural effusion or pneumothorax seen. The tracheobronchial tree is patent. MEDIASTINUM: There is satisfactory enhancement of the pulmonary artery and its branches, there is no CT evidence for pulmonary embolism. There are prominent left main, LAD, and left circumflex coronary calcifications. No cardiomegaly or pericardial effusion, but prominent volume of left and right epica rdial fat noted. No acute aortic findings. The aorta is not dilated. There are no greater than 1 cm h ilar or mediastinal lymph nodes. OTHER: No additional significant abnormality is seen. IMPRESSION: 1. Negative for pulmonary embolism. 2. No acute pulmonary/pleural process. 3. No acute aortic findings. 4. Prominent left coronary calcifications.
[2022-10-16] MEDS ORDERED: NITROGLYCERIN SL TABS 0.4 MG TAB SUBLINGUAL PRN (19:35)
[2022-10-17] MEDS ORDERED: LOSARTAN 50 MG TAB PO SCH
[2022-10-17] MEDS ORDERED: ATORVASTATIN 80 MG TAB PO SCH
[2022-10-17] MEDS ORDERED: traZODone HCL 100 MG TAB PO SCH
[2022-10-17] MEDS ORDERED: VIT A,C & E-LUTEIN-MINERALS 1 EACH TAB PO SCH
[2022-10-17] MEDS: CITALOPRAM HYDROBROMIDE 10 MG TAB PO SCH ×2 (01:13→09:13)
[2022-10-17] MEDS: GABAPENTIN 300 MG CAP PO SCH ×2 (01:13→09:13)
[2022-10-17] MEDS: HEPARIN SODIUM,PORCINE/PF 5,000 UNIT/0.5 ML SYRINGE SQ SCH ×2 (01:14→09:14)
[2022-10-17 07:05] VITALS: TEMP 98.4
[2022-10-17] MEDS ORDERED: ASPIRIN 325 MG TAB PO SCH (09:00)
[2022-10-17] MEDS ORDERED: ASPIRIN 81 MG PO SCH (09:00)
--- NOTE | 2022-10-17 10:13 | P.CRDCN ---
History of Present Illness History of present illness: HISTORY OF PRESENT ILLNESS: This is a 67-year-old female with a past medical history significant for obesity, hypertension, hyperlipidemia, diabetes, coronary artery disease with PCI of the LAD in 2006, lymphedema, chronic venous insufficiency, and arthritis. Patient follows in the office with Dr. Calderon. We have been asked to see the patient in consultation for chest pain. Patient examined at the bedside. patient states that she started using a compression machine for her lower extremities. She states after using it for a few days she began to have chest pain. She states it felt as though somebody hit her in the chest. So she decided to stop using the compression machine. She states after a few days the chest pain went away. She described the pain as a dull pain. She denied any shortness of breath. Denied any radiation of the pain. Denied any nausea or vomiting. She states that she went to see a provider at Dr. Sumner's office who was concerned that she may be having a heart attack and told her to come to the emergency room. This morning the patient reports very mild chest pain and continues to feel like she was punched in the chest. The patient is having tenderness with palpation near the xiphoid process. * EKG reveals sinus mechanism with no signs of acute ischemia * chest CT: Negative for PE * Laboratory data: WBC 10.0. Hemoglobin 13.4. Platelet count 226. D-dimer 0.75. Sodium 139. Potassium 4.2. BUN 18. Creatinine 1.23. Troponin negative 3. ProBNP 116. * Current home cardiac medications include aspirin 81 mg daily, Zetia 10 mg daily, Lasix 40 mg twice a day, Lipitor 80 mg at night, Lasix 20 mg daily, losartan 50 mg at night, metoprolol tartrate 50 mg daily * Most recent echocardiogram obtained in February 2021 revealing ejection fraction 55-60%, mild tricuspid regurgitation * patient underwent Lexiscan stress test in April 2022 which was negative for ischemia * patient underwent cardiac catheterization in February 2018 revealing only minimal narrowing of about 20-30% at the site of prior stent placement of LAD. Circumflex intermediate and right coronary artery are normal. REVIEW OF SYSTEMS: At the time of my exam: CONSTITUTIONAL: Denies fever or chills. HEENT: Denies blurred vision, vision changes, or eye pain. Denies hemoptysis CARDIOVASCULAR: Denies chest pain. Denies orthopnea. Denies PND. Denies palpitations RESPIRATORY: Denies shortness of breath. GASTROINTESTINAL: Denies abdominal pain. Denies nausea or vomiting. HEMATOLOGIC: Denies bleeding disorders. GENITOURINARY: Denies any blood in urine. SKIN: Denies pruitis. Denies rash. PHYSICAL EXAM: VITAL SIGNS: Reviewed. GENERAL: Well-developed in no acute distress. HEENT: Head is normocephalic. Pupils are equal, round. Sclerae anicteric. Mucous membranes of the mouth are moist. Neck supple. No JVD or thyromegaly LUNGS: Respirations even and unlabored. Lungs essentially clear to auscultation bilaterally. HEART: Regular rate and rhythm. S1 and S2 heard. ABDOMEN: Soft. Nondistended. Nontender. EXTREMITIES: Normal range of motion. No clubbing or cyanosis. Peripheral pulses intact. No lower extremity edema NEUROLOGIC: Awake and alert. Oriented x 3. ASSESSMENT: Chest pain, troponins negative 3, appears noncardiac Coronary artery disease with previous PCI of LAD in 2006 Hypertension Hyperlipidemia Diabetes Lymphedema Chronic venous insufficiency Arthritis PLAN: An acute coronary event has been ruled out Resume home cardiac medications Obtain 2-D echo to assess cardiac structure and function Patient may be discharged home this afternoon from a cardiac standpoint and follow-up with Dr. Calderon Nurse practitioner note has been reviewed by physician. Signing provider agrees with the documented findings, assessment, and plan of care. Past Medical History Past Medical History: Coronary Artery Disease (CAD), Diabetes Mellitus, GERD/Reflux, Hyperlipidemia, Hypertension, Myocardial Infarction (CT), Osteoarthritis (OA), Skin Disorder Additional Past Medical History / Comment(s): fell 03-15-17 fx rt humerus/sling. ECZEMA, pt stated she needs sterile sheets- has had rash and swelling in past to detergents/bleach used ., IBS, DDD, gastroparesis, carapal tunnel lisette., kidney stones. Last Myocardial Infarction Date:: CT X 3 LAST ONE 2006 History of Any Multi-Drug Resistant Organisms: MRSA Date of last positivie culture/infection: 01/01/16 MDRO Source:: right leg Past Surgical History: Appendectomy, Section, Cholecystectomy, Heart Catheterization With Stent, Hysterectomy, Tonsillectomy Additional Past Surgical History / Comment(s): breast biopsy, D & C x2, tumor ri ght shoulder removed; lithotripsy Past Anesthesia/Blood Transfusion Reactions: Previous Problems w/ Anesthesia Additional Past Anesthesia/Blood Transfusion Reaction / Comment(s): TENDS TO HAVE PANIC ATTACKS WHEN COMING OUT OF ANESTHESIA Date of Last Stent Placement:: 2006 Past Psychological History: Anxiety, Depression, Panic Disorder, PTSD Additional Psychological History / Comment(s): pt lives alone in home. was to start home care services 03-18-18 thru [facility] but was admitted to hospital. Smoking Status: Former smoker Past Alcohol Use History: None Reported Additional Past Alcohol Use History / Comment(s): started smoking 1970,quit smoking 1982, smoked 1-3ppd Past Drug Use History: None Reported - Past Family History Mother Family Medical History: Cancer Father Family Medical History: Coronary Artery Disease (CAD), Myocardial Infarction (CT) Medications and Allergies Home Medications Medication Instructions Recorded Confirmed Type Calcium Carbonate [Calcium] 600 mg PO DAILY@1300 01/01/16 10/16/22 History Multivit-Min/Iron/Folic/Lutein 1 tab PO HS@0000 01/01/16 10/16/22 History [Centrum Silver Women Tablet] Ferrous Sulfate [Feosol] 325 mg PO DAILY@1300 06/05/16 10/16/22 History Furosemide [Lasix] 40 mg PO BID@0900,1600 07/27/16 10/16/22 History Potassium Chloride [Klor-Con 10 ER] 10 meq PO DAILY@1300 07/27/16 10/16/22 History Acetaminophen [Tylenol 8 Hour] 650 mg PO Q8H PRN 12/26/16 10/16/22 History Gabapentin 600 mg PO TID@0000,0900,1600 12/26/16 10/16/22 History Dapagliflozin Propanediol [Farxiga] 10 mg PO DAILY@0904/29/17 10/16/22 History traZODone HCL 200 mg PO HS@0000 04/29/17 10/16/22 History sitaGLIPtin [Januvia] 100 mg PO DAILY@1300 07/24/17 10/16/22 History Glimepiride [Amaryl] 3 mg PO DAILY@0902/20/18 10/16/22 History Loratadine [Claritin] 10 mg PO DAILY@0902/20/18 10/16/22 History Magnesium Oxide [Mag-Ox] 400 mg PO DAILY@1900 02/20/18 10/16/22 History Aspirin 81 mg PO DAILY@1300 03/15/18 10/16/22 History Atorvastatin Calcium [Lipitor] 80 mg PO HS@0000 03/15/18 10/16/22 History Ezetimibe [Zetia] 10 mg PO DAILY@1600 03/15/18 10/16/22 History Citalopram Hydrobromide [CeleXA] 10 mg PO TID@0000,0900,1900 10/16/22 10/16/22 History Famotidine [Pepcid] 20 mg PO BID@0000,1300 10/16/22 10/16/22 History Furosemide [Lasix] 20 mg PO DAILY@1300 10/16/22 10/16/22 History Insulin Degludec [Tresiba 51 units SQ DAILY@0910/16/22 10/16/22 History Flextouch U-100 Pen] Levothyroxine Sodium [Synthroid] 75 mcg PO DAILY@0910/16/22 10/16/22 History Losartan Potassium [Cozaar] 50 mg PO HS@0000 10/16/22 10/16/22 History Metoprolol Tartrate [Lopressor] 50 mg PO DAILY@1300 10/16/22 10/16/22 History Mupirocin 2% Oint [Bactroban 2% 1 applic TOPICAL BID PRN 10/16/22 10/16/22 History Oint] Niacinamide 500 mg PO BID@0900,1900 10/16/22 10/16/22 History Triamcinolone 0.1% Ointment 1 applic TOPICAL BID PRN 10/16/22 10/16/22 History [Kenalog 0.1% Ointment] calcium polycarbophiL [Fiber-Lax] 625 mg PO HS@0000 10/16/22 10/16/22 History clonazePAM [Clonazepam] 0.5 mg PO DAILY PRN 10/16/22 10/16/22 History hydrOXYzine HCL [Atarax] 25 mg PO DAILY@0900 10/16/22 10/16/22 History Allergies Allergy/AdvReac Type Severity Reaction Status Date / Time ciprofloxacin [From Cipro] Allergy Anaphylaxis Verified 10/16/22 17:53 diazepam [From Valium] Allergy Rash/Hives Verified 10/16/22 17:53 metronidazole [From Flagyl] Allergy Anaphylaxis Verified 10/16/22 17:53 Sulfa (Sulfonamide Allergy Rash/Hives Verified 10/16/22 17:53 Antibiotics) doxycycline AdvReac Nausea & Verified 10/16/22 17:53 Vomiting & Diarrhea metoclopramide HCl AdvReac Diarrhea Verified 10/16/22 17:53 [From Reglan] [facility] USED AT [facility] Allergy Unknown Uncoded 10/16/22 17:29 HOSPITAL Physical Exam Vitals: Vital Signs Temp Pulse Pulse Resp BP BP Pulse Ox 10/17/22 07:02 98.4 F 18 104/66 95 10/17/22 03:54 79 16 10/17/22 02:02 97.8 F 69 18 124/54 91 L 10/16/22 22:33 79 16 10/16/22 20:41 97.7 F 79 16 137/81 93 L 10/16/22 18:15 69 18 127/67 93 L 10/16/22 17:07 69 16 128/53 95 10/16/22 15:56 98.0 F 71 18 117/71 94 L Intake and Output 10/16/22 10/17/22 10/17/22 22:59 06:59 14:59 Other: Voiding Method Toilet Toilet # Voids 1 1 Weight 130.181 kg Results 10/16/22 17:02 10/16/22 17:02 Cardiac Enzymes 10/16/22 10/16/22 10/16/22 Range/Units 17:02 17:02 21:09 AST 30 (14-36) U/L Troponin I <0.012 <0.012 (0.000-0.034) ng/mL 10/17/22 Range/Units 00:26 AST (14-36) U/L Troponin I <0.012 (0.000-0.034) ng/mL Coagulation 10/16/22 Range/Units 17:02 PT 9.8 (9.0-12.0) sec APTT 24.0 (22.0-30.0) sec CBC 10/16/22 Range/Units 17:02 WBC 10.0 (3.8-10.6) k/uL RBC 4.14 (3.80-5.40) m/uL Hgb 13.4 (11.4-16.0) gm/dL Hct 39.7 (34.0-46.0) % Plt Count 226 (150-450) k/uL Comprehensive Metabolic Panel 10/16/22 Range/Units 17:02 Sodium 139 (137-145) mmol/L Potassium 4.2 (3.5-5.1) mmol/L Chloride 98 (98-107) mmol/L Carbon Dioxide 32 H (22-30) mmol/L BUN 18 H (7-17) mg/dL Creatinine 1.23 H (0.52-1.04) mg/dL Glucose 184 H (74-99) mg/dL Calcium 9.1 (8.4-10.2) mg/dL AST 30 (14-36) U/L ALT 28 (4-34) U/L Alkaline Phosphatase 111 (38-126) U/L Total Protein 6.8 (6.3-8.2) g/dL Albumin 4.0 (3.5-5.0) g/dL Current Medications Generic Name Dose Route Start Last Admin Trade Name Freq PRN Reason Stop Dose Admin Aspirin 325 mg 10/17/22 09:00 Aspirin 325 Mg Tab PO DAILY [facility] Atorvastatin Calcium 80 mg 10/17/22 00:00 10/17/22 01:13 Atorvastatin 80 Mg Tab PO 80 mg HS@0000 EMILIE Administration Citalopram Hydrobromide 10 mg 10/17/22 00:00 10/17/22 01:13 Citalopram Hydrobromide 10 Mg Tab PO 10 mg TID@0000,0900,1900 EMILIE Administration Gabapentin 600 mg 10/17/22 00:00 10/17/22 01:13 Gabapentin 300 Mg Cap PO 600 mg TID@0000,0900,1600 EMILIE Administration Heparin Sodium (Porcine) 5,000 unit 10/17/22 00:00 10/17/22 01:14 Heparin Sodium,Porcine/Pf 5,000 Unit/0.5 Ml Syringe SQ 5,000 unit Q8HR EMILIE Administration Losartan Potassium 50 mg 10/17/22 00:00 10/17/22 01:14 Losartan 50 Mg Tab PO 50 mg HS@0000 EMILIE Administration Multivitamins/Minerals 1 each 10/17/22 00:00 10/17/22 01:14 Vit A,C & C-Bmzcmh-Njeiwhix 1 Each Tab PO 1 each HS@0000 EMILIE Administration Nitroglycerin 0.4 mg 10/16/22 19:35 Nitroglycerin Sl Tabs 0.4 Mg Tab SUBLINGUAL Q5M PRN Chest Pain Trazodone HCl 200 mg 10/17/22 00:00 10/17/22 01:14 Trazodone Hcl 100 Mg Tab PO 200 mg HS@0000 EMILIE Administration Intake and Output 10/16/22 10/17/22 10/17/22 22:59 06:59 14:59 Other: Voiding Method Toilet Toilet # Voids 1 1 Weight 130.181 kg 10/16/22 17:02 10/16/22 17:02
[2022-10-17] MEDS ORDERED: TRIAMCINOLONE ACET 0.1% OINTMENT 15 GM TUBE TOPICAL PRN (10:43)
[2022-10-17] MEDS ORDERED: MUPIROCIN 2% OINT 22 GM TUBE TOPICAL PRN (10:43)
[2022-10-17] MEDS ORDERED: clonazePAM 0.5 MG TAB PO PRN (10:43)
[2022-10-17] MEDS ORDERED: GLIMEPIRIDE 2 MG TAB PO SCH (10:44)
[2022-10-17] MEDS ORDERED: LEVOTHYROXINE 75 MCG TAB PO SCH (10:44)
[2022-10-17] MEDS ORDERED: INSULIN DETEMIR (LEVEMIR) 100 UNIT/ML SYR SQ SCH (10:44)
[2022-10-17] MEDS ORDERED: LORATADINE 10 MG TAB PO SCH (10:45)
[2022-10-17 11:04] LABS: Glucose,Whole Blood 181 mg/dL (70-110)
--- NOTE | 2022-10-17 11:22 | CA ---
Transthoracic Echo Report Name: Kenzie Mcintyre Age: 67 Gender: F : 1955 Exam Date: 10/17/2022 08:41 Exam Location: [place] [facility] Ht (in): 61 Wt (lb): 287 Ordering Physician: Cindy Pedraza Attending/Referring Phys: [id number], Keila Physical Therapy Asst Yara Moran RDCS Procedure CPT: Indications: CP Cardiac Hx: Technical Quality: Fair Contrast 1: Total Dose (mL): Contrast 2: Total Dose (mL): MEASUREMENTS (Male / Female) Normal Values 2D ECHO LV Diastolic Diameter PLAX 4.5 cm 4.2 - 5.9 / 3.9 - 5.3 cm LV Systolic Diameter PLAX 3.0 cm IVS Diastolic Thickness 1.1 cm 0.6 - 1.0 / 0.6 - 0.9 cm LVPW Diastolic Thickness 0.9 cm 0.6 - 1.0 / 0.6 - 0.9 cm LV Relative Wall Thickness 0.5 LVOT Diameter 1.8 cm LA Volume 58.1 cm??? 18 - 58 / 22 - 52 cm??? M-MODE Aortic Root Diameter MM 2.7 cm AV Cusp Separation MM 1.6 cm DOPPLER AV Peak Velocity 260.6 cm/s AV Peak Gradient 27.2 mmHg AV Mean Velocity 195.6 cm/s AV Mean Gradient 17.0 mmHg AV Velocity Time Integral 58.9 cm LVOT Peak Velocity 141.2 cm/s LVOT Peak Gradient 8.0 mmHg AV Area Cont Eq pk 1.3 cm??? MV Deceleration Assumption 534.4 cm/s??? MV Area PHT 3.9 cm??? Mitral E Point Velocity 104.0 cm/s Mitral A Point Velocity 103.1 cm/s Mitral E to A Ratio 1.0 MV Deceleration Time 194.6 ms TR Peak Velocity 284.6 cm/s TR Peak Gradient 32.4 mmHg Right Atrial Pressure 8.0 mmHg Pulmonary Artery Systolic Pressu 40.4 mmHg Right Ventricular Systolic Press 40.4 mmHg PV Peak Velocity 118.2 cm/s PV Peak Gradient 5.6 mmHg FINDINGS Left Ventricle Mildly increased septal wall thickness. Left ventricular cavity size normal. Left ventricular ejection fraction is estimated at 55-60%. Right Ventricle Normal right ventricular size and function.mild pulmonary hypertension. Right Atrium Normal right atrial size. Left Atrium Mildly increased left atrial volume. Mitral Valve Mitral valve thickened. Mild mitral regurgitation. Aortic Valve Trileaflet aortic valve. Aortic valve sclerosis. The aortic valve has a mean gradient of 17mmHg, however, aortiv valve is opening and closing normally. Tricuspid Valve [id number] tricuspid regurgitation. Pulmonic Valve Structurally normal pulmonic valve. Pericardium No pericardial or pleural effusion. Aorta Normal size aortic root and proximal ascending aorta. CONCLUSIONS Left ventricular ejection fraction 55-60% Mild increased left ventricular wall thickness Mild mitral regurgitation Mild aortic stenosis Mild to moderate tricuspid regurgitation No pericardial effusion Previewed by: Dr. Hill Calderon DO (Electronically Signed) Final Date: 17 October 2022 11:21
[2022-10-17 11:25] LABS: Chol/HDL Ratio 3.44 Ratio; LDL Cholesterol,Calculated 36.8 mg/dL (0.0-131.0)
[2022-10-17] MEDS ORDERED: LINAGLIPTIN 5 MG TABLET PO SCH (13:00)
[2022-10-17] MEDS ORDERED: POTASSIUM CHLORIDE ER 10 MEQ TAB.ER.PRT PO SCH (13:00)
[2022-10-17] MEDS ORDERED: CALCIUM CARBONATE 500 MG CHEWABLE PO SCH (13:00)
[2022-10-17] MEDS ORDERED: METOPROLOL TARTRATE 50 MG TAB PO SCH (13:00)
[2022-10-17] MEDS ORDERED: FAMOTIDINE 20 MG TAB PO SCH ×2 (13:00)
[2022-10-17] MEDS ORDERED: FERROUS SULFATE 325 MG TAB PO SCH (13:00)
[2022-10-17] MEDS ORDERED: FUROSEMIDE 20 MG TAB PO SCH (13:00)
[2022-10-17 15:39] VITALS: BP 129/68; PULSE 77; RESP 22
[2022-10-17] MEDS ORDERED: FUROSEMIDE 40 MG TAB PO SCH (16:00)
[2022-10-17] MEDS ORDERED: EZETIMIBE 10 MG TAB PO SCH (16:00)
[2022-10-17] MEDS ORDERED: MAGNESIUM OXIDE 400 MG TAB PO SCH (19:00)
[2022-10-17] MEDS ORDERED: NIACIN TR 500 MG CAPLET PO SCH (19:00)
[2022-10-18] MEDS ORDERED: DAPAGLIFLOZIN PROPANEDIOL 10 MG TABLET PO SCH (09:00)
[2022-10-18] MEDS ORDERED: hydrOXYzine HCL 25 MG TAB PO SCH (09:00)
--- NOTE | 2022-10-19 08:30 | P.HPIM ---
History of Present Illness H&P Date: 10/17/22 Chief Complaint: Chest pain 67-year-old woman who presents to have evaluation for substernal chest pain that has been going on for between 1 and 2 weeks. The patient states that it seemed to develop after she used a leg compression device for her lymphedema. She states that device squeezes her legs to reduce the edema. She noted that she was developing the symptoms after that. She has not had any associated fever or chills, cough, dyspnea, diaphoresis, nausea or vomiting. Pain is intermittent and has a sensation like a fist being pressed down. EKG reveals sinus mechanism with no signs of acute ischemia chest CT: Negative for PE Laboratory data: WBC 10.0. Hemoglobin 13.4. Platelet count 226. D-dimer 0.75. Sodium 139. Potassium 4.2. BUN 18. Creatinine 1.23. Troponin negative 3. ProBNP 116. Most recent echocardiogram obtained in February 2021 revealing ejection fraction 55-60%, mild tricuspid regurgitation patient underwent Lexiscan stress test in April 2022 which was negative for ischemia patient underwent cardiac catheterization in February 2018 revealing only minimal narrowing of about 20-30% at the site of prior stent placement of LAD. Circum flex intermediate and right coronary artery are normal. Review of Systems REVIEW OF SYSTEMS: CONSTITUTIONAL: No fever, no malaise, no fatigue. HEENT: No recent visual problems or hearing problems. Denied any sore throat. CARDIOVASCULAR: No chest pain, orthopnea, PND, no palpitations, no syncope. PULMONARY: No shortness of breath, no cough, no hemoptysis. GASTROINTESTINAL: No diarrhea, no nausea, no vomiting, no abdominal pain. NEUROLOGICAL: No headaches, no weakness, no numbness. HEMATOLOGICAL: Denies any bleeding or petechiae. GENITOURINARY: Denies any burning micturition, frequency, or urgency. MUSCULOSKELETAL/RHEUMATOLOGICAL: Denies any joint pain, swelling, or any muscle pain. ENDOCRINE: Denies any polyuria or polydipsia. The rest of the 14-point review of systems is negative. Past Medical History Past Medical History: Coronary Artery Disease (CAD), Diabetes Mellitus, GERD/Reflux, Hyperlipidemia, Hypertension, Myocardial Infarction (IA), Osteoarthritis (OA), Skin Disorder Additional Past Medical History / Comment(s): fell 8-27-17 fx rt humerus/sling. ECZEMA, pt stated she needs sterile sheets- has had rash and swelling in past to detergents/bleach used ., IBS, DDD, gastroparesis, carapal tunnel lisette., kidney stones. Last Myocardial Infarction Date:: IA X 3 LAST ONE 2006 History of Any Multi-Drug Resistant Organisms: MRSA Date of last positivie culture/infection: 01/01/16 MDRO Source:: right leg Past Surgical History: Appendectomy, Section, Cholecystectomy, Heart Catheterization With Stent, Hysterectomy, Tonsillectomy Additional Past Surgical History / Comment(s): breast biopsy, D & C x2, tumor right shoulder removed; lithotripsy Past Anesthesia/Blood Transfusion Reactions: Previous Problems w/ Anesthesia Additional Past Anesthesia/Blood Transfusion Reaction / Comment(s): TENDS TO HAVE PANIC ATTACKS WHEN COMING OUT OF ANESTHESIA Date of Last Stent Placement:: 2006 Past Psychological History: Anxiety, Depression, Panic Disorder, PTSD Additional Psychological History / Comment(s): pt lives alone in home. was to start home care services 03-18-18 thru [facility] but was admitted to hospital. Smoking Status: Former smoker Past Alcohol Use History: None Reported Additional Past Alcohol Use History / Comment(s): started smoking 1970,quit smoking 1982, smoked 1-3ppd Past Drug Use History: None Reported - Past Family History Mother Family Medical History: Cancer Father Family Medical History: Coronary Artery Disease (CAD), Myocardial Infarction (IA) Medications and Allergies Home Medications Medication Instructions Recorded Confirmed Type Calcium Carbonate [Calcium] 600 mg PO DAILY@1300 01/01/16 10/16/22 History Multivit-Min/Iron/Folic/Lutein 1 tab PO HS@0000 01/01/16 10/16/22 History [Centrum Silver Women Tablet] Ferrous Sulfate [Feosol] 325 mg PO DAILY@1300 06/05/16 10/16/22 History Furosemide [Lasix] 40 mg PO BID@0900,1600 07/27/16 10/16/22 History Potassium Chloride [Klor-Con 10 ER] 10 meq PO DAILY@1300 07/27/16 10/16/22 History Acetaminophen [Tylenol 8 Hour] 650 mg PO Q8H PRN 12/26/16 10/16/22 History Gabapentin 600 mg PO TID@0000,0900,1600 12/26/16 10/16/22 History Dapagliflozin Propanediol [Farxiga] 10 mg PO DAILY@0900 04/29/17 10/16/22 History traZODone HCL 200 mg PO HS@0000 04/29/17 10/16/22 History sitaGLIPtin [Januvia] 100 mg PO DAILY@1300 07/24/17 10/16/22 History Glimepiride [Amaryl] 3 mg PO DAILY@0900 02/20/18 10/16/22 History Loratadine [Claritin] 10 mg PO DAILY@0902/20/18 10/16/22 History Magnesium Oxide [Mag-Ox] 400 mg PO DAILY@19002/20/18 10/16/22 History Aspirin 81 mg PO DAILY@1300 03/15/18 10/16/22 History Atorvastatin Calcium [Lipitor] 80 mg PO HS@0000 03/15/18 10/16/22 History Ezetimibe [Zetia] 10 mg PO DAILY@1600 03/15/18 10/16/22 History Citalopram Hydrobromide [CeleXA] 10 mg PO TID@0000,0900,189910/16/22 10/16/22 History Famotidine [Pepcid] 20 mg PO BID@0000,1300 10/16/22 10/16/22 History Furosemide [Lasix] 20 mg PO DAILY@129910/16/22 10/16/22 History Insulin Degludec [Tresiba 51 units SQ DAILY@0910/16/22 10/16/22 History Flextouch U-100 Pen] Levothyroxine Sodium [Synthroid] 75 mcg PO DAILY@0910/16/22 10/16/22 History Losartan Potassium [Cozaar] 50 mg PO HS@0000 10/16/22 10/16/22 History Metoprolol Tartrate [Lopressor] 50 mg PO DAILY@1300 10/16/22 10/16/22 History Mupirocin 2% Oint [Bactroban 2% 1 applic TOPICAL BID PRN 10/16/22 10/16/22 History Oint] Niacinamide 500 mg PO BID@0900,1900 10/16/22 10/16/22 History Triamcinolone 0.1% Ointment 1 applic TOPICAL BID PRN 10/16/22 10/16/22 History [Kenalog 0.1% Ointment] calcium polycarbophiL [Fiber-Lax] 625 mg PO HS@0000 10/16/22 10/16/22 History clonazePAM 0.5 mg PO DAILY PRN 10/16/22 10/16/22 History hydrOXYzine HCL [Atarax] 25 mg PO DAILY@0900 10/16/22 10/16/22 History Allergies Allergy/AdvReac Type Severity Reaction Status Date / Time ciprofloxacin [From Cipro] Allergy Anaphylaxis Verified 10/16/22 17:53 diazepam [From Valium] Allergy Rash/Hives Verified 10/16/22 17:53 metronidazole [From Flagyl] Allergy Anaphylaxis Verified 10/16/22 17:53 Sulfa (Sulfonamide Allergy Rash/Hives Verified 10/16/22 17:53 Antibiotics) doxycycline AdvReac Nausea & Verified 10/16/22 17:53 Vomiting & Diarrhea metoclopramide HCl AdvReac Diarrhea Verified 10/16/22 17:53 [From Reglan] [facility] USED AT [facility] Allergy Unknown Uncoded 10/16/22 17:29 HOSPITAL Physical Exam Vitals: Vital Signs Temp Pulse Pulse Resp BP BP Pulse Ox 10/17/22 08:33 95 10/17/22 07:02 98.4 F 18 104/66 95 10/17/22 03:54 79 16 10/17/22 02:02 97.8 F 69 18 124/54 91 L 10/16/22 22:33 79 16 10/16/22 20:41 97.7 F 79 16 137/81 93 L 10/16/22 18:15 69 18 127/67 93 L 10/16/22 17:07 69 16 128/53 95 10/16/22 15:56 98.0 F 71 18 117/71 94 L Intake and Output 10/16/22 10/17/22 10/17/22 22:59 06:59 14:59 Intake Total 118 Balance 118 Intake: Oral 118 Other: Voiding Method Toilet Toilet # Voids 1 1 Weight 130.181 kg PHYSICAL EXAMINATION: GENERAL: The patient is alert and oriented x3, not in any acute distress. Well developed, well nourished. HEENT: Pupils are round and equally reacting to light. EOMI. No scleral icterus. No conjunctival pallor. Normocephalic, atraumatic. No pharyngeal erythema. No thyromegaly. CARDIOVASCULAR: S1 and S2 present. No murmurs, rubs, or gallops. PULMONARY: Chest is clear to auscultation, no wheezing or crackles. ABDOMEN: Soft, nontender, nondistended, normoactive bowel sounds. No palpable organomegaly. MUSCULOSKELETAL: No joint swelling or deformity. EXTREMITIES: No cyanosis, clubbing, or pedal edema. NEUROLOGICAL: Gross neurological examination did not reveal any focal deficits. SKIN: No rashes. Results CBC & Chem 7: 10/16/22 17:02 10/16/22 17:02 Labs: Abnormal Lab Results - Last 24 Hours (Table) 10/16/22 10/16/22 10/16/22 Range/Units 17:02 17:02 17:02 D-Dimer 0.75 H (<0.60) mg/L FEU Carbon Dioxide 32 H (22-30) mmol/L BUN 18 H (7-17) mg/dL Creatinine 1.23 H (0.52-1.04) mg/dL Glucose 184 H (74-99) mg/dL POC Glucose (mg/dL) (70-110) mg/dL Triglycerides 270.00 H (0.00-149.00) mg/dL VLDL Cholesterol, Calc 54.00 H (5.00-40.00) mg/dL HDL Cholesterol 37.20 L (40.00-60.00) mg/dL 10/17/22 Range/Units 11:03 D-Dimer (<0.60) mg/L FEU Carbon Dioxide (22-30) mmol/L BUN (7-17) mg/dL Creatinine (0.52-1.04) mg/dL Glucose (74-99) mg/dL POC Glucose (mg/dL) 181 H (70-110) mg/dL Triglycerides (0.00-149.00) mg/dL VLDL Cholesterol, Calc (5.00-40.00) mg/dL HDL Cholesterol (40.00-60.00) mg/dL Thrombosis Risk Factor Assmnt - Choose All That Apply Any of the Below Risk Factors Present?: Yes Each Factor Represents 1 point: Acute IA, Obesity (BMI >25) Other Risk Factors: Yes Each Risk Factor Represents 2 Points: Age 61-74 years Other congenital or acquired thrombophilia - If yes, enter type in comment: No Thrombosis Risk Factor Assessment Total Risk Factor Score: 4 Thrombosis Risk Factor Assessment Level: Moderate Risk Assessment and Plan Assessment: 1. Chest pain rule out acute coronary syndrome - Patient is to be admitted to telemetry; monitor EKG and trend troponin - Patient's last echocardiogram completed in 2020 reveals an EF of 55-60% with mild TR, patient underwent Lexiscan stress test in April 2022 which was negative - Cardiology is consulted for further recommendations 2. Hypertension; losartan 50 mg daily at bedtime and metoprolol 50 mg daily, Lasix 40 mg twice a day 3. Hyperlipidemia; Zetia 10 mg daily along with Lipitor 80 mg by mouth daily at bedtime 4. Diabetes mellitus 2; patient takes Farsi get 10 mg daily; Amaryl 3 mg daily along with Tarceva 51 units daily 5. Hypothyroidism; levothyroxine 75 MCG daily
== END 2022-10-17 16:10 | disposition home or self-care (01) ==
LOC: EC 15:46 → 6NMEDSUR 19:35
PROVIDERS: ADMIT Hospitalist; ATTEND Hospitalist
DX: R07.89 Other chest pain (principal); I89.0 Lymphedema, not elsewhere classified; I25.10 Atherosclerotic heart disease of native coronary artery without angina pectoris; I10 Essential (primary) hypertension; I25.2 Old myocardial infarction; M19.90 Unspecified osteoarthritis, unspecified site; I08.3 Combined rheumatic disorders of mitral, aortic and tricuspid valves; I87.2 Venous insufficiency (chronic) (peripheral); E78.5 Hyperlipidemia, unspecified; E03.9 Hypothyroidism, unspecified; K21.9 Gastro-esophageal reflux disease without esophagitis; L30.9 Dermatitis, unspecified; E11.43 Type 2 diabetes mellitus with diabetic autonomic (poly)neuropathy; K31.84 Gastroparesis; K58.9 Irritable bowel syndrome, unspecified; E66.9 Obesity, unspecified; Z68.43 Body mass index [BMI] 50.0-59.9, adult; G56.03 Carpal tunnel syndrome, bilateral upper limbs; F41.0 Panic disorder [episodic paroxysmal anxiety]; F32.A Depression, unspecified; F43.10 Post-traumatic stress disorder, unspecified; F41.9 Anxiety disorder, unspecified; Z79.84 Long term (current) use of oral hypoglycemic drugs; Z79.82 Long term (current) use of aspirin; Z79.4 Long term (current) use of insulin; Z79.890 Hormone replacement therapy; Z79.899 Other long term (current) drug therapy; Z88.1 Allergy status to other antibiotic agents; Z88.2 Allergy status to sulfonamides; Z88.8 Allergy status to other drugs, medicaments and biological substances; Z91.048 Other nonmedicinal substance allergy status; Z87.81 Personal history of (healed) traumatic fracture; Z87.442 Personal history of urinary calculi; Z86.14 Personal history of Methicillin resistant Staphylococcus aureus infection; Z90.49 Acquired absence of other specified parts of digestive tract; Z90.710 Acquired absence of both cervix and uterus; Z95.5 Presence of coronary angioplasty implant and graft; Z98.891 History of uterine scar from previous surgery; Z98.890 Other specified postprocedural states; Z87.891 Personal history of nicotine dependence; Z82.49 Family history of ischemic heart disease and other diseases of the circulatory system; Z80.9 Family history of malignant neoplasm, unspecified
CPT/HCPCS: 96372; 99285; 36415; 94760; 93306; 85379; 83880; 80061; 80053; 82150; 83690; 83735; 84484 ×2; 85025; 85610; 85730; 71275; G0378 ×2; Q9967; J1644

== ENCOUNTER → 2022-12-11 | Outpatient (CLI) | payer MEDICARE, OTHER ==
[2022-12-11 22:14] LABS: Chol/HDL Ratio 2.99 Ratio; LDL Cholesterol,Calculated 47.9 mg/dL (0.0-131.0)
[2022-12-11 22:15] LABS: ALT 25 U/L (8-44); AST 23 U/L (13-35); African American GFR (CKD) 62.4 (60.0-200.0); Albumin 4.2 g/dL (3.8-4.9); Albumin/Globulin Ratio 1.69 (1.60-3.17); Alkaline Phosphatase 93 U/L (41-126); BUN/Creat Ratio 19.72 Ratio (12.00-20.00); Blood Urea Nitrogen 21.3 mg/dL (9.0-27.0); Calcium 9.5 mg/dL (8.7-10.3); Carbon Dioxide 29.1 mmol/L (20.0-27.5); Chloride 100 mmol/L (96-109); Globulin 2.5 g/dL (1.6-3.3); Glucose 137 mg/dL (70-110); Non-African American GFR(CKD) 53.8 (60.0-200.0); Potassium 4.4 mmol/L (3.5-5.5); Sodium 143 mmol/L (135-145); Total Protein 6.7 g/dL (6.2-8.2)
[2022-12-11 23:15] LABS: Microalbumin Creatinine Ratio <30 mg/g Creat (0-30); Urine Creatinine 59.6 mg/dL (28.0-217.0)
== END | disposition home or self-care (01) ==
LOC: LABWHC1 12:05
PROVIDERS: ATTEND Family Medicine
DX: E11.65 Type 2 diabetes mellitus with hyperglycemia (principal); E03.9 Hypothyroidism, unspecified; E55.9 Vitamin D deficiency, unspecified
CPT/HCPCS: 36415; 80053; 80061; 82043; 82306; 82570; 83036; 84439; 84443

== ENCOUNTER → 2023-05-29 | Outpatient (CLI) | payer MEDICARE, OTHER ==
[2023-05-29 16:35] LABS: ALT 22 U/L (8-44); AST 24 U/L (13-35); Alkaline Phosphatase 95 U/L (41-126); BUN/Creat Ratio 13.33 Ratio (12.00-20.00); Calcium 9.4 mg/dL (8.7-10.3); Carbon Dioxide 30.7 mmol/L (21.6-31.8); Chloride 100 mmol/L (96-109); Chol/HDL Ratio 2.92 Ratio; Globulin 2.5 g/dL (1.6-3.3); Glucose 115 mg/dL (70-110); LDL Cholesterol,Calculated 44.2 mg/dL (0.0-131.0); Potassium 4.6 mmol/L (3.5-5.5); Sodium 143 mmol/L (135-145); T4, Free (Free Thyroxine) 1.34 ng/dL (0.80-1.80); Total Bilirubin 0.8 mg/dL (0.3-1.2); Total Protein 6.5 g/dL (6.2-8.2)
[2023-05-29 18:43] LABS: Microalbumin Creatinine Ratio <22 mg/g Cr (0-30)
== END | disposition home or self-care (01) ==
LOC: LABWHC1 10:03
PROVIDERS: ATTEND Internal Medicine
DX: E11.65 Type 2 diabetes mellitus with hyperglycemia (principal); E03.9 Hypothyroidism, unspecified; E55.9 Vitamin D deficiency, unspecified
CPT/HCPCS: 36415; 80053; 80061; 82043; 82306; 82570; 83036; 84439; 84443

== ENCOUNTER → 2023-10-31 | Outpatient (CLI) | payer MEDICARE, OTHER ==
[2023-10-31 14:10] LABS: ALT 21 U/L (8-44); AST 24 U/L (13-35); Albumin 4.3 g/dL (3.8-4.9); Albumin/Globulin Ratio 1.72 Ratio (1.60-3.17); Alkaline Phosphatase 118 U/L (41-126); BUN/Creat Ratio 12.92 Ratio (12.00-20.00); Blood Urea Nitrogen 15.5 mg/dL (9.0-27.0); Calcium 9.6 mg/dL (8.7-10.3); Carbon Dioxide 26.9 mmol/L (21.6-31.8); Chloride 99 mmol/L (96-109); Chol/HDL Ratio 3.23 Ratio; Globulin 2.5 g/dL (1.6-3.3); Glucose 105 mg/dL (70-110); LDL Cholesterol,Calculated 52.4 mg/dL (0.0-131.0); Sodium 142 mmol/L (135-145); T4, Free (Free Thyroxine) 1.25 ng/dL (0.80-1.80); Total Bilirubin 0.7 mg/dL (0.3-1.2); Total Protein 6.8 g/dL (6.2-8.2)
== END | disposition home or self-care (01) ==
LOC: LABWHC1 10:04
PROVIDERS: ATTEND Internal Medicine
DX: E11.65 Type 2 diabetes mellitus with hyperglycemia (principal); E03.9 Hypothyroidism, unspecified; E55.9 Vitamin D deficiency, unspecified
CPT/HCPCS: 36415; 80053; 80061; 82043; 82306; 82570; 83036; 84439; 84443

== ENCOUNTER → 2024-02-10 | Outpatient (CLI) | payer MEDICARE, OTHER ==
[2024-02-10 21:43] LABS: Microalbumin Creatinine Ratio <71 mg/g Cr (0-30); Urine Creatinine 16.8 mg/dL (28.0-217.0)
== END | disposition home or self-care (01) ==
LOC: LABWHC1 14:29
PROVIDERS: ATTEND Internal Medicine
DX: E11.65 Type 2 diabetes mellitus with hyperglycemia (principal)
CPT/HCPCS: 36415; 82043; 82570; 83036

== ENCOUNTER → 2024-05-20 | Outpatient (CLI) | payer MEDICARE, OTHER ==
[2024-05-20 18:06] LABS: Basophils # (A) 0.04 X 10*3/uL (0.00-0.10); Basophils % (A) 0.4 %; Eosinophils # (A) 0.27 X 10*3/uL (0.04-0.35); Eosinophils % (A) 2.6 %; HCT 40.9 % (37.2-46.3); HGB 13.2 g/dL (12.0-15.0); Lymphocytes # (A) 1.75 X 10*3/uL (0.90-5.00); Lymphocytes % (A) 16.6 %; MCH 30.9 pg (27.0-32.0); MCHC 32.3 g/dL (32.0-37.0); MCV 95.8 FL (80.0-97.0); Mean Platelet Volume 9.2 FL (9.5-12.2); Monocytes # (A) 0.62 X 10*3/uL (0.20-1.00); Monocytes % (A) 5.9 %; NRBC Per 100 WBC 0 X 10*3/uL (0.00-0.01); Neutrophils # (A) 7.82 X 10*3/uL (1.80-7.70); Neutrophils % (A) 73.9 %; Platelet Count 246 X 10*3/uL (140-440); RBC 4.27 X 10*6/uL (4.10-5.20); RDW 13.8 % (11.5-14.5); WBC 10.56 X 10*3/uL (4.50-10.00)
[2024-05-20 20:15] LABS: ALT 20 U/L (8-44); AST 22 U/L (13-35); Albumin/Globulin Ratio 1.74 Ratio (1.60-3.17); Alkaline Phosphatase 112 U/L (41-126); Blood Urea Nitrogen 15.1 mg/dL (9.0-27.0); Calcium 8.9 mg/dL (8.7-10.3); Carbon Dioxide 28.6 mmol/L (21.6-31.8); Chloride 101 mmol/L (96-109); Globulin 2.3 g/dL (1.6-3.3); Glucose 143 mg/dL (70-110); LDL Cholesterol,Calculated 46.2 mg/dL (0.0-131.0); Potassium 3.9 mmol/L (3.5-5.5); Sodium 142 mmol/L (135-145); T4, Free (Free Thyroxine) 1.21 ng/dL (0.80-1.80); Total Bilirubin 0.5 mg/dL (0.3-1.2); Total Protein 6.3 g/dL (6.2-8.2)
[2024-05-21 03:11] LABS: Microalbumin Creatinine Ratio <41 mg/g Cr (0-30); Urine Creatinine 29.6 mg/dL (28.0-217.0)
== END | disposition home or self-care (01) ==
LOC: LABWHC1 13:37
PROVIDERS: ATTEND Nurse Practitioner Gerontology
DX: E11.65 Type 2 diabetes mellitus with hyperglycemia (principal); E55.9 Vitamin D deficiency, unspecified; E03.9 Hypothyroidism, unspecified; Z79.4 Long term (current) use of insulin
CPT/HCPCS: 36415; 80053; 80061; 82043; 82306; 82570; 83036; 84439; 84443; 85025

== ENCOUNTER 2024-07-11 12:48 | Inpatient (IN) | payer MEDICARE, OTHER ==
--- NOTE | 2024-07-11 13:36 | ED ---
General Adult HPI - General Chief complaint: Extremity Problem,Nontraumatic Stated complaint: leg swelling Time Seen by Provider: 07/11/24 12:55 Source: patient Mode of arrival: wheelchair Limitations: no limitations - History of Present Illness Initial comments: Patient is a 68-year-old female presenting today for bilateral lower extremity swelling. States that about a week ago she got stuck between her railing of her bed and her mattress and broke her recliner so has not been using it to elevate her feet as she usually would be. Since then she has worsening bilateral lower extremity swelling and redness around her ankles. She endorses centralized mild chest pressure, 3 out of 10 that began on Thursday she states she assumed secondary to anxiety with associated shortness of breath that she also attributes to anxiety but was sent in by her PCP today for evaluation for blood clots. - Related Data Home Medications Medication Instructions Recorded Confirmed Calcium Carbonate [Calcium] 600 mg PO DAILY@1400 01/01/16 07/11/24 Multivit-Min/Iron/Folic/Lutein 1 tab PO HS@0000 01/01/16 07/11/24 [Centrum Silver Women Tablet] Ferrous Sulfate [Feosol] 325 mg PO DAILY@1400 06/05/16 07/11/24 Furosemide [Lasix] 40 mg PO BID@0900,1600 07/27/16 07/11/24 Acetaminophen [Tylenol 8 Hour] 650 mg PO Q8H PRN 12/26/16 07/11/24 Gabapentin 600 mg PO TID@0000,0900,1600 12/26/16 07/11/24 Dapagliflozin Propanediol [Farxiga] 10 mg PO DAILY@1600 04/29/17 07/11/24 traZODone HCL 200 mg PO HS@0000 04/29/17 07/11/24 sitaGLIPtin [Januvia] 100 mg PO DAILY@1400 07/24/17 07/11/24 Glimepiride [Amaryl] 1 mg PO DAILY@1400 02/20/18 07/11/24 Loratadine [Claritin] 10 mg PO DAILY@0900 02/20/18 07/11/24 Aspirin 81 mg PO DAILY@1400 03/15/18 07/11/24 Atorvastatin Calcium [Lipitor] 80 mg PO HS@0000 03/15/18 07/11/24 Ezetimibe [Zetia] 10 mg PO DAILY@1600 03/15/18 07/11/24 Citalopram Hydrobromide [CeleXA] 10 mg PO TID@0900,1600,1900 10/16/22 07/11/24 Famotidine [Pepcid] 20 mg PO BID@0000,1400 10/16/22 07/11/24 Furosemide [Lasix] 40 mg PO DAILY@1400 10/16/22 07/11/24 Insulin Degludec [Tresiba 52 units SQ DAILY@0900 10/16/22 07/11/24 Flextouch U-100 Pen] Levothyroxine Sodium [Synthroid] 75 mcg PO DAILY@0900 10/16/22 07/11/24 Mupirocin 2% Oint [Bactroban 2% 1 applic TOPICAL BID PRN 10/16/22 07/11/24 Oint] calcium polycarbophiL [Fiber-Lax] 625 mg PO HS@0000 10/16/22 07/11/24 clonazePAM 0.5 mg PO DIRECTED PRN 10/16/22 07/11/24 hydrOXYzine HCL [Atarax] 25 mg PO DAILY@0900 PRN 10/16/22 07/11/24 Acetaminophen [Tylenol 8 Hour] 650 mg PO HS@0000 07/11/24 07/11/24 Ammonium Lactate Lotion 1 applic TOPICAL BID PRN 07/11/24 07/11/24 [Lac-Hydrin 12% Lotion] Aspercream 4% Roll On 1 applic TOPICAL DAILY PRN 07/11/24 07/11/24 Bactine Max 1 applic TOPICAL DAILY PRN 07/11/24 07/11/24 Calcium Acetate-Aluminum Sulf 1 packet TOPICAL DAILY PRN 07/11/24 07/11/24 [Domeboro Packet] Cholecalciferol [Vitamin D3 (10 15 mcg PO DAILY@1400 07/11/24 07/11/24 Mcg = 400 Iu)] Clobetasol Propionate [Temovate 1 applic TOPICAL BID PRN 07/11/24 07/11/24 0.05% Cream] Glimepiride [Amaryl] 0.5 mg PO DAILY@1600 07/11/24 07/11/24 Magnesium Oxide [Mag-Ox] 250 mg PO HS@1900 07/11/24 07/11/24 Pentoxifylline [TRENtal] 400 mg PO TID@0000,0900,1600 07/11/24 07/11/24 Potassium Chloride 10 meq PO DAILY@1400 07/11/24 07/11/24 busPIRone HCl [Buspar] 10 mg PO BID@0900,1900 07/11/24 07/11/24 Previous Rx's Medication Instructions Recorded Cephalexin [Keflex] 500 mg PO Q8HR 7 Days #21 cap 07/13/24 Allergies Allergy/AdvReac Type Severity Reaction Status Date / Time ciprofloxacin [From Cipro] Allergy Anaphylaxis Verified 07/12/24 18:04 diazepam [From Valium] Allergy Rash/Hives Verified 07/12/24 18:04 metronidazole [From Flagyl] Allergy Anaphylaxis Verified 07/12/24 18:04 Sulfa (Sulfonamide Allergy Rash/Hives Verified 07/12/24 18:04 Antibiotics) doxycycline AdvReac Nausea & Verified 07/12/24 18:04 Vomiting & Diarrhea metoclopramide HCl AdvReac Diarrhea Verified 07/12/24 18:04 [From Reglan] LINENS USED AT [facility] Allergy Rash/Hives Uncoded 07/12/24 18:04 HOSPITAL Review of Systems ROS Statement: Those systems with pertinent positive or pertinent negative responses have been documented in the HPI. ROS Other: All systems not noted in ROS Statement are negative. Past Medical History Past Medical History: Coronary Artery Disease (CAD), Diabetes Mellitus, GERD/Reflux, Hyperlipidemia, Hypertension, Myocardial Infarction (PR), Oste oarthritis (OA), Skin Disorder Additional Past Medical History / Comment(s): fell 03-15-17 fx rt humerus/sling. ECZEMA, pt stated she needs sterile sheets- has had rash and swelling in past to detergents/bleach used ., IBS, DDD, gastroparesis, carapal tunnel lisette., kidney stones. Last Myocardial Infarction Date:: PR X 3 LAST ONE 2006 History of Any Multi-Drug Resistant Organisms: MRSA Date of last positivie culture/infection: 01/01/16 MDRO Source:: right leg Past Surgical History: Appendectomy, Section, Cholecystectomy, Heart Catheterization With Stent, Hysterectomy, Tonsillectomy Additional Past Surgical History / Comment(s): breast biopsy, D & C x2, tumor right shoulder removed; lithotripsy Past Anesthesia/Blood Transfusion Reactions: Previous Problems w/ Anesthesia Additional Past Anesthesia/Blood Transfusion Reaction / Comment(s): TENDS TO HAVE PANIC ATTACKS WHEN COMING OUT OF ANESTHESIA Date of Last Stent Placement:: 2006 Past Psychological History: Anxiety, Depression, Panic Disorder, PTSD Smoking Status: Former smoker Past Alcohol Use History: None Reported Past Drug Use History: None Reported - Past Family History Mother Family Medical History: Cancer Father Family Medical History: Coronary Artery Disease (CAD), Myocardial Infarction (PR) General Exam - General Exam Comments Initial Comments: PE: CONSTITUTIONAL: No apparent distress, well appearing SKIN: Warm, dry, no jaundice, hives or petechiae. Circumferential erythema of the bilateral ankles, few weeping lesions EYES: Pupils are equally round, extraocular movements intact without nystagmus, clear conjunctiva, non-icteric sclera HENT: Normocephalic, atraumatic, moist mucus membranes, oropharynx clear without exudates NECK: , Full range of motion, normal appearance PULMONARY: Clear to auscultation without wheezes, rhonchi, or rales, normal excursion, no accessory muscle use and no stridor CARDIOVASCULAR: Regular rate, rhythm, normal S1 and S2. No appreciated murmurs, rubs or gallops. Strong radial pulses with intact distal perfusion. 2-3+ bilateral lower extremity pitting edema GASTROINTESTINAL: Soft, active bowel sounds throughout, non-tender, non- distended, no palpable masses, no rebound or guarding. No hepatosplenomegaly MUSCULOSKELETAL: Extremities have no gross deformity, or signs of injury NEUROLOGIC:_a/o x 3, GCS 15, normal mentation and speech. Moves all extremities x 4 without motor or sensory deficit PSYCHIATRIC: Mildly anxious mood and affect, thought process is clear and linear Limitations: no limitations Course Vital Signs 07/11/24 07/11/24 07/11/24 12:50 14:05 15:14 Temperature 98.2 F 97.8 F Pulse Rate 101 H 84 76 Respiratory 18 18 16 Rate Blood Pressure 153/99 150/63 135/72 O2 Sat by Pulse 99 96 95 Oximetry 07/11/24 07/11/24 07/11/24 17:10 17:50 19:05 Temperature 97.6 F Pulse Rate 74 89 92 Respiratory 18 16 18 Rate Blood Pressure 137/69 150/61 187/78 O2 Sat by Pulse 94 L 95 95 Oximetry 07/12/24 07/12/24 01:14 03:34 Temperature Pulse Rate 68 92 Respiratory 18 18 Rate Blood Pressure 140/68 134/61 O2 Sat by Pulse 97 94 L Oximetry EKG Findings - EKG Comments: EKG Findings:: Sinus rhythm, rate 89 bpm, NH interval 163 ms, QRS duration 96 m s, QT/QTc 372/14 ms, normal axis, no ST elevations or depressions, no arrhythmia Medical Decision Making - Medical Decision Making Was pt. sent in by a medical professional or institution (, RASHI, BELT MAKER HELPER, urgent care, hospital, or [facility]...) When possible be specific Patient sent in by PCP Did you speak to anyone other than the patient for history (EMS, parent, family, police, friend...)? What history was obtained from this source @ -No Did you review nursing and triage notes (agree or disagree)? Why? @ -I reviewed and agree with nursing and triage notes Were old charts reviewed (outside hosp., previous admission, EMS record, old EKG, old radiological studies, urgent care reports/EKG's, [facility] records)? Report findings Medical records reviewed-last echocardiogram showed an ejection fraction of 55 to 60% in September 2022 Differential Diagnosis (chest pain, altered mental status, abdominal pain women, abdominal pain men, vaginal bleeding, weakness, fever, dyspnea, syncope, headache, dizziness, GI bleed, back pain, seizure, CVA, palpatations, mental health, musculoskeletal)? Diagnosis right throughout our top considerations include DVT/PE, ACS, PNA congestive heart failure, cellulitis is not an all-inclusive list EKG interpreted by me (3pts min.). @ -As above X-rays interpreted by me (1pt min.). @ -None done CT interpreted by me (1pt min.). No pulmonary embolism, no pleural effusions What testing was considered but not performed or refused? (CT, X-rays, U/S, labs)? Why? @ -None What meds were considered but not given or refused? Why? @ -None Did you discuss the management of the patient with other professionals ( professionals i.e. RASHI Pace, BELT MAKER HELPER, lab, RT, psych nurse, psych social worker, medical management trainer, teacher, mounted police officer, top case assembler)? Give summary @ -No Was smoking cessation discussed for >3mins.? @ -No Was critical care preformed (if so, how long)? @ -No Were there social determinants of health that impacted care today? How? (Homelessness, low income, unemployed, alcoholism, drug addiction, transportation, low edu. Level, literacy, decrease access to med. care, snf, rehab)? @ -No Was there de-escalation of care discussed even if they declined (Discuss DNR or withdrawal of care, Hospice)? @ -No What co-morbidities impacted this encounter? (DM, HTN, Smoking, COPD, CAD, Cancer, CVA, ARF, Chemo, Hep., AIDS, mental health diagnosis, sleep apnea, morbid obesity)? @Obesity, mental health diagnoses, Was patient admitted / discharged? Hospital course, mention meds given and route, prescriptions, significant lab abnormalities, going to OR and other pertinent info. @ -Hospital course This is a pleasant 68-year-old female presenting today for bilateral lower extremity swelling, concern by her PCP for DVT. Patient resting comfortably on assessment, mildly anxious. Bilateral lower extremity edema with circ umferential erythema and small amount of clear fluid weeping from bilateral lower extremities.findings most consistent with cellulitis however will obtain D-dimer in addition to comprehensive labs, EKG, due to patient's endorsed chest pain and shortness of breath, and chest imaging based on D-dimer. Patient does state that her chest discomfort has been ongoing since Thursday and feels like "anxiety". US showed no DVT, CT showed no evidence of PE. Given patient's complex past medical history, history of diabetes and limited ability to care for self I plan to admit for cellulitis. Patient agreeable with plan of admission. Case was discussed with Dr. Cunningham who kindly except patient for admission. Undiagnosed new problem with uncertain prognosis? @ -No Drug Therapy requiring intensive monitoring for toxicity (Heparin, Nitro, Insulin, Cardizem)? @ -No Were any procedures done? @ -No Diagnosis/symptom? @Cellulitis chest pain Acute, or Chronic, or Acute on Chronic? @Acute Uncomplicated (without systemic symptoms) or Complicated (systemic symptoms)? Complicated Side effects of treatment? @ -No Exacerbation, Progression, or Severe Exacerbation? @ -No Poses a threat to life or bodily function? How? (Chest pain, USA, PR, pneumonia, PE, COPD, DKA, ARF, appy, cholecystitis, CVA, Diverticulitis, Homicidal, Suicidal, threat to staff... and all critical care pts) @Yes, potentially - Lab Data Result diagrams: 07/11/24 13:48 07/11/24 13:48 Lab Results 07/11/24 07/11/24 07/11/24 Range/Units 13:48 13:48 13:48 WBC 11.7 H (3.8-10.6) k/uL RBC 4.20 (3.80-5.40) m/uL Hgb 13.0 (11.4-16.0) gm/dL Hct 39.8 (34.0-46.0) % MCV 94.8 (80.0-100.0) fL MCH 31.0 (25.0-35.0) pg MCHC 32.7 (31.0-37.0) g/dL RDW 13.6 (11.5-15.5) % Plt Count 246 (150-450) k/uL MPV 6.8 Neutrophils % 71 % Lymphocytes % 19 % Monocytes % 4 % Eosinophils % 4 % Basophils % 0 % Neutrophils # 8.3 H (1.3-7.7) k/uL Lymphocytes # 2.2 (1.0-4.8) k/uL Monocytes # 0.5 (0-1.0) k/uL Eosinophils # 0.4 (0-0.7) k/uL Basophils # 0.0 (0-0.2) k/uL PT 10.3 (10.0-12.5) sec INR 0.9 (<1.2) APTT 23.4 (22.0-30.0) sec D-Dimer 0.76 H (<0.60) mg/L FEU Sodium 140 (137-145) mmol/L Potassium 3.8 (3.5-5.1) mmol/L Chloride 102 (98-107) mmol/L Carbon Dioxide 30 (22-30) mmol/L Anion Gap 8 mmol/L BUN 16 (7-17) mg/dL Creatinine 0.92 (0.52-1.04) mg/dL Est GFR (CKD-EPI)AfAm 75 (>60 ml/min/1.73 sqM) Est GFR (CKD-EPI)NonAf 65 (>60 ml/min/1.73 sqM) Glucose 144 H (74-99) mg/dL POC Glucose (mg/dL) (70-110) mg/dL POC Glu Factory Maintenance Manager ID Estimated Ave Glu mg/dL mg/dL Hemoglobin A1c (<=6.0) % Lactic Ac Sepsis Rflx Plasma Lactic Acid Jose L (0.7-2.0) mmol/L Calcium 9.3 (8.4-10.2) mg/dL Magnesium 1.9 (1.6-2.3) mg/dL Total Bilirubin 0.7 (0.2-1.3) mg/dL AST 34 (14-36) U/L ALT 31 (4-34) U/L Alkaline Phosphatase 115 (38-126) U/L Troponin I (0.000-0.034) ng/mL NT-Pro-B Natriuret Pep 129 pg/mL Total Protein 6.5 (6.3-8.2) g/dL Albumin 4.0 (3.5-5.0) g/dL Influenza Type A (PCR) (Not Detectd) Influenza Type B (PCR) (Not Detectd) RSV (PCR) (Not Detectd) SARS-CoV-2 (PCR) (Not Detectd) 07/11/24 07/11/24 07/11/24 Range/Units 13:48 13:48 13:48 WBC (3.8-10.6) k/uL RBC (3.80-5.40) m/uL Hgb (11.4-16.0) gm/dL Hct (34.0-46.0) % MCV (80.0-100.0) fL MCH (25.0-35.0) pg MCHC (31.0-37.0) g/dL RDW (11.5-15.5) % Plt Count (150-450) k/uL MPV Neutrophils % % Lymphocytes % % Monocytes % % Eosinophils % % Basophils % % Neutrophils # (1.3-7.7) k/uL Lymphocytes # (1.0-4.8) k/uL Monocytes # (0-1.0) k/uL Eosinophils # (0-0.7) k/uL Basophils # (0-0.2) k/uL PT (10.0-12.5) sec INR (<1.2) APTT (22.0-30.0) sec D-Dimer (<0.60) mg/L FEU Sodium (137-145) mmol/L Potassium (3.5-5.1) mmol/L Chloride (98-107) mmol/L Carbon Dioxide (22-30) mmol/L Anion Gap mmol/L BUN (7-17) mg/dL Creatinine (0.52-1.04) mg/dL Est GFR (CKD-EPI)AfAm (>60 ml/min/1.73 sqM) Est GFR (CKD-EPI)NonAf (>60 ml/min/1.73 sqM) Glucose (74-99) mg/dL POC Glucose (mg/dL) (70-110) mg/dL POC Glu Factory Maintenance Manager ID Estimated Ave Glu mg/dL 134 mg/dL Hemoglobin A1c 6.3 H (<=6.0) % Lactic Ac Sepsis Rflx Plasma Lactic Acid Jose L 3.5 H* (0.7-2.0) mmol/L Calcium (8.4-10.2) mg/dL Magnesium (1.6-2.3) mg/dL Total Bilirubin (0.2-1.3) mg/dL AST (14-36) U/L ALT (4-34) U/L Alkaline Phosphatase (38-126) U/L Troponin I <0.012 (0.000-0.034) ng/mL NT-Pro-B Natriuret Pep pg/mL Total Protein (6.3-8.2) g/dL Albumin (3.5-5.0) g/dL Influenza Type A (PCR) (Not Detectd) Influenza Type B (PCR) (Not Detectd) RSV (PCR) (Not Detectd) SARS-CoV-2 (PCR) (Not Detectd) 07/11/24 07/11/24 07/11/24 Range/Units 14:47 16:50 18:06 WBC (3.8-10.6) k/uL RBC (3.80-5.40) m/uL Hgb (11.4-16.0) gm/dL Hct (34.0-46.0) % MCV (80.0-100.0) fL MCH (25.0-35.0) pg MCHC (31.0-37.0) g/dL RDW (11.5-15.5) % Plt Count (150-450) k/uL MPV Neutrophils % % Lymphocytes % % Monocytes % % Eosinophils % % Basophils % % Neutrophils # (1.3-7.7) k/uL Lymphocytes # (1.0-4.8) k/uL Monocytes # (0-1.0) k/uL Eosinophils # (0-0.7) k/uL Basophils # (0-0.2) k/uL PT (10.0-12.5) sec INR (<1.2) APTT (22.0-30.0) sec D-Dimer (<0.60) mg/L FEU Sodium (137-145) mmol/L Potassium (3.5-5.1) mmol/L Chloride (98-107) mmol/L Carbon Dioxide (22-30) mmol/L Anion Gap mmol/L BUN (7-17) mg/dL Creatinine (0.52-1.04) mg/dL Est GFR (CKD-EPI)AfAm (>60 ml/min/1.73 sqM) Est GFR (CKD-EPI)NonAf (>60 ml/min/1.73 sqM) Glucose (74-99) mg/dL POC Glucose (mg/dL) (70-110) mg/dL POC Glu Factory Maintenance Manager ID Estimated Ave Glu mg/dL mg/dL Hemoglobin A1c (<=6.0) % Lactic Ac Sepsis Rflx Y Plasma Lactic Acid Jose L 1.3 (0.7-2.0) mmol/L Calcium (8.4-10.2) mg/dL Magnesium (1.6-2.3) mg/dL Total Bilirubin (0.2-1.3) mg/dL AST (14-36) U/L ALT (4-34) U/L Alkaline Phosphatase (38-126) U/L Troponin I <0.012 (0.000-0.034) ng/mL NT-Pro-B Natriuret Pep pg/mL Total Protein (6.3-8.2) g/dL Albumin (3.5-5.0) g/dL Influenza Type A (PCR) (Not Detectd) Influenza Type B (PCR) (Not Detectd) RSV (PCR) (Not Detectd) SARS-CoV-2 (PCR) (Not Detectd) 07/11/24 07/12/24 07/12/24 Range/Units 21:27 05:44 11:38 WBC (3.8-10.6) k/uL RBC (3.80-5.40) m/uL Hgb (11.4-16.0) gm/dL Hct (34.0-46.0) % MCV (80.0-100.0) fL MCH (25.0-35.0) pg MCHC (31.0-37.0) g/dL RDW (11.5-15.5) % Plt Count (150-450) k/uL MPV Neutrophils % % Lymphocytes % % Monocytes % % Eosinophils % % Basophils % % Neutrophils # (1.3-7.7) k/uL Lymphocytes # (1.0-4.8) k/uL Monocytes # (0-1.0) k/uL Eosinophils # (0-0.7) k/uL Basophils # (0-0.2) k/uL PT (10.0-12.5) sec INR (<1.2) APTT (22.0-30.0) sec D-Dimer (<0.60) mg/L FEU Sodium (137-145) mmol/L Potassium (3.5-5.1) mmol/L Chloride (98-107) mmol/L Carbon Dioxide (22-30) mmol/L Anion Gap mmol/L BUN (7-17) mg/dL Creatinine (0.52-1.04) mg/dL Est GFR (CKD-EPI)AfAm (>60 ml/min/1.73 sqM) Est GFR (CKD-EPI)NonAf (>60 ml/min/1.73 sqM) Glucose (74-99) mg/dL POC Glucose (mg/dL) 123 H 140 H (70-110) mg/dL POC Glu Factory Maintenance Manager ID Akilah Vickers [address] Glu mg/dL mg/dL Hemoglobin A1c (<=6.0) % Lactic Ac Sepsis Rflx Plasma Lactic Acid Jose L (0.7-2.0) mmol/L Calcium (8.4-10.2) mg/dL Magnesium (1.6-2.3) mg/dL Total Bilirubin (0.2-1.3) mg/dL AST (14-36) U/L ALT (4-34) U/L Alkaline Phosphatase (38-126) U/L Troponin I <0.012 (0.000-0.034) ng/mL NT-Pro-B Natriuret Pep pg/mL Total Protein (6.3-8.2) g/dL Albumin (3.5-5.0) g/dL Influenza Type A (PCR) (Not Detectd) Influenza Type B (PCR) (Not Detectd) RSV (PCR) (Not Detectd) SARS-CoV-2 (PCR) (Not Detectd) 07/12/24 07/12/24 07/12/24 Range/Units 17:00 17:21 20:38 WBC (3.8-10.6) k/uL RBC (3.80-5.40) m/uL Hgb (11.4-16.0) gm/dL Hct (34.0-46.0) % MCV (80.0-100.0) fL MCH (25.0-35.0) pg MCHC (31.0-37.0) g/dL RDW (11.5-15.5) % Plt Count (150-450) k/uL MPV Neutrophils % % Lymphocytes % % Monocytes % % Eosinophils % % Basophils % % Neutrophils # (1.3-7.7) k/uL Lymphocytes # (1.0-4.8) k/uL Monocytes # (0-1.0) k/uL Eosinophils # (0-0.7) k/uL Basophils # (0-0.2) k/uL PT (10.0-12.5) sec INR (<1.2) APTT (22.0-30.0) sec D-Dimer (<0.60) mg/L FEU Sodium (137-145) mmol/L Potassium (3.5-5.1) mmol/L Chloride (98-107) mmol/L Carbon Dioxide (22-30) mmol/L Anion Gap mmol/L BUN (7-17) mg/dL Creatinine (0.52-1.04) mg/dL Est GFR (CKD-EPI)AfAm (>60 ml/min/1.73 sqM) Est GFR (CKD-EPI)NonAf (>60 ml/min/1.73 sqM) Glucose (74-99) mg/dL POC Glucose (mg/dL) 169 H 97 (70-110) mg/dL POC Glu Factory Maintenance Manager ID Kentrell Gomez [address] Glu mg/dL mg/dL Hemoglobin A1c (<=6.0) % Lactic Ac Sepsis Rflx Plasma Lactic Acid Jose L (0.7-2.0) mmol/L Calcium (8.4-10.2) mg/dL Magnesium (1.6-2.3) mg/dL Total Bilirubin (0.2-1.3) mg/dL AST (14-36) U/L ALT (4-34) U/L Alkaline Phosphatase (38-126) U/L Troponin I (0.000-0.034) ng/mL NT-Pro-B Natriuret Pep pg/mL Total Protein (6.3-8.2) g/dL Albumin (3.5-5.0) g/dL Influenza Type A (PCR) Not Detected (Not Detectd) Influenza Type B (PCR) Not Detected (Not Detectd) RSV (PCR) Not Detected (Not Detectd) SARS-CoV-2 (PCR) Not Detected (Not Detectd) 07/13/24 07/13/24 07/13/24 Range/Units 05:53 12:06 17:15 WBC (3.8-10.6) k/uL RBC (3.80-5.40) m/uL Hgb (11.4-16.0) gm/dL Hct (34.0-46.0) % MCV (80.0-100.0) fL MCH (25.0-35.0) pg MCHC (31.0-37.0) g/dL RDW (11.5-15.5) % Plt Count (150-450) k/uL MPV Neutrophils % % Lymphocytes % % Monocytes % % Eosinophils % % Basophils % % Neutrophils # (1.3-7.7) k/uL Lymphocytes # (1.0-4.8) k/uL Monocytes # (0-1.0) k/uL Eosinophils # (0-0.7) k/uL Basophils # (0-0.2) k/uL PT (10.0-12.5) sec INR (<1.2) APTT (22.0-30.0) sec D-Dimer (<0.60) mg/L FEU Sodium (137-145) mmol/L Potassium (3.5-5.1) mmol/L Chloride (98-107) mmol/L Carbon Dioxide (22-30) mmol/L Anion Gap mmol/L BUN (7-17) mg/dL Creatinine (0.52-1.04) mg/dL Est GFR (CKD-EPI)AfAm (>60 ml/min/1.73 sqM) Est GFR (CKD-EPI)NonAf (>60 ml/min/1.73 sqM) Glucose (74-99) mg/dL POC Glucose (mg/dL) 81 134 H 139 H (70-110) mg/dL POC Glu Factory Maintenance Manager ID Katie Gomez [place] C[place] Cindy [address] Glu mg/dL mg/dL Hemoglobin A1c (<=6.0) % Lactic Ac Sepsis Rflx Plasma Lactic Acid Jose L (0.7-2.0) mmol/L Calcium (8.4-10.2) mg/dL Magnesium (1.6-2.3) mg/dL Total Bilirubin (0.2-1.3) mg/dL AST (14-36) U/L ALT (4-34) U/L Alkaline Phosphatase (38-126) U/L Troponin I (0.000-0.034) ng/mL NT-Pro-B Natriuret Pep pg/mL Total Protein (6.3-8.2) g/dL Albumin (3.5-5.0) g/dL Influenza Type A (PCR) (Not Detectd) Influenza Type B (PCR) (Not Detectd) RSV (PCR) (Not Detectd) SARS-CoV-2 (PCR) (Not Detectd) 07/13/24 07/14/24 Range/Units 20:18 05:43 WBC (3.8-10.6) k/uL RBC (3.80-5.40) m/uL Hgb (11.4-16.0) gm/dL Hct (34.0-46.0) % MCV (80.0-100.0) fL MCH (25.0-35.0) pg MCHC (31.0-37.0) g/dL RDW (11.5-15.5) % Plt Count (150-450) k/uL MPV Neutrophils % % Lymphocytes % % Monocytes % % Eosinophils % % Basophils % % Neutrophils # (1.3-7.7) k/uL Lymphocytes # (1.0-4.8) k/uL Monocytes # (0-1.0) k/uL Eosinophils # (0-0.7) k/uL Basophils # (0-0.2) k/uL PT (10.0-12.5) sec INR (<1.2) APTT (22.0-30.0) sec D-Dimer (<0.60) mg/L FEU Sodium (137-145) mmol/L Potassium (3.5-5.1) mmol/L Chloride (98-107) mmol/L Carbon Dioxide (22-30) mmol/L Anion Gap mmol/L BUN (7-17) mg/dL Creatinine (0.52-1.04) mg/dL Est GFR (CKD-EPI)AfAm (>60 ml/min/1.73 sqM) Est GFR (CKD-EPI)NonAf (>60 ml/min/1.73 sqM) Glucose (74-99) mg/dL POC Glucose (mg/dL) 124 H 97 (70-110) mg/dL POC Glu [employer] ID Olvin Ayers [address] Glu mg/dL mg/dL Hemoglobin A1c (<=6.0) % Lactic Ac Sepsis Rflx Plasma Lactic Acid Jose L (0.7-2.0) mmol/L Calcium (8.4-10.2) mg/dL Magnesium (1.6-2.3) mg/dL Total Bilirubin (0.2-1.3) mg/dL AST (14-36) U/L ALT (4-34) U/L Alkaline Phosphatase (38-126) U/L Troponin I (0.000-0.034) ng/mL NT-Pro-B Natriuret Pep pg/mL Total Protein (6.3-8.2) g/dL Albumin (3.5-5.0) g/dL Influenza Type A (PCR) (Not Detectd) Influenza Type B (PCR) (Not Detectd) RSV (PCR) (Not Detectd) SARS-CoV-2 (PCR) (Not Detectd) Disposition Clinical Impression: Cellulitis, Lower extremity edema Disposition: ADMITTED IP TO THIS HOSP Condition: Good
[2024-07-11] MEDS: ASPIRIN 81 MG PO STA (13:59)
[2024-07-11] MEDS: NITROGLYCERIN SL TABS 0.4 MG TAB SUBLINGUAL STA (14:00)
[2024-07-11] MEDS: CEFEPIME 2 GM in SODIUM CHLORIDE 0.9% 100 ML IVPB STA (14:01)
[2024-07-11 14:13] LABS: Basophils % (A) 0 %; Eosinophils # (A) 0.4 k/uL (0-0.7); Eosinophils % (A) 4 %; HCT 39.8 % (34.0-46.0); Lymphocytes # (A) 2.2 k/uL (1.0-4.8); Lymphocytes % (A) 19 %; MCHC 32.7 g/dL (31.0-37.0); MCV 94.8 fL (80.0-100.0); Mean Platelet Volume 6.8; Monocytes # (A) 0.5 k/uL (0-1.0); Monocytes % (A) 4 %; Neutrophils # (A) 8.3 k/uL (1.3-7.7); Neutrophils % (A) 71 %; Platelet Count 246 k/uL (150-450); RDW 13.6 % (11.5-15.5); WBC 11.7 k/uL (3.8-10.6)
[2024-07-11 14:27] LABS: ALT 31 U/L (4-34); AST 34 U/L (14-36); African American GFR (CKD) 75 (>60 ml/min/1.73 sqM); Alkaline Phosphatase 115 U/L (38-126); Anion Gap 8 mmol/L; Blood Urea Nitrogen 16 mg/dL (7-17); Calcium 9.3 mg/dL (8.4-10.2); Carbon Dioxide 30 mmol/L (22-30); Chloride 102 mmol/L (98-107); Glucose 144 mg/dL (74-99); Magnesium 1.9 mg/dL (1.6-2.3); Non-African American GFR(CKD) 65 (>60 ml/min/1.73 sqM); Potassium 3.8 mmol/L (3.5-5.1); Sodium 140 mmol/L (137-145); Total Bilirubin 0.7 mg/dL (0.2-1.3); Total Protein 6.5 g/dL (6.3-8.2)
[2024-07-11 14:29] LABS: INR 0.9 (<1.2); Partial Thromboplastin Time 23.4 sec (22.0-30.0); Prothrombin Time 10.3 sec (10.0-12.5)
[2024-07-11 14:35] LABS: NT-Pro-B-Type Natriuretic Pept 129 pg/mL
--- NOTE | 2024-07-11 15:09 | CT ---
EXAMINATION TYPE: CT chest angio for PE DATE OF EXAM: 07/11/2024 3:02 PM COMPARISON: 10/16/2022. CLINICAL INDICATION: Female, 68 years old with history of chest pain, + dimer; SOB AND B/L LEG SWELLI NG TECHNIQUE/CONTRAST: CTA scan of the thorax is performed with IV Contrast, patient injected with 100ml mL of Isovue 370, M IP images are created and reviewed these are created on a separate workstation.. CT DLP: 1060.6 mGycm, Automated exposure control for dose reduction was used. FINDINGS: Lungs/Pleura: Low lung volumes are present No evidence of focal consolidation, pleural effusion or pn eumothorax. Airway: Large airways are patent. Heart: The heart is enlarged for size. Vasculature: Limited evaluation due to bolus timing, no evidence for central pulmonary embolus. The lobar, segmental and subsegmental branches are limited due to bolus timing. The pulmonary artery is o f normal size. Mediastinum: No gross evidence of adenopathy. Musculoskeletal: No acute osseous abnormalities Soft Tissues/lymph nodes: Unremarkable. Lower neck: No significant findings. Upper Abdomen: the gallbladder surgically absent. IMPRESSION: . Low lung volumes. No evidence of central pulmonary embolism. Limited evaluation of the segmental an d subsegmental branches. Follow up recommendations for incidental pulmonary nodules, if there are any, are per [employer] or [employer]. [email or web address].[email or web address] [facility], , 07/11/2024 3:06 PM
--- NOTE | 2024-07-11 15:27 | US ---
EXAMINATION TYPE: US venous doppler duplex LE BI DATE OF EXAM: 07/11/2024 2:31 PM COMPARISON: NONE CLINICAL INDICATION: Female, 68 years old with history of LE swelling; redness in bilateral calves, P ain TECHNIQUE: The lower extremity deep venous system is examined utilizing real time linear array sonog louisa with graded compression, color doppler sonography, and spectral doppler. SIDE PERFORMED: Bilateral FINDINGS: VESSELS IMAGED: Common Femoral Vein Deep Femoral Vein Greater Saphenous Vein * Femoral Vein Popliteal Vein Small Saphenous Vein * Proximal Calf Veins (* superficial vessels) Right Leg: Negative for DVT, Color Doppler imaging shows patency of the vessels. Spectral waveforms are within normal limits. Left Leg: Negative for DVT, Color Doppler imaging shows patency of the vessels. Spectral waveforms a re within normal limits. IMPRESSION: No ultrasound evidence for deep venous thrombosis. [facility], , 07/11/2024 3:25 PM
[2024-07-11] MEDS ORDERED: [UNRECOGNIZED DRUG - OTHER] TOPICAL PRN (17:03)
[2024-07-11] MEDS ORDERED: clonazePAM 0.5 MG TAB PO PRN (17:03)
[2024-07-11] MEDS ORDERED: AMMONIUM LACTATE 12% LOTION 225 GM BTL TOPICAL PRN (17:03)
[2024-07-11] MEDS ORDERED: LIDOCAINE 4% CREAM 5 GM TUBE TOPICAL PRN (17:03)
[2024-07-11] MEDS ORDERED: CLOBETASOL PROP 0.05% CR 15GM TOPICAL PRN (17:03)
[2024-07-11] MEDS: FUROSEMIDE 20 MG TAB PO STA (17:45)
[2024-07-11] MEDS: GABAPENTIN 300 MG CAP PO STA (17:46)
[2024-07-11] MEDS: GLIMEPIRIDE 2 MG TAB PO STA (17:46)
[2024-07-11] MEDS ORDERED: NALOXONE 0.4 MG/ML 1 ML VIAL IV PRN (17:49)
[2024-07-11] MEDS ORDERED: DAPAGLIFLOZIN PROPANEDIOL 10 MG TABLET PO SCH (18:00)
[2024-07-11] MEDS: EZETIMIBE 10 MG TAB PO SCH (18:46)
[2024-07-11] MEDS: MAGNESIUM OXIDE 400 MG TAB PO SCH (18:47)
[2024-07-11] MEDS: busPIRone HCl 10 MG TAB PO SCH (18:47)
[2024-07-11] MEDS: DAPAGLIFLOZIN PROPANEDIOL 10 MG TABLET PO SCH (18:47)
[2024-07-11] MEDS: CITALOPRAM HYDROBROMIDE 10 MG TAB PO SCH (18:48)
[2024-07-11] MEDS: PENTOXIFYLLINE 400 MG TABLET.ER PO SCH (19:02)
[2024-07-12] MEDS: GABAPENTIN 300 MG CAP PO SCH (00:40)
[2024-07-12] MEDS: FAMOTIDINE 20 MG TAB PO SCH (00:40)
[2024-07-12] MEDS: MULTIVITAMINS, THERA 1 EACH TAB PO SCH (00:40)
[2024-07-12] MEDS: ATORVASTATIN 80 MG TAB PO SCH (00:40)
[2024-07-12] MEDS: ACETAMINOPHEN TAB 325 MG TAB PO SCH (00:41)
[2024-07-12] MEDS: traZODone HCL 100 MG TAB PO SCH (00:42)
[2024-07-12] MEDS: PENTOXIFYLLINE 400 MG TABLET.ER PO SCH ×2 (00:42→08:53)
[2024-07-12 05:45] LABS: Glucose,Whole Blood 123 mg/dL (70-110)
[2024-07-12] MEDS: LORATADINE 10 MG TAB PO SCH (08:55)
[2024-07-12] MEDS: FUROSEMIDE 40 MG TAB PO SCH (08:55)
[2024-07-12] MEDS: LEVOTHYROXINE 75 MCG TAB PO SCH (08:55)
[2024-07-12] MEDS: SPIRONOLACTONE 25 MG TAB PO SCH (09:04)
[2024-07-12] MEDS: INSULIN DETEMIR (LEVEMIR) 100 UNIT/ML SYR SQ SCH (09:37)
[2024-07-12 11:40] LABS: Glucose,Whole Blood 140 mg/dL (70-110)
--- NOTE | 2024-07-12 12:12 | P.CRDCN ---
History of Present Illness History of present illness: Dr. Quiroz dictating on this 68-year-old female Patient presented with bilateral lower extremity swelling and shortness of complaint of shortness of breath with exertion She came to the hospital with bilateral lower extremity edema and redness on both shins However she also stated that she was short of breath with average activities Lower extremity Dopplers bilaterally were negative for DVT Twelve-lead EKG shows sinus rhythm normal ST segments CT of the chest shows low volume volumes no central pulmonary embolism In 2022 LV function was normal RV function was normal She follows with Dr. Calderon Chronic catheterization in February 2018 revealed minimal obstruction at the stented LAD site of 20 to 30% Lexiscan stress test in April 2022 did not show any evidence for ischemia She is allergic to ciprofloxacin and sulfa and the lens used at [facility]. These cause rash and hives Medications reviewed include aspirin atorvastatin 80 mg p.o. daily citalopram Farxiga Zetia Lasix 40 mg twice daily and an additional 20 mg daily diabetes medications levothyroxine 25 mg spironolactone along with Pentoxil filing Labs show a minimally elevated white count of 11.7 thousand 9 hematocrit 39.8 Sodium 140, potassium 3.8 BUN 16 and creatinine 0.92 Magnesium 1.9 Troponins are normal BNP 829, patient's BMI is 54 Impression Morbid obesity with bilateral lower extremity swelling most likely a component of lymphedema along with mild edema Potassium of 3.8 Shortness of breath on exertion Suggest TSH level 2D echo and Doppler study Increase spironolactone to 50 mg p.o. daily while continuing p.o. Lasix at the current dose Outpatient follow-up with Dr. Calderon Past Medical History Past Medical History: Coronary Artery Disease (CAD), Chest Pain / Angina, Diabetes Mellitus, GERD/Reflux, Hyperlipidemia, Hypertension, Myocardial Infarction ([place]), Osteoarthritis (OA), Skin Disorder Additional Past Medical History / Comment(s): fell 8-27-17 fx rt humerus/sling. ECZEMA, pt stated she needs sterile sheets- has had rash and swelling in past to detergents/bleach used ., IBS, DDD, gastroparesis, carapal tunnel lisette., kidney stones. Last Myocardial Infarction Date:: [place] X 3 LAST ONE 2006 History of Any Multi-Drug Resistant Organisms: MRSA Date of last positivie culture/infection: 01/01/16 MDRO Source:: right leg Past Surgical History: Appendectomy, Section, Cholecystectomy, Heart Catheterization With Stent, Hysterectomy, Tonsillectomy Additional Past Surgical History / Comment(s): breast biopsy, D & C x2, tumor right shoulder removed; lithotripsy Past Anesthesia/Blood Transfusion Reactions: Previous Problems w/ Anesthesia Additional Past Anesthesia/Blood Transfusion Reaction / Comment(s): TENDS TO HAVE PANIC ATTACKS WHEN COMING OUT OF ANESTHESIA Date of Last Stent Placement:: 2006 Past Psychological History: Anxiety, Depression, Panic Disorder, PTSD Additional Psychological History / Comment(s): pt lives alone in home. was to start home care services 03-18-18 thru [facility] but was admitted to hospital. Smoking Status: Former smoker Past Alcohol Use History: None Reported Additional Past Alcohol Use History / Comment(s): started smoking 1970,quit smoking 1982, smoked 1-3ppd Past Drug Use History: None Reported - Past Family History Mother Family Medical History: Cancer Additional Family Medical History / Comment(s): unsure which type of cancer Father Family Medical History: Coronary Artery Disease (CAD), Myocardial Infarction ([place]) Medications and Allergies Home Medications Medication Instructions Recorded Confirmed Type Calcium Carbonate [Calcium] 600 mg PO DAILY@1400 01/01/16 07/11/24 History Multivit-Min/Iron/Folic/Lutein 1 tab PO HS@0000 01/01/16 07/11/24 History [Centrum Silver Women Tablet] Ferrous Sulfate [Feosol] 325 mg PO DAILY@1400 06/05/16 07/11/24 History Furosemide [Lasix] 40 mg PO BID@0900,1600 07/27/16 07/11/24 History Acetaminophen [Tylenol 8 Hour] 650 mg PO Q8H PRN 12/26/16 07/11/24 History Gabapentin 600 mg PO TID@0000,0900,1600 12/26/16 07/11/24 History Dapagliflozin Propanediol [Farxiga] 10 mg PO DAILY@1600 04/29/17 07/11/24 History traZODone HCL 200 mg PO HS@0000 04/29/17 07/11/24 History sitaGLIPtin [Januvia] 100 mg PO DAILY@1400 07/24/17 07/11/24 History Glimepiride [Amaryl] 1 mg PO DAILY@1400 02/20/18 07/11/24 History Loratadine [Claritin] 10 mg PO DAILY@0900 02/20/18 07/11/24 History Aspirin 81 mg PO DAILY@1400 03/15/18 07/11/24 History Atorvastatin Calcium [Lipitor] 80 mg PO HS@0000 03/15/18 07/11/24 History Ezetimibe [Zetia] 10 mg PO DAILY@1600 03/15/18 07/11/24 History Citalopram Hydrobromide [CeleXA] 10 mg PO TID@0900,1600,1900 10/16/22 07/11/24 History Famotidine [Pepcid] 20 mg PO BID@0000,1400 10/16/22 07/11/24 History Furosemide [Lasix] 40 mg PO DAILY@1400 10/16/22 07/11/24 History Insulin Degludec [Tresiba 52 units SQ DAILY@0900 10/16/22 07/11/24 History Flextouch U-100 Pen] Levothyroxine Sodium [Synthroid] 75 mcg PO DAILY@0900 10/16/22 07/11/24 History Mupirocin 2% Oint [Bactroban 2% 1 applic TOPICAL BID PRN 10/16/22 07/11/24 History Oint] calcium polycarbophiL [Fiber-Lax] 625 mg PO HS@0000 10/16/22 07/11/24 History clonazePAM 0.5 mg PO DIRECTED PRN 10/16/22 07/11/24 History hydrOXYzine HCL [Atarax] 25 mg PO DAILY@0900 PRN 10/16/22 07/11/24 History Acetaminophen [Tylenol 8 Hour] 650 mg PO HS@0000 07/11/24 07/11/24 History Ammonium Lactate Lotion 1 applic TOPICAL BID PRN 07/11/24 07/11/24 History [Lac-Hydrin 12% Lotion] Aspercream 4% Roll On 1 applic TOPICAL DAILY PRN 07/11/24 07/11/24 History Bactine Max 1 applic TOPICAL DAILY PRN 07/11/24 07/11/24 History Calcium Acetate-Aluminum Sulf 1 packet TOPICAL DAILY PRN 07/11/24 07/11/24 History [[place] Packet] Cholecalciferol [Vitamin D3 (10 15 mcg PO DAILY@1400 07/11/24 07/11/24 History Mcg = 400 Iu)] Clobetasol Propionate [Temovate 1 applic TOPICAL BID PRN 07/11/24 07/11/24 History 0.05% Cream] Glimepiride [Amaryl] 0.5 mg PO DAILY@1600 07/11/24 07/11/24 History Magnesium Oxide [Mag-Ox] 250 mg PO HS@1900 07/11/24 07/11/24 History Pentoxifylline [TRENtal] 400 mg PO TID@0000,0900,1600 07/11/24 07/11/24 History Potassium Chloride 10 meq PO DAILY@1400 07/11/24 07/11/24 History busPIRone HCl [Buspar] 10 mg PO BID@0900,1900 07/11/24 07/11/24 History Allergies Allergy/AdvReac Type Severity Reaction Status Date / Time ciprofloxacin [From Cipro] Allergy Anaphylaxis Verified 07/11/24 15:04 diazepam [From Valium] Allergy Rash/Hives Verified 07/11/24 15:04 metronidazole [From Flagyl] Allergy Anaphylaxis Verified 07/11/24 15:04 Sulfa (Sulfonamide Allergy Rash/Hives Verified 07/11/24 15:04 Antibiotics) doxycycline AdvReac Nausea & Verified 07/11/24 15:04 Vomiting & Diarrhea metoclopramide HCl AdvReac Diarrhea Verified 07/11/24 15:04 [From Reglan] [facility] USED AT [facility] Allergy Rash/Hives Uncoded 07/11/24 15:04 HOSPITAL Physical Exam Vitals: Vital Signs Temp Pulse Pulse Resp BP BP BP 07/12/24 07:00 98.2 F 87 17 124/54 07/12/24 04:08 98.2 F 91 17 140/82 07/12/24 03:34 92 18 134/61 07/12/24 01:14 68 18 140/68 07/11/24 19:05 92 18 187/78 07/11/24 17:50 97.6 F 89 16 150/61 07/11/24 17:10 74 18 137/69 07/11/24 15:14 76 16 135/72 07/11/24 14:05 97.8 F 84 18 150/63 07/11/24 12:50 98.2 F 101 H 18 153/99 Pulse Ox 07/12/24 07:00 94 L 07/12/24 04:08 92 L 07/12/24 03:34 94 L 07/12/24 01:14 97 07/11/24 19:05 95 07/11/24 17:50 95 07/11/24 17:10 94 L 07/11/24 15:14 95 07/11/24 14:05 96 07/11/24 12:50 99 Intake and Output 07/11/24 07/12/24 07/12/24 22:59 06:59 14:59 Other: Voiding Method Toilet # Voids 2 Weight 129.274 kg Results 07/11/24 13:48 07/11/24 13:48 Cardiac Enzymes 07/11/24 07/11/24 07/11/24 Range/Units 13:48 13:48 18:06 AST 34 (14-36) U/L Troponin I <0.012 <0.012 (0.000-0.034) ng/mL 07/11/24 Range/Units 21:27 AST (14-36) U/L Troponin I <0.012 (0.000-0.034) ng/mL Coagulation 07/11/24 Range/Units 13:48 PT 10.3 (10.0-12.5) sec APTT 23.4 (22.0-30.0) sec CBC 07/11/24 Range/Units 13:48 WBC 11.7 H (3.8-10.6) k/uL RBC 4.20 (3.80-5.40) m/uL Hgb 13.0 (11.4-16.0) gm/dL Hct 39.8 (34.0-46.0) % Plt Count 246 (150-450) k/uL Comprehensive Metabolic Panel 07/11/24 Range/Units 13:48 Sodium 140 (137-145) mmol/L Potassium 3.8 (3.5-5.1) mmol/L Chloride 102 (98-107) mmol/L Carbon Dioxide 30 (22-30) mmol/L BUN 16 (7-17) mg/dL Creatinine 0.92 (0.52-1.04) mg/dL Glucose 144 H (74-99) mg/dL Calcium 9.3 (8.4-10.2) mg/dL AST 34 (14-36) U/L ALT 31 (4-34) U/L Alkaline Phosphatase 115 (38-126) U/L Total Protein 6.5 (6.3-8.2) g/dL Albumin 4.0 (3.5-5.0) g/dL Current Medications Generic Name Dose Route Start Last Admin Trade Name Freq PRN Reason Stop Dose Admin Acetaminophen 650 mg 07/12/24 00:00 07/12/24 00:41 Acetaminophen Tab 325 Mg Tab PO 650 mg HS@0000 [facility] Administration Aspirin 81 mg 07/12/24 14:00 Aspirin 81 Mg PO DAILY@1400 [facility] Atorvastatin Calcium 80 mg 07/12/24 00:00 07/12/24 00:40 Atorvastatin 80 Mg Tab PO 80 mg HS@0000 [facility] Administration Buspirone HCl 10 mg 07/11/24 19:00 07/12/24 08:53 Buspirone Hcl 10 Mg Tab PO 10 mg BID@0900,1900 [facility] Administration Calcium Carbonate/Glycine 500 mg 07/12/24 14:00 Calcium Carbonate 500 Mg Chewable PO DAILY@1400 [facility] Cholecalciferol 15 mcg 07/12/24 14:00 Cholecalciferol 10 Mcg (400 Iu) Tablet PO DAILY@1400 [facility] Citalopram Hydrobromide 10 mg 07/11/24 19:00 07/12/24 08:53 Citalopram Hydrobromide 10 Mg Tab PO 10 mg TID@0900,1600,1900 [facility] Administration Clobetasol Propionate 1 applic 07/11/24 17:03 Clobetasol Prop 0.05% Cr 15gm TOPICAL BID PRN legs Dapagliflozin 10 mg 07/11/24 19:00 07/11/24 18:47 Dapagliflozin Propanediol 10 Mg Tablet PO 10 mg DAILY@1600 [facility] Administration Ezetimibe 10 mg 07/11/24 19:00 07/11/24 18:46 Ezetimibe 10 Mg Tab PO 10 mg DAILY@1600 [facility] Administration Famotidine 20 mg 07/12/24 00:00 07/12/24 00:40 Famotidine 20 Mg Tab PO 20 mg BID@0000,1400 [facility] Administration Ferrous Sulfate 325 mg 07/12/24 14:00 Ferrous Sulfate 325 Mg Tab PO DAILY@1400 [facility] Furosemide 40 mg 07/12/24 09:00 07/12/24 08:55 Furosemide 40 Mg Tab PO 40 mg BID@0900,1600 [facility] Administration Furosemide 20 mg 07/12/24 14:00 Furosemide 20 Mg Tab PO DAILY@1400 [facility] Gabapentin 600 mg 07/12/24 00:00 07/12/24 08:55 Gabapentin 300 Mg Cap PO 600 mg TID@0000,0900,1600 [facility] Administration Glimepiride 0.5 mg 07/12/24 16:00 Glimepiride 0.5 Mg Tab PO DAILY@1600 [facility] Glimepiride 1 mg 07/12/24 14:00 Glimepiride 1 Mg Tab PO DAILY@1400 [facility] Hydroxyzine HCl 25 mg 07/12/24 09:00 Hydroxyzine Hcl 25 Mg Tab PO DAILY@09 PRN Anxiety Insulin Detemir 52 unit 07/12/24 09:00 07/12/24 09:37 Insulin Detemir (Levemir) 100 Unit/Ml Syr SQ 52 unit DAILY@09 [facility] Administration Lactic Acid 1 applic 07/11/24 17:03 Ammonium Lactate 12% Lotion 225 Gm Btl TOPICAL BID PRN feet Protocol Levothyroxine Sodium 75 mcg 07/12/24 09:00 07/12/24 08:55 Levothyroxine 75 Mcg Tab PO 75 mcg DAILY@0900 [facility] Administration Lidocaine HCl 1 applic 07/11/24 17:03 Lidocaine 4% Cream 5 Gm Tube TOPICAL DAILY PRN Pain Linagliptin 5 mg 07/12/24 14:00 Linagliptin 5 Mg Tablet PO DAILY@1400 [facility] Loratadine 10 mg 07/12/24 09:00 07/12/24 08:55 Loratadine 10 Mg Tab PO 10 mg DAILY@0900 [facility] Administration Magnesium Oxide 400 mg 07/11/24 19:00 07/11/24 18:47 Magnesium Oxide 400 Mg Tab PO 400 mg HS@1900 [facility] Administration Multivitamins 1 each 07/12/24 00:00 07/12/24 00:40 Multivitamins, Thera 1 Each Tab PO 1 each HS@0000 [facility] Administration Naloxone HCl 0.2 mg 07/11/24 17:49 Naloxone 0.4 Mg/Ml 1 Ml Vial IV Q2M PRN Opioid Reversal Pentoxifylline 400 mg 07/12/24 07:30 07/12/24 08:53 Pentoxifylline 400 Mg Tablet.Er PO 400 mg TID-W/MEALS [facility] Administration Spironolactone 50 mg 07/12/24 09:00 07/12/24 09:04 Spironolactone 25 Mg Tab PO 50 mg DAILY [facility] Administration Trazodone HCl 200 mg 07/12/24 00:00 07/12/24 00:42 Trazodone Hcl 100 Mg Tab PO 200 mg HS@0000 [facility] Administration Intake and Output 07/11/24 07/12/24 07/12/24 22:59 06:59 14:59 Other: Voiding Method Toilet # Voids 2 Weight 129.274 kg 07/11/24 13:48 07/11/24 13:48
--- NOTE | 2024-07-12 13:14 | P.HPIM ---
History of Present Illness This is a pleasant 68 years old female with past medical history of multiple medical problems as below She presents because of leg swelling which was concerning her, she called her PCP office and talk to nurse practitioner Patricia Williamson who referred her to the hospital to lower out DVT On admission patient also has been complaining from chest pain on and off for a while now, it is felt like center or someone punched her in her chest or dull with no significant precipitating or relieving factors. Complains from little sore throat Also noticed that both distal legs are erythematous and red and tender and swollen. Patient states that she has this problem for about 5 years on and off, she follow-up with bookkeeping assistant Dr. Sumner, who last see him about 4 months ago 's nurse practitioner and prescribe her some medication which helped. As per patient her leg swelling and redness started getting worse over the last 2 weeks, really worse over 1 week. She states it is worse than ever before Patient denies shortness of breath or coughing. No specific GI or/ symptoms. No fever or chills She denies smoking alcohol or illicit drugs On admission her blood pressure was elevated 187/78. Rest of vitals are unremarkable Labs were unremarkable with CBC, BMP, LFT, INR except for mildly elevated white cell count at 11.7 Troponin x 3 are negative. D-dimer was slightly elevated at 0.76, lactic acid was high 3.5 came back to normal EKG showing sinus rhythm at [address]-T changes Ultrasound of the leg is negative for DVT CT of the chest is negative for PE but there is lung nodules. Review of Systems Review of systems CONSTITUTIONAL: No fever, no malaise, no fatigue. HEENT: No recent visual problems or hearing problems. Denied any sore throat. CARDIOVASCULAR: No orthopnea, PND, no palpitations, no syncope. PULMONARY: No shortness of breath, no cough, no hemoptysis. GASTROINTESTINAL: No diarrhea, no nausea, no vomiting, no abdominal pain. Normoactive bowel sounds. NEUROLOGICAL: No headaches, no weakness, no numbness. HEMATOLOGICAL: Denies any bleeding or petechiae. GENITOURINARY: Denies any burning micturition, frequency, or urgency. MUSCULOSKELETAL/RHEUMATOLOGICAL: Denies any joint pain, swelling, or any muscle pain. ENDOCRINE: Denies any polyuria or polydipsia. Past Medical History Past Medical History: Coronary Artery Disease (CAD), Chest Pain / Angina, Diabetes Mellitus, GERD/Reflux, Hyperlipidemia, Hypertension, Myocardial Infarction ([place]), Osteoarthritis (OA), Skin Disorder Additional Past Medical History / Comment(s): fell 03-15-17 fx rt humerus/sling. ECZEMA, pt stated she needs sterile sheets- has had rash and swelling in past to detergents/bleach used ., IBS, DDD, gastroparesis, carapal tunnel lisette., kidney stones. Last Myocardial Infarction Date:: [place] X 3 LAST ONE 2006 History of Any Multi-Drug Resistant Organisms: MRSA Date of last positivie culture/infection: 01/01/16 MDRO Source:: right leg Past Surgical History: Appendectomy, Section, Cholecystectomy, Heart Catheterization With Stent, Hysterectomy, Tonsillectomy Additional Past Surgical History / Comment(s): breast biopsy, D & C x2, tumor right shoulder removed; lithotripsy Past Anesthesia/Blood Transfusion Reactions: Previous Problems w/ Anesthesia Additional Past Anesthesia/Blood Transfusion Reaction / Comment(s): TENDS TO HAVE PANIC ATTACKS WHEN COMING OUT OF ANESTHESIA Date of Last Stent Placement:: 2006 Past Psychological History: Anxiety, Depression, Panic Disorder, PTSD Additional Psychological History / Comment(s): pt lives alone in home. was to start home care services 03-18-18 thru [facility] but was admitted to hospital. Smoking Status: Former smoker Past Alcohol Use History: None Reported Additional Past Alcohol Use History / Comment(s): started smoking 1970,quit smoking 1982, smoked 1-3ppd Past Drug Use History: None Reported - Past Family History Mother Family Medical History: Cancer Additional Family Medical History / Comment(s): unsure which type of cancer Father Family Medical History: Coronary Artery Disease (CAD), Myocardial Infarction ([place]) Medications and Allergies Home Medications Medication Instructions Recorded Confirmed Type Calcium Carbonate [Calcium] 600 mg PO DAILY@1400 01/01/16 07/11/24 History Multivit-Min/Iron/Folic/Lutein 1 tab PO HS@0000 01/01/16 07/11/24 History [Centrum Silver Women Tablet] Ferrous Sulfate [Feosol] 325 mg PO DAILY@1400 06/05/16 07/11/24 History Furosemide [Lasix] 40 mg PO BID@0900,1600 07/27/16 07/11/24 History Acetaminophen [Tylenol 8 Hour] 650 mg PO Q8H PRN 12/26/16 07/11/24 History Gabapentin 600 mg PO TID@0000,0900,1600 12/26/16 07/11/24 History Dapagliflozin Propanediol [Farxiga] 10 mg PO DAILY@1600 04/29/17 07/11/24 History traZODone HCL 200 mg PO HS@0000 04/29/17 07/11/24 History sitaGLIPtin [Januvia] 100 mg PO DAILY@1400 07/24/17 07/11/24 History Glimepiride [Amaryl] 1 mg PO DAILY@1400 02/20/18 07/11/24 History Loratadine [Claritin] 10 mg PO DAILY@0900 02/20/18 07/11/24 History Aspirin 81 mg PO DAILY@1400 03/15/18 07/11/24 History Atorvastatin Calcium [Lipitor] 80 mg PO HS@0000 03/15/18 07/11/24 History Ezetimibe [Zetia] 10 mg PO DAILY@1600 03/15/18 07/11/24 History Citalopram Hydrobromide [CeleXA] 10 mg PO TID@0900,1600,1900 10/16/22 07/11/24 History Famotidine [Pepcid] 20 mg PO BID@0000,1400 10/16/22 07/11/24 History Furosemide [Lasix] 40 mg PO DAILY@1400 10/16/22 07/11/24 History Insulin Degludec [Tresiba 52 units SQ DAILY@0900 10/16/22 07/11/24 History Flextouch U-100 Pen] Levothyroxine Sodium [Synthroid] 75 mcg PO DAILY@0900 10/16/22 07/11/24 History Mupirocin 2% Oint [Bactroban 2% 1 applic TOPICAL BID PRN 10/16/22 07/11/24 History Oint] calcium polycarbophiL [Fiber-Lax] 625 mg PO HS@0000 10/16/22 07/11/24 History clonazePAM 0.5 mg PO DIRECTED PRN 10/16/22 07/11/24 History hydrOXYzine HCL [Atarax] 25 mg PO DAILY@0900 PRN 10/16/22 07/11/24 History Acetaminophen [Tylenol 8 Hour] 650 mg PO HS@0000 07/11/24 07/11/24 History Ammonium Lactate Lotion 1 applic TOPICAL BID PRN 07/11/24 07/11/24 History [Lac-Hydrin 12% Lotion] Aspercream 4% Roll On 1 applic TOPICAL DAILY PRN 07/11/24 07/11/24 History Bactine Max 1 applic TOPICAL DAILY PRN 07/11/24 07/11/24 History Calcium Acetate-Aluminum Sulf 1 packet TOPICAL DAILY PRN 07/11/24 07/11/24 History [[place] Packet] Cholecalciferol [Vitamin D3 (10 15 mcg PO DAILY@1400 07/11/24 07/11/24 History Mcg = 400 Iu)] Clobetasol Propionate [Temovate 1 applic TOPICAL BID PRN 07/11/24 07/11/24 History 0.05% Cream] Glimepiride [Amaryl] 0.5 mg PO DAILY@1600 07/11/24 07/11/24 History Magnesium Oxide [Mag-Ox] 250 mg PO HS@1900 07/11/24 07/11/24 History Pentoxifylline [TRENtal] 400 mg PO TID@0000,0900,1600 07/11/24 07/11/24 History Potassium Chloride 10 meq PO DAILY@1400 07/11/24 07/11/24 History busPIRone HCl [Buspar] 10 mg PO BID@0900,1900 07/11/24 07/11/24 History Allergies Allergy/AdvReac Type Severity Reaction Status Date / Time ciprofloxacin [From Cipro] Allergy Anaphylaxis Verified 07/11/24 15:04 diazepam [From Valium] Allergy Rash/Hives Verified 07/11/24 15:04 metronidazole [From Flagyl] Allergy Anaphylaxis Verified 07/11/24 15:04 Sulfa (Sulfonamide Allergy Rash/Hives Verified 07/11/24 15:04 Antibiotics) doxycycline AdvReac Nausea & Verified 07/11/24 15:04 Vomiting & Diarrhea metoclopramide HCl AdvReac Diarrhea Verified 07/11/24 15:04 [From Reglan] LINENS USED AT [facility] Allergy Rash/Hives Uncoded 07/11/24 15:04 HOSPITAL Physical Exam Vitals: Vital Signs Temp Pulse Pulse Resp BP BP BP 07/12/24 07:00 98.2 F 87 17 124/54 07/12/24 04:08 98.2 F 91 17 140/82 07/12/24 03:34 92 18 134/61 07/12/24 01:14 68 18 140/68 07/11/24 19:05 92 18 187/78 07/11/24 17:50 97.6 F 89 16 150/61 07/11/24 17:10 74 18 137/69 07/11/24 15:14 76 16 135/72 07/11/24 14:05 97.8 F 84 18 150/63 Pulse Ox 07/12/24 07:00 94 L 07/12/24 04:08 92 L 07/12/24 03:34 94 L 07/12/24 01:14 97 07/11/24 19:05 95 07/11/24 17:50 95 07/11/24 17:10 94 L 07/11/24 15:14 95 07/11/24 14:05 96 Intake and Output 07/11/24 07/12/24 07/12/24 22:59 06:59 14:59 Other: Voiding Method Toilet # Voids 2 Weight 129.274 kg -GENERAL: The patient is alert and oriented x3, not in any acute distress. Well developed, well nourished. Obese HEENT: Pupils are round and equally reacting to light. EOMI. No scleral icterus. No conjunctival pallor. Normocephalic, atraumatic. No pharyngeal erythema. No thyromegaly. CARDIOVASCULAR: S1 and S2 present. No murmurs, rubs, or gallops. PULMONARY: Chest is clear to auscultation, no wheezing , no crackles. ABDOMEN: Soft, nontender, nondistended, normoactive bowel sounds. No palpable organomegaly. MUSCULOSKELETAL: No joint swelling or deformity. -EXTREMITIES: No cyanosis, clubbing, or pedal edema. Bilateral distal leg redness swelling and tenderness, and has clear line of demarcation on both sides. NEUROLOGICAL: Gross neurological examination did not reveal any focal deficits. SKIN: No rashes. no petechiae. Results CBC & Chem 7: 07/11/24 13:48 07/11/24 13:48 Labs: Abnormal Lab Results - Last 24 Hours (Table) 07/11/24 07/11/24 07/11/24 Range/Units 13:48 13:48 13:48 WBC 11.7 H (3.8-10.6) k/uL Neutrophils # 8.3 H (1.3-7.7) k/uL D-Dimer 0.76 H (<0.60) mg/L FEU Glucose 144 H (74-99) mg/dL POC Glucose (mg/dL) (70-110) mg/dL Plasma Lactic Acid Jose L (0.7-2.0) mmol/L 24 24 12 Range/Units 13:48 05:44 11:38 WBC (3.8-10.6) k/uL Neutrophils # (1.3-7.7) k/uL D-Dimer (<0.60) mg/L FEU Glucose (74-99) mg/dL POC Glucose (mg/dL) 123 H 140 H (70-110) mg/dL Plasma Lactic Acid Jose L 3.5 H* (0.7-2.0) mmol/L Thrombosis Risk Factor Assmnt - Choose All That Apply Each Factor Represents 1 point: Obesity (BMI >25) Each Risk Factor Represents 2 Points: Age 61-74 years Thrombosis Risk Factor Assessment Total Risk Factor Score: 3 Thrombosis Risk Factor Assessment Level: Moderate Risk Assessment and Plan Assessment: Chest pain, most likely musculoskeletal. CTA is negative for PE. Cardiac causes ruled out Bilateral lower extremity dermatitis with possible elements of bacterial superinfection cannot be ruled out Mildly elevated D-dimer with negative CTA for PE and ultrasound for DVT Morbid obesity with BMI of 53.8 Hypertension Mllung nodules Plan: Follow-up echocardiogram Electroplater Apprentice already evaluated the patient Her lower extremity has dermatitis, longstanding and chronic, were not sure if there is bacteria element of infection therefore we are going to consult infecti ous disease team. Labs and medication were reviewed.. Continue same treatment. Continue with sym ptomatic treatment. Resume home medication. Monitor labs and vitals. DVT and GI prophylaxis. Further recommendations as per clinical course of the patient DVT prophylaxis: Subcutaneous heparin GI Prophylaxis: Pepcid PT/OT: Pending Prognosis is guarded
[2024-07-12] MEDS: LINAGLIPTIN 5 MG TABLET PO SCH (13:39)
[2024-07-12] MEDS: GLIMEPIRIDE 1 MG TAB PO SCH ×2 (13:39→17:49)
[2024-07-12] MEDS: CALCIUM CARBONATE 500 MG CHEWABLE PO SCH (13:39)
[2024-07-12] MEDS: FERROUS SULFATE 325 MG TAB PO SCH (13:39)
[2024-07-12] MEDS: ASPIRIN 81 MG PO SCH (13:39)
[2024-07-12] MEDS: FUROSEMIDE 20 MG TAB PO SCH (13:40)
[2024-07-12] MEDS: CHOLECALCIFEROL 10 MCG (400 IU) TABLET PO SCH (13:40)
[2024-07-12] MEDS ORDERED: POTASSIUM CHLORIDE ER 10 MEQ TAB.ER.PRT PO SCH (14:00)
--- NOTE | 2024-07-12 14:20 | CA ---
Transthoracic Echo Report Name: Kenzie Mcintyre Age: 68 Gender: F : 1955 Exam Date: 07/12/2024 13:19 Exam Location: [facility] Ht (in): 61 Wt (lb): 285 Ordering Physician: Jaylen Quiroz MD ([id number]) Attending/Referring Phys: Dental Assisting Instructor Katlin Garcia RDCS Procedure CPT: Indications: LE edema, sob on exertion Cardiac Hx: stent Technical Quality: Fair Contrast 1: Total Dose (mL): Contrast 2: Total Dose (mL): MEASUREMENTS (Male / Female) Normal Values 2D ECHO LV Diastolic Diameter PLAX 5.2 cm 4.2 - 5.9 / 3.9 - 5.3 cm LV Systolic Diameter PLAX 3.3 cm IVS Diastolic Thickness 1.2 cm 0.6 - 1.0 / 0.6 - 0.9 cm LVPW Diastolic Thickness 1.1 cm 0.6 - 1.0 / 0.6 - 0.9 cm LV Relative Wall Thickness 0.4 RV Internal Dim ED PLAX 3.2 cm LA Systolic Diameter LX 3.9 cm 3.0 - 4.0 / 2.7 - 3.8 cm LV Diastolic Volume MOD BP 83.5 cm??? 67 - 155 / 56 - 104 cm??? LV Systolic Volume MOD BP 35.8 cm??? - 58 / 19 - 49 cm??? LV Ejection Fraction MOD BP 57.1 % >= 55 % LV Cardiac Index MOD BP 1794.3 cm???/min???m??? LV Diastolic Volume MOD 4C 85.1 cm??? LV Systolic Volume MOD 4C 31.7 cm??? LV Ejection Fraction MOD 4C 62.8 % LV Cardiac Index MOD 4C 2007.8 cm???/min???m??? LV Diastolic Length 4C 7.7 cm LV Systolic Length 4C 7.0 cm LV Diastolic Volume MOD 2C 73.7 cm??? LV Systolic Volume MOD 2C 34.4 cm??? LV Ejection Fraction MOD 2C 53.3 % LV Cardiac Index MOD 2C 1475.2 cm???/min???m??? LV Diastolic Length 2C 6.9 cm LV Systolic Length 2C 5.5 cm LA Volume 67.0 cm??? 18 - 58 / 22 - 52 cm??? LA Volume Index 27.4 cm???/m??? 16 - 28 cm???/m??? M-MODE Aortic Root Diameter MM 2.8 cm AV Cusp Separation MM 2.0 cm DOPPLER AV Peak Velocity 169.3 cm/s AV Peak Gradient 11.5 mmHg MV Area PHT 4.6 cm??? Mitral E Point Velocity 109.3 cm/s Mitral A Point Velocity 109.8 cm/s Mitral E to A Ratio 1.0 MV Deceleration Time 165.8 ms TR Peak Velocity 280.4 cm/s TR Peak Gradient 31.4 mmHg Right Ventricular Systolic Press 36.1 mmHg FINDINGS Left Ventricle Left ventricular ejection fraction is estimated at 55-60 %. Mildly increased septal wall thickness. Mildly increased posterior wall thickness. No obvious regional wall motion abnormalities. Right Ventricle Normal right ventricular size and function. Mild pulmonary hypertension. Right Atrium Normal right atrial size. No right atrial thrombus or mass seen. Left Atrium Moderately increased left atrial volume. Mildly increased left atrial area. Mitral Valve Structurally normal mitral valve. No mitral stenosis, regurgitation or prolapse. Aortic Valve Trileaflet aortic valve. No aortic valve stenosis or regurgitation. Tricuspid Valve Structurally normal tricuspid valve. Trace to mild tricuspid regurgitation. Pulmonic Valve Structurally normal pulmonic valve. No pulmonic regurgitation. Pericardium No pericardial effusion. Aorta Normal size aortic root and proximal ascending aorta. CONCLUSIONS LVH with preserved systolic function Previewed by: Dr. Jaylen Quiroz MD (Electronically Signed) Final Date: 12 July 2024 14:19
[2024-07-12] MEDS ORDERED: DEXTROSE 50% SYRINGE 50 ML IVP PRN ×2 (15:03)
[2024-07-12 17:23] LABS: Glucose,Whole Blood 169 mg/dL (70-110)
[2024-07-12] MEDS: GLIMEPIRIDE 0.5 MG TAB PO SCH (17:49)
[2024-07-12] MEDS: INSULIN ASPART (NovoLOG) 100 UNIT/ML VIAL SQ SCH (17:53)
[2024-07-12 20:40] LABS: Glucose,Whole Blood 97 mg/dL (70-110)
[2024-07-13 05:55] LABS: Glucose,Whole Blood 81 mg/dL (70-110)
[2024-07-13] MEDS: FAMOTIDINE 20 MG TAB PO SCH (08:55)
--- NOTE | 2024-07-13 09:49 | P.CONS ---
History of Present Illness - Reason for Consult Consult date: 07/12/24 Cellulitis Requesting physician: Gigi Johnson - Chief Complaint Increasing swelling to the leg and redness X few days - History of Present Illness Patient is a 68-year-old female with a past medical history significant for coronary artery disease diabetes mellitus hypertension hyperlipidemia reflux osteoarthritis presenting to the hospital for evaluation of increasing swelling to bilateral lower extremity in this patient symptom has been getting worse over the last 2 to 3 days patient mention her legs was significantly swollen as well as right has been complaining of pain to the lower extremity mostly dull aching to sharp mild to moderate intensity without any radiation and was painful to touch patient did have some chills but denies high- grade fever also complaining of some chest pain and shortness of breath on presentation to the hospital the patient was afebrile no fever have been called subsequently patient was not tachycardic hypotensive or hypoxic patient did have elevated white count of 11.7 with a left shift creatinine 0.92 electrolytes has been normal liver isms are normal influenza RSV COVID testing was negative patient did have a CT angiogram of the chest that was negative for central PE no evidence of any consolidation patient did have venous Doppler negative for DVT infectious he was consulted concerning for cellulitis and need for antibiotic therapy Review of Systems Positive point and negatives has been mentioned in the HPI, complete review of systems was performed and all other systems are negative Past Medical History Past Medical History: Coronary Artery Disease (CAD), Chest Pain / Angina, Diabetes Mellitus, GERD/Reflux, Hyperlipidemia, Hypertension, Myocardial Infarction ([place]), Osteoarthritis ([place]), Skin Disorder Additional Past Medical History / Comment(s): fell 03-15- fx rt humerus/sling. ECZEMA, pt stated she needs sterile sheets- has had rash and swelling in past to detergents/bleach used ., IBS, DDD, gastroparesis, carapal tunnel lisette., kidney stones. Last Myocardial Infarction Date:: [place] X 3 LAST ONE 2006 History of Any Multi-Drug Resistant Organisms: MRSA Year Discovered:: 01/01/16 MDRO Source:: right leg Past Surgical History: Appendectomy, Section, Cholecystectomy, Heart Catheterization With Stent, Hysterectomy, Tonsillectomy Additional Past Surgical History / Comment(s): breast biopsy, D & C x2, tumor right shoulder removed; lithotripsy Past Anesthesia/Blood Transfusion Reactions: Previous Problems w/ Anesthesia Additional Past Anesthesia/Blood Transfusion Reaction / Comm: TENDS TO HAVE PANIC ATTACKS WHEN COMING OUT OF ANESTHESIA Date of Last Stent Placement:: 2006 Past Psychological History: Anxiety, Depression, Panic Disorder, PTSD Additional Psychological History / Comment(s): pt lives alone in home. was to start home care services 03-18-18 thru [facility] but was admitted to hospital. Smoking Status: Former smoker Past Alcohol Use History: None Reported Additional Past Alcohol Use History / Comment(s): started smoking 1970,quit smoking 1982, smoked 1-3ppd Past Drug Use History: None Reported - Past Family History Mother Family Medical History: Cancer Additional Family Medical History / Comment(s): unsure which type of cancer Father Family Medical History: Coronary Artery Disease (CAD), Myocardial Infarction ([place]) Medications and Allergies Home Medications Medication Instructions Recorded Confirmed Type Calcium Carbonate [Calcium] 600 mg PO DAILY@1400 01/01/16 07/11/24 History Multivit-Min/Iron/Folic/Lutein 1 tab PO HS@0000 01/01/16 07/11/24 History [Centrum Silver Women Tablet] Ferrous Sulfate [Feosol] 325 mg PO DAILY@1400 06/05/16 07/11/24 History Furosemide [Lasix] 40 mg PO BID@0900,1600 07/27/16 07/11/24 History Acetaminophen [Tylenol 8 Hour] 650 mg PO Q8H PRN 12/26/16 07/11/24 History Gabapentin 600 mg PO TID@0000,0900,1600 12/26/16 07/11/24 History Dapagliflozin Propanediol [Farxiga] 10 mg PO DAILY@1600 04/29/17 07/11/24 History traZODone HCL 200 mg PO HS@0000 04/29/17 07/11/24 History sitaGLIPtin [Januvia] 100 mg PO DAILY@1400 07/24/17 07/11/24 History Glimepiride [Amaryl] 1 mg PO DAILY@1400 02/20/18 07/11/24 History Loratadine [Claritin] 10 mg PO DAILY@0900 02/20/18 07/11/24 History Aspirin 81 mg PO DAILY@1400 03/15/18 07/11/24 History Atorvastatin Calcium [Lipitor] 80 mg PO HS@0000 03/15/18 07/11/24 History Ezetimibe [Zetia] 10 mg PO DAILY@1600 03/15/18 07/11/24 History Citalopram Hydrobromide [CeleXA] 10 mg PO TID@0900,1600,1900 10/16/22 07/11/24 History Famotidine [Pepcid] 20 mg PO BID@0000,1400 10/16/22 07/11/24 History Furosemide [Lasix] 40 mg PO DAILY@1400 10/16/22 07/11/24 History Insulin Degludec [Tresiba 52 units SQ DAILY@0900 10/16/22 07/11/24 History Flextouch U-100 Pen] Levothyroxine Sodium [Synthroid] 75 mcg PO DAILY@0900 10/16/22 07/11/24 History Mupirocin 2% Oint [Bactroban 2% 1 applic TOPICAL BID PRN 10/16/22 07/11/24 History Oint] calcium polycarbophiL [Fiber-Lax] 625 mg PO HS@0000 10/16/22 07/11/24 History clonazePAM 0.5 mg PO DIRECTED PRN 10/16/22 07/11/24 History hydrOXYzine HCL [Atarax] 25 mg PO DAILY@0900 PRN 10/16/22 07/11/24 History Acetaminophen [Tylenol 8 Hour] 650 mg PO HS@0000 07/11/24 07/11/24 History Ammonium Lactate Lotion 1 applic TOPICAL BID PRN 07/11/24 07/11/24 History [Lac-Hydrin 12% Lotion] Aspercream 4% Roll On 1 applic TOPICAL DAILY PRN 07/11/24 07/11/24 History Bactine Max 1 applic TOPICAL DAILY PRN 07/11/24 07/11/24 History Calcium Acetate-Aluminum Sulf 1 packet TOPICAL DAILY PRN 07/11/24 07/11/24 History [[place] Packet] Cholecalciferol [Vitamin D3 (10 15 mcg PO DAILY@1400 07/11/24 07/11/24 History Mcg = 400 Iu)] Clobetasol Propionate [Temovate 1 applic TOPICAL BID PRN 07/11/24 07/11/24 History 0.05% Cream] Glimepiride [Amaryl] 0.5 mg PO DAILY@1600 07/11/24 07/11/24 History Magnesium Oxide [Mag-Ox] 250 mg PO HS@1900 07/11/24 07/11/24 History Pentoxifylline [TRENtal] 400 mg PO TID@0000,0900,1600 07/11/24 07/11/24 History Potassium Chloride 10 meq PO DAILY@1400 07/11/24 07/11/24 History busPIRone HCl [Buspar] 10 mg PO BID@0900,1900 07/11/24 07/11/24 History Allergies Allergy/AdvReac Type Severity Reaction Status Date / Time ciprofloxacin [From Cipro] Allergy Anaphylaxis Verified 07/12/24 18:04 diazepam [From Valium] Allergy Rash/Hives Verified 07/12/24 18:04 metronidazole [From Flagyl] Allergy Anaphylaxis Verified 07/12/24 18:04 Sulfa (Sulfonamide Allergy Rash/Hives Verified 07/12/24 18:04 Antibiotics) doxycycline AdvReac Nausea & Verified 07/12/24 18:04 Vomiting & Diarrhea metoclopramide HCl AdvReac Diarrhea Verified 07/12/24 18:04 [From Reglan] [facility]ENS USED AT [facility] Allergy Rash/Hives Uncoded 07/12/24 18:04 HOSPITAL Physical Exam Vitals: Vital Signs Temp Pulse Pulse Resp BP BP BP 07/12/24 14:05 97.6 F 86 16 129/63 07/12/24 07:00 98.2 F 87 17 124/54 07/12/24 04:08 98.2 F 91 17 140/82 07/12/24 03:34 92 18 134/61 07/12/24 01:14 68 18 140/68 07/11/24 19:05 92 18 187/78 07/11/24 17:50 97.6 F 89 16 150/61 07/11/24 17:10 74 18 137/69 Pulse Ox 07/12/24 14:05 93 L 07/12/24 07:00 94 L 07/12/24 04:08 92 L 07/12/24 03:34 94 L 07/12/24 01:14 97 07/11/24 19:05 95 07/11/24 17:50 95 07/11/24 17:10 94 L Intake and Output 07/12/24 07/12/24 07/12/24 06:59 14:59 22:59 Other: Voiding Method Toilet # Voids 2 2 Weight 129.274 kg GENERAL DESCRIPTION: Elderly female e lying in bed, no distress. No tachypnea or accessory muscle of respiration use. HEENT: Shows Pallor , no scleral icterus. Oral mucous membrane is dry. No pharyngeal erythema or thrush NECK: Trachea central, no thyromegaly. LUNGS: Unlabored breathing. Decreased breath sound at the base HEART: S1, S2, regular rate and rhythm. No loud murmur ABDOMEN: Soft, no tenderness , guarding or rigidity, no organomegaly EXTREMITIES: Diffuse swelling to bilateral lower extremity with some erythema which is warm and tender to touch SKIN: No rash, no masses palpable. NEUROLOGICAL: The patient is awake, alert, oriented x3, mood and affect normal. Results CBC & Chem 7: 07/11/24 13:48 07/11/24 13:48 Labs: Abnormal Lab Results - Last 24 Hours (Table) 07/12/24 07/12/24 Range/Units 05:44 11:38 POC Glucose (mg/dL) 123 H 140 H (70-110) mg/dL Assessment and Plan (1) Bilateral lower leg cellulitis Current Visit: Yes Status: Acute Code(s): L03.116 - CELLULITIS OF LEFT LOWER LIMB; L03.115 - CELLULITIS OF RIGHT LOWER LIMB SNOMED Code(s): 713670248 (2) Allergy to multiple antibiotics Current Visit: Yes Status: Acute Code(s): Z88.1 - ALLERGY STATUS TO OTHER ANTIBIOTIC AGENTS SNOMED Code(s): 134401805 Plan: 1patient presented to hospital with increasing swelling to bilateral lower extremity also complaining of legs being red warm and tender to touch and did have elevated white count concerning for component of cellulitis in this patient with diffuse swelling redness likely streptococcal disease 2-patient with multiple antibiotic ALLERGIES that would limit the number of a ntibiotic safe to use 3-patient has been advised Francesco wrap for compression to get the swelling down 4-we will start the patient cefazolin 2 g every 8 hours We will follow on clinical condition and cultures to further adjust medication if needed Thank you for this consultation we will follow the patient along with you Dictation was produced using [employer] dictation software. please excuse any grammatical, word or spelling errors. Time with Patient: Greater than 30
--- NOTE | 2024-07-13 10:16 | PN ---
PROGRESS NOTE SUBJECTIVE: Kenzie is a 68-year-old lady who was admitted to the hospital primarily with bilateral cellulitis and leg edema, probably an element of lymphedema. This morning, she is feeling better, free of any symptoms. PHYSICAL EXAMINATION: GENERAL: Afebrile. VITAL SIGNS: Heart rate is 80 beats per minute. Blood pressure is 140/82, respiratory rate is 18. CHEST: Reveals good air entry bilaterally. HEART: Reveals first and second heart sounds. No gallop. EXTREMITIES: Reveal bilateral 2+ edema and cellulitis. CURRENT MEDICATIONS: Include: 1. Aspirin. 2. Lipitor. 3. Keflex. 4. Farxiga. 5. Zetia. 6. Lasix. 7. Neurontin. 8. Insulin. 9. Aldactone. An echocardiogram on this admission revealed normal LV systolic function. ASSESSMENT: Leg edema with cellulitis. PLAN: Continue current dose of Lasix. Keep legs elevated. Continue the antibiotics. Stable from cardiac standpoint to be discharged home. If the patient is here, we will see her tomorrow. MMODL / IJN: [id number] /
[2024-07-13 12:09] LABS: Glucose,Whole Blood 134 mg/dL (70-110)
[2024-07-13] MEDS: GLIMEPIRIDE 1 MG TAB PO SCH (17:11)
[2024-07-13] MEDS: hydrOXYzine HCL 25 MG TAB PO PRN (17:12)
[2024-07-13 17:16] LABS: Glucose,Whole Blood 139 mg/dL (70-110)
[2024-07-13 20:19] LABS: Glucose,Whole Blood 124 mg/dL (70-110)
--- NOTE | 2024-07-13 21:22 | P.PN ---
Subjective This is a pleasant 68 years old female with past medical history of multiple medical problems as below She presents because of leg swelling which was concerning her, she called her PCP office and talk to nurse practitioner Patricia Williamson who referred her to the hospital to lower out DVT On admission patient also has been complaining from chest pain on and off for a while now, it is felt like center or someone punched her in her chest or dull wi th no significant precipitating or relieving factors. Complains from little sore throat Also noticed that both distal legs are erythematous and red and tender and swollen. Patient states that she has this problem for about 5 years on and off, she follow-up with unit assistant Dr. Sumner, who last see him about 4 months ago 's nurse practitioner and prescribe her some medication which helped. As per patient her leg swelling and redness started getting worse over the last 2 weeks, really worse over 1 week. She states it is worse than ever before Patient denies shortness of breath or coughing. No specific GI or/ symptoms. No fever or chills She denies smoking alcohol or illicit drugs On admission her blood pressure was elevated 187/78. Rest of vitals are unremarkable Labs were unremarkable with CBC, BMP, LFT, INR except for mildly elevated white cell count at 11.7 Troponin x 3 are negative. D-dimer was slightly elevated at 0.76, lactic acid was high 3.5 came back to normal EKG showing sinus rhythm at [address]-T changes Ultrasound of the leg is negative for DVT CT of the chest is negative for PE but there is lung nodules. 07/13 Patient with no chest pain Both legs are all Francesco wrap, states the pain is better Patient was cleared for discharge by ID team today on Keflex x 7 days However patient did not feel comfortable leaving today and wants to wait till tomorrow patient will benefit from pulmonary evaluation as an outpatient for her pulmonary nodule echocardiogram ejection fraction 55 to 60% Objective - Vital Signs Vital signs: Vital Signs Temp 97.6 F 07/13/24 07:00 Pulse 80 07/13/24 07:00 Resp 17 07/13/24 07:00 BP 148/80 07/13/24 07:00 Pulse Ox 93 L 07/13/24 07:00 FiO2 Intake & Output 07/12/24 07/13/24 07/13/24 18:59 06:59 18:59 Intake Total 0 Balance 0 Intake: Oral 0 Other: Voiding Method Toilet Toilet # Voids 2 3 - Exam GENERAL: The patient is alert and oriented x3, not in any acute distress. Well developed, well nourished. HEENT: Pupils are round and equally reacting to light. EOMI. No scleral icterus. No conjunctival pallor. Normocephalic, atraumatic. No pharyngeal erythema. No thyromegaly. CARDIOVASCULAR: S1 and S2 present. No murmurs, rubs, or gallops. PULMONARY: Chest is clear to auscultation, no wheezing , no crackles. ABDOMEN: Soft, nontender, nondistended, normoactive bowel sounds. No palpable organomegaly. MUSCULOSKELETAL: No joint swelling or deformity. -EXTREMITIES: No cyanosis, clubbing, or pedal edema. Bilateral lower extremity and distal leg redness swelling and tenderness suspicious for cellulitis NEUROLOGICAL: Gross neurological examination did not reveal any focal deficits. SKIN: No rashes. no petechiae. - Labs CBC & Chem 7: 07/11/24 13:48 07/11/24 13:48 Labs: Abnormal Lab Results - Last 24 Hours (Table) 07/11/24 07/12/24 07/13/24 Range/Units 13:48 17:21 12:06 POC Glucose (mg/dL) 169 H 134 H (70-110) mg/dL Hemoglobin A1c 6.3 H (<=6.0) % Assessment and Plan Assessment: Chest pain, most likely musculoskeletal. CTA is negative for PE. Cardiac causes ruled out Bilateral lower extremity dermatitis with possible elements of bacterial superinfection cannot be ruled out Mildly elevated D-dimer with negative CTA for PE and ultrasound for DVT Morbid obesity with BMI of 53.8 Hypertension Mllung nodules Plan: Patient started on cefazolin and to be discharged on Keflex x 7 days per ID team [employer] already evaluated the patient Labs and medication were reviewed.. Continue same treatment. Continue with symptomatic treatment. Resume home medication. Monitor labs and vitals. DVT and GI prophylaxis. Further recommendations as per clinical course of the patient DVT prophylaxis: Subcutaneous heparin GI Prophylaxis: Pepcid PT/OT: Pending Prognosis is guarded Possible discharge in 24 to 48 hours
[2024-07-14 02:51] VITALS: TEMP 97.6
[2024-07-14 05:45] LABS: Glucose,Whole Blood 97 mg/dL (70-110)
[2024-07-14 07:29] VITALS: BP 144/76; PULSE 77; RESP 18
[2024-07-14 12:06] LABS: Glucose,Whole Blood 135 mg/dL (70-110)
--- NOTE | 2024-07-14 12:49 | P.PN ---
Subjective Progress Note Date: 07/13/24 Principal diagnosis: Reason for follow-up is bilateral lower extremity cellulitis Patient is a 68-year-old female with a past medical history significant for coronary artery disease diabetes mellitus hypertension hyperlipidemia reflux osteoarthritis presenting to the hospital for evaluation of increasing swelling to bilateral lower extremity, patient did have erythema and elevated white count concerning for cellulitis. On today's evaluation that is 07/13/2024,the patient denies any fever or any chills, patient is breathing comfortably on room air, the patient denies chest pain shortness of breath and no significant cough, patient denies abdominal pain, no nausea vomiting or diarrhea. Pain and swelling to the lower extremity has decreased patient was able to tolerate Francesco wrap for compression No labs drawn today Objective - Vital Signs Vital signs: Vital Signs Temp 98.0 F 07/13/24 14:56 Pulse 78 07/13/24 14:56 Resp 16 07/13/24 14:56 BP 156/74 07/13/24 14:56 Pulse Ox 94 L 07/13/24 14:56 FiO2 Intake & Output 07/12/24 07/13/24 07/13/24 18:59 06:59 18:59 Intake Total 240 Balance 240 Intake: Oral 240 Other: Voiding Method Toilet Toilet # Voids 2 3 - Exam GENERAL DESCRIPTION: An elderly female up in bed in no distress RESPIRATORY SYSTEM: Unlabored breathing , decreased breath sounds at bases HEART: S1 S2 regular rate and rhythm , ABDOMEN: Soft , no tenderness EXTREMITIES: Bilateral legs are currently wrapped in Francesco wrap - Labs CBC & Chem 7: 07/11/24 13:48 07/11/24 13:48 Labs: Abnormal Lab Results - Last 24 Hours (Table) 07/11/24 07/12/24 07/13/24 Range/Units 13:48 17:21 12:06 POC Glucose (mg/dL) 169 H 134 H (70-110) mg/dL Hemoglobin A1c 6.3 H (<=6.0) % Assessment and Plan (1) Bilateral lower leg cellulitis Current Visit: Yes Status: Acute Code(s): L03.116 - CELLULITIS OF LEFT LOWER LIMB; L03.115 - CELLULITIS OF RIGHT LOWER LIMB SNOMED Code(s): 842878298 (2) Allergy to multiple antibiotics Current Visit: Yes Status: Acute Code(s): Z88.1 - ALLERGY STATUS TO OTHER ANTIBIOTIC AGENTS SNOMED Code(s): 192342718 Plan: 1patient presented to hospital with increasing swelling to bilateral lower extremity also complaining of legs being red warm and tender to touch and did have elevated white count concerning for component of cellulitis in this patient with diffuse swelling redness likely streptococcal disease 2-patient with multiple antibiotic ALLERGIES that would limit the number of antibiotic safe to use 3-patient seem to have tolerated Francesco wrap for compression and will be continued 4-patient to continue with cefazolin 2 g every 8 hours while inpatient finishing therapy with oral Keflex x 7 days that was discussed with the nursing staff working on possible discharge today Dictation was produced using [employer] dictation software. please excuse any grammatical, word or spelling errors. Time with Patient: Less than 30
--- NOTE | 2024-07-14 12:50 | P.PN ---
Subjective Progress Note Date: 07/14/24 Principal diagnosis: Reason for follow-up is bilateral lower extremity cellulitis Patient is a 68-year-old female with a past medical history significant for coronary artery disease diabetes mellitus hypertension hyperlipidemia reflux osteoarthritis presenting to the hospital for evaluation of increasing swelling to bilateral lower extremity, patient did have erythema and elevated white count concerning for cellulitis. On today's evaluation that is 07/14/2024,the patient remains to be afebrile, patient is on room air not requiring supplemental oxygen and denies any shortness of breath no chest pain or cough.Patient denies having any nausea or vomiting, no abdominal pain and no diarrhea has been reported, patient overall swelling and discomfort lower extremity has decreased. no new lab has been repeated today Objective - Vital Signs Vital signs: Vital Signs Temp 97.6 F 07/14/24 07:00 Pulse 77 07/14/24 07:00 Resp 18 07/14/24 07:00 BP 144/76 07/14/24 07:00 Pulse Ox 94 L 07/14/24 07:00 FiO2 Intake & Output 07/13/24 07/14/24 07/14/24 18:59 06:59 18:59 Intake Total 240 118 Balance 240 118 Intake: Oral 240 118 Other: # Voids 3 2 - Exam GENERAL DESCRIPTION: An elderly female up in bed in no distress RESPIRATORY SYSTEM: Unlabored breathing , decreased breath sounds at bases HEART: S1 S2 regular rate and rhythm , ABDOMEN: Soft , no tenderness EXTREMITIES: Bilateral legs are currently wrapped in Francesco wrap, no drainage - Labs CBC & Chem 7: 07/11/24 13:48 07/11/24 13:48 Labs: Abnormal Lab Results - Last 24 Hours (Table) 07/13/24 07/13/24 07/14/24 Range/Units 17:15 20:18 12:04 POC Glucose (mg/dL) 139 H 124 H 135 H (70-110) mg/dL Assessment and Plan (1) Bilateral lower leg cellulitis Current Visit: Yes Status: Acute Code(s): L03.116 - CELLULITIS OF LEFT LOWER LIMB; L03.115 - CELLULITIS OF RIGHT LOWER LIMB SNOMED Code(s): 254772205 (2) Allergy to multiple antibiotics Current Visit: Yes Status: Acute Code(s): Z88.1 - ALLERGY STATUS TO OTHER ANTIBIOTIC AGENTS SNOMED Code(s): 557372196 Plan: 1patient presented to hospital with increasing swelling to bilateral lower extremity also complaining of legs being red warm and tender to touch and did have elevated white count concerning for component of cellulitis in this patient with diffuse swelling redness likely streptococcal disease 2-patient with multiple antibiotic ALLERGIES that would limit the number of antibiotic safe to use 3-patient seem to have tolerated Francesco wrap for compression and will be continued 4-patient did have improvement lower extremity swelling and redness currently on cefazolin with the plan to finish therapy with oral Keflex x 7 days on discharge Dictation was produced using [employer] dictation software. please excuse any gr ammatical, word or spelling errors.
--- NOTE | 2024-07-14 21:04 | PN ---
PROGRESS NOTE SUBJECTIVE: Kenzie is a 68-year-old lady who was admitted to hospital with cellulitis. She is feeling better. She had been switched to oral antibiotics and hopefully home today. She is currently on Lasix antibiotics, spironolactone. The leg edema and cellulitis have improved. OBJECTIVE: GENERAL: Comfortable at rest. VITAL SIGNS: Stable. NECK: There is no jugular venous distention. CHEST: Reveals good air entry bilaterally. HEART: Reveals first and second heart sounds. No gallop. ABDOMEN: Soft. EXTREMITIES: Reveals bilateral edema and cellulitis. ASSESSMENT AND PLAN: Lower extremity swelling, edema and cellulitis. I will continue the antibiotics, diuretics. Arrange follow up with Dr. Calderon on discharge. MMODL / IJN: [id number] /
--- NOTE | 2024-07-14 23:32 | P.DS ---
Providers Date of admission: 07/14/24 07:39 Attending physician: Davey Cunningham Consults: 07/11/24 17:49 Consult Physician Routine Consulting Provider: Jaylen Quiroz Consult Reason/Comments: chest pain Do you want consulting provider notified?: Yes, Notify in am 07/12/24 13:14 Consult Physician Routine Consulting Provider: Nader Spaulding Consult Reason/Comments: dermatitis , possible cellulitis Do you want consulting provider notified?: Yes Primary care physician: Vinod Dubois Hospital Course: Diagnoses: Chest pain, most likely musculoskeletal. CTA is negative for PE. Cardiac causes ruled out Bilateral lower extremity dermatitis with possible elements of bacterial superinfection cellulitis responded very well to antibiotics Pulmonary nodule, patient informed with risk of cancer explained for the patient and she agrees for follow-up with computer tech Mildly elevated D-dimer with negative CTA for PE and ultrasound for DVT Morbid obesity with BMI of 53.8 Hypertension [facility] Hospital course: This is a pleasant 68 years old female with past medical history of multiple medical problems as below She presents because of leg swelling which was concerning her, she called her PCP office and talk to nurse practitioner Patricia Williamson who referred her to the hospital to lower out DVT On admission patient also has been complaining from chest pain on and off for a while now, it is felt like center or someone punched her in her chest or dull with no significant precipitating or relieving factors. Patient was evaluated by bottler helper and cardiac causes ruled out. CT of the chest was negative for PE but shows pulmonary nodules, patient was informed that risks included but not limited to cancer explained for the patient extensively and she close to close outpatient follow-up with Dr. Lepe and she agrees with the appointment made for her. Patient also with evidence of bilateral lower extremity cellulitis, infectious disease consult obtained and patient is treated with cefazolin within 48 hours there was significant improvement and patient was cleared for discharge on 7 days of Keflex Patient denies any other new complaint and she agrees to go home today. Patient was cleared for discharge by both ID team and bottler helper. Problems and management plan were discussed with the patient and he verbalized understanding and acceptance Patient was found stable and can be discharged home in guarded prognosis however he needs follow-up as an outpatient. Patient was instructed to follow up with PCP within one week and patient agrees Patient agrees to follow-up with computer tech Dr. Soliz on 07/[address] Le on 07/21. Physical exam Gen: patient is a AAOx3, no distress CVS: S1-S2, RRR, no murmur Lungs: B/L CTA, no wheezing Abdomen: soft, no distention, no tenderness, positive bowel sounds Extremity: no leg edema or induration Time spent more than 35 minutes Plan - Discharge Summary Discharge Rx Participant: No New Discharge Prescriptions: New Cephalexin [Keflex] 500 mg PO Q8HR 7 Days #21 cap Continue Multivit-Min/Iron/Folic/Lutein [Centrum Silver Women Tablet] 1 tab PO HS@0000 Calcium Carbonate [Calcium] 600 mg PO DAILY@1400 Ferrous Sulfate [Feosol] 325 mg PO DAILY@1400 Furosemide [Lasix] 40 mg PO BID@0900,1600 Acetaminophen [Tylenol 8 Hour] 650 mg PO Q8H PRN PRN Reason: Pain Gabapentin 600 mg PO TID@0000,0900,1600 traZODone HCL 200 mg PO HS@0000 Dapagliflozin Propanediol [Farxiga] 10 mg PO DAILY@1600 sitaGLIPtin [Januvia] 100 mg PO DAILY@1400 Glimepiride [Amaryl] 1 mg PO DAILY@1400 Loratadine [Claritin] 10 mg PO DAILY@0900 Atorvastatin Calcium [Lipitor] 80 mg PO HS@0000 Aspirin 81 mg PO DAILY@1400 Ezetimibe [Zetia] 10 mg PO DAILY@1600 hydrOXYzine HCL [Atarax] 25 mg PO DAILY@0900 PRN PRN Reason: Anxiety Levothyroxine Sodium [Synthroid] 75 mcg PO DAILY@0900 calcium polycarbophiL [Fiber-Lax] 625 mg PO HS@0000 Aspercream 4% Roll On 1 applic TOPICAL DAILY PRN PRN Reason: Pain Bactine Max 1 applic TOPICAL DAILY PRN PRN Reason: open sores Ammonium Lactate Lotion [Lac-Hydrin 12% Lotion] 1 applic TOPICAL BID PRN PRN Reason: feet Clobetasol Propionate [Temovate 0.05% Cream] 1 applic TOPICAL BID PRN PRN Reason: legs Magnesium Oxide [Mag-Ox] 250 mg PO HS@1900 Pentoxifylline [TRENtal] 400 mg PO TID@0000,0900,1600 Mupirocin 2% Oint [Bactroban 2% Oint] 1 applic TOPICAL BID PRN PRN Reason: cellulitis on legs Insulin Degludec [Tresiba Flextouch U-100 Pen] 52 units SQ DAILY@0900 Furosemide [Lasix] 40 mg PO DAILY@1400 Famotidine [Pepcid] 20 mg PO BID@0000,1400 clonazePAM 0.5 mg PO DIRECTED PRN PRN Reason: Anxiety Citalopram Hydrobromide [CeleXA] 10 mg PO TID@0900,1600,1900 Acetaminophen [Tylenol 8 Hour] 650 mg PO HS@0000 busPIRone HCl [Buspar] 10 mg PO BID@0900,1900 Calcium Acetate-Aluminum Sulf [[place] Packet] 1 packet TOPICAL DAILY PRN PRN Reason: Skin Irritation Cholecalciferol [Vitamin D3 (10 Mcg = 400 Iu)] 15 mcg PO DAILY@1400 Glimepiride [Amaryl] 0.5 mg PO DAILY@1600 Potassium Chloride 10 meq PO DAILY@1400 Discharge Medication List Calcium Carbonate [Calcium] 600 mg PO DAILY@1400 01/01/16 [History] Multivit-Min/Iron/Folic/Lutein [Centrum Silver Women Tablet] 1 tab PO HS@0000 01/01/16 [History] Ferrous Sulfate [Feosol] 325 mg PO DAILY@1400 06/05/16 [History] Furosemide [Lasix] 40 mg PO BID@0900,1600 07/27/16 [History] Acetaminophen [Tylenol 8 Hour] 650 mg PO Q8H PRN 12/26/16 [History] Gabapentin 600 mg PO TID@0000,0900,1600 12/26/16 [History] Dapagliflozin Propanediol [Farxiga] 10 mg PO DAILY@1600 04/29/17 [History] traZODone HCL 200 mg PO HS@0000 04/29/17 [History] sitaGLIPtin [Januvia] 100 mg PO DAILY@1400 07/24/17 [History] Glimepiride [Amaryl] 1 mg PO DAILY@1400 02/20/18 [History] Loratadine [Claritin] 10 mg PO DAILY@0900 02/20/18 [History] Aspirin 81 mg PO DAILY@1400 03/15/18 [History] Atorvastatin Calcium [Lipitor] 80 mg PO HS@0000 03/15/18 [History] Ezetimibe [Zetia] 10 mg PO DAILY@1600 03/15/18 [History] Citalopram Hydrobromide [CeleXA] 10 mg PO TID@0900,1600,1900 10/16/22 [History] Famotidine [Pepcid] 20 mg PO BID@0000,1400 10/16/22 [History] Furosemide [Lasix] 40 mg PO DAILY@1400 10/16/22 [History] Insulin Degludec [Tresiba Flextouch U-100 Pen] 52 units SQ DAILY@0910/16/22 [History] Levothyroxine Sodium [Synthroid] 75 mcg PO DAILY@0910/16/22 [History] Mupirocin 2% Oint [Bactroban 2% Oint] 1 applic TOPICAL BID PRN 10/16/22 [History] calcium polycarbophiL [Fiber-Lax] 625 mg PO HS@0000 10/16/22 [History] clonazePAM 0.5 mg PO DIRECTED PRN 10/16/22 [History] hydrOXYzine HCL [Atarax] 25 mg PO DAILY@0900 PRN 10/16/22 [History] Acetaminophen [Tylenol 8 Hour] 650 mg PO HS@0000 07/11/24 [History] Ammonium Lactate Lotion [Lac-Hydrin 12% Lotion] 1 applic TOPICAL BID PRN 06/20 10/10 [History] Aspercream 4% Roll On 1 applic TOPICAL DAILY PRN 07/11/24 [History] Bactine Max 1 applic TOPICAL DAILY PRN 07/11/24 [History] Calcium Acetate-Aluminum Sulf [[place] Packet] 1 packet TOPICAL DAILY PRN 07/11/24 [History] Cholecalciferol [Vitamin D3 (10 Mcg = 400 Iu)] 15 mcg PO DAILY@1400 07/11/24 [History] Clobetasol Propionate [Temovate 0.05% Cream] 1 applic TOPICAL BID PRN 07/11/24 [History] Glimepiride [Amaryl] 0.5 mg PO DAILY@1600 07/11/24 [History] Magnesium Oxide [Mag-Ox] 250 mg PO HS@1900 07/11/24 [History] Pentoxifylline [TRENtal] 400 mg PO TID@0000,0900,1600 07/11/24 [History] Potassium Chloride 10 meq PO DAILY@1400 07/11/24 [History] busPIRone HCl [Buspar] 10 mg PO BID@0900,1900 07/11/24 [History] Cephalexin [Keflex] 500 mg PO Q8HR 7 Days #21 cap 07/13/24 [Rx] Follow up Appointment(s)/Referral(s): Farhat Sumner MD [STAFF PHYSICIAN] - 1 Week Thanh Soliz DO [Doctor of Osteopathic Medicine] - 07/29/24 2:00 pm (lung doctor for your lung nodules ) Vinod Dubois [Primary Care Provider] - 1-2 days Tono Barnard MD [STAFF PHYSICIAN] - 07/21/24 9:00 am (Heart doctor) Patient Instructions/Handouts: Cellulitis (ED), Active Range of Motion Exercises (GEN) Activity/Diet/Wound Care/Special Instructions: heart healthy diet activity is restricted until you see your doctor Discharge/Stand Alone Forms: Who Do I Call?, Community Resources, Outpatient Counseling Discharge Disposition: HOME SELF-CARE
== END 2024-07-14 14:48 | disposition home or self-care (01) | DRG 603 ==
LOC: EC 12:48 → 6NMEDSUR 17:50 → OBSVTOIN 07-14 07:39
PROVIDERS: ADMIT Internal Medicine; ATTEND Internal Medicine
DX: L03.115 Cellulitis of right lower limb (principal); Z68.43 Body mass index [BMI] 50.0-59.9, adult; L03.116 Cellulitis of left lower limb; E11.43 Type 2 diabetes mellitus with diabetic autonomic (poly)neuropathy; E66.01 Morbid (severe) obesity due to excess calories; E78.5 Hyperlipidemia, unspecified; F32.A Depression, unspecified; F41.0 Panic disorder [episodic paroxysmal anxiety]; I89.0 Lymphedema, not elsewhere classified; K31.84 Gastroparesis; L30.9 Dermatitis, unspecified; F43.10 Post-traumatic stress disorder, unspecified; I10 Essential (primary) hypertension; I25.10 Atherosclerotic heart disease of native coronary artery without angina pectoris; Z88.1 Allergy status to other antibiotic agents; I25.2 Old myocardial infarction; Z79.4 Long term (current) use of insulin; Z79.82 Long term (current) use of aspirin; Z79.84 Long term (current) use of oral hypoglycemic drugs; Z79.890 Hormone replacement therapy; Z79.899 Other long term (current) drug therapy; Z87.891 Personal history of nicotine dependence
CPT/HCPCS: 36415; 71275; 80053; 83036; 83605; 83735; 83880; 84484; 85025; 85379; 85610; 85730; 87636; 93005; 93306; 93970; 96365; 99285

== ENCOUNTER → 2024-09-14 | Outpatient (CLI) | payer MEDICARE, OTHER ==
[2024-09-14 20:00] LABS: ALT 26 U/L (8-44); AST 29 U/L (13-35); Albumin/Globulin Ratio 1.54 Ratio (1.60-3.17); Alkaline Phosphatase 116 U/L (41-126); BUN/Creat Ratio 12.09 Ratio (12.00-20.00); Blood Urea Nitrogen 13.3 mg/dL (9.0-27.0); Calcium 9.4 mg/dL (8.7-10.3); Carbon Dioxide 30.4 mmol/L (21.6-31.8); Chloride 100 mmol/L (96-109); Chol/HDL Ratio 3.39 Ratio; Globulin 2.6 g/dL (1.6-3.3); Glucose 150 mg/dL (70-110); LDL Cholesterol,Calculated 57.4 mg/dL (0.0-131.0); Potassium 4.4 mmol/L (3.5-5.5); Sodium 143 mmol/L (135-145); T4, Free (Free Thyroxine) 1.13 ng/dL (0.80-1.80); Total Bilirubin 0.5 mg/dL (0.3-1.2); Total Protein 6.6 g/dL (6.2-8.2)
[2024-09-14 20:23] LABS: Microalbumin Creatinine Ratio <14 mg/g Cr (0-30); Urine Creatinine 83.1 mg/dL (28.0-217.0)
== END | disposition home or self-care (01) ==
LOC: LABWHC1 12:14
PROVIDERS: ATTEND Nurse Practitioner Gerontology
DX: E11.65 Type 2 diabetes mellitus with hyperglycemia (principal); E55.9 Vitamin D deficiency, unspecified; Z79.4 Long term (current) use of insulin
CPT/HCPCS: 36415; 80053; 80061; 82043; 82306; 82570; 83036; 84439; 84443